=== PATIENT | male | born 1960 | race Caucasian/White ===

== ENCOUNTER 2017-03-24 11:16 | Emergency (ER) | payer SELFPAY ==
[2017-03-24] MEDS ORDERED: NS 0.9% 1000 ML* 1,000 ML IV ONE (11:29)
--- NOTE | 2017-03-24 12:11 | RAD ---
INDICATION: Altered mental status. COMPARISON: Comparison is made with a prior chest x-ray study from January 06, 2015. TECHNIQUE: A portable view of the chest was obtained. FINDINGS: The heart is moderately enlarged and unchanged from the prior exam. The lungs are clear. No pleural effusion is seen. IMPRESSION: CARDIOMEGALY, UNCHANGED. NO EVIDENCE FOR ACUTE FINDING.
--- NOTE | 2017-03-24 12:16 | RAD ---
Indication: Confusion. Mental status change. Urinary incontinence. Comparison: No relevant prior exams available on the [facility]. Technique: Noncontrast CT vertex of skull through foramen magnum. Report: Unremarkable cerebral sulci, ventricles, and basal cisterns. Decreased density in the periventricular and subcortical white matter while non-specific is most likely due to chronic microangiopathy. 6 mm chronic lacunar infarct noted at the RIGHT frontal lobe periventricular white matter. Negative for johnston matter white matter obscuration seen in association with mass effect or intra-axial or extra-axial hemorrhage evident. Unremarkable orbital contents. Large special arterial calcifications noted at the skull base. No fracture or suspicious lesion of the calvarium or skull base. Clear visualized paranasal sinuses and mastoid air spaces. Negative for scalp hematoma. IMPRESSION: 1. No acute intracranial process evident. 2. Small chronic lacunar infarct at the RIGHT frontal lobe periventricular white matter. Stigmata of chronic small vessel ischemic disease and central large vessel atherosclerosis.
[2017-03-24 12:37] LABS: Hematocrit 45 % (42-52); Hemoglobin 14.6 g/dl (14.0-18.0); Mean Corpuscular HGB Conc 32 g/dl (31-36); Mean Corpuscular Hemoglobin 28 pg (27-31); Mean Corpuscular Volume 87 fL (80-94); Mean Platelet Volume 8 um3 (7.4-10.4); Red Cell Distribution Width 13 % (10.5-15); White Blood Count 11.8 10^3/ul (3.5-10.8)
[2017-03-24 12:55] LABS: ALT 18 U/L (7-52); Albumin 3.7 g/dL (3.2-5.2); Alkaline Phosphatase 119 U/L (34-104); BUN/Creatinine Ratio 19.5 (8-20); Blood Urea Nitrogen 15 mg/dL (6-24); CO2 Carbon Dioxide 30 mmol/L (22-32); Calcium 9.2 mg/dL (8.6-10.3); Chloride 97 mmol/L (101-111); Creatine Kinase 51 U/L (10-223); EGFR African American 133.4 (>60); EGFR Non-African American 103.8 (>60); Glucose 292 mg/dL (70-100); Sodium 132 mmol/L (133-145); Total Protein 7.7 g/dL (6.4-8.9)
[2017-03-24 12:56] LABS: Troponin I 0.01 ng/mL (<0.04)
[2017-03-24 13:14] LABS: Alcohol < 10 mg/dL (<10)
[2017-03-24 13:29] LABS: Anion Gap 5 mmol/L (2-11); Potassium 4.2 mmol/L (3.5-5.0); TSH (Thyroid Stimulating Horm) 0.91 mcIU/mL (0.34-5.60)
[2017-03-24 13:30] LABS: AST 13 U/L (13-39)
[2017-03-24 13:32] LABS: Urine Bacteria Absent (Absent); Urine Bilirubin Negative (Negative); Urine Glucose 3+(>=500 mg/dL) (Negative); Urine Nitrite Negative (Negative)
[2017-03-24 14:09] LABS: Magnesium 1.8 mg/dL (1.9-2.7)
[2017-03-24] MEDS ORDERED: Insulin REGULAR(*) 1 UNITS UNIT IV PUSH ONE (14:19)
[2017-03-24 14:35] LABS: Benzodiazepine Urine Screen None Detected (None Detect)
[2017-03-24 15:23] VITALS: BP 196/101
[2017-03-24] MEDS ORDERED: Lisinopril TAB* 5 MG PO ONE (15:26)
--- NOTE | 2017-03-25 16:00 | ED ---
Joseluis Quezada Auryana, scribed for Otf Rangel MD on 03/24/17 at 1156 . Neurological HPI - HPI Summary HPI Summary: 57 year old male presents to the ED with increased confusion and disorientation. Per family - concerned with lapses in memory and fine motor tasks- unable to keep schedule , and son reports that father typically has a very regimented schedule. Family state that symptoms first started (02/02/17)- unsure what may have caused the symptoms. Son reports that he visits him every few days and he has been getting progressively worse. Patient denies any fever, chills, cough, chest pain, SOB, or any headache. Patients family reports that there may be possible tick exposure. PMHx is significant for atrial fibrillation, HTN, and DM. FHx is significant for thyroid problems, CHF , and dementia. - History of Current Complaint Chief Complaint: EDNeurologicalDeficit Stated Complaint: CONFUSION Time Seen by Provider: 03/24/17 11:32 Last Known Well Date: 02/02/17 Hx Obtained From: Patient Onset/Duration: Gradual Onset, Still Present Timing: Constant Onset Severity: Moderate Current Severity: Moderate Neurological Deficit Location: Generalized Pain Intensity: 0 Pain Scale Used: 0-10 Numeric Character: Confusion Associated Signs and Symptoms: Positive: Memory Loss - SHORT TERM, Confusion. Negative: Headache - Allergy/Home Medications Allergies/Adverse Reactions: Allergies Allergy/AdvReac Type Severity Reaction Status Date / Time No Known Allergies Allergy Verified 01/05/15 20:37 PMH/Surg Hx/FS Hx/Imm Hx Cardiovascular History: Reports: Hx Congestive Heart Failure, Hx Hypercholesterolemia, Hx Hypertension - Surgical History Surgery Procedure, Year, and Place: cardioversion 2003 Infectious Disease History: Denies: Traveled Outside the [place] in Last 30 Days - Family History Known Family History: Positive: Other - CHF, thyroid problems and dementia - Social History Alcohol Use: None Substance Use Type: Reports: None Smoking Status (MU): Former Smoker Review of Systems Constitutional: Negative Negative: Fever, Chills Eyes: Negative ENT: Negative Negative: Chest Pain Respiratory: Negative Negative: Shortness Of Breath, Cough Gastrointestinal: Negative Genitourinary: Negative Positive: no symptoms reported Musculoskeletal: Negative Skin: Negative Neurological: Other - increased confusion and issues with fine motor tasks Negative: Headache Psychological: Normal All Other Systems Reviewed And Are Negative: Yes Physical Exam - Summary Physical Exam Summary: VITAL SIGNS: Reviewed. GENERAL: ~Patient is a well-developed and nourished male who is lying comfortable in the stretcher. ~Patient is not in any acute respiratory distress. Patient has poor hygiene and appears dishevel. HEAD AND FACE: No signs of trauma. ~No ecchymosis, hematomas or skull depressions. No sinus tenderness. EYES: PERRLA, EOMI x 2, No injected conjunctiva, no nystagmus. No photophobia. EARS: Hearing grossly intact. Ear canals and tympanic membranes are within normal limits. MOUTH: Oropharynx within normal limits. NECK: Supple, trachea is midline, no adenopathy, no JVD, no carotid bruit, no c- spine tenderness, neck with full ROM. No meningeal signs, no Kernig's or brudzinskis signs. CHEST: Symmetric, no tenderness at palpation LUNGS: Clear to auscultation bilaterally. No wheezing or crackles. CVS: Regular rate and rhythm, S1 and S2 present, no murmurs or gallops appreciated. ABDOMEN: Soft, non-tender. No signs of distention. No rebound no guarding, and no masses palpated. Bowel sounds are normal. EXTREMITIES: FROM in all major joints, no edema, no cyanosis or clubbing. NEURO: Alert and oriented x 3. No acute neurological deficits. Speech is normal and follows commands. SKIN: Dry and warm Triage Information Reviewed: Yes Vital Signs On Initial Exam: Initial Vitals Temp Pulse Resp BP Pulse Ox 98.7 F 88 18 192/96 96 03/24/17 11:20 03/24/17 11:20 03/24/17 11:20 03/24/17 11:20 03/24/17 11:20 Vital Signs Reviewed: Yes Diagnostics - Vital Signs Vital Signs Temp Pulse Resp BP Pulse Ox 03/24/17 11:20 98.7 F 88 18 192/96 96 - Laboratory Result Diagrams: 03/24/17 12:25 03/24/17 12:25 Lab Statement: Any lab studies that have been ordered have been reviewed, and results considered in the medical decision making process. - Radiology CXR Xray Interpretation: Positive (See Comments) - IMPRESSION: CARDIOMEGALY, UNCHANGED. NO EVIDENCE FOR ACUTE FINDING. Radiology Interpretation Completed By: Radiologist - CT BRAIN CT Interpretation: Positive (See Comments) - IMPRESSION: 1. No acute intracranial process evident. 2. Small chronic lacunar infarct at the RIGHT frontal lobe periventricular white matter. Stigmata of chronic small vessel ischemic disease and central large vessel atherosclerosis. CT Interpretation Completed By: Radiologist - EKG 13:10 EKG Interpretation: sinus rhythm @ 83 bpm, new RBBB as compared to EKG done EKG Comparison: Other - change from 01/10/15 Course/Dx - Course Assessment/Plan: 57 year old male presents to the ED with increased confusion and disorientation. Per family - concerned with lapses in memory and fine motor tasks- unable to keep schedule , and son reports that father typically has a very regimented schedule. Family state that symptoms first started memorial (02/02/17)- unsure what may have caused the symptoms. Son reports that he visits him every few days and he has been getting progressively worse. Patient denies any fever, chills, cough, chest pain, SOB, or any headache. Patients family reports that there may be possible tick exposure. PMHx is significant for atrial fibrillation, HTN, and DM. FHx is significant for thyroid problems, CHF , and dementia. Test results show WBC of 11.8, glucose 292. UA negative for U.T.I. UA toxicology positive for cannabinoids. CXR- IMPRESSION: CARDIOMEGALY, UNCHANGED. NO EVIDENCE FOR ACUTE FINDING. HEAD CT IMPRESSION: 1. No acute intracranial process evident. 2. Small chronic lacunar infarct at the RIGHT frontal lobe periventricular white matter. Stigmata of chronic small vessel ischemic disease and central large vessel atherosclerosis. In ED course , the patient was given IV fluids and insulin and his symptoms improved. The patient will be d/c home with f/u to PCP. The patient is ambulating and is A&O x3. The patient will f/u with PCP. - Diagnoses Provider Diagnoses: Confusion, Uncontrolled hypertension Discharge - Discharge Plan Condition: Stable Disposition: HOME Patient Education Materials: Hypertension (ED) Referrals: [facility] [Outside] - 03/26/17 Additional Instructions: PLEASE BE SEEN AT YOUR PRIMARY CARE PHYSICIAN FOR FOLLOW UP AND MANAGEMENT OF UNCONTROLLED HIGH BLOOD PRESSURE. The documentation as recorded by the Joseluis nova Auryana accurately reflects the service I personally performed and the decisions made by Juan Carlos gonzalez Walter, MD.
== END 2017-03-24 16:02 | disposition home or self-care (01) ==
LOC: ED 11:16
DX: I10 Essential (primary) hypertension (principal); R41.3 Other amnesia; R41.0 Disorientation, unspecified; Z87.891 Personal history of nicotine dependence
CPT/HCPCS: 36415; 70450; 71010; 80053; 80307; 80320; 81003; 81015; 82140; 82550; 83605; 83735; 84443; 84484; 85025; 85610; 87040; 87077; 87150; 87205; 93005; 96360; 99282; A9270-GY; G0480

== ENCOUNTER 2017-03-25 14:31 | Emergency (ER) | payer SELFPAY | END 2017-03-25 14:39 | disposition left against medical advice (07) | LOC: UCEAST 14:31 | DX: Z76.0 Encounter for issue of repeat prescription (principal); Z53.21 Procedure and treatment not carried out due to patient leaving prior to being seen by health care provider ==

== ENCOUNTER 2018-04-18 12:19 | Emergency (ER) | payer OTHER ==
--- OUTSIDE RECORDS SUMMARY | 2018-04-18 12:25 | XMS REPORT ---
:1960 External Reference #:[id number] Author Organization [employer] Address [address] [facility] [place] [address] Phone [phone] Care Team Providers Name Role Phone Magdalene Emanuel MD Primary Care Physician Unavailable Payers Type Date Identification Numbers Payment Provider Subscriber Commercial Effective: Policy Number: [id number] Roshan Levy 2017 Group Number: [id number] [address] PayID: [id number] [place] [address] Medigap Part B Expires: 2017 Policy Number: [id number] Medicaid Nabeel Levy Group Name: 1 [address] PayID: [id number] [place] [address] Commercial Effective: 2015 Policy Number: [id number] Roshan Levy Expires: 2016 Group Name: [id number] [address] PayID: [id number] [place] [address] Commercial Effective: 2016 Policy Number: [id number] [facility] Nabeel Levy Expires: 2018 Group Number: [id number] PayID: [id number] [address] Advance Directives Type Date Description Status Comment Other Directive 03/27/2017 Health Care Proxy Current and Verified Problems Date Description Provider Status Onset: 08/09/2013 Atrial fibrillation Arthur Childers M.D., Active [facility] Onset: 05/09/2015 Benign essential hypertension Vi Mendoza M.D. Active Onset: 03/27/2017 Cardiomyopathy Magdalene Emanuel M.D. Active Onset: 04/03/2017 Type 2 diabetes mellitus Magdalene Emanuel M.D. Active Onset: 04/29/2017 Paroxysmal atrial fibrillation Arthur Childers M.D., Active [facility] Onset: 06/11/2017 Altered mental status Phu Toro M.D. Active Onset: 06/11/2017 History of cerebrovascular Phu Toro M.D. Active accident without residual deficits Onset: 07/31/2017 Thoracic aortic ectasia Arthur Childers M.D., Active [facility] Onset: 09/17/2017 Difficulty breathing Phu Toro M.D. Active Onset: 11/12/2017 Obstructive sleep apnea syndrome Rosie Stewart DNP, RN, Active [employer]- Onset: 12/07/2017 Disturbance of consciousness Phu Toro M.D. Active Onset: 12/07/2017 Amnesia Phu Toro M.D. Active Onset: 12/07/2017 Alcohol-induced psychosis Phu Toro M.D. 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 active 06/28/2013 NKDA inactive Medications Medication Date Status Form Strength Qnty SIG Indications Ordering Provider Thiamine HCL 12/07/ Active Tablets 100mg 90tab take 1 F10.19 [facility] 2017 s tablet marie Toro M.D. day Multivitamin 12/07/ Active Tablets Take 1 a kamila Adult 2017 Janeth Toro Glipizide 11/10/ Active Tablets 10mg 60tab 1 by Magdalene 2018 s hi Emanuel M.D. twice daily Chlorthalidone 09/18/ Active Tablets 25mg 30tab 1 by I10 2017 s hi Emanuel M.D. every day Xarelto 05/22/ Active Tablets 20mg 30tab 1 by 2016 s hi Emanuel M.D. every day, take with evening meal Lisinopril 05/05/ Active Tablets 20mg 30tab 1 by I10 Magdalene 2016 s hi Emanuel M.D. every day Atorvastatin 04/03/ Active Tablets 10mg 30tab 1 by Magdalene Calcium 2016 s hi Emanuel M.D. every day Metoprolol 03/27/ Active Tablets 25mg 30tab 1 by 0 Magdalene Succinate ER 2016 ER 24HR s hi Emanuel M.D. every day Ketoconazole 11/10/ Hx Cream 2% 60gm apply R21 2017 - thin film Janeth Emanuel 01/18/ twice 2017 daily to skin on the abdomen Metformin HCL ER 09/18/ Hx Tablets 500mg 30tab 1 by Magdalene 2017 - ER 24HR s hi Emanuel M.D. 11/10/ every day 2017 Glipizide XL 05/15/ Hx Tablets 5mg 30tab 1 PO qd Magdalene 2016 - ER 24HR tess Emanuel M.D. 2017 Xarelto 04/22/ Hx Tablets 15mg 42tab 1 by Magdalene 2016 - s hi Emanuel M.D. 07/09/ twice 2016 daily with food for 21 days. Then switch to the new dose, patient states he is on the higher dose.. No Active 03/27/ Hx Unknown Medications 2016 - 2016 Glipizide XL 03/27/ Hx Tablets 2.5mg 30tab take 1 Magdalene 2017 - ER 24HR s tablet by Janeth Emanuel 2016 every morning Lisinopril 03/27/ Hx Tablets 10mg 30tab 1 by I10 Magdalene 2017 Chuck s hi Emanuel M.D. 05/05/ every day 2016 Xarelto 06/04/ Hx Tablets 20mg 90tab 1 by Arthur Restrepo 2014 Chuck s hi Childers M.D., 03/27/ every day [facility] 2016 Coumadin 05/08/ Hx Tablets 5mg 200ta take 1 Vi 2015 Chuck bs tab daily [place], 06/04/ or as Janeth 2015 directed Lasix 09/28/ Hx Tablets 20mg 1 po qd Arthur Childers M.D., 09/21/ [facility] 2013 Lisinopril 09/28/ Hx Tablets 20mg 90tab 1 po qd Arthur Restrepo 2013 Chuck s pt desi Childers M.D., 09/08/ 10 mg [facility], [facility] 2014 Lasix 09/21/ Hx Tablets 20mg 30tab 1 by Arthur Restrepo 2013 Chuck s hi Childers M.D., 03/27/ day [facility], [facility] 2016 Lisinopril 08/09/ Hx Tablets 10mg 90tab 1 po qd Arthur Restrepo 2012 Chuck Childers M.D., 09/28/ [facility] 2013 Lasix 05/20/ Hx Tablets 40mg 90tab one Arthur Restrepo 2012 Chuck s tablet po Janeth Childers, 09/14/ [facility], [facility] 2013 Xarelto / Hx Tablets 20mg 30tab 1 po qd Unknown 0000 - s 2014 Lisinopril / Hx Tablets 2.5mg 90tab 1 po qd Unknown 0000 - s 2012 Glipizide ER / Hx Tablets 2.5mg 270ta 1 po qd Unknown 0000 - ER 24HR bs 2016 Metoprolol / Hx Tablets 100mg 180ta /2 by Arthur Restrepo Tartrate 0000 - bs hi Childers M.D., 03/27/ twice a [facility] 2016 day Omeprazole / Hx Capsules 20mg 1 by Unknown 0000 - DR mouth 05/09/ every day 2014 Lisinopril / Hx Tablets 10mg 90tab 1 by Arthur Restrepo 0000 Chuck Childers M.D., day [facility] 2016 Medications Administered in Office Medication Date Status Form Strength Qnty SIG Indications Ordering Provider Inj, Administered Injection Arthurelsa Restrepo Regadenoson, 017 [place]var[place], 0.1 MG Janeth, [facility] Techn[employer] TC Administered Injection Rathurelsa Restrepo 99M 017 Alvarado TetrofosminJaneth, [facility], Per Unit Dose [facility] Up To 40 Millicuries Immunizations CPT Code Status Date Vaccine Lot # [id number] Given 09/18/2017 Pneumonia Vaccine [id number] Given 09/18/2017 Influenza Virus Vaccine, Quadrivalent, Split, [id number] Preservative Free Vital Signs Date Vital Result Comment 03/30/2018 Height 72 inches 6'0" Weight 254.00 lb Heart Rate 65 /min BP Systolic Sitting 150 mmHg BP Diastolic Sitting 88 mmHg O2 % BldC Oximetry 94 % BMI (Body Mass Index) 34.4 kg/m2 01/18/2018 Height 72 inches 6'0" Weight 254.00 lb Heart Rate 71 /min BP Systolic Sitting 110 mmHg BP Diastolic Sitting 68 mmHg O2 % BldC Oximetry 93 % BMI (Body Mass Index) 34.4 kg/m2 01/12/2018 Height 72 inches 6'0" Weight 253.12 lb Heart Rate 80 /min BP Systolic Sitting 124 mmHg Lue large cuff BP Diastolic Sitting 76 mmHg Lue large cuff Respiratory Rate 20 /min O2 % BldC Oximetry 95 % On Ra BMI (Body Mass Index) 34.3 kg/m2 12/14/2017 Weight 246.00 lb Heart Rate 74 /min BP Systolic Sitting 160 mmHg BP Diastolic Sitting 90 mmHg Body Temperature 98.7 F O2 % BldC Oximetry 97 % 12/14/2017 Weight 246.00 lb Heart Rate 74 /min BP Systolic Sitting 160 mmHg BP Diastolic Sitting 90 mmHg Body Temperature 98.7 F O2 % BldC Oximetry 97 % 12/07/2017 Height 72 inches 6'0" Weight 145.00 lb Heart Rate 76 /min BP Systolic Sitting 146 mmHg BP Diastolic Sitting 60 mmHg Respiratory Rate 18 /min BMI (Body Mass Index) 19.7 kg/m2 11/12/2017 Height 72 inches 6'0" Weight 235.12 lb Heart Rate 72 /min BP Systolic Sitting 130 mmHg Lue large cuff BP Diastolic Sitting 78 mmHg Lue large cuff Respiratory Rate 20 /min O2 % BldC Oximetry 97 % BMI (Body Mass Index) 31.9 kg/m2 11/10/2017 Weight 233.00 lb Heart Rate 51 /min BP Systolic Sitting 152 mmHg BP Diastolic Sitting 94 mmHg O2 % BldC Oximetry 99 % 10/22/2017 Height 72 inches 6'0" Weight 238.00 lb with shoes Heart Rate 100 /min BP Systolic Sitting 116 mmHg Lue large cuff BP Diastolic Sitting 68 mmHg Lue large cuff O2 % BldC Oximetry 95 % On Ra BMI (Body Mass Index) 32.3 kg/m2 Neck Circumference in inches 17.5 09/18/2017 Height 72 inches 6'0" Weight 245.00 lb Heart Rate 95 /min BP Systolic 166 mmHg BP Diastolic 76 mmHg Body Temperature 97.0 F BMI (Body Mass Index) 33.2 kg/m2 09/17/2017 Height 72 inches 6'0" Weight 235.00 lb Heart Rate 80 /min BP Systolic 190 mmHg BP Diastolic 110 mmHg Respiratory Rate 16 /min BMI (Body Mass Index) 31.9 kg/m2 07/31/2017 Height 72 inches 6'0" Weight 225.00 lb Heart Rate 80 /min BP Systolic Sitting 142 mmHg Ra reg cuff BP Diastolic Sitting 80 mmHg Ra reg cuff BP Systolic Standing 142 mmHg Ra reg cuff BP Diastolic Standing 88 mmHg Ra reg cuff BMI (Body Mass Index) 30.5 kg/m2 Ejection Fraction 55% - 60% echo 05/20/17 06/11/2017 Height 72 inches 6'0" Weight 230.00 lb Heart Rate 80 /min BP Systolic 146 mmHg BP Diastolic 90 mmHg Respiratory Rate 14 /min BMI (Body Mass Index) 31.2 kg/m2 05/15/2017 Weight 232.00 lb Heart Rate 62 /min BP Systolic 130 mmHg BP Diastolic 80 mmHg Body Temperature 99.2 F O2 % BldC Oximetry 97 % 05/05/2017 Weight 230.00 lb Heart Rate 73 /min BP Systolic Sitting 154 mmHg BP Diastolic Sitting 94 mmHg O2 % BldC Oximetry 97 % 04/29/2017 Height 72 inches 6'0" Weight 230.75 lb with shoes Heart Rate 72 /min BP Systolic Sitting 172 mmHg Lue reg cuff BP Diastolic Sitting 110 mmHg Lue reg cuff BP Systolic Standing 168 mmHg Lue reg cuff BP Diastolic Standing 106 mmHg Lue reg cuff Respiratory Rate 17 /min BMI (Body Mass Index) 31.3 kg/m2 04/03/2017 Weight 231.75 lb Heart Rate 63 /min BP Systolic 168 mmHg BP Diastolic 100 mmHg Body Temperature 98.7 F O2 % BldC Oximetry 96 % 03/27/2017 Weight 234.50 lb Heart Rate 110 /min BP Systolic 218 mmHg BP Diastolic 112 mmHg Body Temperature 97.4 F O2 % BldC Oximetry 95 % 08/07/2015 Height 70 inches 5'10" Weight 251.00 lb Heart Rate 68 /min BP Systolic Sitting 146 mmHg Ra large cuff BP Diastolic Sitting 92 mmHg Ra large cuff BP Systolic Standing 142 mmHg Ra BP Diastolic Standing 96 mmHg Ra Respiratory Rate 16 /min BMI (Body Mass Index) 36.0 kg/m2 Ejection Fraction 50-55% 05/08/15 05/09/2015 Height 70 inches 5'10" Weight 238.00 lb w/o shoes Heart Rate 54 /min reg BP Systolic Sitting 134 mmHg Rue, lg cuff BP Diastolic Sitting 86 mmHg Rue, lg cuff BP Systolic Standing 134 mmHg Rue BP Diastolic Standing 82 mmHg Rue Respiratory Rate 18 /min BMI (Body Mass Index) 34.1 kg/m2 Ejection Fraction 50-55% as of 05/08/15 echo 09/28/2013 Height 70 inches 5'10" Weight 242.00 lb Heart Rate 68 /min BP Systolic Sitting 150 mmHg Ra lg cuff BP Diastolic Sitting 98 mmHg Ra lg cuff BP Systolic Standing 140 mmHg Ra lg cuff BP Diastolic Standing 98 mmHg Ra lg cuff Respiratory Rate 20 /min BMI (Body Mass Index) 34.7 kg/m2 08/09/2013 Height 70.5 inches 5'10.50" Weight 235.00 lb Heart Rate 68 /min BP Systolic Sitting 152 mmHg Ra large cuff BP Diastolic Sitting 100 mmHg Ra large cuff BP Systolic Standing 150 mmHg Ra BP Diastolic Standing 98 mmHg Ra Respiratory Rate 18 /min BMI (Body Mass Index) 33.2 kg/m2 Results Test Date Test Result H/L Range Note Lipid Profile (Trig/Chol/HDL) 03/25/2018 Triglycerides 175 mg/dL 1 Cholesterol 115 mg/dL 2 HDL Cholesterol 29.4 mg/dL 3 LDL Cholesterol 51 mg/dL 4 Comp Metabolic Panel 03/25/2018 Sodium 136 mmol/L 135-145 Potassium 4.9 mmol/L 3.5-5.0 Chloride 100 mmol/L Low 101-111 Co2 Carbon Dioxide 29 mmol/L 22-32 Anion Gap 7 mmol/L 2-11 Glucose 215 mg/dL High 70-100 Blood Urea Nitrogen 19 mg/dL 6-24 Creatinine 0.80 mg/dL 0.67-1.17 BUN/Creatinine Ratio 23.8 High 8-20 Calcium 9.0 mg/dL 8.6-10.3 Total Protein 7.1 g/dL 6.4-8.9 Albumin 3.6 g/dL 3.2-5.2 Globulin 3.5 g/dL 2-4 Albumin/Globulin Ratio 1.0 1-3 Total Bilirubin 0.40 mg/dL 0.2-1.0 Alkaline Phosphatase 119 U/L High 34-104 Alt 39 U/L 7-52 Ast 24 U/L 13-39 Egfr Non- 98.9 >60 Egfr 119.7 >60 5 CBC Auto Diff 03/25/2018 White Blood Count 11.8 10^3/uL High 3.5-10.8 Red Blood Count 5.01 10^6/uL 4.00-5.40 Hemoglobin 13.7 g/dL Low 14.0-18.0 Hematocrit 41 % Low 42-52 Mean Corpuscular Volume 82 fL 80-94 Mean Corpuscular Hemoglobin 27 pg 27-31 Mean Corpuscular HGB Conc 34 g/dL 31-36 Red Cell Distribution Width 13 % 10.5-15 Platelet Count 210 10^3/uL 150-450 Mean Platelet Volume 7.6 um3 7.4-10.4 Abs Neutrophils 7.7 10^3/uL 1.5-7.7 Abs Lymphocytes 3.0 10^3/uL 1.0-4.8 Abs Monocytes 0.7 10^3/uL 0-0.8 Abs Eosinophils 0.3 10^3/uL 0-0.6 Abs Basophils 0.1 10^3/uL 0-0.2 Abs Nucleated RBC 0 10^3/uL Granulocyte % 65.2 % 38-83 Lymphocyte % 25.6 % 25-47 Monocyte % 6.2 % 0-7 Eosinophil % 2.5 % 0-6 Basophil % 0.5 % 0-2 Nucleated Red Blood Cells % 0 Laboratory test finding 03/25/2018 Hemoglobin A1c (Glyco 10.0 % High 4.0- 5.6 6 HGB) Urine Microalbumin Random 03/25/2018 Ur Microalbumin (mg/L) 43.8 mg/L Urine Creatinine 204.54 mg/dL Urine Microalbumin/Creatinine 21.4 ug/mg <31 Laboratory test finding 03/25/2018 Hepatitis C Antibody Nonreactive Nonreactive 7 Hepatitis B Sola AB 03/25/2018 Hepatitis B Surface AB Not Immune Immune Titer Hep B Surf AB Level < 3.10 mIU/mL >12 Laboratory test finding 12/14/2017 Hemoglobin A1c 9.0 High 5-7 Order 11/11/2017 [facility] <pending> Comp Metabolic Panel 10/26/2017 Sodium 138 mmol/L 133-145 Potassium 4.7 mmol/L 3.5-5.0 Chloride 100 mmol/L Low 101-111 Co2 Carbon Dioxide 32 mmol/L 22-32 Anion Gap 6 mmol/L 2-11 Glucose 144 mg/dL High 70-100 Blood Urea Nitrogen 17 mg/dL 6-24 Creatinine 0.69 mg/dL 0.67-1.17 BUN/Creatinine Ratio 24.6 High 8-20 Calcium 9.4 mg/dL 8.6-10.3 Total Protein 6.8 g/dL 6.4-8.9 Albumin 3.6 g/dL 3.2-5.2 Globulin 3.2 g/dL 2-4 Albumin/Globulin Ratio 1.1 1-3 Total Bilirubin 0.40 mg/dL 0.2-1.0 Alkaline Phosphatase 99 U/L 34-104 Alt 28 U/L 7-52 Ast 17 U/L 13-39 Egfr Non- 117.8 >60 Egfr 151.5 >60 8 CBC Auto Diff 10/26/2017 White Blood Count 10.6 10^3/uL 3.5-10.8 Red Blood Count 4.82 10^6/uL 4.0-5.4 Hemoglobin 13.5 g/dL Low 14.0-18.0 Hematocrit 39 % Low 42-52 Mean Corpuscular Volume 82 fL 80-94 Mean Corpuscular Hemoglobin 28 pg 27-31 Mean Corpuscular HGB Conc 34 g/dL 31-36 Red Cell Distribution Width 13 % 10.5-15 Platelet Count 211 10^3/uL 150-450 Mean Platelet Volume 8 um3 7.4-10.4 Abs Neutrophils 6.3 10^3/uL 1.5-7.7 Abs Lymphocytes 3.0 10^3/uL 1.0-4.8 Abs Monocytes 0.9 10^3/uL High 0-0.8 Abs Eosinophils 0.3 10^3/uL 0-0.6 Abs Basophils 0.1 10^3/uL 0-0.2 Abs Nucleated RBC 0 10^3/uL Granulocyte % 59.9 % 38-83 Lymphocyte % 28.2 % 25-47 Monocyte % 8.4 % 1-9 Eosinophil % 2.9 % 0-6 Basophil % 0.6 % 0-2 Nucleated Red Blood Cells % 0.1 Laboratory test finding 10/26/2017 PSA Screening 0.391 ng/mL 0-4.000 9 Laboratory test finding 09/18/2017 Hemoglobin A1c 7.8 High 5-7 Creatinine 07/21/2017 Creatinine 0.98 mg/dL 0.67-1.17 Egfr Non- 78.6 >60 Egfr 101.0 >60 10 Laboratory test 07/21/2017 Blood Urea Nitrogen 26 mg/dL High 6-24 finding BUN Laboratory test 05/05/2017 Pathologist Review (SEE NOTE) 11, 12 finding Basic Metabolic Panel 05/05/2017 Sodium 136 mmol/L 133-145 11 Potassium 4.0 mmol/L 3.5-5.0 11 Chloride 100 mmol/L Low 101-111 11 Co2 Carbon Dioxide 29 mmol/L 22-32 11 Anion Gap 7 mmol/L 2-11 11 Glucose 248 mg/dL High 70-100 11 Blood Urea Nitrogen 10 mg/dL 6-24 11 Creatinine 0.63 mg/dL Low 0.67-1.17 11 BUN/Creatinine Ratio 15.9 8-20 11 Calcium 9.0 mg/dL 8.6-10.3 11 Egfr Non- 130.8 >60 11 Egfr 168.2 >60 11, 13 CBC Auto Diff 05/05/2017 White Blood Count 11.8 10^3/uL High 3.5-10.8 11 Red Blood Count 5.46 10^6/uL High 4.0-5.4 11 Hemoglobin 15.2 g/dL 14.0-18.0 11 Hematocrit 45 % 42-52 11 Mean Corpuscular Volume 83 fL 80-94 11 Mean Corpuscular Hemoglobin 28 pg 27-31 11 Mean Corpuscular HGB Conc 34 g/dL 31-36 11 Red Cell Distribution Width 13 % 10.5-15 11 Platelet Count 211 10^3/uL 150-450 11 Mean Platelet Volume 8 um3 7.4-10.4 11 Abs Neutrophils 8.0 10^3/uL High 1.5-7.7 11 Abs Lymphocytes 2.8 10^3/uL 1.0-4.8 11 Abs Monocytes 0.7 10^3/uL 0-0.8 11 Abs Eosinophils 0.2 10^3/uL 0-0.6 11 Abs Basophils 0.1 10^3/uL 0-0.2 11 Abs Nucleated RBC 0.01 10^3/uL 11 Granulocyte % 67.8 % 38-83 11 Lymphocyte % 23.5 % Low 25-47 11 Monocyte % 6.3 % 1-9 11 Eosinophil % 1.9 % 0-6 11 Basophil % 0.5 % 0-2 11 Nucleated Red Blood Cells % 0.1 11 Laboratory test finding 05/05/2017 Erythrocyte Sed Rate 16 mm/Hr 0-20 11 , 14 C Reactive Protein 10.23 mg/L High < 5.00 11, 15 Manual Differential 05/05/2017 Neutrophil % 56 % 38-83 11 Lymphocytes % 13 % Low 25-47 11 Monocytes % 13 % 0-13 11 Eosinophils % 4 % 0-6 11 Reactive Lymph % 14 % High 0-6 11 RBC Morphology Normal Normal 11 Urine Microalbumin Random 04/02/2017 Urine Creatinine 103.64 mg/dL Ur Microalbumin (mg/L) 153.4 mg/L Urine Microalbumin/Creatinine 148.0 ug/mg High <31 Laboratory test 04/02/2017 B-Type Natriuretic 16 pg/mL 16 finding Peptide BNP Laboratory test 04/02/2017 Hemoglobin A1c (Glyco 12.3 % High Less than 6.0 17 finding HGB) Lipid Profile 04/02/2017 Triglycerides 317 mg/dL 18 (Trig/Chol/HDL) Cholesterol 218 mg/dL 19 HDL Cholesterol 37.7 mg/dL 20 LDL Cholesterol 117 mg/dL 21 Laboratory test finding 04/02/2017 Thyroxine 9.28 g/mL 6.09-12.23 22 TSH (Thyroid Stim Horm) 1.89 mcIU/mL 0.34-5.60 23 Vitamin B12 And Folate Serum 04/02/2017 Vitamin B12 490 pg/mL 180-914 24 Folic Acid (Folate) 11.59 ng/mL >3.99 25 Laboratory test finding 04/02/2017 Vitamin B1 (Whole Blood) 165 nmol/L 70 -180 26 Lyme Disease Serology Negative Negative 27 Basic Metabolic Panel 04/02/2017 Sodium 130 mmol/L Low 133-145 Potassium 4.2 mmol/L 3.5-5.0 Chloride 95 mmol/L Low 101-111 Co2 Carbon Dioxide 29 mmol/L 22-32 Anion Gap 6 mmol/L 2-11 Glucose 360 mg/dL High 70-100 Blood Urea Nitrogen 16 mg/dL 6-24 Creatinine 0.79 mg/dL 0.67-1.17 BUN/Creatinine Ratio 20.3 High 8-20 Calcium 9.1 mg/dL 8.6-10.3 Egfr Non- 100.7 >60 Egfr 129.6 >60 28 Laboratory test finding 08/09/2015 Inr/Protime 1.09 0.89-1.11 29 Inr/Protime 06/05/2015 Inr 1.48 High 0.78-1.07 Laboratory test finding 05/29/2015 Inr/Protime 1.42 High 0.78-1.07 30 Inr/Protime 05/17/2015 Inr 1.67 High 0.78-1.07 Basic Metabolic Panel 05/16/2015 Sodium 134 mmol/L 133-145 Potassium 4.3 mmol/L 3.5-5.0 Chloride 102 mmol/L 101-111 Co2 Carbon Dioxide 27 mmol/L 22-32 Anion Gap 5 mmol/L 2-11 Glucose 100 mg/dL 70-100 Blood Urea Nitrogen 32 mg/dL High 6-24 Creatinine 1.03 mg/dL 0.67-1.17 BUN/Creatinine Ratio 31.1 High 8-20 Calcium 8.9 mg/dL 8.6-10.3 Egfr Non- 74.7 >60 Egfr 96.1 >60 31 Inr/Protime 05/07/2015 Inr 1.06 0.78-1.07 Basic Metabolic Panel 10/05/2013 Sodium 134 mmol/L 133-145 Potassium 4.2 mmol/L 3.5-5.0 Chloride 100 mmol/L Low 101-111 Co2 Carbon Dioxide 30.0 mmol/L 22-32 Anion Gap 4.0 mmol/L 2-11 Glucose 127 mg/dL High 70-100 Blood Urea Nitrogen 15 mg/dL 6-24 Creatinine 0.70 mg/dL 0.50-1.40 BUN/Creatinine Ratio 21.4 High 8-20 Calcium 9.2 mg/dL 8.1-9.9 Egfr Non- 117.5 >60 Egfr 151.1 >60 32 Basic Metabolic Panel 05/23/2013 Sodium 134 mmol/L 133-145 33 Potassium 4.4 mmol/L 3.5-5.0 33 Chloride 93 mmol/L Low 101-111 33 Co2 Carbon Dioxide 36.0 mmol/L High 22-32 33 Anion Gap 5.0 mmol/L 2-11 33 Glucose 260 mg/dL High 70-100 33 Blood Urea Nitrogen 11 mg/dL 6-24 33 Creatinine 1.00 mg/dL 0.50-1.40 33 BUN/Creatinine Ratio 11.0 8-20 33 Calcium 8.8 mg/dL 8.1-9.9 33 Egfr Non- 77.9 >60 33 Egfr 100.1 >60 33, 34 1 Desirable: <150 Borderline High: 150-199 High: 200-499 Very High: >500 2 Desirable: <200 Borderline High: 200-239 High: >239 3 Low: <40 Desirable: 40-60 High: >60 4 Desirable: <100 Near Optimal: 100-129 Borderline High: 130-159 High: 160-189 Very High: >189 5 Because ethnic data is not always readily available, this report includes an eGFR for both -Americans and non- Americans. The National Kidney Disease Education Program (NKDEP) does not endorse the use of the MDRD equation for patients that are not between the ages of 18 and 70, are , have extremes of body size, muscle mass, or nutritional status, or are non- or non-. According to the National Kidney Foundation, irrespective of diagnosis, the stage of the disease is based on the level of kidney function: Stage Description GFR(mL/min/1.73 m(2)) 1 Kidney damage with normal or decreased GFR 90 2 Kidney damage with mild decrease in GFR 60-89 3 Moderate decrease in GFR 30-59 4 Severe decrease in GFR 15-29 5 Kidney failure <15 (or dialysis) 6 Therapeutic target for the treatment of diabetes mellitus patients is <7% HBA1C, and in selective patients <6.0%. Please refer to [place] [employer] diabetic care guidelines for further information. 7 FASTING 10 HOUR 8 Because ethnic data is not always readily available, this report includes an eGFR for both -Americans and non- Americans. The National Kidney Disease Education Program (NKDEP) does not endorse the use of the MDRD equation for patients that are not between the ages of 18 and 70, are , have extremes of body size, muscle mass, or nutritional status, or are non- or non-. According to the National Kidney Foundation, irrespective of diagnosis, the stage of the disease is based on the level of kidney function: Stage Description GFR(mL/min/1.73 m(2)) 1 Kidney damage with normal or decreased GFR 90 2 Kidney damage with mild decrease in GFR 60-89 3 Moderate decrease in GFR 30-59 4 Severe decrease in GFR 15-29 5 Kidney failure <15 (or dialysis) 9 Serum levels of PSA measured using the [employer] DXI Hybritech immunoassay should not be interpreted as absolute evidence of the presence or absence of disease. The PSA value should be used in conjunction with other pertinent clinical diagnostic procedures. A PSA value in the range of 0.1 to 0.6 ng/ml is indeterminate if being used as an indicator of recurrent or residual disease. The values obtained with different assay methods or kits cannot be used interchangeably. 10 Because ethnic data is not always readily available, this report includes an eGFR for both -Americans and non- Americans. The National Kidney Disease Education Program (NKDEP) does not endorse the use of the MDRD equation for patients that are not between the ages of 18 and 70, are , have extremes of body size, muscle mass, or nutritional status, or are non- or non-. According to the National Kidney Foundation, irrespective of diagnosis, the stage of the disease is based on the level of kidney function: Stage Description GFR(mL/min/1.73 m(2)) 1 Kidney damage with normal or decreased GFR 90 2 Kidney damage with mild decrease in GFR 60-89 3 Moderate decrease in GFR 30-59 4 Severe decrease in GFR 15-29 5 Kidney failure <15 (or dialysis) 11 [id number] 12 Leukocytosis with absolute neutrophilia suggestive of acute inflammatory/reactive process. Additional studies as clinically warranted. Reviewed by Dr. Marks 13 Because ethnic data is not always readily available, this report includes an eGFR for both -Americans and non- Americans. The National Kidney Disease Education Program (NKDEP) does not endorse the use of the MDRD equation for patients that are not between the ages of 18 and 70, are , have extremes of body size, muscle mass, or nutritional status, or are non- or non-. According to the National Kidney Foundation, irrespective of diagnosis, the stage of the disease is based on the level of kidney function: Stage Description GFR(mL/min/1.73 m(2)) 1 Kidney damage with normal or decreased GFR 90 2 Kidney damage with mild decrease in GFR 60-89 3 Moderate decrease in GFR 30-59 4 Severe decrease in GFR 15-29 5 Kidney failure <15 (or dialysis) 14 [id number] 15 Acute inflammation: >10.00 16 >100 to <200 pg/mL: likely compensated congestive heart failure (CHF) 200 to 400 pg/mL: likely moderate CHF >400 pg/mL: likely moderate to severe CHF 17 Therapeutic target for the treatment of diabetes Mellitus patients is <7% HBA1C, and in selective patients <6.0%.Please refer to [place] [employer] Diabetic care guidelines for further information. 18 Desirable <150 Borderline high 150-199 High 200-499 Very High >500 19 Desirable <200 Borderline high 200-239 High >239 20 Low <40 Desirable: 40-60 High: >60 21 Desirable: <100 mg/dL Near Optimal: 100-129 mg/dL Borderline High: 130-159 mg/dL High: 160-189 mg/dL Very High: >189 mg/dL 22 FASTING 10 HOUR 23 FASTING 10 HOUR 24 Normal Range 180 to 914 Indeterminate Range 145 to 180 Deficient Range <145 25 FASTING 10 HOUR 26 ADDITIONAL INFORMATION This test was developed and its performance characteristics determined by [facility] in a manner consistent with CLIA requirements. This test has not been cleared or approved by the U.S. Food and Drug Administration. Test Performed by: [facility] - [address] [address] 27 Serologic response to B. burgdorferi infection is not detected, but cannot rule out early infection during which low or undetectable antibody levels to B. burgdorferi may be present. If clinically indicated, a new serum specimen should be submitted in 7-14 days. Test Performed by: [address] [address] 28 Because ethnic data is not always readily available, this report includes an eGFR for both -Americans and non- Americans. The National Kidney Disease Education Program (NKDEP) does not endorse the use of the MDRD equation for patients that are not between the ages of 18 and 70, are , have extremes of body size, muscle mass, or nutritional status, or are non- or non-. According to the National Kidney Foundation, irrespective of diagnosis, the stage of the disease is based on the level of kidney function: Stage Description GFR(mL/min/1.73 m(2)) 1 Kidney damage with normal or decreased GFR 90 2 Kidney damage with mild decrease in GFR 60-89 3 Moderate decrease in GFR 30-59 4 Severe decrease in GFR 15-29 5 Kidney failure <15 (or dialysis) 29 PRN EXP: 11/15/15 30 PRN EXP: 11/15/15 31 Because ethnic data is not always readily available, this report includes an eGFR for both -Americans and non- Americans. The National Kidney Disease Education Program (NKDEP) does not endorse the use of the MDRD equation for patients that are not between the ages of 18 and 70, are , have extremes of body size, muscle mass, or nutritional status, or are non- or non-. According to the National Kidney Foundation, irrespective of diagnosis, the stage of the disease is based on the level of kidney function: Stage Description GFR(mL/min/1.73 m(2)) 1 Kidney damage with normal or decreased GFR 90 2 Kidney damage with mild decrease in GFR 60-89 3 Moderate decrease in GFR 30-59 4 Severe decrease in GFR 15-29 5 Kidney failure <15 (or dialysis) 32 Because ethnic data is not always readily available, this report includes an eGFR for both -Americans and non- Americans. The National Kidney Disease Education Program (NKDEP) does not endorse the use of the MDRD equation for patients that are not between the ages of 18 and 70, are , have extremes of body size, muscle mass, or nutritional status, or are non- or non-. According to the National Kidney Foundation, irrespective of diagnosis, the stage of the disease is based on the level of kidney function: Stage Description GFR(mL/min/1.73 m(2)) 1 Kidney damage with normal or decreased GFR 90 2 Kidney damage with mild decrease in GFR 60-89 3 Moderate decrease in GFR 30-59 4 Severe decrease in GFR 15-29 5 Kidney failure <15 (or dialysis) 33 pt to get pcp 34 Because ethnic data is not always readily available, this report includes an eGFR for both -Americans and non- Americans. The National Kidney Disease Education Program (NKDEP) does not endorse the use of the MDRD equation for patients that are not between the ages of 18 and 70, are , have extremes of body size, muscle mass, or nutritional status, or are non- or non-. According to the National Kidney Foundation, irrespective of diagnosis, the stage of the disease is based on the level of kidney function: Stage Description GFR(mL/min/1.73 m(2)) 1 Kidney damage with normal or decreased GFR 90 2 Kidney damage with mild decrease in GFR 60-89 3 Moderate decrease in GFR 30-59 4 Severe decrease in GFR 15-29 5 Kidney failure <15 (or dialysis) Procedures Date CPT Code Description Status 12/14/2017 20669 Polysomnography Sleep Staging 4+ Parameters W/Cpap Completed 11/26/2017 Colonoscopy Completed 11/03/2017 82493 Polysomnography Sleep Staging 4+ Parameters Completed 07/20/2017 85062 Stress Test Completed 07/20/2017 32207 Myocardial Perfusion Imaging Tomographic (Spect) Completed Multiple Studies 06/12/2017 50127 EEG Recording Awake & Drowsy Completed 05/20/2017 55585 ECHO Transthoracic, Real-Time 2D With Doppler And Color Completed Flow 05/20/2017 81265 ECHO Transthoracic, Real-Time 2D With Doppler And Color Completed Flow 04/29/2017 43015 EKG Tracing & Interpretation Completed 04/15/2017 34836 Holter Monitor Review (24 hr)dr lee & interp only Completed 04/09/2017 21125 ECG Monitor/Recording W/Visual Superimposition Scanning Completed 03/27/2017 14767 EKG Tracing & Interpretation Completed 08/07/2015 20492 EKG Tracing & Interpretation Completed 05/09/2015 70614 EKG Tracing & Interpretation Completed 05/08/2015 34194 ECHO Transthoracic, Real-Time 2D With Doppler And Color Completed Flow 01/11/2015 32203 ECHO Transthorasic Realtime 2D W Doppler & Color Flow Completed Hosp 01/10/2015 44364 EKG, Interpretation Only Completed 01/10/2015 49456 Cardioversion Completed 01/10/2015 93081 Color Flow Doppler/Interp & Reprt Completed 01/10/2015 41000 Pulse Wave/Continuous-Interp.RPT Completed 01/10/2015 30143 Echocardiography, Transesophageal, Real Time W/Image 2D Completed W/W/O M-M 01/09/2015 56389 EKG, Interpretation Only Completed 01/07/2015 47267 ECHO Transthorasic Realtime 2D W Doppler & Color Flow Completed Hosp 09/09/2013 73395 ECHO Transthoracic, Real-Time 2D With Doppler And Color Completed Flow 08/09/2013 01487 EKG Tracing & Interpretation Completed 05/25/2013 11977 EKG, Interpretation Only Completed 05/25/2013 65822 Cardioversion Completed 05/20/2013 75236 EKG Tracing & Interpretation Completed 04/06/2013 20988 Color Flow Doppler/Interp & Reprt Completed 04/06/2013 84796 Pulse Wave/Continuous-Interp.RPT Completed 04/06/2013 04689 Echocardiography, Transesophageal, Real Time W/Image 2D Completed W/W/O M-M 04/06/2013 88370 EKG, Interpretation Only Completed Encounters Type Date Location Provider CPT E/M Dx Office Visit 01/18/2018 4:00p [facility] Magdalene Emanuel 72931 I10 - [place]ta Fowler K62.5 E11.65 Z11.59 Office Visit 01/12/2018 1:45p [facility] Rosie Stewart, 15853 G47.33 Services Of Fal[facility] MCDONALD RN, MIXING AND MOLDING MACHINE OPERATOR- Office Visit 12/14/2017 2:40p [facility] Magdalene Emanuel 93971 E11.65 - Loretta Fowler I10 E78.5 K62.5 K64.9 Office Visit 12/07/2017 4:00p [facility] Angustamar Cortez, 93692 G47.33 Services Of Falguni Fowler R40.0 R41.1 F10.19 Office Visit 11/12/2017 1:00p [facility] Rosie Stewart, 82457 G47.33 [facility] TAMARA RN, [facility]- Office Visit 11/10/2017 4:20p [facility] Magdalene Emanuel 68751 K62.5 - [place]ta Fowler L89.300 E11.65 R21 R41.82 Office Visit 10/22/2017 2:30p [facility] [place] [address] R06.83 Services Of [facility] R40.0 Office Visit 09/18/2017 2:00p [facility] Magdalene Emanuel M.D. 86621 I10 - [place] E11.65 Z23 K62.5 Z12.5 Office Visit 09/17/2017 9:15a [facility] Phu Toro, 73036 I69.318 Services Of Falguni Fowler G47.30 I48.0 Z79.01 Office Visit 07/31/2017 8:45a [facility] Of Arthur Childers, 36440 I77.810 Falguni Fowler, S[place], [facility] Office Visit 06/11/2017 1:00p [facility] Phu Toro, 13631 R41.82 Services Of Falguni Fowler Z86.73 I10 Z79.01 Office Visit 05/15/2017 4:40p [facility] Magdalene Emanuel M.D. 67895 I10 - [place] E11.65 R06.83 Office Visit 05/05/2017 9:00a [facility] Magdalene Emanuel M.D. 30973 I10 - [place] E11.65 I63.40 R07.89 R41.82 Office Visit 04/29/2017 11:30a [facility] Arthur Childers, 52451 I48.0 Falguni Fowler, [place], [facility] I45.10 Office Visit 04/03/2017 2:40p [facility] Leo Emanuel M.D. 57347 I10 - [place] E11.65 R41.82 I48.0 Office Visit 03/27/2017 3:40p [facility] Magdalene Emanuel M.D. 36176 I10 - [place] I42.9 E11.9 I48.91 R41.82 Office Visit 08/07/2015 2:00p [facility] Of Arthur Restrepo Childers, 27711 I48.0 Falguni Fowler, [facility], [facility] Office Visit 05/09/2015 12:45p [facility] Of Vi Mendoza M.D. 10366 427.31 Figure Clerk 425.9 401.1 250.00 Office Visit 01/12/2015 4:23p [facility] Nora Bryson, 76168 427.31 Assoc,pc Hospitalists MEbenezer 250.90 428.20 Office Visit 01/11/2015 4:22p [facility] Nora Bryson, 10011 427.31 Assoc,pc Hospitalists MEbenezer 250.90 458.0 428.30 Office Visit 01/10/2015 10:41a [facility] Marcus German, 09790 427.32 M.DCullen 425.4 Office Visit 01/10/2015 4:22p [facility] [address] 427.31 Hospitalists 428.30 250.90 790.6 Office Visit 01/09/2015 4:21p [facility] [address] 427.31 Hospitalists 428.30 250.90 790.6 Office Visit 01/09/2015 11:44a [facility] Of Adan Mckinley, 88240 427.31 Falguni Fowler 425.4 Office Visit 01/08/2015 4:21p [facility] Fiona Durham, 85070 427.31 Hospitalists MEbenezer 428.30 250.90 Office Visit 01/07/2015 4:21p [facility] Fiona Durham, 02902 427.31 Hospitalists MCullenDCullen 428.30 790.6 Office Visit 01/06/2015 4:20p [place], [address] 427.31 Assoc,pc Hospitalists ME[place]enezer 428.30 790.6 276.2 Office Visit 09/28/2013 10:00a [facility] Arthur Childers, 53555 427.31 Falguni Fowler, FACRachelle, [facility] Office Visit 08/09/2013 9:00a [facility] Arthur Childers, 93017 427.31 Falguni Fowler, FACRachelle, FASMN Office Visit 05/20/2013 12:15p [facility] Arthur Childers, 26495 427.32 Falguni Fowler, FACRachelle, [facility] Office Visit 04/09/2013 8:38a [facility] Armando Han, 49260 427.31 Hospitalists MEbenezer 411.1 275.2 790.6 Office Visit 04/08/2013 8:38a [facility] Armando Han, 52457 427.31 Hospitalists MEbenezer 411.1 275.2 790.6 Office Visit 04/08/2013 3:59p [facility] Arthur Childers, 53148 427.31 Falguni Fwoler, OBDULIA, [facility] 786.05 Office Visit 04/07/2013 8:37a [facility] Assoc,pc Armando Han, 10468 427.31 Hospitalists MEbenezer 411.1 275.2 790.6 Office Visit 04/07/2013 1:18p [facility] Adandavina Mckinley, 28943 427.31 Falguni Fowler [facility] [address] 427.31 Hospitalists 411.1 275.2 790.6 Office Visit 04/06/2013 3:00p [facility] Arthur Childers, 64277 427.32 Falguni Fowler, FACRachelle, FASMN 427.31 Office Visit 04/05/2013 8:37a [facility] Nora Bryson, 80876 427.31 Assoc, Hospitalists MEbenezer 411.1 275.2 790.6 Plan of Care Future Appointment(s):10/01/2018 3:00 pm - Magdalene Emanuel M.D. at [facility]07/02/2018 4:00 pm - Magdalene Emanuel M.D. at [facility] - Ghvsnghto93/19/2018 2:15 pm - Rosie Stewart DNP, RN , MIXING AND MOLDING MACHINE OPERATOR- at [facility]03/30/2018 - Magdalene Emanuel M.D.E11.65 Type 2 diabetes mellitus with hyperglycemiaComments:Your A1C is 10 which is way too high I need a copy of your eye examIncrease walking!I expect that when you can get your meds twice a day, the sugars will improve. Will [place] coverHepatitis B vaccine - series of 3Shingrix - series of 2Referral: Ronal Kelley DPM, Surgery, Foot/PodiatristFollow up:[facility] - see me in 3 months for diabetes and 6 months for PEI10 Essential (primary) hypertensionComments:Walking more would help your blood quqkpvgN88.5 Hyperlipidemia, unspecifiedComments:Labs show your LDL ("bad cholesterol") is doing well on the atorvastatin
[2018-04-18 12:31] VITALS: BP 155/85
[2018-04-18] MEDS ORDERED: DOXYcycline CAP(*) 100 MG PO ONE (13:06)
[2018-04-18] MEDS ORDERED: Clindamycin CAP* 150 MG PO ONE (13:07)
--- NOTE | 2018-04-18 13:15 | UC ---
Lower Extremity/Ankle HPI - HPI Summary HPI Summary: Accompanied by former sister in law who states he has presented with ulcer in right foot and redness/swelling of leg for several days. He has diabetic neuropathy and he could not feel the wound. She states he lives alone and has had several strokes for which he takes xarelto. She states he has been complaining on tightness on right leg. He has an aid coming 3 hrs every day. - History of Current Complaint Chief Complaint: UCLowerExtremity Stated Complaint: R FOOT COMPLAINT Time Seen by Provider: 04/18/18 12:39 Hx Obtained From: Family/Pan Puller Onset/Duration: Sudden Onset, Lasting Days Severity Initially: Mild Severity Currently: Moderate Pain Intensity: 1 Aggravating Factor(s): Ambulation Alleviating Factor(s): Elevation - Risk Factors Gout Risk Factors: Age Over 40, Male, Diabetes Septic Arthritis Risk Factor: Negative - Allergies/Home Medications Allergies/Adverse Reactions: Allergies Allergy/AdvReac Type Severity Reaction Status Date / Time No Known Allergies Allergy Verified 04/18/18 12:31 Home Medications: Home Medications Atorvastatin* [Lipitor*] 20 mg PO 1700 04/18/18 [History Confirmed 04/18/18] Multivitamin [Multivitamins] 1 cap PO 04/18/18 [History] Rivaroxaban TAB(*) [Xarelto 10 mg (*)] 10 mg PO DAILY 04/18/18 [History Confirmed 04/18/18] Thiamine HCl [Vitamin B-1] 50 mg PO 04/18/18 [History] PMH/Surg Hx/FS Hx/Imm Hx Endocrine History: Diabetes, Dyslipidemia Cardiovascular History: Hypertension Neurological History: CVA - Surgical History Surgical History: Yes Surgery Procedure, Year, and Place: cardioversion 2003 - 2xs - Family History Known Family History: Positive: Hypertension, Diabetes - Social History Alcohol Use: None Substance Use Type: None Smoking Status (MU): Former Smoker - Immunization History Most Recent Influenza Vaccination: never Most Recent Tetanus Shot: 2004 Most Recent Pneumonia Vaccination: never Review of Systems Musculoskeletal: Edema Neurological: Paresthesia All Other Systems Reviewed And Are Negative: Yes Physical Exam Triage Information Reviewed: Yes Appearance: Well-Appearing, Well-Nourished Vital Signs: Initial Vital Signs Temp 97.4 F 04/18/18 12:27 Pulse 66 04/18/18 12:27 Resp 18 04/18/18 12:27 BP 155/85 04/18/18 12:27 Pulse Ox 96 04/18/18 12:27 Vital Signs Reviewed: Yes Eyes: Positive: Conjunctiva Clear ENT: Positive: Hearing grossly normal, Pharynx normal Neck: Positive: Supple, Nontender Respiratory: Positive: Chest non-tender, Lungs clear, Normal breath sounds, No respiratory distress Cardiovascular: Positive: RRR, No Murmur, Pulses Normal, Brisk Capillary Refill Abdomen Description: Positive: Nontender, No Organomegaly, Soft Bowel Sounds: Positive: Present Musculoskeletal: Positive: ROM Limited @, Edema @ - right leg with soft tissue swelling and erythema. Vesicular rash in clusters on right cruz. Neurological Exam: Other - sensory decreased on both feet Neurological: Positive: Alert Skin Exam: Other Skin: Positive: Other - ulcer on right foot along distal third lateral aspect 5th metatarsal. No discharge, no surrounding erythema, clear borders, 0.8cm in diameter. Lower Extremity Course/Dx - Course Course Of Treatment: start antibiotics as prescribed, discused with family and patient to follow up at Wound center and podiatry. Continue wound care, dressing with bacitracin - Differential Dx/Diagnosis Provider Diagnoses: Diabetic Ulcer. Cellulitis right foot and leg Discharge - Sign-Out/Discharge Documenting (check all that apply): Patient Departure - Discharge Plan Condition: Fair Disposition: HOME Prescriptions: Clindamycin HCl 300 mg PO TID 7 Days #21 capsule DOXYcycline CAP(*) [DOXYcycline 100MG CAP(*)] 100 mg PO BID 7 Days #14 cap Patient Education Materials: Cellulitis (DC), Doxycycline (By mouth), Clindamycin (On the skin) Referrals: Magdalene Emanuel MD [Primary Care Provider] - Raysa Rutledge MD [Medical Doctor] - Additional Instructions: Call wound center at [phone] - Billing Disposition and Condition Condition: FAIR Disposition: Home
--- NOTE | 2018-04-18 13:54 | RAD ---
INDICATION: Diabetic neuropathy with ulcer. TECHNIQUE: 2 views of the right foot were obtained. FINDINGS: There is dorsal and lateral soft tissue swelling and a small amount of gas lateral to the fifth metatarsophalangeal joint possibly related to the patient's ulcer. No periosteal reaction or erosive change is seen. IMPRESSION: SOFT TISSUE SWELLING, NO SPECIFIC EVIDENCE FOR OSTEOMYELITIS. IF THERE IS A HIGH CLINICAL INDEX OF SUSPICION FOR OSTEOMYELITIS CONSIDER AN MRI WITHOUT CONTRAST OR A THREE-PHASE BONE SCAN.
== END 2018-04-18 14:15 | disposition home or self-care (01) ==
LOC: UCEAST 12:19
DX: E11.621 Type 2 diabetes mellitus with foot ulcer (principal); E11.40 Type 2 diabetes mellitus with diabetic neuropathy, unspecified; L03.115 Cellulitis of right lower limb; R60.0 Localized edema; E78.5 Hyperlipidemia, unspecified; Z86.73 Personal history of transient ischemic attack (TIA), and cerebral infarction without residual deficits; Z79.01 Long term (current) use of anticoagulants; Z82.49 Family history of ischemic heart disease and other diseases of the circulatory system; Z83.3 Family history of diabetes mellitus; Z87.891 Personal history of nicotine dependence
CPT/HCPCS: 99213; A9270-GY; G0463

== ENCOUNTER 2018-06-25 14:47 | Inpatient (IN) | payer OTHER ==
--- NOTE | 2018-06-25 15:40 | ED ---
Lower Extremity - HPI Summary HPI Summary: Patient presents with right lower extremity issues since April 2018. He was found to have an ulcerated wound along the lateral aspect of his right foot that was initially treated with antibiotics and improved however this returned and has been getting worse since. He follows w/ Dr. Morrison at the wound clinic has recently been taking clindamycin. His foot and leg have since become red, swollen, warm to touch and his wound is foul smelling. His primary care provider had ordered routine labs today however Dr. Morrison sent him over for concern of possible osteomyelitis - last XR Apr 2018. Patient denies fevers, chills, nausea, vomiting, chest pain, abdominal pain however is sist in law reports he was "sluggish" Thursday - seems like he may be back to baseline but she 's not sure as she doesn't see him every day. He has diabetes and chart indicates peripheral neuropathy which EVGENY confirms. He has had multiple CVA's per EVGENY who sometimes takes care of him reports he is not a good historian. He also has a history of peripheral vascular disease and had an arterial imaging of this lower extremity recently read by Dr. Gates. This reports that although his ABIs are within normal limits bilaterally there were abnormal waveforms and clinical correlation was in order. EVGENY reports he has been diagnosed with peripheral vascular disease. Additionally, he has atrial fibrillation that he treats with Xarelto. - History of Current Complaint Chief Complaint: EDExtremityLower Stated Complaint: RT FOOT/LEG INFECTION Time Seen by Provider: 06/25/18 15:05 Hx Obtained From: Patient, Family/Hooker Up - sister in law Pain Intensity: 2 - Allergies/Home Medications Allergies/Adverse Reactions: Allergies Allergy/AdvReac Type Severity Reaction Status Date / Time No Known Allergies Allergy Verified 04/18/18 12:31 Home Medications: Home Medications Atorvastatin* [Lipitor*] 10 mg PO DAILY 06/25/18 [History Confirmed 06/25/18] Ciprofloxacin TAB* [Cipro 500 MG TAB*] 500 mg PO BID 06/25/18 [History Confirmed 06/25/18] Clindamycin Cap(NF) [Clindamycin Cap 300 mg Cap(NF)] 300 mg PO BID 06/25/18 [ History Confirmed 06/25/18] Lisinopril TAB* [Prinivil TAB*] 20 mg PO DAILY 06/25/18 [History Confirmed 06/25] Metoprolol Succinate XL TAB* [Toprol XL TAB*] 25 mg PO DAILY 06/25/18 [History Confirmed 06/25/18] Multivitamins/Minerals TAB* [Theragran/minerals TAB*] 1 tab PO DAILY 06/25/18 [ History Confirmed 06/25/18] Rivaroxaban TAB(*) [Xarelto 20 mg] 20 mg PO QPM 06/25/18 [History Confirmed ] Thiamine TAB* [Vitamin B-1 TAB*] 100 mg PO DAILY 06/25/18 [History Confirmed ] glipiZIDE TAB* [Glucotrol TAB*] 10 mg PO BID 06/25/18 [History Confirmed ] PMH/Surg Hx/FS Hx/Imm Hx Previously Healthy: Yes Endocrine/Hematology History: Reports: Hx Diabetes - type 2 dm - NIDD Cardiovascular History: Reports: Hx Atrial Fibrillation - on xarelto, Hx Congestive Heart Failure, Hx Hypercholesterolemia, Hx Hypertension, Hx Peripheral Vascular Disease Denies: Hx Pacemaker/ICD GI History: Reports: Other GI Disorders - INCONTINENT BOWEL - PT DOES REALIZE WHEN HE IS History: Denies: Hx Renal Disease Musculoskeletal History: Reports: Other Musculoskeletal History - MOTOR SKILL/ WEAKNESS INCREASED Sensory History: Denies: Hx Hearing Aid Neurological History: Reports: Other Neuro Impairments/Disorders - SHORT TERM MEMORY LOSS, POSSIBLE STROKE Psychiatric History: Denies: Hx Panic Disorder - Surgical History Surgery Procedure, Year, and Place: cardioversion 2004 - 2xs Infectious Disease History: No Infectious Disease History: Denies: Traveled Outside the [place] in Last 30 Days - Family History Known Family History: Positive: Hypertension, Diabetes - Social History Occupation: Disabled Lives: Alone - with home nursing care Alcohol Use: Occasionally Hx Substance Use: No Substance Use Type: Reports: None Hx Tobacco Use: Yes - not currently Smoking Status (MU): Former Smoker Review of Systems Constitutional: Negative Negative: Fever, Chills, Fatigue - however sister reports he was "sluggish" last week - seems baseline today Cardiovascular: Negative Negative: Chest Pain Respiratory: Negative Negative: Shortness Of Breath Gastrointestinal: Other - sister in law reports baseline bowel incontinence + hemorrhoids Negative: Abdominal Pain, Vomiting, Nausea Genitourinary: Negative Positive: Edema Skin: Other - wound Neurological: Negative - baseline mentation per sister in law Psychological: Normal - baseline All Other Systems Reviewed And Are Negative: Yes Physical Exam Triage Information Reviewed: Yes Vital Signs On Initial Exam: Initial Vitals Temp Pulse Resp BP Pulse Ox 98.5 F 90 18 104/48 98 06/25/18 14:50 06/25/18 14:50 06/25/18 14:50 06/25/18 14:50 06/25/18 14:50 Vital Signs Reviewed: Yes Appearance: Positive: Well-Appearing - pt is monotone and reponds but does not confirm some of his diagnoses - on the other hand, is able to tell me he takes an anticoagulant and confirms it's xarelto, No Pain Distress, Well-Nourished Skin: Positive: Warm, Skin Color Reflects Adequate Perfusion, Dry - quarter sized ulcerated wound along Rt lateral 5th MCP - deep and painless - foul smelling but no active d/c; foot and leg are erythematous w/ edema (Rt LE is noticably larger than Lt) - NTTP however pt has neuropathy Head/Face: Positive: Normal Head/Face Inspection Eyes: Positive: EOMI ENT: Positive: Hearing grossly normal Respiratory/Lung Sounds: Positive: Breath Sounds Present Cardiovascular: Positive: Pulses are Symmetrical in both Upper and Lower Extremities Abdomen Description: Positive: Nontender Musculoskeletal: Positive: Strength/ROM Intact Neurological: Positive: Alert, Oriented to Person Place, Time, CN Intact II- III. Negative: Sensory/Motor Intact - motor intact but decreased sensation in B /L LE's Psychiatric: Positive: Other - blunted affect Diagnostics - Vital Signs Vital Signs Temp Pulse Resp BP Pulse Ox 06/25/18 14:50 98.5 F 90 18 104/48 98 - Laboratory Lab Statement: Any lab studies that have been ordered have been reviewed, and results considered in the medical decision making process. Lower Extremity Course/Dx - Course Course Of Treatment: Pt presents w/ worsening of Rt LE wound since April despite wound clinic care and anbx. Labs reveals elevated WBC's (17) w/ left shift, elevated alctic acid 2.7 and elevated CRP 110's. His foot appears infected clinically w/ a foul smelling wound and XR confirms osteomyelitis. Anbx and IV fluids ordered - vitals stable. Denies pain so no meds ordered for this. He is also afebrile so no anti-pyretics ordered. Discussed case w/ Dr. Han who will admit the pt. Stable at time of transition of care. - Diagnoses Provider Diagnoses: Foot osteomyelitis, right, Peripheral neuropathy Discharge - Sign-Out/Discharge Documenting (check all that apply): Patient Departure - Discharge Plan Condition: Stable Disposition: ADMITTED TO [facility] - Billing Disposition and Condition Condition: STABLE Disposition: Admitted to [facility]
[2018-06-25] MEDS ORDERED: Cefepime 2 GM in Dextrose(*) 2 GM/50 ML BAG IV ONE (15:55)
[2018-06-25] MEDS ORDERED: Vancomycin(*) 1,750 MG in NS 0.9% 250 ML* 250 ML IVPB ONE (15:55)
[2018-06-25] MEDS ORDERED: metroNIDAZOLE IV 500 MG/100ML* 500 MG/100 ML BAG IVPB ONE (15:56)
[2018-06-25] MEDS ORDERED: NS 0.9% 1000 ML* 1,000 ML IV ONE (15:58)
[2018-06-25 16:00] LABS: INR 1.61 (0.77-1.02)
[2018-06-25] MEDS ORDERED: NS 0.9% 250 ML* 250 ML ONE (16:18)
--- NOTE | 2018-06-25 16:22 | RAD ---
HISTORY: chronic wound - assess for osteomyelitis COMPARISONS: April 18, 2018 VIEWS: 3 , Frontal, lateral, and oblique views of the right foot FINDINGS: BONE DENSITY: Normal. BONES: There has been interval development of erosion of the head of the right fifth metatarsal and base of the fifth proximal phalanx. There are calcaneal enthesophytes. JOINTS: There is osteoarthritis of the interphalangeal joints and of the midfoot. ALIGNMENT: There is no dislocation. SOFT TISSUES: Unremarkable. OTHER FINDINGS: None. IMPRESSION: THERE HAS BEEN INTERVAL DEVELOPMENT OF THE HEAD OF THE FIFTH METATARSAL AND BASE OF THE FIFTH PROXIMAL PHALANX CONSISTENT WITH OSTEOMYELITIS GIVEN THE CLINICAL HISTORY
[2018-06-25] MEDS ORDERED: Vancomycin(*) 1,750 MG in NS 0.9% 500 ML* 500 ML IVPB ONE (16:30)
[2018-06-25] MEDS ORDERED: NS 0.9% 1000 ML*IV.FLUID IV ONE (16:30)
[2018-06-25] MEDS ORDERED: Dextrose 50% Syringe 50 ML* 25 GM/50 ML SYRINGE IV PUSH PRN (17:05)
--- NOTE | 2018-06-25 17:07 | ADMNOTE ---
Subjective Date of Service: 06/25/18 Interval History: ADMISSION HISTORY AND PHYSICAL EXAM: Allergies Allergy/AdvReac Type Severity Reaction Status Date / Time No Known Allergies Allergy Verified 04/18/18 12:31 Home Medications Medication Instructions Recorded Confirmed Type Atorvastatin* [Lipitor*] 10 mg PO DAILY 06/25/18 06/25/18 History Ciprofloxacin TAB* [Cipro 500 MG 500 mg PO BID 06/25/18 06/25/18 History TAB*] Clindamycin Cap(NF) [Clindamycin 300 mg PO BID 06/25/18 06/25/18 History Cap 300 mg Cap(NF)] Lisinopril TAB* [Prinivil TAB*] 20 mg PO DAILY 06/25/18 06/25/18 History Metoprolol Succinate XL TAB* 25 mg PO DAILY 06/25/18 06/25/18 History [Toprol XL TAB*] Multivitamins/Minerals TAB* 1 tab PO DAILY 06/25/18 06/25/18 History [Theragran/minerals TAB*] Rivaroxaban TAB(*) [Xarelto 20 mg] 20 mg PO QPM 06/25/18 06/25/18 History Thiamine TAB* [Vitamin B-1 TAB*] 100 mg PO DAILY 06/25/18 06/25/18 History glipiZIDE TAB* [Glucotrol TAB*] 10 mg PO BID 06/25/18 06/25/18 History HPI: The patient has been folowed at the Wound Clinic about 2 months. He was referred to a step finisher. An outpt MRI was planned but not yet scheduled. He was referred by the Wound Clinic for admission for a worsening wound situation. He denies pain, fever, chills, sweats. Appetite OK. Family History: Findings - unremarkable Social History: Findings - Lives alone. No recent smoking, no recent heavy drinking. Has aides 6 nights a week. SDM is his sister Caitlin Gant in [place]. Past Medical History: Unchanged from Admission - Former heavy drinker, former smoker. Atrial fib/flutter with atrial appendage clot, HTN, DM, hx poor compliance, old CVA. Review of Systems - Measurements Intake and Output: Intake and Output Last 24 Hours 06/23/18 06/24/18 06/25/18 06/26/18 06:59 06:59 06:59 06:59 Weight 245 lb - Review of Systems Constitutional Symptoms: Negative: Weight Gain, Weight Loss, Weakness, Fatigue, Fever, Night Sweats, Unexplained Falls, Other Dermatology: Positive: Normal HEENT: Positive: Normal Eyes: Positive: Normal Thyroid: Positive: Normal Pulmonary: Positive: Normal Cardiology: Positive: Normal Gastroenterology: Positive: Normal Genital - Urinary: Positive: Normal Endocrinology: Positive: Obesity, Diabetes Mellitus Hematologic/Lymphatic: Positive: Anemia Neurology: Positive: Other - diminished memory Psychiatry: Positive: Normal Allergic/Immunologic: Negative: Hx Anaphylaxis, Hx Angioedema, Hx Environmental, Hx Seasonal, Athsma, Hx HIV, Immunocompromise, Swollen Glands LymphNodes, Other Objective Active Medications: Vancomycin HCl 1,750 mg/ (Sodium Chloride) 500 mls @ 250 mls/hr IVPB ONCE ONE Stop: 06/25/18 18:29 Vital Signs - 8 hr 06/25/18 14:50 Temperature 98.5 F Pulse Rate 90 Respiratory 18 Rate Blood Pressure 104/48 (mmHg) O2 Sat by Pulse 98 Oximetry Oxygen Devices in Use Now: Nasal Cannula Appearance: Alert, partly up on ED stretcher. Passive, very flat affect. Looks comfortable. Eyes: No Scleral Icterus Neck: NL Appearance and Movements; NL JVP, No Thyroid Enlargement, Masses Respiratory: Symmetrical Chest Expansion and Respiratory Effort, Clear to Auscultation, Clear to Percussion Cardiovascular: NL Sounds; No Murmurs; No JVD, RRR, No Edema, - Abdominal: NL Sounds; No Tenderness; No Distention, No Hepatosplenomegaly, - - obese Extremities: No Clubbing, Cyanosis, - - 1+ edema BL Skin: No Nodules or Sclerosis, - - 1 cm ulcer R lateral foot over 5th MTP joint. Both legs diffusely mildly pink, could be his fair complexion Neurological: NL Sensation - Gave his age as 45, present month August. Very passive, flat affect. No tremor. No sensation when his wound was probed. Microbiology and Other Data: Microbiology 06/25/18 16:07 Gram Stain - Final Foot Right Assess/Plan/Problems-Billing Assessment: - Patient Problems (1) Osteomyelitis of left foot Current Visit: Yes Status: Acute Code(s): M86.9 - OSTEOMYELITIS, UNSPECIFIED SNOMED Code(s): 2053407688460445 Comment: MRI after 8 PM 06/25. Dr. Bravo' notes appreciated. Hold rivaroxaban in anticipation of possible procedure/surgery. Continue cefepime, vancomycin, metro. (2) Diabetes Current Visit: Yes Status: Acute Code(s): E11.9 - TYPE 2 DIABETES MELLITUS WITHOUT COMPLICATIONS SNOMED Code(s): 89095837 Comment: Hold glipizide. Lispro by SS achs. Start glargine insulin 20 u q 24 hr 06/26 3 PM. (3) Memory loss Current Visit: Yes Status: Acute Comment: Chronic as per sister in law at bedside. His sister and SDM Caitlin Gant will be driving her from [place] and can help with any consent issues. Continue thiamine. (4) Cardiomyopathy Current Visit: Yes Status: Acute Code(s): I42.9 - CARDIOMYOPATHY, UNSPECIFIED SNOMED Code(s): 99929345 Comment: LVEF 20-25% 01/2015. Repeat echo 06/27.
--- NOTE | 2018-06-25 17:34 | RAD ---
HISTORY: Rt calf redness, swelling COMPARISONS: None relevant TECHNIQUE: Multiple transverse and longitudinal ultrasound images were obtained of the right lower extremity from the level of the common femoral vein inferiorly through to the infrapopliteal veins using grayscale, color Doppler, and spectral Doppler imaging with and without compression and with augmentation. Comparison images were obtained of the contralateral common femoral vein. FINDINGS: VEINS: The venous system of the right lower extremity is compressible throughout its course, with normal flow on color Doppler imaging and normal response to augmentation on spectral Doppler imaging. SOFT TISSUES: There is subcutaneous edema of the calf OTHER FINDINGS: None. IMPRESSION: NO RIGHT LOWER EXTREMITY DEEP VEIN THROMBOSIS
[2018-06-25] MEDS ORDERED: Vancomycin(*) 0 MG in NS 0.9% 250 ML* 250 ML IVPB SCH (18:00)
[2018-06-25] MEDS ORDERED: Vancomycin per Pharmacy* NOTE FOLLOW UP PRN (19:31)
--- NOTE | 2018-06-25 21:55 | RAD ---
EXAM: MR Right Lower Extremity Without Intravenous Contrast, Foot CLINICAL HISTORY: 58 years old, male; Signs and symptoms and condition or disease; Other: Ulcerative wound; Cellulitis and edema and swelling, leg or foot; Yes, it is localized; Right; Patient HX: C/O redness, swelling and warmth to right foot. H/o ulcerated wound along lateral aspect of right foot; Additional info: R foot osteomyelitis TECHNIQUE: Multiplanar magnetic resonance images of the right foot without intravenous contrast. COMPARISON: DX JACINTA R FOOT RIGHT 3+ VWS 06/25/2018 3:49 PM FINDINGS: Limitations: Surrounding cellulitis. There is not a well-defined abscess however absence of contrast limits the evaluation. Bones/joints: Osteomyelitis with bony destruction and pathologic fracture distal fifth metatarsal and to lesser extent the base of the proximal phalanx of the little toe. The marrow signal abnormality extends into the proximal third of the metatarsal shaft some of which may be reactive, and involves the entire proximal phalanx. IMPRESSION: 1. Osteomyelitis with bony destruction and pathologic fracture distal fifth metatarsal and to lesser extent the base of the proximal phalanx of the little toe. The marrow signal abnormality extends into the proximal third of the metatarsal shaft some of which may be reactive, and involves the entire proximal phalanx. 2. Surrounding cellulitis. There is not a well-defined abscess however absence of contrast limits the evaluation. To contact [facility] with a general question: [facility] - [phone] For direct physician to physician contact: Physician Hotline - [phone] [facility] ([facility] Facility ID #[id number])
[2018-06-25] MEDS: Insulin LISPRO* 1 UNITS UNIT SUBCUT SCH (22:42)
[2018-06-26] MEDS: metroNIDAZOLE IV 500 MG/100ML* 500 MG/100 ML BAG IVPB SCH ×3 (01:18→17:52)
[2018-06-26] MEDS: Vancomycin(*) 1,250 MG in NS 0.9% 250 ML* 250 ML IVPB SCH ×3 (02:20→20:57)
[2018-06-26] MEDS: Cefepime 2 GM in Dextrose(*) 2 GM/50 ML BAG IV SCH ×2 (04:18→17:11)
[2018-06-26] MEDS: Atorvastatin* 10 MG TAB PO SCH (09:50)
[2018-06-26] MEDS: Thiamine TAB* 100 MG TAB PO SCH (09:50)
[2018-06-26] MEDS: Insulin LISPRO* 1 UNITS UNIT SUBCUT SCH ×4 (09:51→22:51)
[2018-06-26] MEDS: Metoprolol Succinate XL TAB* 25 MG PO SCH (09:51)
[2018-06-26] MEDS: Enoxaparin(*) 40 MG/0.4 ML SYR SUBCUT SCH (09:52)
--- NOTE | 2018-06-26 11:15 | PN ---
Progress Note - Progress Note Date of Service: 06/26/18 Note: Full consult note dictated by MELISSA Garcia. Patient seen and examined by me. He is a poorly controlled diabetic with a right foot wound lateral to the fifth metatarsal head that is now infected. He had been following in the wound clinic. He has osteomyelitis. MRI has been done. He had ROSAS's in early June however he has severely calcified small vessels at the ankle. He will likely require and wound debridement and some form of partial amputation. I will consult with my foot and ankle partners. Continue antibiotics and wound care for now. Surgery would be sometime next week, potentially Thursday.
--- NOTE | 2018-06-26 12:34 | CONS ---
AMENDED REPORT NOW INCLUDES DATE OF CONSULT - ESIGNED BEFORE ADJUSTMENT CONSULTATION REPORT: DATE OF CONSULT: 06/26/18 DATE OF ADMISSION: 06/25/18 PRINCIPAL DIAGNOSIS: Osteomyelitis of the right foot. HISTORY OF PRESENT ILLNESS: Mr. Levy is a 58-year-old gentleman with a right foot wound, which is being treated at the wound clinic for the last few months. He presented to the wound clinic yesterday and was sent to the ER for further evaluation of worsening wound, which was foul smelling of his right foot. PAST MEDICAL HISTORY: Diabetes, AFib, peripheral vascular disease, hypertension , high cholesterol, renal disease, short-term memory loss, panic disorder. PAST SURGICAL HISTORY: Cardioversion. FAMILY HISTORY: Hypertension and diabetes. SOCIAL HISTORY: He is a 58-year-old gentleman, lives alone with home nursing which comes 6 days a week. REVIEW OF SYSTEMS: Complete 14-point review of systems was reviewed with the patient. It is positive for bilateral neuropathy. Denied a history of DVT, PE , chest pain, shortness of breath. PHYSICAL EXAMINATION: He was afebrile. His vital signs were stable. Musculoskeletal: Right lower extremity: There is a quarter size open wound at the right fifth metatarsal head, which is foul smelling, but there is no active drainage. There is some swelling and erythema involving the entire right foot. He has a 1+ pitting edema with a 1+ pulse. He is able to dorsiflex and plantar flex. He has diminished sensation, but with no neuropathy. IMAGING STUDIES: An MRI of the right lower extremity completed 06/25/18, showed some osteomyelitis with bony destruction of the distal fifth metatarsal in the base of the proximal phalanx of the little toe. It extends into the proximal third of the metatarsal shaft with surrounding cellulitis. ASSESSMENT AND PLAN: Mr. Levy is a 58-year-old gentleman with a history of diabetes, history of an open wound of his right foot for the last few months, which has gotten significantly worse. The MRI does show some osteomyelitis. He was admitted to the hospital 06/25/18 and started on IV antibiotics. We have ordered ABIs and we will await the results of these to determine further treatment plan. At this time, he will be nonweightbearing of the right lower extremity. MELISSA ZENDEJAS [id number]/[facility] #: [id number] [facility] CENTERMichael
--- NOTE | 2018-06-26 14:40 | PN ---
Subjective Date of Service: 06/26/18 Interval History: No pain. Good appetite. Walks to BR only. Nl BM since admission. No cough, SOB. Family History: Findings - unremarkable Social History: Findings - Lives alone. No recent smoking, no recent heavy drinking. Has aides 6 nights a week. SDM is his sister Caitlin Gant in [place]. Past Medical History: Unchanged from Admission - Former heavy drinker, former smoker. Atrial fib/flutter with atrial appendage clot, HTN, DM, hx poor compliance, old CVA. Objective Active Medications: Atorvastatin Calcium (Lipitor*) 10 mg PO DAILY [facility] Last Admin: 06/26/18 09:50 Dose: 10 mg Dextrose (D50w Syringe 50 Ml*) 12.5 gm IV PUSH .FOR FS < 60 - SS PRN PRN Reason: FS < 60 Enoxaparin Sodium (Lovenox(*)) 40 mg SUBCUT Q24H [facility] Last Admin: 06/26/18 09:52 Dose: 40 mg Cefepime HCl (Maxipime 2 Gm In Dextrose Duplex (*)) 2 gm in 50 mls @ 100 mls/ hr IV Q12H [facility] Last Admin: 06/26/18 04:18 Dose: 100 mls/hr Metronidazole/Sodium Chloride (Flagyl 500 Mg Ivpb*) 500 mg in 100 mls @ 100 mls /hr IVPB Q8H [facility] Last Admin: 06/26/18 09:55 Dose: 100 mls/hr Vancomycin HCl 1,250 mg/ (Sodium Chloride) 250 mls @ 166.667 mls/hr IVPB Q8H [facility] Last Admin: 06/26/18 11:17 Dose: 166.667 mls/hr Insulin Glargine (Lantus(*)) 20 units SUBCUT Q24H [facility] Insulin Human Lispro (Humalog*) 0 units SUBCUT ACHS [facility]; Protocol Last Admin: 06/26/18 13:31 Dose: 9 unit Metoprolol Succinate (Toprol Xl Tab*) 25 mg PO DAILY [facility] Last Admin: 06/26/18 09:51 Dose: 25 mg Pharmacy Consult (Vancomycin Per Pharmacy*) 1 note FOLLOW UP . PRN PRN Reason: PER PROTOCOL Pharmacy Profile Note (Vancomycin Trough Check) 1 note FOLLOW UP 1830 ONE Stop: 06/26/18 18:31 Thiamine HCl (Vitamin B-1 Tab*) 100 mg PO DAILY [facility] Last Admin: 06/26/18 09:50 Dose: 100 mg Vital Signs - 8 hr 06/26/18 06/26/18 06/26/18 07:34 07:52 11:20 Temperature 98.2 F 99.0 F Pulse Rate 97 93 Respiratory 16 16 16 Rate Blood Pressure 149/83 145/74 (mmHg) O2 Sat by Pulse 93 93 95 Oximetry Oxygen Devices in Use Now: None Appearance: Alert, partly up in bed. Flat affect. Looks comfortable. Eyes: No Scleral Icterus Respiratory: Symmetrical Chest Expansion and Respiratory Effort, Clear to Auscultation, Clear to Percussion Cardiovascular: NL Sounds; No Murmurs; No JVD, RRR, No Edema, - Abdominal: - - obese, soft, nl BS, not tender Extremities: No Edema, No Clubbing, Cyanosis, - - R foot bandaged. Skin: No Nodules or Sclerosis, - - mild erythems mid R pretibial area, rest of erythema from yesterday has resovled Neurological: Alert and Oriented x 3, NL Sensation - No tremor. Microbiology and Other Data: Microbiology 06/25/18 16:07 Gram Stain - Final Foot Right Assess/Plan/Problems-Billing Assessment: - Patient Problems (1) Osteomyelitis of left foot Current Visit: Yes Status: Acute Code(s): M86.9 - OSTEOMYELITIS, UNSPECIFIED SNOMED Code(s): 1610808329407713 Comment: MRI after 8 PM 06/25. Dr. Bravo' notes appreciated. Hold rivaroxaban in anticipation of possible procedure/surgery. Continue cefepime, vancomycin, metro. (2) Diabetes Current Visit: Yes Status: Acute Code(s): E11.9 - TYPE 2 DIABETES MELLITUS WITHOUT COMPLICATIONS SNOMED Code(s): 45650074 Comment: Hold glipizide. Lispro by achs. Start glargine insulin 20 u q 24 hr 06/26 3 PM. (3) Memory loss Current Visit: Yes Status: Acute Comment: Chronic as per sister in law at bedside. His sister and SDM Caitlin Gant will be driving her from [place] and can help with any consent issues. Continue thiamine. (4) Cardiomyopathy Current Visit: Yes Status: Acute Code(s): I42.9 - CARDIOMYOPATHY, UNSPECIFIED SNOMED Code(s): 04959625 Comment: LVEF 20-25% 01/2015. Repeat echo 06/27.
[2018-06-26] MEDS: Insulin GLARGINE(*) 1 UNITS UNIT SUBCUT SCH (15:33)
[2018-06-26] MEDS ORDERED: Vancomycin Trough Check NOTE FOLLOW UP ONE (18:30)
[2018-06-26] MEDS: Vancomycin(*) 1,000 MG in NS 0.9% 250 ML* 250 ML IVPB SCH (20:07)
[2018-06-27] MEDS: metroNIDAZOLE IV 500 MG/100ML* 500 MG/100 ML BAG IVPB SCH ×3 (00:51→17:44)
[2018-06-27] MEDS ORDERED: Metoprolol Tartrate TAB* 25 MG PO ONE (01:09)
[2018-06-27] MEDS: Cefepime 2 GM in Dextrose(*) 2 GM/50 ML BAG IV SCH ×2 (04:22→16:39)
[2018-06-27] MEDS: Vancomycin(*) 1,000 MG in NS 0.9% 250 ML* 250 ML IVPB SCH ×3 (05:17→21:02)
--- NOTE | 2018-06-27 06:50 | PN ---
Progress Note - Progress Note Date of Service: 06/27/18 SOAP: Subjective: resting with no complaints of pain Objective: Vital Signs Temp Pulse Resp BP Pulse Ox 98.9 F 71 16 132/63 95 06/27/18 04:18 06/27/18 04:18 06/27/18 04:18 06/27/18 04:18 06/27/18 04:18 Laboratory Last Values ESR 76 mm/Hr (0-20) H 06/25/18 15:42 INR (Anticoag Therapy) 1.61 (0.77-1.02) H 06/25/18 15:42 APTT 34.8 seconds (26.0-36.3) 06/25/18 15:42 POC Glucose (mg/dL) 265 mg/dL (70-100) H 06/26/18 22:41 Glucose Meter Confirm 433 mg/dL (70-100) H 06/25/18 22:04 Lactic Acid 0.7 mmol/L (0.5-2.0) 06/26/18 06:01 C-Reactive Protein 117.98 mg/L (<8.01) H 06/25/18 15:41 Vancomycin Trough 20.1 mcg/mL 06/26/18 18:06 PE: 1+ pitting edema, 1+ DP pulse, diminished sensation B/L LE's, open wound with no active drainage right 5th metatarsal head/ foul smelling Assessment: osteomyelitis right foot Plan: 1) Continue IV antibiotics 2) NWB RLE 3) NPO after midnight- OR tomorrow with Dr. Raza
[2018-06-27] MEDS: Thiamine TAB* 100 MG TAB PO SCH (08:41)
[2018-06-27] MEDS: Atorvastatin* 10 MG TAB PO SCH (08:41)
[2018-06-27] MEDS: Insulin LISPRO* 1 UNITS UNIT SUBCUT SCH ×4 (08:41→21:02)
[2018-06-27] MEDS: Metoprolol Succinate XL TAB* 25 MG PO SCH (08:44)
[2018-06-27] MEDS: Enoxaparin(*) 40 MG/0.4 ML SYR SUBCUT SCH (08:44)
[2018-06-27] MEDS ORDERED: Pneumococcal *Vac Polyvalent 0.5 ML VIAL IM ONE (09:00)
--- NOTE | 2018-06-27 11:07 | ECHO ---
Patient: KIRK ZARAGOZA [facility] Rec#: [id number] : 1960 Date: 06/27/2018 Age: 58y Height: 183 cm / 72.0 in Weight: 110 kg / 242.4 lbs Sex: M BSA: 2.31 Room#: [facility] Admit Date#: 06/25/2018 Type: Inpatient Referring: Armando Han MD Reading: Vi Mendoza MD Director Of [employer] Facility: Erin Sterling RDCS,RDMS CC: Magdalene Emanuel MD Transthoracic Echocardiogram Indication: Cardiomyopathy BP: 132/63 HR: 76 Rhythm: NSR Findings History: ETOH, smoker, AFIB/FLUTTER, PRICILLA clot, HTN, DM, CVA Technical Comments: The study quality is fair. Left Ventricle: The left ventricular chamber size is normal. Mild to moderate concentric left ventricular hypertrophy is observed. Global left ventricular wall motion and contractility are within normal limits.Endocardium best seen in subcostal views. The estimated ejection fraction is 55-60%. There is no consistent Doppler evidence of clinically significant diastolic dysfunction. Left Atrium: The left atrium is mildly dilated. Right Ventricle: The right ventricular chamber size and systolic function are within normal limits. Right Atrium: The right atrium is mildly dilated. Aortic Valve: The aortic valve is trileaflet. The aortic valve leaflets are mildly thickened. There is no evidence of aortic regurgitation. There is no evidence of aortic stenosis. Mitral Valve: The mitral valve leaflets appear normal. There is no evidence of mitral regurgitation. There is no evidence of mitral stenosis. Tricuspid Valve: The tricuspid valve leaflets are normal. There is no evidence of tricuspid valve regurgitation. Unable to estimate the right ventricular systolic pressure. Pulmonic Valve: The pulmonic valve appears normal. There is a trace pulmonic regurgitation. Pericardium: There is no significant pericardial effusion. Aorta: The aortic root appears normal. There is no dilatation of the aortic arch. Pulmonary Artery: The main pulmonary artery appears normal. Venous: The inferior vena cava appears normal in size. There is a greater than 50% respiratory change in the inferior vena cava dimension. Conclusions Mild to moderate concentric left ventricular hypertrophy is observed. Global left ventricular wall motion and contractility are within normal limits, (endocardium best seen in subcostal views.) The estimated ejection fraction is 55-60%. The right ventricular chamber size and systolic function are within normal limits. Mild atrial enlargement. The aortic valve leaflets are mildly thickened with normal function. Grossly normal function of mitral, tricuspid and pulmonic valves Compared with prior echo of 01/06/15, EF has improved from 20-25% (LV) and RV systolic function has normalized, previously moderate to severe hypokinesis noted. Measurements Name Value Normal Range RVIDd (AP) 2D 2.7 cm (0.9 - 2.6) RVDdMajor (2D) 3.8 cm (2.2 - 4.4) RAd ISD 4CH 5.7 cm (3.4 - 4.9) RA (A4C)W 3.7 cm (2.9 - 4.6) IVSd (2D) 1.5 cm (0.6 - 1) LVPWd (2D) 1.4 cm (0.6 - 1) LVIDd (2D) 4.5 cm (3.6 - 5.4) LVIDs (2D) 2.7 cm - LV FS (2D) 41 % (25 - 45) Aortic Annulus 2.3 cm (1.4 - 2.6) Ao root diameter (2D) 2.9 cm (2.1 - 3.5) Ascending Ao 3.1 cm (2.1 - 3.4) Aortic arch 3.1 cm (1.8 - 3.4) LA dimension (AP) 2D 2.9 cm (2.3 - 3.8) LAd ISD 4CH 6.7 cm (2.9 - 5.3) LA ISD 4CH W 3.6 cm (2.5 - 4.5) Name Value Normal Range LA ESV BP (A/L) index 26 ml/m2 - Name Value Normal Range MV E-wave Vmax 0.7 m/sec - MV deceleration time 187 msec - MV A-wave Vmax 0.8 m/sec - MV E:A ratio 0.8 ratio - LV septal e' Vmax 0.06 m/sec - LV lateral e' Vmax 0.06 m/sec - LV E:e' septal ratio 11 ratio - LV E:e' lateral ratio 11 ratio - Name Value Normal Range AV Vmax 1 m/sec - AV VTI 23 cm - AV peak gradient 4 mmHg - AV mean gradient 2 mmHg - LVOT Vmax 0.9 m/sec - LVOT VTI 20 cm - LVOT peak gradient 3.2 mmHg - LVOT mean gradient 2 mmHg - LEONORA Vmax 0.7 m/sec - Name Value Normal Range IVC diameter 1.2 cm - Name Value Normal Range PV Vmax 0.6 m/sec - PV peak gradient 1.4 mmHg -
[2018-06-27] MEDS: Insulin GLARGINE(*) 1 UNITS UNIT SUBCUT SCH (14:57)
[2018-06-27] MEDS ORDERED: Insulin GLARGINE(*) 1 UNITS UNIT SUBCUT ONE (15:43)
--- NOTE | 2018-06-27 15:55 | PN ---
Subjective Date of Service: 06/27/18 Interval History: No new c/o. No pain. No bowel c/o. Good appetite. No cough, SOB, chest pain. Family History: Findings - unremarkable Social History: Findings - Lives alone. No recent smoking, no recent heavy drinking. Has aides 6 nights a week. SDM is his sister Caitlin Gant in [place]. Past Medical History: Unchanged from Admission - Former heavy drinker, former smoker. Atrial fib/flutter with atrial appendage clot, HTN, DM, hx poor compliance, old CVA. Objective Active Medications: Atorvastatin Calcium (Lipitor*) 10 mg PO DAILY [facility] Last Admin: 06/27/18 08:41 Dose: 10 mg Dextrose (D50w Syringe 50 Ml*) 12.5 gm IV PUSH .FOR FS < 60 - SS PRN PRN Reason: FS < 60 Enoxaparin Sodium (Lovenox(*)) 40 mg SUBCUT Q24H [facility] Last Admin: 06/27/18 08:44 Dose: 40 mg Cefepime HCl (Maxipime 2 Gm In Dextrose Duplex (*)) 2 gm in 50 mls @ 100 mls/ hr IV Q12H [facility] Last Admin: 06/27/18 04:22 Dose: 100 mls/hr Metronidazole/Sodium Chloride (Flagyl 500 Mg Ivpb*) 500 mg in 100 mls @ 100 mls /hr IVPB Q8H [facility] Last Admin: 06/27/18 09:30 Dose: 100 mls/hr Vancomycin HCl 1,000 mg/ (Sodium Chloride) 250 mls @ 166.667 mls/hr IVPB Q8H [facility] Last Admin: 06/27/18 12:28 Dose: 166.667 mls/hr Insulin Glargine (Lantus(*)) 20 units SUBCUT Q24H [facility] Last Admin: 06/27/18 14:57 Dose: 20 unit Insulin Human Lispro (Humalog*) 0 units SUBCUT ACHS [facility]; Protocol Last Admin: 06/27/18 12:28 Dose: 9 unit Metoprolol Succinate (Toprol Xl Tab*) 25 mg PO DAILY [facility] Last Admin: 06/27/18 08:44 Dose: 25 mg Pharmacy Consult (Vancomycin Per Pharmacy*) 1 note FOLLOW UP . PRN PRN Reason: PER PROTOCOL Pharmacy Profile Note (Vancomycin Trough Check) 1 note FOLLOW UP 1130 ONE Stop: 10/22/18 11:31 Thiamine HCl (Vitamin B-1 Tab*) 100 mg PO DAILY [facility] Last Admin: 06/27/18 08:41 Dose: 100 mg Vital Signs - 8 hr 06/27/18 06/27/18 07:50 11:23 Temperature 98.3 F Pulse Rate 75 Respiratory 18 20 Rate Blood Pressure 134/70 (mmHg) O2 Sat by Pulse 96 Oximetry Oxygen Devices in Use Now: None Appearance: Alert, sitting up in bed. Neutral affect. Looks comfortable. Eyes: No Scleral Icterus Extremities: No Edema, No Clubbing, Cyanosis, - - R foot bandaged Skin: No Rash or Ulcers, No Nodules or Sclerosis, - Neurological: Alert and Oriented x 3, NL Sensation Microbiology and Other Data: Microbiology 06/25/18 16:07 Gram Stain - Final Foot Right Assess/Plan/Problems-Billing Assessment: - Patient Problems (1) Osteomyelitis of left foot Current Visit: Yes Status: Acute Code(s): M86.9 - OSTEOMYELITIS, UNSPECIFIED SNOMED Code(s): 8966497076829123 Comment: MRI after 8 PM 06/25. Dr. Bravo' notes appreciated. Hold rivaroxaban in anticipation of possible procedure/surgery. Continue cefepime, vancomycin, metro. Surgery planned 06/[address] Raza. (2) Diabetes Current Visit: Yes Status: Acute Code(s): E11.9 - TYPE 2 DIABETES MELLITUS WITHOUT COMPLICATIONS SNOMED Code(s): 29348005 Comment: Hold glipizide. Lispro by [facility]. Increase glargine insulin to 26 u q 24 hr 06/27 3 PM (extra 6 U given 06/27 to make full dose of 26 U). Pt willing to learn to inject insulin--diabetic teaching ordered. (3) Memory loss Current Visit: Yes Status: Acute Comment: Chronic as per sister in law at bedside. His sister and SDM Caitlin Gant will be driving her from [place] and can help with any consent issues. Continue thiamine. Patient has an automatic pill dispenser at home, also has a video camera installed so his sister can watch him. She states he does not wake to phone calls or alarms. He gets meals on wheels 5 days a week. (4) Cardiomyopathy Current Visit: Yes Status: Acute Code(s): I42.9 - CARDIOMYOPATHY, UNSPECIFIED SNOMED Code(s): 61061585 Comment: LVEF 20-25% 01/2015. Repeat echo 06/27 shows LVEF 55-60%. Prior cardiomyopathy possibly alcohol-related.
[2018-06-27 16:31] LABS: EGFR Non-African American 96.2 (>60)
[2018-06-28] MEDS: metroNIDAZOLE IV 500 MG/100ML* 500 MG/100 ML BAG IVPB SCH ×4 (00:36→20:53)
[2018-06-28] MEDS: Cefepime 2 GM in Dextrose(*) 2 GM/50 ML BAG IV SCH ×2 (03:38→16:36)
[2018-06-28] MEDS: Vancomycin(*) 1,000 MG in NS 0.9% 250 ML* 250 ML IVPB SCH ×2 (04:15→17:28)
[2018-06-28 06:50] LABS: ABS Basophils 0 10^3/ul (0-0.2); ABS Eosinophils 0.4 10^3/ul (0-0.6); ABS Lymphocytes 2.7 10^3/ul (1.0-4.8); ABS Monocytes 1.1 10^3/ul (0-0.8); ABS Neutrophils 8.3 10^3/ul (1.5-7.7); ABS Nucleated RBC 0 10^3/ul; Hematocrit 34 % (42-52); Hemoglobin 10.9 g/dl (14.0-18.0); Lymphocyte % 21.6 % (25-47); Mean Corpuscular HGB Conc 32 g/dl (31-36); Mean Corpuscular Hemoglobin 26 pg (27-31); Mean Corpuscular Volume 80 fL (80-94); Mean Platelet Volume 7.5 um3 (7.4-10.4); Nucleated Red Blood Cells % 0.1; Platelet Count 240 10^3/ul (150-450); Red Blood Count 4.17 10^6/ul (4.00-5.40); Red Cell Distribution Width 13 % (10.5-15); White Blood Count 12.5 10^3/ul (3.5-10.8)
[2018-06-28 07:07] LABS: EGFR Non-African American 97.5 (>60)
[2018-06-28] MEDS ORDERED: Ondansetron ODT TAB* 4 MG PO ONE (08:24)
[2018-06-28] MEDS ORDERED: Buffered Lidocaine 0.9% SYRIN* 5 ML/SYR SYRINGE INTRADERM ONE (08:24)
[2018-06-28] MEDS: Atorvastatin* 10 MG TAB PO SCH (08:37)
[2018-06-28] MEDS: Enoxaparin(*) 40 MG/0.4 ML SYR SUBCUT SCH (08:37)
[2018-06-28] MEDS: Thiamine TAB* 100 MG TAB PO SCH (08:37)
[2018-06-28] MEDS ORDERED: Famotidine IV* 10 MG/ML 2 ML (20 mg) IV ONE (09:00)
[2018-06-28] MEDS: Insulin LISPRO* 1 UNITS UNIT SUBCUT SCH ×4 (09:09→22:03)
[2018-06-28] MEDS: Metoprolol Succinate XL TAB* 25 MG PO SCH (09:09)
[2018-06-28] MEDS ORDERED: Vancomycin Trough Check NOTE FOLLOW UP ONE (11:30)
[2018-06-28] MEDS ORDERED: Ondansetron ODT TAB* 4 MG ONE (12:44)
--- NOTE | 2018-06-28 13:09 | PN ---
Subjective Date of Service: 06/28/18 Interval History: 58 yr old male Right Foot Osteomyolitis and due for surgery today. Resting in bed. family member at bedside. Denies pain, sob, cp, or nausea. 14 point ROS completed and all others negative also. Family History: Unchanged from Admission - unremarkable Social History: Unchanged from Admission - Lives alone. No recent smoking, no recent heavy drinking. Has aides 6 nights a week. SDM is his sister Caitlin Gant in [place]. Past Medical History: Unchanged from Admission - Former heavy drinker, former smoker. Atrial fib/flutter with atrial appendage clot, HTN, DM, hx poor compliance, old CVA. Objective Active Medications: Atorvastatin Calcium (Lipitor*) 10 mg PO DAILY [facility] Last Admin: 06/28/18 08:37 Dose: Not Given Dextrose (D50w Syringe 50 Ml*) 12.5 gm IV PUSH .FOR FS < 60 - SS PRN PRN Reason: FS < 60 Enoxaparin Sodium (Lovenox(*)) 40 mg SUBCUT Q24H [facility] Last Admin: 06/28/18 08:37 Dose: Not Given Cefepime HCl (Maxipime 2 Gm In Dextrose Duplex (*)) 2 gm in 50 mls @ 100 mls/ hr IV Q12H [facility] Last Admin: 06/28/18 03:38 Dose: 100 mls/hr Metronidazole/Sodium Chloride (Flagyl 500 Mg Ivpb*) 500 mg in 100 mls @ 100 mls /hr IVPB Q8H [facility] Last Admin: 06/28/18 09:17 Dose: 100 mls/hr Lactated Ringer's (Lactated Ringers 1000 Ml Bag*) 1,000 mls @ 125 mls/hr IV PER RATE [facility] Last Admin: 06/28/18 13:01 Dose: 125 mls/hr Insulin Glargine (Lantus(*)) 26 units SUBCUT Q24H [facility] Insulin Human Lispro (Humalog*) 0 units SUBCUT ACHS [facility]; Protocol Last Admin: 06/28/18 09:09 Dose: 6 unit Metoprolol Succinate (Toprol Xl Tab*) 25 mg PO DAILY [facility] Last Admin: 06/28/18 09:09 Dose: 25 mg Thiamine HCl (Vitamin B-1 Tab*) 100 mg PO DAILY [facility] Last Admin: 10/22/18 08:37 Dose: Not Given Vital Signs - 8 hr 06/28/18 06/28/18 07:37 11:41 Temperature 98.2 F 98.2 F Pulse Rate 89 80 Respiratory 18 18 Rate Blood Pressure 169/79 155/73 (mmHg) O2 Sat by Pulse 95 96 Oximetry Oxygen Devices in Use Now: None Appearance: Comfortable and NAD Eyes: No Scleral Icterus Ears/Nose/Mouth/Throat: Clear Oropharnyx, Mucous Membranes Moist Neck: NL Appearance and Movements; NL JVP Respiratory: Symmetrical Chest Expansion and Respiratory Effort, Clear to Auscultation Cardiovascular: NL Sounds; No Murmurs; No JVD, RRR, - - +1 edema bilateral LE Abdominal: NL Sounds; No Tenderness; No Distention Lymphatic: No Cervical Adenopathy Extremities: No Clubbing, Cyanosis Skin: No Rash or Ulcers Neurological: Alert and Oriented x 3, NL Muscle Strength and Tone Result Diagrams: 06/28/18 05:52 06/28/18 05:52 Microbiology and Other Data: Microbiology 06/25/18 16:07 Gram Stain - Final Foot Right Assess/Plan/Problems-Billing Assessment: 58 yr old male admitted with right foot osteomyolitis. Scheduled for surgery today with Dr Rzaa - Patient Problems (1) Foot osteomyelitis, right Comment: - Surgery scheduled for today with Dr Raza - ID consulted today and discontinued Vanco. Continue Cefepime and Flagyl (2) Diabetes Comment: - Continue to hold glipizide. - Continue Lispro by [facility]. - Yesterday glargine insulin was increased to 26 u q 24 hr. Due to surgery today will reassess needing to increase insulin tomorrow. - Pt willing to learn to inject insulin--diabetic teaching ordered. (3) Hypertension Comment: - Continue to hold Lisinopril due to planned surgery - Continue Metoprolol as ordered. - Continue to monitor vital signs routinely (4) Atrial fibrillation Comment: - Continue Metoprolol as ordered - Xarelto held due to planned surgery. - Will restart Xarelto as soon as possible after surgery. Floyd consult with ortho regarding when it is okay to restart (5) Memory loss Comment: - Chronic - Possible rehab in post operative period (6) Hyperlipidemia Comment: - Continue statin as ordered Status and Disposition: Inpatient. Surgery today. Patient might benefit from rehab post operatively.
[2018-06-28] MEDS ORDERED: KETAMINE HCL* 50 MG/ML 10 ML VIAL ONE (13:18)
[2018-06-28] MEDS ORDERED: fentaNYL* 50 MCG/ML 2 ML VIAL (100 MCG VIAL) ONE (13:18)
[2018-06-28] MEDS ORDERED: Midazolam* 1 MG/ML 5 ML VIAL (5 MG) ONE (13:18)
[2018-06-28] MEDS ORDERED: Bupivacaine 0.5% SDV PF* 30ML VIAL ONE (14:07)
[2018-06-28] MEDS ORDERED: Insulin LISPRO* 1 UNITS UNIT SUBCUT ONE (14:08)
[2018-06-28] MEDS ORDERED: Labetalol IV* 5 MG/ML 20 ML VIAL ONE (14:29)
[2018-06-28] MEDS ORDERED: Lidocaine 1% INJ* 10 MG/ML 30 ML SDV ONE (14:36)
[2018-06-28] MEDS ORDERED: DiMENhydriNATE IV* 50 MG/ML VIAL IV PUSH PRN (14:46)
[2018-06-28] MEDS ORDERED: Morphine VIAL* 4 MG/ML VIAL (1 ml vial) IV PRN (14:46)
[2018-06-28] MEDS ORDERED: oxyCODONE/Acetamin 5/325 MG* TAB PO PRN (14:46)
[2018-06-28] MEDS ORDERED: Naloxone* 0.4 MG/ML 1 ML VIAL IV PRN (14:46)
[2018-06-28] MEDS ORDERED: PROCHLORPERAZINE INJ 5 MG/ML 2 ML VIAL IV PRN (14:46)
[2018-06-28] MEDS ORDERED: fentaNYL* 50 MCG/ML 2 ML VIAL (100 MCG VIAL) IV PRN (14:46)
[2018-06-28] MEDS ORDERED: Lidocaine 2% PF * 5 ML VIAL ONE (15:01)
[2018-06-28] MEDS ORDERED: Propofol* 500 MG/50 ML BTL ONE (15:01)
[2018-06-28] MEDS ORDERED: Vancomycin per Pharmacy* NOTE FOLLOW UP PRN (15:20)
[2018-06-28] MEDS: Insulin GLARGINE(*) 1 UNITS UNIT SUBCUT SCH (16:36)
--- NOTE | 2018-06-28 16:58 | CONS ---
CONSULTATION REPORT: DATE OF CONSULT: 06/28/18 REQUESTING PHYSICIAN: Dr. Han. CONSULTING SERVICE: Infectious Disease. REASON FOR CONSULTATION: Osteomyelitis. IMPRESSION: 1. Right fifth metatarsal and proximal phalanx of the fifth toe osteomyelitis, acute, nonhematogenous. He had been on antibiotics as an outpatient in the form of Cipro and clinda. Here, the wound culture grew bacteroides, morganella , corynebacterium, enterococcus. Staphylococcus aureus PCR is negative. If there was a staphylococcal component, I would have expected that to be positive even in the setting of staphylococcus from recent antibiotic use. 2. Type 2 diabetes with peripheral neuropathy. 3. Obesity. RECOMMENDATIONS: We will stop his vancomycin, continue cefepime 2 g IV every 12 hours and Flagyl 500 mg IV every 12 hours. He is going to have foot surgery today, debridement versus partial amputation. Further antibiotic plan is pending the extent of surgery. HISTORY OF PRESENT ILLNESS: This is a 58-year-old diabetic man who about 2 weeks ago noticed a wound on his right plantar lateral forefoot. He had been seen by his commercial litigation associate who had been debriding that. He was taking Cipro and clinda as an outpatient. He had some drainage, some redness and swelling developed. Because of progression of associated redness and swelling, he was recommended for ER evaluation on 06/25/18, had an MRI that showed bony destruction and pathologic fracture of the distal fifth metatarsal with osteomyelitis that extends into the base of the proximal phalanx of the fifth toe. Marrow signal abnormality throughout the entire proximal phalanx as well as surrounding cellulitis, no abscess. He has had no fevers or chills. He has been on broad-spectrum antibiotics, tolerating them well. He has pain with ambulation but not with the foot elevated. PAST MEDICAL HISTORY: 1. Type 2 diabetes with peripheral neuropathy. 2. Obesity. 3. Hyperlipidemia. 4. Atrial fibrillation. 5. History of atrial appendage clot. 6. Hypertension. 7. History of stroke. MEDICATIONS: 1. Lipitor. 2. Cefepime 2 g IV every 12 hours. 3. Enoxaparin. 4. Insulin glargine. 5. Insulin lispro. 6. Metoprolol. 7. Flagyl 500 mg IV every 8 hours. 8. Vancomycin. 9. Thiamine. ALLERGIES: No known drug allergies. FAMILY HISTORY: No recurrent infections. SOCIAL HISTORY: Lives in [facility] with his dog. The dog has not been licking the wound. He has a history of alcohol use and nonsmoker. No injection drugs. REVIEW OF SYSTEMS: All negative except as noted above to 14-point review of systems. PHYSICAL EXAM: Vital Signs: Temperature is 37, heart rate 88, respiratory rate 20, blood pressure 164/82, oxygen saturation 95% on room air. In general, he is awake, not in distress. Neurologic: He is oriented x3, follows all commands. Answers questions appropriately. He has decreased sensation to light touch in both feet. HEENT: There is no conjunctival hemorrhage. Oropharynx: Without lesions. Neck: Supple without mass. Heart: Regular rate and rhythm without murmurs, rubs or gallops. Lungs are clear to auscultation bilaterally. Abdomen: Soft, nontender, nondistended. There is bowel sounds present. Skin : There is no rash or splinter hemorrhage. Musculoskeletal: No spine tenderness to palpation. Right lateral distal forefoot wound with some fibrin, surrounding erythema, edema. No crepitus or fluctuance. DIAGNOSTIC STUDIES/LAB DATA: White blood cell count 12, hemoglobin 10, platelets 240, creatinine 0.8. CRP was 118. Please see impression and recommendations as outlined above, which I have discussed with Gem Landeros NP. Thank you for asking me to see Mr. Levy in consultation. [id number]/[facility] #: [id number] MARILYN
[2018-06-28] MEDS: Rivaroxaban TAB(*) 20 MG TAB PO SCH (22:00)
[2018-06-29] MEDS ORDERED: hydrALAZINE IV* 20 MG/ML VIAL IV SLOW PU ONE (00:40)
[2018-06-29] MEDS: Vancomycin(*) 1,000 MG in NS 0.9% 250 ML* 250 ML IVPB SCH ×3 (01:26→10:03)
[2018-06-29] MEDS: metroNIDAZOLE IV 500 MG/100ML* 500 MG/100 ML BAG IVPB SCH ×3 (03:37→19:47)
[2018-06-29] MEDS: Cefepime 2 GM in Dextrose(*) 2 GM/50 ML BAG IV SCH (04:56)
[2018-06-29 05:29] LABS: ABS Basophils 0.1 10^3/ul (0-0.2); ABS Eosinophils 0.2 10^3/ul (0-0.6); ABS Lymphocytes 2.1 10^3/ul (1.0-4.8); ABS Monocytes 1.4 10^3/ul (0-0.8); ABS Nucleated RBC 0 10^3/ul; Eosinophil % 1.3 % (0-6); Hematocrit 32 % (42-52); Hemoglobin 10.6 g/dl (14.0-18.0); Lymphocyte % 14.2 % (25-47); Mean Corpuscular HGB Conc 33 g/dl (31-36); Mean Corpuscular Hemoglobin 26 pg (27-31); Mean Corpuscular Volume 79 fL (80-94); Mean Platelet Volume 6.8 um3 (7.4-10.4); Nucleated Red Blood Cells % 0; Platelet Count 250 10^3/ul (150-450); Red Blood Count 4.04 10^6/ul (4.00-5.40); Red Cell Distribution Width 13 % (10.5-15); White Blood Count 14.7 10^3/ul (3.5-10.8)
[2018-06-29 05:59] LABS: EGFR Non-African American 115.4 (>60)
--- NOTE | 2018-06-29 08:25 | OP ---
DATE OF OPERATION: 06/28/18 - ROOM #339 DATE OF : 58 ATTENDING SURGEON: Davy Raza MD MOLD PRESSER: Lidna Molina PA-C. PRE-OP DIAGNOSES: 1. Osteomyelitis, right fifth metatarsal with an ulcer. 2. Diabetes. 3. Previous smoking history. POST-OP DIAGNOSES: 1. Osteomyelitis, right fifth metatarsal with an ulcer. 2. Diabetes. 3. Previous smoking history. OPERATIVE PROCEDURE: Excision right fifth ray. DESCRIPTION OF PROCEDURE: The patient was taken to the operating room where a longitudinal incision was made along the lateral border of the fifth metatarsal and then around the base of the fifth toe. One full thickness flap was made down just medial to the metatarsal around its base and the whole ray was excised as one fragment. We then sent deep cultures from this area, thorough cleansing was performed with 2 L of warm saline. The tourniquet was dropped and then local hemostasis obtained. We closed with interrupted 2-0 Vicryl sutures deep, interrupted 2-0 Prolene for the skin, and a compression dressing applied. [id number]/[facility] #: [id number] [facility]
[2018-06-29] MEDS ORDERED: Acetaminophen TAB* 325 MG ONE (09:50)
[2018-06-29] MEDS ORDERED: oxyCODONE TAB* 5 MG TAB ONE (09:50)
[2018-06-29] MEDS: Insulin LISPRO* 1 UNITS UNIT SUBCUT SCH ×4 (09:53→21:59)
--- NOTE | 2018-06-29 09:54 | PN ---
Subjective Date of Service: 06/29/18 Interval History: 58 yr old male. Osteomyolitis, right 5th metatarsal with an ulcer S/P Excision of right fifth ray yesterday (06/28). Resting on bed with legs elevated. Reports pain in right le is "bad". 14 point ROS completed and all others negative except above mentioned. Family History: Unchanged from Admission - unremarkable Social History: Unchanged from Admission - Lives alone. No recent smoking, no recent heavy drinking. Has aides 6 nights a week. SDM is his sister Caitlin Gant in [place]. Past Medical History: Unchanged from Admission - Former heavy drinker, former smoker. Atrial fib/flutter with atrial appendage clot, HTN, DM, hx poor compliance, old CVA. Objective Active Medications: Acetaminophen (Tylenol Tab*) 975 mg PO Q8H [facility] Stop: 07/01/18 09:59 Atorvastatin Calcium (Lipitor*) 10 mg PO DAILY [facility] Last Admin: 06/28/18 08:37 Dose: Not Given Dextrose (D50w Syringe 50 Ml*) 12.5 gm IV PUSH .FOR FS < 60 - SS PRN PRN Reason: FS < 60 Cefepime HCl (Maxipime 2 Gm In Dextrose Duplex (*)) 2 gm in 50 mls @ 100 mls/ hr IV Q12H [facility] Last Admin: 06/29/18 04:56 Dose: 100 mls/hr Vancomycin HCl 1,000 mg/ (Sodium Chloride) 250 mls @ 166.667 mls/hr IVPB Q8H [facility] Last Admin: 06/29/18 01:26 Dose: 166.667 mls/hr Metronidazole/Sodium Chloride (Flagyl 500 Mg Ivpb*) 500 mg in 100 mls @ 100 mls /hr IVPB 0330,1130,1930 [facility] Last Admin: 06/29/18 03:37 Dose: 100 mls/hr Insulin Glargine (Lantus(*)) 26 units SUBCUT Q24H [facility] Last Admin: 06/28/18 16:36 Dose: 26 units Insulin Human Lispro (Humalog*) 0 units SUBCUT ACHS [facility]; Protocol Last Admin: 06/28/18 22:03 Dose: 9 unit Lisinopril (Prinivil Tab*) 20 mg PO DAILY [facility] Metoprolol Succinate (Toprol Xl Tab*) 25 mg PO DAILY [facility] Last Admin: 06/28/18 09:09 Dose: 25 mg Oxycodone HCl (Roxycodone Tab*) 5 mg PO Q4H PRN PRN Reason: PAIN Pharmacy Consult (Vancomycin Per Pharmacy*) 1 note FOLLOW UP . PRN PRN Reason: PER PROTOCOL Pharmacy Profile Note (Vancomycin Trough Check) 1 note FOLLOW UP .ENTER TIME ONE Stop: 06/30/18 08:01 Rivaroxaban (Xarelto(*)) 20 mg PO BEDTIME [facility] Last Admin: 06/28/18 22:00 Dose: 20 mg Thiamine HCl (Vitamin B-1 Tab*) 100 mg PO DAILY [facility] Last Admin: 06/28/18 08:37 Dose: Not Given Vital Signs - 8 hr 06/29/18 06/29/18 03:31 07:54 Temperature 99.1 F 98.6 F Pulse Rate 100 101 Respiratory 20 18 Rate Blood Pressure 153/68 188/84 (mmHg) O2 Sat by Pulse 95 95 Oximetry Oxygen Devices in Use Now: None Appearance: Cooperative, Grimicing and reports pain Eyes: No Scleral Icterus Ears/Nose/Mouth/Throat: Mucous Membranes Moist Neck: NL Appearance and Movements; NL JVP Respiratory: Symmetrical Chest Expansion and Respiratory Effort, Clear to Auscultation Cardiovascular: RRR, - - +1 bilat le edema Abdominal: NL Sounds; No Tenderness; No Distention Extremities: - - as above Neurological: Alert and Oriented x 3, NL Sensation Nutrition: Taking PO's Result Diagrams: 06/29/18 05:12 06/29/18 05:12 Microbiology and Other Data: Assess/Plan/Problems-Billing Assessment: 58 yr old male admitted with osteomyolitis, right 5th metatarsal. S/P Excision right 5th ray - Patient Problems (1) Foot osteomyelitis, right Comment: - S/p Excision of right 5th ray - ID consulted. Continue Cefepime 2 g IV Q 12 hrs and Flagyl 500 mg IV Q [address] Key - Weight bearing status ordered by Ortho team - PT/OT consult placed. - Discussed pain management with ortho TRICIA and ordered accordingly. (2) Diabetes Comment: - Continue to hold glipizide. - Continue Lispro by [facility]. - 06/27 glargine insulin was increased to 26 u q 24 hr. BG this morning 151. No increase in glargine today. (3) Hypertension Comment: - Noted to be hypertensive last evening and Hydralazine ordered overnight. - Lisinopril reordered this morning - IVF d/c'd - Continue Metoprolol as ordered. - Continue to monitor vital signs routinely (4) Tachycardia Comment: - Noted to be tachy (101 bpm) and hypertensive (see above) this morning. - Suspected d/t pain as patient was grimicing and expressed pain - Pain medications ordered. - Will monitor vital signs (5) Leukocytosis Comment: - WBC noted to be 14.7 today from 12.5 yesterday - Suspected etiology surgery. - CBC ordered for tomorrow to reassess (6) Atrial fibrillation Comment: - Continue Metoprolol as ordered - Xarelto restarted yesterday evening (7) Memory loss Comment: - Chronic - Possible rehab in post operative period (8) Hyperlipidemia Comment: - Continue statin as ordered Status and Disposition: Inpatient. S/P Excision of right 5th ray. Patient might benefit from rehab post operatively.
[2018-06-29] MEDS: Atorvastatin* 10 MG TAB PO SCH (09:56)
[2018-06-29] MEDS: Thiamine TAB* 100 MG TAB PO SCH (09:56)
[2018-06-29] MEDS: Lisinopril TAB* 10 MG PO SCH (09:56)
[2018-06-29] MEDS: Metoprolol Succinate XL TAB* 25 MG PO SCH (09:56)
[2018-06-29] MEDS: Acetaminophen TAB* 325 MG PO SCH ×2 (10:00→17:39)
--- NOTE | 2018-06-29 10:14 | PN ---
Progress Note - Progress Note Date of Service: 06/29/18 SOAP: Subjective: resting comfortably with complaints of mild pain; denies SOB/calf pain Objective: Laboratory Last Values WBC 14.7 10^3/ul (3.5-10.8) H 06/29/18 05:12 RBC 4.04 10^6/ul (4.00-5.40) 06/29/18 05:12 Hgb 10.6 g/dl (14.0-18.0) L 06/29/18 05:12 Hct 32 % (42-52) L 06/29/18 05:12 MCV 79 fL (80-94) L 06/29/18 05:12 MCH 26 pg (27-31) L 06/29/18 05:12 MCHC 33 g/dl (31-36) 06/29/18 05:12 RDW 13 % (10.5-15) 06/29/18 05:12 Plt Count 250 10^3/ul (150-450) 06/29/18 05:12 MPV 6.8 um3 (7.4-10.4) L 06/29/18 05:12 Neut % (Auto) 74.3 % (38-83) 06/29/18 05:12 Lymph % (Auto) 14.2 % (25-47) L 06/29/18 05:12 [place] % (Auto) 9.8 % (0-7) H 06/29/18 05:12 Eos % (Auto) 1.3 % (0-6) 06/29/18 05:12 Baso % (Auto) 0.4 % (0-2) 06/29/18 05:12 Absolute Neuts (auto) 11.0 10^3/ul (1.5-7.7) H 06/29/18 05:12 Absolute Lymphs (auto) 2.1 10^3/ul (1.0-4.8) 06/29/18 05:12 Absolute Monos (auto) 1.4 10^3/ul (0-0.8) H 06/29/18 05:12 Absolute Eos (auto) 0.2 10^3/ul (0-0.6) 06/29/18 05:12 Absolute Basos (auto) 0.1 10^3/ul (0-0.2) 06/29/18 05:12 Absolute Nucleated RBC 0 10^3/ul 06/29/18 05:12 Nucleated RBC % 0 06/29/18 05:12 ESR 76 mm/Hr (0-20) H 06/25/18 15:42 INR (Anticoag Therapy) 1.61 (0.77-1.02) H 06/25/18 15:42 APTT 34.8 seconds (26.0-36.3) 06/25/18 15:42 Sodium 135 mmol/L (135-145) 06/29/18 05:12 Potassium 3.9 mmol/L (3.5-5.0) 06/29/18 05:12 Chloride 101 mmol/L (101-111) 06/29/18 05:12 Carbon Dioxide 29 mmol/L (22-32) 06/29/18 05:12 Anion Gap 5 mmol/L (2-11) 06/29/18 05:12 BUN 8 mg/dL (6-24) 06/29/18 05:12 Creatinine 0.70 mg/dL (0.67-1.17) 06/29/18 05:12 Est GFR ( Amer) 139.7 (>60) 06/29/18 05:12 Est GFR (Non-Af Amer) 115.4 (>60) 06/29/18 05:12 BUN/Creatinine Ratio 11.4 (8-20) 06/29/18 05:12 Glucose 151 mg/dL (70-100) H 06/29/18 05:12 POC Glucose (mg/dL) 292 mg/dL (70-100) H 06/28/18 21:42 Glucose Meter Confirm 433 mg/dL (70-100) H 06/25/18 22:04 Lactic Acid 0.7 mmol/L (0.5-2.0) 06/26/18 06:01 Calcium 8.5 mg/dL (8.6-10.3) L 06/29/18 05:12 C-Reactive Protein 117.98 mg/L (<8.01) H 06/25/18 15:41 Vancomycin Trough 20.1 mcg/mL 06/26/18 18:06 Vital Signs Temp Pulse Resp BP Pulse Ox 98.6 F 101 16 188/84 95 06/29/18 07:54 06/29/18 07:54 06/29/18 09:56 06/29/18 07:54 06/29/18 07:54 incision: c/d/i PE: able to move toes, calf soft/non-tender, diminished sensation secondary to neuropathy Assessment: s/p 5th ray amp right foot( 06/28); POD #1 Plan: 1) PT/OT- Heel WB only with post-op shoe 2) continue DVT prophylaxis 3) Hospitalist co-managing 4) Continue IV Abx
--- NOTE | 2018-06-29 13:30 | PN ---
Progress Note - Progress Note Date of Service: 06/29/18 SOAP: Subjective: CC: foot infection HPI: 58 year old man with right lateral forefoot infection and wound s/p 5th ray amputation. He feels well, appetite is good. No fever, rash, or diarrhea. Objective: Vital Signs Temp 36.8 C 06/29/18 11:42 Pulse 93 06/29/18 11:42 Resp 16 06/29/18 12:11 BP 108/66 06/29/18 11:42 Pulse Ox 96 06/29/18 11:42 Intake & Output 06/28/18 06/29/18 06/29/18 18:59 06:59 18:59 Intake Total 940 1210 711 Balance 940 1210 711 Weight 247 lb 3.2 oz Intake: IV Fluids 700 1210 591 ABX - VANCOMYCIN 265 LR 700 945 591 Oral 240 0 120 Other: Estimated Void Large # Bowel Movements 0 Estimated Stool Amount Small # Voids 1 Gen:awake, no distress HEENT: no thrush Heart:RRR no murmur Lungs:CTA BL Abd:+BS NT ND soft Skin: No rash MSK: R foot wrap Laboratory Results - last 24 hr 06/28/18 06/28/18 06/28/18 12:24 17:15 21:42 WBC RBC Hgb Hct MCV MCH MCHC RDW Plt Count MPV Neut % (Auto) Lymph % (Auto) [place] % (Auto) Eos % (Auto) Baso % (Auto) Absolute Neuts (auto) Absolute Lymphs (auto) Absolute Monos (auto) Absolute Eos (auto) Absolute Basos (auto) Absolute Nucleated RBC Nucleated RBC % Sodium Potassium Chloride Carbon Dioxide Anion Gap BUN Creatinine Est GFR ( Amer) Est GFR (Non-Af Amer) BUN/Creatinine Ratio Glucose POC Glucose (mg/dL) 211 H 174 H 292 H Calcium 06/29/18 06/29/18 06/29/18 05:12 05:12 12:04 WBC 14.7 H RBC 4.04 Hgb 10.6 L Hct 32 L MCV 79 L MCH 26 L MCHC 33 RDW 13 Plt Count 250 MPV 6.8 L Neut % (Auto) 74.3 Lymph % (Auto) 14.2 L [place] % (Auto) 9.8 H Eos % (Auto) 1.3 Baso % (Auto) 0.4 Absolute Neuts (auto) 11.0 H Absolute Lymphs (auto) 2.1 Absolute Monos (auto) 1.4 H Absolute Eos (auto) 0.2 Absolute Basos (auto) 0.1 Absolute Nucleated RBC 0 Nucleated RBC % 0 Sodium 135 Potassium 3.9 Chloride 101 Carbon Dioxide 29 Anion Gap 5 BUN 8 Creatinine 0.70 Est GFR ( Amer) 139.7 Est GFR (Non-Af Amer) 115.4 BUN/Creatinine Ratio 11.4 Glucose 151 H POC Glucose (mg/dL) 223 H Calcium 8.5 L Microbiology 06/28/18 14:56 Anaerobic Culture - Preliminary Wound 06/28/18 14:56 Skin and Soft Tissue MRSA/MSSA (PCR - Final Foot Right Mrsa Negative S.aureus Negative Gram Stain - Final 06/25/18 16:08 Aerobic Blood Culture - Preliminary Blood Venous No Growth Day 3 Anaerobic Blood Culture - Preliminary No Growth Day 3 06/25/18 15:41 Aerobic Blood Culture - Preliminary Blood Venous No Growth Day 3 Anaerobic Blood Culture - Preliminary No Growth Day 3 06/26/18 15:54 Skin and Soft Tissue MRSA/MSSA (PCR - Final Foot Right Mrsa Negative S.aureus Negative Gram Stain - Final Wound Culture - Final Enterococcus Faecalis Morganella Morganii Corynebacterium Striatum Assessment: 1. Right 5th metatarsal acute osteomyelitis with myositis, cellulitis and non healing wound 2. morbid obesity 3. T2 diabetes with neuropathy Plan: 1. change cefepime to ceftriaxone 2 gm iv daily and continued flagyl 500 mg po tid day 2 since I&D, likely a week of IV at infusion center followed by course of PO.
[2018-06-29] MEDS: cefTRIAXone(*) 2 GM in NS 0.9% 100 ML* 100 ML IVPB SCH (13:57)
[2018-06-29] MEDS: oxyCODONE TAB* 5 MG TAB PO PRN (13:59)
[2018-06-29] MEDS: Insulin GLARGINE(*) 1 UNITS UNIT SUBCUT SCH (14:01)
[2018-06-29] MEDS: Rivaroxaban TAB(*) 20 MG TAB PO SCH (21:00)
[2018-06-30] MEDS: Acetaminophen TAB* 325 MG PO SCH ×3 (02:23→17:41)
[2018-06-30] MEDS: metroNIDAZOLE IV 500 MG/100ML* 500 MG/100 ML BAG IVPB SCH ×3 (03:25→19:30)
[2018-06-30] MEDS ORDERED: Vancomycin Trough Check NOTE FOLLOW UP ONE (08:00)
[2018-06-30 08:07] LABS: Hematocrit 32 % (42-52); Hemoglobin 10.6 g/dl (14.0-18.0); Mean Corpuscular HGB Conc 33 g/dl (31-36); Mean Corpuscular Hemoglobin 26 pg (27-31); Mean Corpuscular Volume 80 fL (80-94); Mean Platelet Volume 6.6 um3 (7.4-10.4); Platelet Count 231 10^3/ul (150-450); Red Blood Count 4.04 10^6/ul (4.00-5.40); Red Cell Distribution Width 13 % (10.5-15); White Blood Count 15.9 10^3/ul (3.5-10.8)
[2018-06-30 08:08] LABS: ABS Basophils 0.1 10^3/ul (0-0.2); ABS Eosinophils 0.3 10^3/ul (0-0.6); ABS Lymphocytes 2.3 10^3/ul (1.0-4.8); ABS Monocytes 1.8 10^3/ul (0-0.8); ABS Neutrophils 11.5 10^3/ul (1.5-7.7); ABS Nucleated RBC 0 10^3/ul; Lymphocyte % 14.2 % (25-47); Nucleated Red Blood Cells % 0
[2018-06-30 08:22] LABS: EGFR Non-African American 106.6 (>60)
--- NOTE | 2018-06-30 08:50 | PN ---
Subjective Date of Service: 06/30/18 Interval History: Patient resting in bed. Report pain in RLE has improved since yesterday. Reports pain is "mild". 14 point ROS completed and all others negative except above mentioned. Family History: Unchanged from Admission - unremarkable Social History: Unchanged from Admission - Lives alone. No recent smoking, no recent heavy drinking. Has aides 6 nights a week. SDM is his sister Caitlin Gant in [place]. Past Medical History: Unchanged from Admission - Former heavy drinker, former smoker. Atrial fib/flutter with atrial appendage clot, HTN, DM, hx poor compliance, old CVA. Objective Active Medications: Acetaminophen (Tylenol Tab*) 975 mg PO Q8H [facility] Stop: 07/01/18 09:59 Last Admin: 06/30/18 02:23 Dose: 975 mg Atorvastatin Calcium (Lipitor*) 10 mg PO DAILY [facility] Last Admin: 06/29/18 09:56 Dose: 10 mg Dextrose (D50w Syringe 50 Ml*) 12.5 gm IV PUSH .FOR FS < 60 - SS PRN PRN Reason: FS < 60 Metronidazole/Sodium Chloride (Flagyl 500 Mg Ivpb*) 500 mg in 100 mls @ 100 mls /hr IVPB 0330,1130,1930 [facility] Last Admin: 06/30/18 03:25 Dose: 100 mls/hr Ceftriaxone Sodium 2 gm/ (Sodium Chloride) 100 mls @ 200 mls/hr IVPB Q24H [facility] Last Admin: 06/29/18 13:57 Dose: 200 mls/hr Insulin Glargine (Lantus(*)) 26 units SUBCUT Q24H [facility] Last Admin: 06/29/18 14:01 Dose: 26 units Insulin Human Lispro (Humalog*) 0 units SUBCUT ACHS [facility]; Protocol Last Admin: 06/29/18 21:59 Dose: 12 unit Lisinopril (Prinivil Tab*) 20 mg PO DAILY [facility] Last Admin: 06/29/18 09:56 Dose: 20 mg Metoprolol Succinate (Toprol Xl Tab*) 25 mg PO DAILY [facility] Last Admin: 06/29/18 09:56 Dose: 25 mg Oxycodone HCl (Roxycodone Tab*) 5 mg PO Q4H PRN PRN Reason: PAIN Last Admin: 06/29/18 13:59 Dose: 5 mg Rivaroxaban (Xarelto(*)) 20 mg PO BEDTIME [facility] Last Admin: 06/29/18 21:00 Dose: 20 mg Thiamine HCl (Vitamin B-1 Tab*) 100 mg PO DAILY [facility] Last Admin: 06/29/18 09:56 Dose: 100 mg Vital Signs - 8 hr 06/30/18 06/30/18 06/30/18 04:02 04:08 07:24 Temperature 98.6 F 97.7 F Pulse Rate 84 85 Respiratory 18 24 Rate Blood Pressure 174/66 160/80 151/75 (mmHg) O2 Sat by Pulse 92 94 Oximetry 06/30/18 07:27 Temperature Pulse Rate Respiratory 24 Rate Blood Pressure (mmHg) O2 Sat by Pulse 94 Oximetry Oxygen Devices in Use Now: None Appearance: Comfortable, NAD Eyes: No Scleral Icterus Ears/Nose/Mouth/Throat: Clear Oropharnyx, Mucous Membranes Moist Neck: NL Appearance and Movements; NL JVP Respiratory: Symmetrical Chest Expansion and Respiratory Effort, Clear to Auscultation Cardiovascular: NL Sounds; No Murmurs; No JVD, RRR, - - +1 edema bilat Abdominal: NL Sounds; No Tenderness; No Distention Extremities: No Clubbing, Cyanosis, - - +CMS. SEWELL well Skin: No Rash or Ulcers Neurological: Alert and Oriented x 3 Nutrition: Taking PO's Result Diagrams: 06/30/18 07:59 06/30/18 07:59 Additional Lab and Data: . Microbiology and Other Data: Diagnostic Imaging: . EKG Data: . Assess/Plan/Problems-Billing Assessment: 58 yr old male admitted with osteomyolitis, right 5th metatarsal. S/P Excision right 5th ray. Hx of HTN, DM, Memory Loss, Afib, possile stroke, PVD, neuropathy , and CHF - Patient Problems (1) Foot osteomyelitis, right Comment: - S/p Excision of right 5th ray. POD 2. Plan for discharge to rehab - Cefepime 2 g IV changed to Ceftiaxone 2 gm IV. Continue Flagyl. Per ID - Patient will need outpatient IV abx while at rehab. 10 more days after discharge per ID - PICC access to be placed - Patient will also need weekly CBC, CMP, and CRP while receiving outpatient IV abx. - ID office will plan follow up for patient (2) Diabetes Comment: - Continue to hold glipizide. - Continue Lispro by SS violettes. - 06/27 glargine insulin was increased to 26 u q 24 hr. BG this morning 205. No increase in glargine today due to post op status and osteo (3) Hypertension Comment: - Continue Lisinopril - Continue Metoprolol - Continue to monitor vital signs routinely (4) Leukocytosis Comment: - WBC noted to be 15.9 today from 14.7 yesterday - Afebrile - Suspected etiology surgery. - Lungs clear - Incentive spirometer encouraged and demonstrated. (5) Atrial fibrillation Comment: - Continue Metoprolol - Continue Xarelto (6) Memory loss Comment: - Chronic - Possible rehab in post operative period (7) Hyperlipidemia Comment: - Continue statin as ordered Status and Disposition: Inpatient. S/P Excision of right 5th ray. Plan for discharge to rehab when medically stable with IV abx
[2018-06-30] MEDS: Lisinopril TAB* 10 MG PO SCH (08:58)
[2018-06-30] MEDS: Insulin LISPRO* 1 UNITS UNIT SUBCUT SCH ×4 (08:58→21:47)
[2018-06-30] MEDS: Metoprolol Succinate XL TAB* 25 MG PO SCH (08:58)
[2018-06-30] MEDS: Atorvastatin* 10 MG TAB PO SCH (08:58)
[2018-06-30] MEDS: Thiamine TAB* 100 MG TAB PO SCH (08:58)
--- NOTE | 2018-06-30 11:21 | PN ---
Progress Note - Progress Note Date of Service: 06/30/18 SOAP: Subjective: POD #2 Right foot 5th ray amputation. Doing ok, mild pain. No f/c, n/v Objective: Vitals: Temp Pulse Resp BP Pulse Ox 97.7 F 85 24 151/75 94 06/30/18 07:24 06/30/18 07:24 06/30/18 07:27 06/30/18 07:24 06/30/18 07:27 Gen: A&Ox3, NAD at rest sitting in bed RLE: Incision C/D/I with sutures in place, mild ecchymosis, no erythema. +f/e at remaining MTPs, sensation intact, brisk cap refill. Labs: Laboratory Results - last 24 hr 06/29/18 06/29/18 06/29/18 12:04 16:54 21:24 WBC RBC Hgb Hct MCV MCH MCHC RDW Plt Count MPV Neut % (Auto) Lymph % (Auto) [place] % (Auto) Eos % (Auto) Baso % (Auto) Absolute Neuts (auto) Absolute Lymphs (auto) Absolute Monos (auto) Absolute Eos (auto) Absolute Basos (auto) Absolute Nucleated RBC Nucleated RBC % Sodium Potassium Chloride Carbon Dioxide Anion Gap BUN Creatinine Est GFR ( Amer) Est GFR (Non-Af Amer) BUN/Creatinine Ratio Glucose 324 H POC Glucose (mg/dL) 223 H 373 H Calcium Vancomycin Trough 06/30/18 06/30/18 06/30/18 07:25 07:59 07:59 WBC 15.9 H RBC 4.04 Hgb 10.6 L Hct 32 L MCV 80 MCH 26 L MCHC 33 RDW 13 Plt Count 231 MPV 6.6 L Neut % (Auto) 72.1 Lymph % (Auto) 14.2 L [place] % (Auto) 11.4 H Eos % (Auto) 2.0 Baso % (Auto) 0.3 Absolute Neuts (auto) 11.5 H Absolute Lymphs (auto) 2.3 Absolute Monos (auto) 1.8 H Absolute Eos (auto) 0.3 Absolute Basos (auto) 0.1 Absolute Nucleated RBC 0 Nucleated RBC % 0 Sodium Potassium Chloride Carbon Dioxide Anion Gap BUN Creatinine Est GFR ( Amer) Est GFR (Non-Af Amer) BUN/Creatinine Ratio Glucose POC Glucose (mg/dL) 233 H Calcium Vancomycin Trough 6.0 06/30/18 07:59 WBC RBC Hgb Hct MCV MCH MCHC RDW Plt Count MPV Neut % (Auto) Lymph % (Auto) [place] % (Auto) Eos % (Auto) Baso % (Auto) Absolute Neuts (auto) Absolute Lymphs (auto) Absolute Monos (auto) Absolute Eos (auto) Absolute Basos (auto) Absolute Nucleated RBC Nucleated RBC % Sodium 133 L Potassium 4.1 Chloride 102 Carbon Dioxide 29 Anion Gap 2 BUN 13 Creatinine 0.75 Est GFR ( Amer) 129.0 Est GFR (Non-Af Amer) 106.6 BUN/Creatinine Ratio 17.3 Glucose 205 H POC Glucose (mg/dL) Calcium 8.7 Vancomycin Trough Assessment: POD #2 Right foot 5th ray amputation Plan: New dressing applied Cont IV abx per ID Cont heel WBAT RLE with post op shoe Awaiting SNF placement for rehab
[2018-06-30] MEDS: cefTRIAXone(*) 2 GM in NS 0.9% 100 ML* 100 ML IVPB SCH (13:49)
[2018-06-30] MEDS: Insulin GLARGINE(*) 1 UNITS UNIT SUBCUT SCH (14:33)
[2018-06-30] MEDS: Rivaroxaban TAB(*) 20 MG TAB PO SCH (21:48)
[2018-07-01] MEDS: Acetaminophen TAB* 325 MG PO SCH (03:19)
[2018-07-01] MEDS: metroNIDAZOLE IV 500 MG/100ML* 500 MG/100 ML BAG IVPB SCH ×3 (03:20→19:19)
[2018-07-01 05:56] LABS: ABS Basophils 0.1 10^3/ul (0-0.2); ABS Eosinophils 0.4 10^3/ul (0-0.6); ABS Lymphocytes 2.6 10^3/ul (1.0-4.8); ABS Monocytes 1.5 10^3/ul (0-0.8); ABS Neutrophils 11.7 10^3/ul (1.5-7.7); ABS Nucleated RBC 0 10^3/ul; Eosinophil % 2.6 % (0-6); Hematocrit 33 % (42-52); Hemoglobin 11.2 g/dl (14.0-18.0); Mean Corpuscular HGB Conc 34 g/dl (31-36); Mean Corpuscular Hemoglobin 28 pg (27-31); Mean Corpuscular Volume 81 fL (80-94); Mean Platelet Volume 6.9 um3 (7.4-10.4); Nucleated Red Blood Cells % 0; Platelet Count 258 10^3/ul (150-450); Red Blood Count 4.02 10^6/ul (4.00-5.40); Red Cell Distribution Width 13 % (10.5-15); White Blood Count 16.4 10^3/ul (3.5-10.8)
[2018-07-01] MEDS: Insulin LISPRO* 1 UNITS UNIT SUBCUT SCH ×4 (08:51→22:52)
[2018-07-01] MEDS: Metoprolol Succinate XL TAB* 25 MG PO SCH (08:51)
[2018-07-01] MEDS: Lisinopril TAB* 10 MG PO SCH (08:51)
[2018-07-01] MEDS: Atorvastatin* 10 MG TAB PO SCH (08:51)
[2018-07-01] MEDS: Thiamine TAB* 100 MG TAB PO SCH (08:51)
--- NOTE | 2018-07-01 10:21 | PN ---
Progress Note - Progress Note Date of Service: 07/01/18 SOAP: Subjective: []Patient seen and examined at beside. He feels well without complaint today. Right foot is described as sore. Denies CP, SOB, Dizziness, nausea. Objective: []General: Well appearing, NAD RLE: Right foot dressing CDI without any erythema proximal or distal to dressing. Able to flex and extend at ankle and remaining MTPs. Capillary refill brisk distally. Sensation intact distally. Assessment: [] POD #3 Right foot 5th ray amputation Plan: Cont IV abx per ID - flagyl and ceftriaxone now Cont heel WBAT RLE with post op shoe DC to SNF when placement available. Keep dressing CDI and FU Dr Raza next week. If dressing soiled gauze and luciana wrap. Vital Signs Temp 98.1 F 07/01/18 07:58 Pulse 80 07/01/18 09:48 Resp 18 07/01/18 09:48 BP 150/82 07/01/18 09:48 Pulse Ox 96 07/01/18 07:58 Intake & Output 06/30/18 07/01/18 07/01/18 18:59 06:59 18:59 Intake Total 150 544 600 Balance 150 544 600 Weight 251 lb 14.4 oz Intake: IV Fluids 32 NS (0.9%) 32 IVPB 222 ABX - FLAGYL 222 Oral 150 290 600 Other: Estimated Void Large Large # Bowel Movements 1 Estimated Stool Amount Medium # Voids 1 Laboratory Last Values WBC 16.4 10^3/ul (3.5-10.8) H 07/01/18 05:44 RBC 4.02 10^6/ul (4.00-5.40) 07/01/18 05:44 Hgb 11.2 g/dl (14.0-18.0) L 07/01/18 05:44 Hct 33 % (42-52) L 07/01/18 05:44 MCV 81 fL (80-94) 07/01/18 05:44 MCH 28 pg (27-31) 07/01/18 05:44 MCHC 34 g/dl (31-36) 07/01/18 05:44 RDW 13 % (10.5-15) 07/01/18 05:44 Plt Count 258 10^3/ul (150-450) 07/01/18 05:44 MPV 6.9 um3 (7.4-10.4) L 07/01/18 05:44 Neut % (Auto) 71.7 % (38-83) 07/01/18 05:44 Lymph % (Auto) 16.0 % (25-47) L 07/01/18 05:44 [place] % (Auto) 9.2 % (0-7) H 07/01/18 05:44 Eos % (Auto) 2.6 % (0-6) 07/01/18 05:44 Baso % (Auto) 0.5 % (0-2) 07/01/18 05:44 Absolute Neuts (auto) 11.7 10^3/ul (1.5-7.7) H 07/01/18 05:44 Absolute Lymphs (auto) 2.6 10^3/ul (1.0-4.8) 07/01/18 05:44 Absolute Monos (auto) 1.5 10^3/ul (0-0.8) H 07/01/18 05:44 Absolute Eos (auto) 0.4 10^3/ul (0-0.6) 07/01/18 05:44 Absolute Basos (auto) 0.1 10^3/ul (0-0.2) 07/01/18 05:44 Absolute Nucleated RBC 0 10^3/ul 07/01/18 05:44 Nucleated RBC % 0 07/01/18 05:44 ESR 76 mm/Hr (0-20) H 06/25/18 15:42 INR (Anticoag Therapy) 1.61 (0.77-1.02) H 06/25/18 15:42 APTT 34.8 seconds (26.0-36.3) 06/25/18 15:42 Sodium 134 mmol/L (135-145) L 07/01/18 05:44 Potassium 4.2 mmol/L (3.5-5.0) 07/01/18 05:44 Chloride 102 mmol/L (101-111) 07/01/18 05:44 Carbon Dioxide 31 mmol/L (22-32) 07/01/18 05:44 Anion Gap 1 mmol/L (2-11) L 07/01/18 05:44 BUN 15 mg/dL (6-24) 07/01/18 05:44 Creatinine 0.73 mg/dL (0.67-1.17) 07/01/18 05:44 Est GFR ( Amer) 133.1 (>60) 07/01/18 05:44 Est GFR (Non-Af Amer) 110.0 (>60) 07/01/18 05:44 BUN/Creatinine Ratio 20.5 (8-20) H 07/01/18 05:44 Glucose 177 mg/dL (70-100) H 07/01/18 05:44 POC Glucose (mg/dL) 332 mg/dL (70-100) H 06/30/18 21:37 Glucose Meter Confirm 433 mg/dL (70-100) H 06/25/18 22:04 Lactic Acid 0.7 mmol/L (0.5-2.0) 06/26/18 06:01 Calcium 8.4 mg/dL (8.6-10.3) L 07/01/18 05:44 Total Bilirubin 0.20 mg/dL (0.2-1.0) 07/01/18 05:44 AST 14 U/L (13-39) 07/01/18 05:44 ALT 24 U/L (7-52) 07/01/18 05:44 Alkaline Phosphatase 79 U/L (34-104) 07/01/18 05:44 C-Reactive Protein 134.94 mg/L (<8.01) H 07/01/18 05:44 Total Protein 6.8 g/dL (6.4-8.9) 07/01/18 05:44 Albumin 2.6 g/dL (3.2-5.2) L 07/01/18 05:44 Globulin 4.2 g/dL (2-4) H 07/01/18 05:44 Albumin/Globulin Ratio 0.6 (1-3) L 07/01/18 05:44 Vancomycin Trough 6.0 mcg/mL 06/30/18 07:59
[2018-07-01] MEDS: oxyCODONE TAB* 5 MG TAB PO PRN (11:09)
[2018-07-01] MEDS: cefTRIAXone(*) 2 GM in NS 0.9% 100 ML* 100 ML IVPB SCH (13:11)
[2018-07-01] MEDS: Insulin GLARGINE(*) 1 UNITS UNIT SUBCUT SCH (15:10)
--- NOTE | 2018-07-01 17:14 | PN ---
Subjective Date of Service: 07/01/18 Interval History: Pt reports he had a little bit more pain today in his foot stating he thinks because he was more active today. Currently the pain is controlled. He denies fever/chills. Reports good appetite. at bedside. Family History: Unchanged from Admission - unremarkable Social History: Unchanged from Admission - Lives alone. No recent smoking, no recent heavy drinking. Has aides 6 nights a week. SDM is his sister Caitlin Gant in [place]. Past Medical History: Unchanged from Admission - Former heavy drinker, former smoker. Atrial fib/flutter with atrial appendage clot, HTN, DM, hx poor compliance, old CVA. Objective Active Medications: Acetaminophen (Tylenol Tab*) 650 mg PO Q6H PRN PRN Reason: FEVER/PAIN Atorvastatin Calcium (Lipitor*) 10 mg PO DAILY [facility] Last Admin: 07/01/18 08:51 Dose: 10 mg Dextrose (D50w Syringe 50 Ml*) 12.5 gm IV PUSH .FOR FS < 60 - SS PRN PRN Reason: FS < 60 Heparin Sodium (Porcine) (Heparin Flush Picc/Ml/Cvc(*)) 1 - 3 ml FLUSH 0600, 1800 [facility]; Protocol Last Admin: 07/01/18 05:40 Dose: 1 ml Metronidazole/Sodium Chloride (Flagyl 500 Mg Ivpb*) 500 mg in 100 mls @ 100 mls /hr IVPB 0330,1130,1930 [facility] Last Admin: 07/01/18 11:11 Dose: 100 mls/hr Ceftriaxone Sodium 2 gm/ (Sodium Chloride) 100 mls @ 200 mls/hr IVPB Q24H [facility] Last Admin: 07/01/18 13:11 Dose: 200 mls/hr Insulin Glargine (Lantus(*)) 26 units SUBCUT Q24H [facility] Last Admin: 07/01/18 15:10 Dose: 26 units Insulin Human Lispro (Humalog*) 0 units SUBCUT ACHS [facility]; Protocol Last Admin: 07/01/18 13:11 Dose: 12 unit Lisinopril (Prinivil Tab*) 20 mg PO DAILY [facility] Last Admin: 07/01/18 08:51 Dose: 20 mg Metoprolol Succinate (Toprol Xl Tab*) 25 mg PO DAILY [facility] Last Admin: 07/01/18 08:51 Dose: 25 mg Oxycodone HCl (Roxycodone Tab*) 5 mg PO Q4H PRN PRN Reason: PAIN Last Admin: 07/01/18 11:09 Dose: 5 mg Rivaroxaban (Xarelto(*)) 20 mg PO BEDTIME [facility] Last Admin: 06/30/18 21:48 Dose: 20 mg Thiamine HCl (Vitamin B-1 Tab*) 100 mg PO DAILY [facility] Last Admin: 07/01/18 08:51 Dose: 100 mg Vital Signs - 8 hr 07/01/18 07/01/18 07/01/18 09:48 11:09 11:31 Temperature 98.4 F Pulse Rate 80 73 Respiratory 18 18 18 Rate Blood Pressure 150/82 108/62 (mmHg) O2 Sat by Pulse 97 Oximetry 07/01/18 07/01/18 13:49 15:31 Temperature 98.7 F Pulse Rate 79 Respiratory 16 18 Rate Blood Pressure 149/69 (mmHg) O2 Sat by Pulse 96 Oximetry Oxygen Devices in Use Now: None Appearance: 58 yo male sitting up in bed in NAD. A+Ox3 Eyes: No Scleral Icterus, PERRLA Ears/Nose/Mouth/Throat: NL Teeth, Lips, Gums, Mucous Membranes Moist Neck: NL Appearance and Movements; NL JVP Respiratory: Symmetrical Chest Expansion and Respiratory Effort, Clear to Auscultation Cardiovascular: NL Sounds; No Murmurs; No JVD, RRR, No Edema Abdominal: NL Sounds; No Tenderness; No Distention Extremities: - - dressing CD+I Skin: No Rash or Ulcers, No Nodules or Sclerosis Neurological: Alert and Oriented x 3, NL Muscle Strength and Tone Lines/Tubes/Other Access: Clean, Dry and Intact Peripheral IV Nutrition: Taking PO's Result Diagrams: 07/01/18 05:44 07/01/18 05:44 Additional Lab and Data: . Microbiology and Other Data: Diagnostic Imaging: . EKG Data: . Assess/Plan/Problems-Billing Assessment: 58 yr old male admitted with osteomyolitis, right 5th metatarsal. S/P Excision right 5th ray. Hx of HTN, DM, Memory Loss, Afib, possile stroke, PVD, neuropathy , and CHF - Patient Problems (1) Foot osteomyelitis, right Comment: - S/p Excision of right 5th toe. POD 3. Plan for discharge to rehab - Ceftiaxone 2 gm IV. Continue Flagyl. - Patient will need outpatient IV abx while at rehab. 10 more days after discharge per ID - PICC placed - Weekly CBC, CMP, and CRP while receiving outpatient IV abx. - ID office will plan follow up for patient (2) Atrial fibrillation Comment: - Continue Metoprolol - Continue Xarelto (3) Diabetes Comment: - uncontrolled DM - HgA1C 12% - Continue to hold home glipizide. - Lispro by SS achs - Add on lispro 5 units with meals - this may need to be adjusted as patient is very hyperglycemic - Increase Lantus 28 units (up from 26u) - Give extra 10u lispro x1 now - placed diabetic consult for recommendations if he has time to see prior to pt leaving - if not please refer as outpt. (4) Hyperlipidemia Comment: - Continue statin as ordered (5) Hypertension Comment: - Continue Lisinopril - Continue Metoprolol - Continue to monitor vital signs routinely (6) Leukocytosis Comment: - WBC 16 (up from 15) - Afebrile - Lungs clear - Incentive spirometer encouraged and demonstrated. (7) Memory loss Comment: - Chronic - Possible rehab in post operative period Status and Disposition: Inpatient. S/P Excision of right 5th ray. Plan for discharge to rehab when medically stable with IV abx
[2018-07-01] MEDS: Acetaminophen TAB* 325 MG PO PRN (17:49)
[2018-07-01] MEDS ORDERED: Insulin LISPRO* 1 UNITS UNIT SUBCUT ONE (18:23)
[2018-07-01] MEDS: Rivaroxaban TAB(*) 20 MG TAB PO SCH (19:20)
[2018-07-02] MEDS: metroNIDAZOLE IV 500 MG/100ML* 500 MG/100 ML BAG IVPB SCH ×3 (03:44→19:41)
[2018-07-02 06:08] LABS: ABS Basophils 0.1 10^3/ul (0-0.2); ABS Eosinophils 0.4 10^3/ul (0-0.6); ABS Lymphocytes 2.3 10^3/ul (1.0-4.8); ABS Monocytes 1.1 10^3/ul (0-0.8); ABS Neutrophils 9.6 10^3/ul (1.5-7.7); ABS Nucleated RBC 0 10^3/ul; Eosinophil % 3.2 % (0-6); Hematocrit 32 % (42-52); Hemoglobin 10.4 g/dl (14.0-18.0); Lymphocyte % 17.3 % (25-47); Mean Corpuscular HGB Conc 33 g/dl (31-36); Mean Corpuscular Hemoglobin 27 pg (27-31); Mean Corpuscular Volume 81 fL (80-94); Mean Platelet Volume 6.7 um3 (7.4-10.4); Nucleated Red Blood Cells % 0; Platelet Count 267 10^3/ul (150-450); Red Blood Count 3.94 10^6/ul (4.00-5.40); Red Cell Distribution Width 13 % (10.5-15); White Blood Count 13.5 10^3/ul (3.5-10.8)
--- NOTE | 2018-07-02 06:28 | CONSULT ---
Consult Consult: Endocrinology Inpatient Consult Date of Service: 07/02/18 Reason for Admisison: osteomyelitis Reason for Consult: type 2 diabetes ASSESSMENT: 58 yo M with history of HTN, T2DM, alcoholism, AF, PVD, neuropathy and CHF, admitted with osteomyolitis of the R 5th metatarsal now s/p excision R 5th ray. The weight-based insulin dose is approximately 0.8 units/kg/day = 80 units/day, which should be given as 50% basal and 50% bolus in divided doses. He should continue this 4-shot basal/bolus regimen after discharge to rehabilitation facility. When he is ready to return home, a 2-shot mixed insulin regimen is recommend. In addition to metformin and insulin, an oral agent such as Farxiga is recommended in the future after he surgical wounds have recovered and he has resumed ambulation. PLAN: - INCREASE Lantus to 40 units once daily - INCREASE Humalog to 12 units with meals, plus sliding scale - increase Humalog sliding scale to 2 units/50 for BG>150 - fingerstick glucose TID-AC and QHS - d/c glipizide - start metformin ER 500mg twice daily as outpatient SUBJECTIVE: 58 yo M with T2DM (A1C >12% on glipizide), followed at wound clinic for several months for non-healing diabetic R foot ulcer, found to have osteomyelitis of the 5th metatarsal on plain films and MRI with associated cellulitis, s/p R 5th toe excision on 06/28/18. He was taking oral antibiotics as an outpatient and had had some drainage, redness and swelling, but no fevers or chills. He has long-standing type 2 diabetes and has never used insulin as an outpatient. His A1c has been >>10% for the past 3 years. PMH: 1. Type 2 diabetes with peripheral neuropathy. 2. Obesity. 3. Dyslipidemia. 4. Atrial fibrillation. 5. History of atrial thrombus. 6. Hypertension. 7. History of stroke. OUTPATIENT MEDS: Atorvastatin* [Lipitor*] 10 mg PO DAILY Ciprofloxacin TAB* [Cipro 500 MG TAB*] 500 mg PO BID 06/25/18 Clindamycin Cap(NF) [Clindamycin Cap 300 mg Cap(NF)] 300 mg PO BID Lisinopril TAB* [Prinivil TAB*] 20 mg PO DAILY Metoprolol Succinate XL TAB* [Toprol XL TAB*] 25 mg PO DAILY Multivitamins/Minerals TAB* [Theragran/minerals TAB*] 1 tab PO DAILY Rivaroxaban TAB(*) [Xarelto 20 mg] 20 mg PO QPM Thiamine TAB* [Vitamin B-1 TAB*] 100 mg PO DAILY glipiZIDE TAB* [Glucotrol TAB*] 10 mg PO BID INPATIENT MEDS: Acetaminophen (Tylenol Tab*) 650 mg PO Q6H PRN Atorvastatin Calcium (Lipitor*) 10 mg PO DAILY [facility] Heparin Metronidazole/Sodium Chloride (Flagyl 500 Mg Ivpb*) 500 mg Ceftriaxone Sodium 2 gm Insulin Glargine (Lantus(*)) 28 units SUBCUT Q24H IFEOMA Insulin Human Lispro (Humalog*) 5 units SUBCUT AC IFEOMA Lisinopril (Prinivil Tab*) 20 mg PO DAILY [facility] Metoprolol Succinate (Toprol Xl Tab*) 25 mg PO DAILY [facility] Oxycodone HCl (Roxycodone Tab*) 5 mg PO Q4H PRN Rivaroxaban (Xarelto(*)) 20 mg PO BEDTIME [facility] Thiamine HCl (Vitamin B-1 Tab*) 100 mg PO DAILY [facility] ALLERGIES: NKDA SOC: Lives alone. Has home health aides most days. Former heavy drinking. Former smoker. EXAM: Temp Pulse Resp BP Pulse Ox 98.4 F 79 18 146/75 96 07/02/18 03:41 07/02/18 03:41 07/02/18 03:41 07/02/18 03:41 07/02/18 03:41 Glucose Results Document 07/01/18 07:30 177 - 3L Document 07/01/18 11:30 330 - 12L Document 07/01/18 16:30 345 - 12L + 26G Document 07/01/18 21:54 384 - 10L WBC 13.5 10^3/ul (3.5-10.8) H 07/02/18 05:59 RBC 3.94 10^6/ul (4.00-5.40) L 07/02/18 05:59 Hgb 10.4 g/dl (14.0-18.0) L 07/02/18 05:59 Hct 32 % (42-52) L 07/02/18 05:59 MCV 81 fL (80-94) 07/02/18 05:59 MCH 27 pg (27-31) 07/02/18 05:59 MCHC 33 g/dl (31-36) 07/02/18 05:59 RDW 13 % (10.5-15) 07/02/18 05:59 Plt Count 267 10^3/ul (150-450) 07/02/18 05:59 MPV 6.7 um3 (7.4-10.4) L 07/02/18 05:59 Neut % (Auto) 70.9 % (38-83) 07/02/18 05:59 Lymph % (Auto) 17.3 % (25-47) L 07/02/18 05:59 [place] % (Auto) 8.0 % (0-7) H 07/02/18 05:59 Eos % (Auto) 3.2 % (0-6) 07/02/18 05:59 Baso % (Auto) 0.6 % (0-2) 07/02/18 05:59 Absolute Neuts (auto) 9.6 10^3/ul (1.5-7.7) H 07/02/18 05:59 Absolute Lymphs (auto) 2.3 10^3/ul (1.0-4.8) 07/02/18 05:59 Absolute Monos (auto) 1.1 10^3/ul (0-0.8) H 07/02/18 05:59 Absolute Eos (auto) 0.4 10^3/ul (0-0.6) 07/02/18 05:59 Absolute Basos (auto) 0.1 10^3/ul (0-0.2) 07/02/18 05:59 Absolute Nucleated RBC 0 10^3/ul 07/02/18 05:59 Nucleated RBC % 0 07/02/18 05:59 ESR 76 mm/Hr (0-20) H 06/25/18 15:42 INR (Anticoag Therapy) 1.61 (0.77-1.02) H 06/25/18 15:42 APTT 34.8 seconds (26.0-36.3) 06/25/18 15:42 Sodium 136 mmol/L (135-145) 07/02/18 05:59 Potassium 4.4 mmol/L (3.5-5.0) 07/02/18 05:59 Chloride 102 mmol/L (101-111) 07/02/18 05:59 Carbon Dioxide 29 mmol/L (22-32) 07/02/18 05:59 Anion Gap 5 mmol/L (2-11) 07/02/18 05:59 BUN 12 mg/dL (6-24) 07/02/18 05:59 Creatinine 0.66 mg/dL (0.67-1.17) L 07/02/18 05:59 Est GFR ( Amer) 149.5 (>60) 07/02/18 05:59 Est GFR (Non-Af Amer) 123.5 (>60) 07/02/18 05:59 BUN/Creatinine Ratio 18.2 (8-20) 07/02/18 05:59 Glucose 206 mg/dL (70-100) H 07/02/18 05:59 POC Glucose (mg/dL) 384 mg/dL (70-100) H 07/01/18 21:56 Glucose Meter Confirm 433 mg/dL (70-100) H 06/25/18 22:04 Lactic Acid 0.7 mmol/L (0.5-2.0) 06/26/18 06:01 Calcium 8.3 mg/dL (8.6-10.3) L 07/02/18 05:59 Total Bilirubin 0.20 mg/dL (0.2-1.0) 07/01/18 05:44 AST 14 U/L (13-39) 07/01/18 05:44 ALT 24 U/L (7-52) 07/01/18 05:44 Alkaline Phosphatase 79 U/L (34-104) 07/01/18 05:44 C-Reactive Protein 134.94 mg/L (<8.01) H 07/01/18 05:44 Total Protein 6.8 g/dL (6.4-8.9) 07/01/18 05:44 Albumin 2.6 g/dL (3.2-5.2) L 07/01/18 05:44 Globulin 4.2 g/dL (2-4) H 07/01/18 05:44 Albumin/Globulin Ratio 0.6 (1-3) L 07/01/18 05:44 Vancomycin Trough 6.0 mcg/mL 06/30/18 07:59
[2018-07-02 07:29] LABS: EGFR Non-African American 123.5 (>60)
[2018-07-02] MEDS: Acetaminophen TAB* 325 MG PO PRN ×2 (08:18→16:29)
[2018-07-02] MEDS: Lisinopril TAB* 10 MG PO SCH (08:18)
[2018-07-02] MEDS: Thiamine TAB* 100 MG TAB PO SCH (08:18)
[2018-07-02] MEDS: Metoprolol Succinate XL TAB* 25 MG PO SCH (08:18)
[2018-07-02] MEDS: Atorvastatin* 10 MG TAB PO SCH (08:19)
[2018-07-02] MEDS ORDERED: Insulin GLARGINE(*) 1 UNITS UNIT SUBCUT SCH (09:00)
--- NOTE | 2018-07-02 09:01 | PN ---
Progress Note - Progress Note Date of Service: 07/02/18 SOAP: Subjective: CC: foot infection HPI: 58 year old man with right lateral forefoot infection and wound s/p 5th ray amputation. No pain, hungry. No fever, rash, or diarrhea. Objective: Vital Signs Temp 36.9 C 07/02/18 08:08 Pulse 79 07/02/18 08:08 Resp 20 07/02/18 08:08 BP 151/81 07/02/18 08:08 Pulse Ox 95 07/02/18 08:08 Intake & Output 07/01/18 07/02/18 07/02/18 18:59 06:59 18:59 Intake Total 1680 1475 Output Total 0 Balance 1680 1475 Weight 254 lb Intake: IV Fluids 40 NS (0.9%) 40 IVPB 215 ABX - FLAGYL 215 Oral 1680 1220 Output: Urine 0 Other: Estimated Void Large # Bowel Movements 0 1 Estimated Stool Amount Medium # Voids 1 Gen:awake, no distress HEENT: no thrush Heart:RRR no murmur Lungs:CTA BL Abd:+BS NT ND soft Skin: No rash MSK: R foot wrap Laboratory Results - last 24 hr 07/01/18 07/01/18 07/01/18 11:40 17:08 21:56 WBC RBC Hgb Hct MCV MCH MCHC RDW Plt Count MPV Neut % (Auto) Lymph % (Auto) [place] % (Auto) Eos % (Auto) Baso % (Auto) Absolute Neuts (auto) Absolute Lymphs (auto) Absolute Monos (auto) Absolute Eos (auto) Absolute Basos (auto) Absolute Nucleated RBC Nucleated RBC % Sodium Potassium Chloride Carbon Dioxide Anion Gap BUN Creatinine Est GFR ( Amer) Est GFR (Non-Af Amer) BUN/Creatinine Ratio Glucose POC Glucose (mg/dL) 330 H 345 H 384 H Calcium 07/02/18 07/02/18 07/02/18 05:59 05:59 08:24 WBC 13.5 H RBC 3.94 L Hgb 10.4 L Hct 32 L MCV 81 MCH 27 MCHC 33 RDW 13 Plt Count 267 MPV 6.7 L Neut % (Auto) 70.9 Lymph % (Auto) 17.3 L [place] % (Auto) 8.0 H Eos % (Auto) 3.2 Baso % (Auto) 0.6 Absolute Neuts (auto) 9.6 H Absolute Lymphs (auto) 2.3 Absolute Monos (auto) 1.1 H Absolute Eos (auto) 0.4 Absolute Basos (auto) 0.1 Absolute Nucleated RBC 0 Nucleated RBC % 0 Sodium 136 Potassium 4.4 Chloride 102 Carbon Dioxide 29 Anion Gap 5 BUN 12 Creatinine 0.66 L Est GFR ( Amer) 149.5 Est GFR (Non-Af Amer) 123.5 BUN/Creatinine Ratio 18.2 Glucose 206 H POC Glucose (mg/dL) 212 H Calcium 8.3 L Assessment: 1. Right 5th metatarsal acute osteomyelitis with myositis, cellulitis and non healing wound 2. morbid obesity 3. T2 diabetes with neuropathy Plan: 1. ceftriaxone 2 gm iv daily and flagyl 500 mg po tid day 4 since I&D, then two more week of same combo at rehab w weekly cbc, cmp, crp. FU with me 1-2 weeks.
[2018-07-02] MEDS: Insulin LISPRO* 1 UNITS UNIT SUBCUT SCH ×9 (10:30→21:05)
--- NOTE | 2018-07-02 12:49 | PN ---
Progress Note - Progress Note Date of Service: 07/02/18 SOAP: Subjective: []Patient seen at bedside, pain well managed upon entering room. Offers no new orthopedic complaints. Objective: [] Vital Signs Temp 98.4 F 07/02/18 12:15 Pulse 74 07/02/18 12:15 Resp 16 07/02/18 12:15 BP 130/75 07/02/18 12:15 Pulse Ox 96 07/02/18 12:15 Intake & Output 07/01/18 07/02/18 07/02/18 18:59 06:59 18:59 Intake Total 1680 1475 425 Output Total 0 Balance 1680 1475 425 Weight 254 lb Intake: IV Fluids 40 NS (0.9%) 40 IVPB 215 105 ABX - FLAGYL 215 105 Oral 1680 1220 320 Output: Urine 0 Other: Estimated Void Large # Bowel Movements 0 1 Estimated Stool Amount Medium # Voids 1 Laboratory Results - last 24 hr 07/01/18 07/01/18 07/02/18 17:08 21:56 05:59 WBC RBC Hgb Hct MCV MCH MCHC RDW Plt Count MPV Neut % (Auto) Lymph % (Auto) [place] % (Auto) Eos % (Auto) Baso % (Auto) Absolute Neuts (auto) Absolute Lymphs (auto) Absolute Monos (auto) Absolute Eos (auto) Absolute Basos (auto) Absolute Nucleated RBC Nucleated RBC % Sodium 136 Potassium 4.4 Chloride 102 Carbon Dioxide 29 Anion Gap 5 BUN 12 Creatinine 0.66 L Est GFR ( Amer) 149.5 Est GFR (Non-Af Amer) 123.5 BUN/Creatinine Ratio 18.2 Glucose 206 H POC Glucose (mg/dL) 345 H 384 H Calcium 8.3 L 07/02/18 07/02/18 05:59 08:24 WBC 13.5 H RBC 3.94 L Hgb 10.4 L Hct 32 L MCV 81 MCH 27 MCHC 33 RDW 13 Plt Count 267 MPV 6.7 L Neut % (Auto) 70.9 Lymph % (Auto) 17.3 L [place] % (Auto) 8.0 H Eos % (Auto) 3.2 Baso % (Auto) 0.6 Absolute Neuts (auto) 9.6 H Absolute Lymphs (auto) 2.3 Absolute Monos (auto) 1.1 H Absolute Eos (auto) 0.4 Absolute Basos (auto) 0.1 Absolute Nucleated RBC 0 Nucleated RBC % 0 Sodium Potassium Chloride Carbon Dioxide Anion Gap BUN Creatinine Est GFR ( Amer) Est GFR (Non-Af Amer) BUN/Creatinine Ratio Glucose POC Glucose (mg/dL) 212 H Calcium Right foot dressings changed, wound mildly macerated without purulent drainage or erythema Dry dressings, kerlex, TENA applied. Assessment: []s/p amputation 5th ray-right foot infection POD #4 Plan: []OK from orthopedic standpoint for discharge to SNF today Continue with Cefriaxone and Flagyl per Dr. Key's recommendations Dressing changes every other day or as needed Follow up with Dr. Raza in 10-14 days in office.
[2018-07-02] MEDS: cefTRIAXone(*) 2 GM in NS 0.9% 100 ML* 100 ML IVPB SCH (14:05)
--- NOTE | 2018-07-02 16:05 | DS ---
AMENDED REPORT NOW INCLUDES DESIGNATED COSIGNER CC: Dr. Looney; Dr. Raza; Dr. Magdalene Emanuel * DATE OF ADMISSION: 06/25/2018. DATE OF DISCHARGE: 07/05/2018. PROVIDER: Karolina Bauer NP. ATTENDING PHYSICIAN: Dr. Chao Long * (dictated by Karolina Bauer NP ). PRIMARY CARE PHYSICIAN: Dr. Magdalene Emanuel. CONSULTING PHYSICIAN: Dr. Bigg Looney, Dr. Davy Raza, and Dr. Marek Key. PRIMARY DIAGNOSIS: 1. Osteomyelitis. 2. Right foot fifth ray amputation. 3. Nonhealing foot infection. SECONDARY DIAGNOSES: 1. Diabetes. 2. Atrial fibrillation, aflutter. 3. Hypertension. 4. Old CVA. STUDIES COMPLETED WHILE IN THE HOSPITAL: 1. The patient had a venous Doppler on 06/25/2018: Radiologist's impression: No right lower extremity deep vein thrombosis. 2. He had a foot x-ray on 06/25/2018: Impression: There has been interval development of the head of the fifth metatarsal and the base of the fifth proximal phalanx consistent with osteomyelitis given the clinical history. 3. He had an MRI of the lower extremity on 06/25/2018: Radiologist's impression: (1) Osteomyelitis with bony destruction and pathologic fracture distal fifth metatarsal and to a lesser extent the base of the proximal phalanx of the little toe. The marrow signal abnormality extends into the proximal third of the metatarsal shaft, some of which may be reactive, and involves the entire proximal phalanx. (2) Surrounding cellulitis. There is not a well-defined abscess; however, absence of contrast limits the evaluation. 4. He had an electrocardiogram on 06/28/2018 which showed sinus rhythm, grade of 87. 5. He had a transthoracic echocardiogram on 06/26/2018: Conclusion: Mild to moderate concentric left ventricular hypertrophy is observed. Global left ventricular wall motion and contractility are within normal Limits. The estimated ejection fraction is 55 to 60 percent. The right ventricular chamber size and systolic function are within normal limits. Mild atrial enlargement. The aortic valve leaflets are mildly thickened with normal function. Grossly normal function of the mitral, tricuspid and pulmonic valves. Compared with echo of 01/06/2015, the EF has improved from 20 to 25 percent and the RV systolic function has normalized, previously moderate to severe hypokinesis was noted. DISCHARGE MEDICATIONS: New medications: 1. Ceftriaxone 2 gm IV daily for 11 more days. 2. Flagyl 500 mg p.o. 3 times a day for 11 more days. 3. Lantus insulin 36 units subcu daily. 4. Humalog with meals at 10 units with meals and sliding scale. An additional sliding scale coverage starting at blood sugar between 200 to 250 two units, 251 to 300 four units, 301 to 350 six units, 351 to 400 eight units, 401 to 450 ten units, greater than 450 twelve units. This is in addition to 10 units with meals. 5. Metformin 500 mg PO BID starting tomorrow. Accu-Chek should be with meals and at bedtime. Dr. Looney from Endocrinology has recommended that he start Metformin 500 mg p.o. two times a day starting tomorrow. Continued home medications: 1. Multivitamin one tablet p.o. daily. 2. Atorvastatin 10 mg p.o. daily. 3. Lisinopril 10 mg p.o. daily. 4. Xarelto 20 mg p.o. q.p.m. 5. Metoprolol 25 mg p.o. daily. 6. Thiamine 100 mg p.o. daily. 7. Oxycodone 5 mg p.o. q.4 hours as needed for pain. 8. Heparin flush to the PICC line two times daily. 9. Acetaminophen 650 mg p.o. q.6 hours as needed for pain. HISTORY OF PRESENT ILLNESS AND HOSPITAL COURSE: Mr. Levy is a 58-year-old gentleman with a past medical history significant for hypertension and diabetes. The patient has been followed by the Wound Clinic for the past two months and he was referred to a excellence manager. An outpatient MRI was planned, but not yet scheduled. He was referred by the Wound Clinic for admission due to worsening wound. The patient denied any fever, chills, or sweats. His appetite was unchanged. Due to the increased concern of wound infection, he was referred to the Hospitalist team for admission. The patient did have an MRI which was consistent with osteomyelitis. He was seen by Orthopedics and had a fifth ray metatarsal amputation on the right foot. He was also seen by Infectious Disease who has recommended Ceftriaxone 2 gm IV daily for 14 more days and Flagyl 500 mg p.o. three times a day for 14 more days with weekly CBC, CMP, and CRP's. The patient did have elevated blood sugars during this hospitalization and he was seen by Endocrinology who made further recommendations of his insulin changes. At this time, Mr. Levy is stable for discharge to [facility] for continued IV antibiotic therapy and rehab. Vital signs are as follows: Temperature 97.1, heart rate 84, respirations 18, O2 saturation 94 percent, blood pressure 150/66. DISCHARGE PLAN: Mr. Levy will be discharged to [facility]. Activity as tolerated. Continue with PT and OT. Diet: He should be placed on a consistent carbohydrate diet. 1. Osteomyelitis of the right foot: He needs to continue on Ceftriaxone 2 gm IV daily and Flagyl 500 mg p.o. 3 times a day for 11 more days each last dose . He has a dressing to the right foot and it is a dry dressing change with a 4 x 4 and Kerlix and an TENA wrap every other day and as needed. He should follow-up with Dr. Raza from Orthopedics in 10 days for a wound check. He needs to follow-up with Dr. Key from Infectious Disease in one to two weeks. He needs to have weekly CBC, CMP, and CRP draws due 07/08/[address] Key. 2. Diabetes: The patient was seen by Dr. Looney from Endocrinology who recommended increasing his Lantus to 36 units subcu daily and increasing his Humalog to 10 units with meals with sliding scale coverage starting at blood sugars over 200 with blood sugar 200 to 250 two units, 251 to 300 four units, 301 to 350 six units, 351 to 400 eight units, 401 to 450 ten units, and above 450 twelve units, in addition to his 10 units of Humalog with meals. He also has recommended starting Metformin 500 mg twice daily starting tomorrow. He needs to have fingersticks with meals and at bedtime and close watch of his blood sugars. He also recommended dc-ing Glipizide. 3. Hyperlipidemia: He should continue on his Atorvastatin. 4. Hypertension: He should continue his Lisinopril, Metoprolol as previously prescribed. 5. Atrial fibrillation: He should continue on his Metoprolol and Xarelto 20 mg p.o. daily. 6. He is heel weightbearing as tolerated to the right lower extremity. FOLLOW-UP: The patient should follow-up with Dr. Looney in one month from Endocrinology. He should follow-up with Dr. Raza in 10 days for wound recheck. He should follow-up with Dr. Key in one to two weeks. He should follow-up with his primary care provider in four to seven days. This is a summarization of his hospitalization. For further details, please see the entire medical record. TIME SPENT: Time spent on this discharge was approximately 60 minutes, greater than half that time was spent with the patient discussing discharge plans and instructions. CONDITION ON DISCHARGE: Stable. KAROLINA BAUER NP [id number]/CPS #: [id number] MARILYN
--- NOTE | 2018-07-02 18:46 | PN ---
Subjective Date of Service: 07/02/18 Interval History: No complaints. Patient resting in bed. Patient denies chest pain or shortness of breath. Denies abd pain n/v/d. denies foot pain at this time. Family History: Unchanged from Admission - unremarkable Social History: Unchanged from Admission - Lives alone. No recent smoking, no recent heavy drinking. Has aides 6 nights a week. SDM is his sister Caitlin Gant in [place]. Past Medical History: Unchanged from Admission - Former heavy drinker, former smoker. Atrial fib/flutter with atrial appendage clot, HTN, DM, hx poor compliance, old CVA. Objective Active Medications: Acetaminophen (Tylenol Tab*) 650 mg PO Q6H PRN PRN Reason: FEVER/PAIN Last Admin: 07/02/18 16:29 Dose: 650 mg Atorvastatin Calcium (Lipitor*) 10 mg PO DAILY [facility] Last Admin: 07/02/18 08:19 Dose: 10 mg Dextrose (D50w Syringe 50 Ml*) 12.5 gm IV PUSH .FOR FS < 60 - SS PRN PRN Reason: FS < 60 Heparin Sodium (Porcine) (Heparin Flush Picc/Ml/Cvc(*)) 1 - 3 ml FLUSH 0600, 1800 [facility]; Protocol Last Admin: 07/02/18 16:29 Dose: 1 ml Metronidazole/Sodium Chloride (Flagyl 500 Mg Ivpb*) 500 mg in 100 mls @ 100 mls /hr IVPB 0330,1130,1930 [facility] Last Admin: 07/02/18 10:30 Dose: 100 mls/hr Ceftriaxone Sodium 2 gm/ (Sodium Chloride) 100 mls @ 200 mls/hr IVPB Q24H [facility] Last Admin: 07/02/18 14:05 Dose: 200 mls/hr Insulin Glargine (Lantus(*)) 36 units SUBCUT Q24H [facility] Insulin Human Lispro (Humalog*) 10 units SUBCUT AC [facility] Last Admin: 07/02/18 18:00 Dose: 10 units Insulin Human Lispro (Humalog*) 0 units SUBCUT ACHS [facility]; Protocol Last Admin: 07/02/18 18:00 Dose: 4 units Lisinopril (Prinivil Tab*) 20 mg PO DAILY [facility] Last Admin: 07/02/18 08:18 Dose: 20 mg Metoprolol Succinate (Toprol Xl Tab*) 25 mg PO DAILY [facility] Last Admin: 07/02/18 08:18 Dose: 25 mg Oxycodone HCl (Roxycodone Tab*) 5 mg PO Q4H PRN PRN Reason: PAIN Last Admin: 07/01/18 11:09 Dose: 5 mg Rivaroxaban (Xarelto(*)) 20 mg PO BEDTIME [facility] Last Admin: 07/01/18 19:20 Dose: 20 mg Thiamine HCl (Vitamin B-1 Tab*) 100 mg PO DAILY [facility] Last Admin: 07/02/18 08:18 Dose: 100 mg Vital Signs - 8 hr 07/02/18 07/02/18 07/02/18 12:07 12:15 16:01 Temperature 98.4 F 98.4 F 98.5 F Pulse Rate 74 74 81 Respiratory 16 16 16 Rate Blood Pressure 130/75 130/75 165/82 (mmHg) O2 Sat by Pulse 96 96 96 Oximetry Oxygen Devices in Use Now: None Appearance: appears comfortable resting in bed Eyes: No Scleral Icterus Ears/Nose/Mouth/Throat: Clear Oropharnyx, Mucous Membranes Moist Neck: NL Appearance and Movements; NL JVP Respiratory: Symmetrical Chest Expansion and Respiratory Effort, Clear to Auscultation Cardiovascular: NL Sounds; No Murmurs; No JVD, No Edema Abdominal: NL Sounds; No Tenderness; No Distention Extremities: No Edema, No Clubbing, Cyanosis Skin: - - dressing intact to right foot Neurological: Alert and Oriented x 3 Nutrition: Taking PO's Result Diagrams: 07/02/18 05:59 07/02/18 05:59 Additional Lab and Data: . Microbiology and Other Data: Diagnostic Imaging: . EKG Data: . Assess/Plan/Problems-Billing Assessment: 58 yr old male admitted with osteomyolitis, right 5th metatarsal. S/P Excision right 5th ray. Hx of HTN, DM, Memory Loss, Afib, possile stroke, PVD, neuropathy , and CHF - Patient Problems (1) Foot osteomyelitis, right Current Visit: Yes Status: Acute Code(s): M86.9 - OSTEOMYELITIS, UNSPECIFIED SNOMED Code(s): 0800010785014311 Comment: - S/p Excision of right 5th toe. POD 4. Plan for discharge to rehab - Ceftiaxone 2 gm IV. Continue Flagyl po day 09/20 - Patient will need outpatient IV abx while at rehab for 14 days . - PICC placed - Weekly CBC, CMP, and CRP while receiving outpatient IV abx. - ID office will plan follow up for patient (2) Atrial fibrillation Current Visit: Yes Status: Acute Code(s): I48.91 - UNSPECIFIED ATRIAL FIBRILLATION SNOMED Code(s): 56444184 Comment: - Continue Metoprolol - Continue Xarelto (3) Diabetes Current Visit: Yes Status: Acute Code(s): E11.9 - TYPE 2 DIABETES MELLITUS WITHOUT COMPLICATIONS SNOMED Code(s): 91499156 Comment: - uncontrolled DM - HgA1C 12% - Continue to hold home glipizide. - Lispro by SS achs - increase lispro 10 units with meals as per Dr. Looney recommendations and add SS starting with blood sugars greater than 200 at 2 units / 50 - Increase Lantus 36 units (up from 28u) increased as per Dr. Looney recommendations - recommends starting metformin 500 mg BID at discharge (4) Hyperlipidemia Current Visit: Yes Status: Acute Code(s): E78.5 - HYPERLIPIDEMIA, UNSPECIFIED SNOMED Code(s): 97056810 Comment: - Continue statin as ordered (5) Hypertension Current Visit: Yes Status: Acute Code(s): I10 - ESSENTIAL (PRIMARY) HYPERTENSION SNOMED Code(s): 20392273 Comment: - Continue Lisinopril - Continue Metoprolol - Continue to monitor vital signs routinely (6) Leukocytosis Current Visit: Yes Status: Acute Code(s): D72.829 - ELEVATED WHITE BLOOD CELL COUNT, UNSPECIFIED SNOMED Code(s): 301866885 Comment: - WBC 13.5 trending down - Afebrile - Lungs clear - Incentive spirometer encouraged and demonstrated. (7) Memory loss Current Visit: Yes Status: Acute Comment: - Chronic - Possible rehab in post operative period (8) DVT prophylaxis Current Visit: Yes Status: Acute Code(s): JIB4634 - SNOMED Code(s): 945029711 Comment: opal (9) Full code status Current Visit: Yes Status: Acute Code(s): Z78.9 - OTHER SPECIFIED HEALTH STATUS SNOMED Code(s): 467036016 Status and Disposition: Inpatient. S/P Excision of right 5th ray. Plan for discharge to rehab with IV antibiotics. to [facility] on thursday
[2018-07-02] MEDS: Rivaroxaban TAB(*) 20 MG TAB PO SCH (20:58)
[2018-07-03] MEDS: metroNIDAZOLE IV 500 MG/100ML* 500 MG/100 ML BAG IVPB SCH ×3 (03:27→20:35)
[2018-07-03] MEDS: Insulin LISPRO* 1 UNITS UNIT SUBCUT SCH ×7 (08:41→22:27)
[2018-07-03] MEDS: Insulin GLARGINE(*) 1 UNITS UNIT SUBCUT SCH (08:42)
[2018-07-03] MEDS: Lisinopril TAB* 10 MG PO SCH (08:43)
[2018-07-03] MEDS: Metoprolol Succinate XL TAB* 25 MG PO SCH (08:43)
[2018-07-03] MEDS: Atorvastatin* 10 MG TAB PO SCH (08:43)
[2018-07-03] MEDS: Thiamine TAB* 100 MG TAB PO SCH (08:43)
[2018-07-03] MEDS: Acetaminophen TAB* 325 MG PO PRN (11:44)
[2018-07-03] MEDS: cefTRIAXone(*) 2 GM in NS 0.9% 100 ML* 100 ML IVPB SCH (13:40)
--- NOTE | 2018-07-03 15:12 | PN ---
Subjective Date of Service: 07/03/18 Interval History: examined in the Room patient sitting in the chair, c/o mild pain to right foot. Denies chest pain or shortness of breath. Denies abd pain n/v/d. Denies calf pain. Family History: Unchanged from Admission - unremarkable Social History: Unchanged from Admission - Lives alone. No recent smoking, no recent heavy drinking. Has aides 6 nights a week. SDM is his sister Caitlin Gant in [place]. Past Medical History: Unchanged from Admission - Former heavy drinker, former smoker. Atrial fib/flutter with atrial appendage clot, HTN, DM, hx poor compliance, old CVA. Objective Active Medications: Acetaminophen (Tylenol Tab*) 650 mg PO Q6H PRN PRN Reason: FEVER/PAIN Last Admin: 07/03/18 11:44 Dose: 650 mg Atorvastatin Calcium (Lipitor*) 10 mg PO DAILY [facility] Last Admin: 07/03/18 08:43 Dose: 10 mg Dextrose (D50w Syringe 50 Ml*) 12.5 gm IV PUSH .FOR FS < 60 - SS PRN PRN Reason: FS < 60 Heparin Sodium (Porcine) (Heparin Flush Picc/Ml/Cvc(*)) 1 - 3 ml FLUSH 0600, 1800 [facility]; Protocol Last Admin: 07/03/18 14:58 Dose: 1 ml Metronidazole/Sodium Chloride (Flagyl 500 Mg Ivpb*) 500 mg in 100 mls @ 100 mls /hr IVPB 0330,1130,1930 [facility] Last Admin: 07/03/18 11:39 Dose: 100 mls/hr Ceftriaxone Sodium 2 gm/ (Sodium Chloride) 100 mls @ 200 mls/hr IVPB Q24H [facility] Last Admin: 07/03/18 13:40 Dose: 200 mls/hr Insulin Glargine (Lantus(*)) 36 units SUBCUT Q24H [facility] Last Admin: 07/03/18 08:42 Dose: 36 unit Insulin Human Lispro (Humalog*) 10 units SUBCUT AC [facility] Last Admin: 07/03/18 12:55 Dose: 10 units Insulin Human Lispro (Humalog*) 0 units SUBCUT ACHS [facility]; Protocol Last Admin: 07/03/18 12:55 Dose: 4 units Lisinopril (Prinivil Tab*) 20 mg PO DAILY [facility] Last Admin: 07/03/18 08:43 Dose: 20 mg Metoprolol Succinate (Toprol Xl Tab*) 25 mg PO DAILY [facility] Last Admin: 07/03/18 08:43 Dose: 25 mg Oxycodone HCl (Roxycodone Tab*) 5 mg PO Q4H PRN PRN Reason: PAIN Last Admin: 07/01/18 11:09 Dose: 5 mg Rivaroxaban (Xarelto(*)) 20 mg PO BEDTIME [facility] Last Admin: 07/02/18 20:58 Dose: 20 mg Thiamine HCl (Vitamin B-1 Tab*) 100 mg PO DAILY [facility] Last Admin: 07/03/18 08:43 Dose: 100 mg Vital Signs - 8 hr 07/03/18 07/03/18 07/03/18 07:53 08:00 11:49 Temperature 98.1 F 98.0 F Pulse Rate 91 85 Respiratory 18 20 18 Rate Blood Pressure 147/70 142/72 (mmHg) O2 Sat by Pulse 95 95 Oximetry Oxygen Devices in Use Now: None Appearance: appears comfortable sitting in the chair Eyes: No Scleral Icterus Ears/Nose/Mouth/Throat: Clear Oropharnyx, Mucous Membranes Moist Neck: NL Appearance and Movements; NL JVP, Trachea Midline Respiratory: Symmetrical Chest Expansion and Respiratory Effort, Clear to Auscultation Cardiovascular: NL Sounds; No Murmurs; No JVD, No Edema Abdominal: NL Sounds; No Tenderness; No Distention Skin: - - right foot with dresssing intact. Neurological: Alert and Oriented x 3 Nutrition: Taking PO's Result Diagrams: 07/02/18 05:59 07/02/18 05:59 Additional Lab and Data: . Microbiology and Other Data: Diagnostic Imaging: . EKG Data: . Assess/Plan/Problems-Billing Assessment: 58 yr old male admitted with osteomyolitis, right 5th metatarsal. S/P Excision right 5th ray. Hx of HTN, DM, Memory Loss, Afib, possile stroke, PVD, neuropathy , and CHF - Patient Problems (1) Foot osteomyelitis, right Current Visit: Yes Status: Acute Code(s): M86.9 - OSTEOMYELITIS, UNSPECIFIED SNOMED Code(s): 1921690029308127 Comment: - S/p Excision of right 5th toe. POD 5. Plan for discharge to rehab - Ceftiaxone 2 gm IV. Continue Flagyl po day 2/14 - Patient will need outpatient IV abx while at rehab for 14 days . - PICC placed - Weekly CBC, CMP, and CRP while receiving outpatient IV abx. - ID office will plan follow up for patient (2) Atrial fibrillation Current Visit: Yes Status: Acute Code(s): I48.91 - UNSPECIFIED ATRIAL FIBRILLATION SNOMED Code(s): 52685827 Comment: - Continue Metoprolol - Continue Xarelto (3) Diabetes Current Visit: Yes Status: Acute Code(s): E11.9 - TYPE 2 DIABETES MELLITUS WITHOUT COMPLICATIONS SNOMED Code(s): 45383738 Comment: fasting blood sugar this AM 161 - uncontrolled DM - HgA1C 12% - Continue to hold home glipizide. - Lispro by SS achs - increased lispro 10 units with meals as per Dr. Looney recommendations and add SS starting with blood sugars greater than 200 at 2 units / 50 - Increase Lantus 36 units (up from 28u) increased as per Dr. Looney recommendations - recommends starting metformin 500 mg BID at discharge (4) Hyperlipidemia Current Visit: Yes Status: Acute Code(s): E78.5 - HYPERLIPIDEMIA, UNSPECIFIED SNOMED Code(s): 58091114 Comment: stable - Continue statin as ordered (5) Hypertension Current Visit: Yes Status: Acute Code(s): I10 - ESSENTIAL (PRIMARY) HYPERTENSION SNOMED Code(s): 00099648 Comment: - Continue Lisinopril - Continue Metoprolol - Continue to monitor vital signs routinely (6) Leukocytosis Current Visit: Yes Status: Acute Code(s): D72.829 - ELEVATED WHITE BLOOD CELL COUNT, UNSPECIFIED SNOMED Code(s): 116534920 Comment: - WBC 13.5 trending down - Afebrile - Lungs clear - Incentive spirometer encouraged and demonstrated. (7) Memory loss Current Visit: Yes Status: Acute Comment: - Chronic - rehab in post operative period (8) DVT prophylaxis Current Visit: Yes Status: Acute Code(s): [id number] - SNOMED Code(s): 718540281 Comment: elainerelto (9) Full code status Current Visit: Yes Status: Acute Code(s): Z78.9 - OTHER SPECIFIED HEALTH STATUS SNOMED Code(s): 810485500 Status and Disposition: Inpatient. S/P Excision of right 5th ray. Plan for discharge to rehab with IV antibiotics. to [facility] on thursday
[2018-07-03] MEDS: Rivaroxaban TAB(*) 20 MG TAB PO SCH (22:28)
[2018-07-04] MEDS: metroNIDAZOLE IV 500 MG/100ML* 500 MG/100 ML BAG IVPB SCH ×2 (04:16→12:05)
[2018-07-04] MEDS: Lisinopril TAB* 10 MG PO SCH (08:51)
[2018-07-04] MEDS: Atorvastatin* 10 MG TAB PO SCH (08:51)
[2018-07-04] MEDS: Acetaminophen TAB* 325 MG PO PRN (08:51)
[2018-07-04] MEDS: Metoprolol Succinate XL TAB* 25 MG PO SCH (08:51)
[2018-07-04] MEDS: Thiamine TAB* 100 MG TAB PO SCH (08:51)
[2018-07-04 08:55] LABS: ABS Basophils 0.1 10^3/ul (0-0.2); ABS Eosinophils 0.3 10^3/ul (0-0.6); ABS Lymphocytes 2.7 10^3/ul (1.0-4.8); ABS Monocytes 1.1 10^3/ul (0-0.8); ABS Neutrophils 8.6 10^3/ul (1.5-7.7); ABS Nucleated RBC 0 10^3/ul; Eosinophil % 2.5 % (0-6); Hematocrit 34 % (42-52); Hemoglobin 10.9 g/dl (14.0-18.0); Lymphocyte % 20.8 % (25-47); Mean Corpuscular HGB Conc 32 g/dl (31-36); Mean Corpuscular Hemoglobin 26 pg (27-31); Mean Corpuscular Volume 81 fL (80-94); Mean Platelet Volume 6.4 um3 (7.4-10.4); Nucleated Red Blood Cells % 0; Platelet Count 309 10^3/ul (150-450); Red Blood Count 4.18 10^6/ul (4.00-5.40); Red Cell Distribution Width 13 % (10.5-15); White Blood Count 12.8 10^3/ul (3.5-10.8)
[2018-07-04 09:10] LABS: EGFR Non-African American 111.7 (>60)
[2018-07-04] MEDS: Insulin LISPRO* 1 UNITS UNIT SUBCUT SCH ×7 (09:25→22:17)
[2018-07-04] MEDS: Insulin GLARGINE(*) 1 UNITS UNIT SUBCUT SCH (09:26)
[2018-07-04] MEDS: cefTRIAXone(*) 2 GM in NS 0.9% 100 ML* 100 ML IVPB SCH (13:33)
--- NOTE | 2018-07-04 14:53 | PN ---
Subjective Date of Service: 07/04/18 Interval History: c/o of mild right foot pain. denies chest pain or shortness of breath. denies fever or chills. Denies abd pain n/v/d. Family History: Unchanged from Admission - unremarkable Social History: Unchanged from Admission - Lives alone. No recent smoking, no recent heavy drinking. Has aides 6 nights a week. SDM is his sister Caitlin Gant in [place]. Past Medical History: Unchanged from Admission - Former heavy drinker, former smoker. Atrial fib/flutter with atrial appendage clot, HTN, DM, hx poor compliance, old CVA. Objective Active Medications: Acetaminophen (Tylenol Tab*) 650 mg PO Q6H PRN PRN Reason: FEVER/PAIN Last Admin: 07/04/18 08:51 Dose: 650 mg Atorvastatin Calcium (Lipitor*) 10 mg PO DAILY [facility] Last Admin: 07/04/18 08:51 Dose: 10 mg Dextrose (D50w Syringe 50 Ml*) 12.5 gm IV PUSH .FOR FS < 60 - SS PRN PRN Reason: FS < 60 Heparin Sodium (Porcine) (Heparin Flush Picc/Ml/Cvc(*)) 1 - 3 ml FLUSH 0600, 1800 [facility]; Protocol Last Admin: 07/04/18 14:21 Dose: 1 ml Metronidazole/Sodium Chloride (Flagyl 500 Mg Ivpb*) 500 mg in 100 mls @ 100 mls /hr IVPB 0330,1130,1930 [facility] Last Admin: 07/04/18 12:05 Dose: 100 mls/hr Ceftriaxone Sodium 2 gm/ (Sodium Chloride) 100 mls @ 200 mls/hr IVPB Q24H [facility] Last Admin: 07/04/18 13:33 Dose: 200 mls/hr Insulin Glargine (Lantus(*)) 36 units SUBCUT Q24H [facility] Last Admin: 07/04/18 09:26 Dose: 36 unit Insulin Human Lispro (Humalog*) 10 units SUBCUT AC [facility] Last Admin: 07/04/18 13:07 Dose: 10 units Insulin Human Lispro (Humalog*) 0 units SUBCUT ACHS [facility]; Protocol Last Admin: 07/04/18 13:07 Dose: 4 units Lisinopril (Prinivil Tab*) 20 mg PO DAILY [facility] Last Admin: 07/04/18 08:51 Dose: 20 mg Metoprolol Succinate (Toprol Xl Tab*) 25 mg PO DAILY [facility] Last Admin: 07/04/18 08:51 Dose: 25 mg Oxycodone HCl (Roxycodone Tab*) 5 mg PO Q4H PRN PRN Reason: PAIN Last Admin: 07/01/18 11:09 Dose: 5 mg Rivaroxaban (Xarelto(*)) 20 mg PO BEDTIME [facility] Last Admin: 07/03/18 22:28 Dose: 20 mg Thiamine HCl (Vitamin B-1 Tab*) 100 mg PO DAILY [facility] Last Admin: 07/04/18 08:51 Dose: 100 mg Vital Signs - 8 hr 07/04/18 07/04/18 07/04/18 08:00 08:06 11:24 Temperature 97.9 F 97.7 F Pulse Rate 79 73 Respiratory 18 18 18 Rate Blood Pressure 158/85 112/62 (mmHg) O2 Sat by Pulse 93 97 Oximetry Oxygen Devices in Use Now: None Appearance: appears comfortable resting in bed, no acute distress Eyes: No Scleral Icterus Ears/Nose/Mouth/Throat: Clear Oropharnyx, Mucous Membranes Moist Neck: NL Appearance and Movements; NL JVP, Trachea Midline Respiratory: Symmetrical Chest Expansion and Respiratory Effort, Clear to Auscultation Cardiovascular: NL Sounds; No Murmurs; No JVD, No Edema Abdominal: NL Sounds; No Tenderness; No Distention Extremities: No Edema, No Clubbing, Cyanosis, - - dressing intact to left foot Skin: No Rash or Ulcers Neurological: Alert and Oriented x 3 Nutrition: Taking PO's Result Diagrams: 07/04/18 08:40 07/04/18 08:40 Additional Lab and Data: . Microbiology and Other Data: Diagnostic Imaging: . EKG Data: . Assess/Plan/Problems-Billing Assessment: 58 yr old male admitted with osteomyolitis, right 5th metatarsal. S/P Excision right 5th ray. Hx of HTN, DM, Memory Loss, Afib, possile stroke, PVD, neuropathy , and CHF - Patient Problems (1) Foot osteomyelitis, right Current Visit: Yes Status: Acute Code(s): M86.9 - OSTEOMYELITIS, UNSPECIFIED SNOMED Code(s): 8269814030815087 Comment: - S/p Excision of right 5th toe. POD 6. Plan for discharge to rehab thursday - Ceftiaxone 2 gm IV. Continue Flagyl po day 11/18 - Patient will need outpatient IV abx while at rehab for total of 14 days . - PICC placed - Weekly CBC, CMP, and CRP while receiving outpatient IV abx. - ID office will plan follow up for patient (2) Atrial fibrillation Current Visit: Yes Status: Acute Code(s): I48.91 - UNSPECIFIED ATRIAL FIBRILLATION SNOMED Code(s): 65450166 Comment: - Continue Metoprolol - Continue Xarelto (3) Diabetes Current Visit: Yes Status: Acute Code(s): E11.9 - TYPE 2 DIABETES MELLITUS WITHOUT COMPLICATIONS SNOMED Code(s): 86178141 Comment: fasting blood sugar this AM 164 improving - continues to be elevated in the afternoon - uncontrolled DM - HgA1C 12% - d/c'd glipizide as per Dr. Looney recommendation . - Lispro by SS achs - increased lispro 10 units with meals as per Dr. Looney recommendations and add SS starting with blood sugars greater than 200 at 2 units / 50 - Increase Lantus 36 units (up from 28u) increased as per Dr. Looney recommendations - recommends starting metformin 500 mg BID at discharge (4) Hyperlipidemia Current Visit: Yes Status: Acute Code(s): E78.5 - HYPERLIPIDEMIA, UNSPECIFIED SNOMED Code(s): 33635559 Comment: stable - Continue statin as ordered (5) Hypertension Current Visit: Yes Status: Acute Code(s): I10 - ESSENTIAL (PRIMARY) HYPERTENSION SNOMED Code(s): 54038177 Comment: - Continue Lisinopril - Continue Metoprolol - Continue to monitor vital signs routinely (6) Leukocytosis Current Visit: Yes Status: Acute Code(s): D72.829 - ELEVATED WHITE BLOOD CELL COUNT, UNSPECIFIED SNOMED Code(s): 021939879 Comment: - WBC 12.8 today - Afebrile - Lungs clear - Incentive spirometer encouraged and demonstrated. (7) Memory loss Current Visit: Yes Status: Acute Comment: - Chronic - rehab in post operative period (8) DVT prophylaxis Current Visit: Yes Status: Acute Code(s): RCJ7426 - SNOMED Code(s): 423155011 Comment: xarelto (9) Full code status Current Visit: Yes Status: Acute Code(s): Z78.9 - OTHER SPECIFIED HEALTH STATUS SNOMED Code(s): 867845296 Status and Disposition: Inpatient. S/P Excision of right 5th ray. Plan for discharge to rehab with IV antibiotics. to [facility] on thursday
[2018-07-04] MEDS: metroNIDAZOLE TAB* 250 MG PO SCH (22:16)
[2018-07-04] MEDS: Rivaroxaban TAB(*) 20 MG TAB PO SCH (22:16)
--- NOTE | 2018-07-05 08:34 | PN ---
Subjective Date of Service: 07/05/18 Interval History: c/o of mild right foot pain, denies fever or chills . denies chest pain or shortness of breath. denies abd pain n/v/d. Family History: Unchanged from Admission - unremarkable Social History: Unchanged from Admission - Lives alone. No recent smoking, no recent heavy drinking. Has aides 6 nights a week. SDM is his sister Caitlin Gant in [place]. Past Medical History: Unchanged from Admission - Former heavy drinker, former smoker. Atrial fib/flutter with atrial appendage clot, HTN, DM, hx poor compliance, old CVA. Objective Active Medications: Acetaminophen (Tylenol Tab*) 650 mg PO Q6H PRN PRN Reason: FEVER/PAIN Last Admin: 07/04/18 08:51 Dose: 650 mg Atorvastatin Calcium (Lipitor*) 10 mg PO DAILY [facility] Last Admin: 07/04/18 08:51 Dose: 10 mg Dextrose (D50w Syringe 50 Ml*) 12.5 gm IV PUSH .FOR FS < 60 - SS PRN PRN Reason: FS < 60 Heparin Sodium (Porcine) (Heparin Flush Picc/Ml/Cvc(*)) 1 - 3 ml FLUSH 0600, 1800 [facility]; Protocol Last Admin: 07/05/18 06:23 Dose: 1 ml Ceftriaxone Sodium 2 gm/ (Sodium Chloride) 100 mls @ 200 mls/hr IVPB Q24H [facility] Last Admin: 07/04/18 13:33 Dose: 200 mls/hr Insulin Glargine (Lantus(*)) 36 units SUBCUT Q24H [facility] Last Admin: 07/04/18 09:26 Dose: 36 unit Insulin Human Lispro (Humalog*) 10 units SUBCUT AC [facility] Last Admin: 07/04/18 17:45 Dose: 10 units Insulin Human Lispro (Humalog*) 0 units SUBCUT ACHS [facility]; Protocol Last Admin: 07/04/18 22:17 Dose: 2 units Lisinopril (Prinivil Tab*) 20 mg PO DAILY [facility] Last Admin: 07/04/18 08:51 Dose: 20 mg Metoprolol Succinate (Toprol Xl Tab*) 25 mg PO DAILY [facility] Last Admin: 07/04/18 08:51 Dose: 25 mg Metronidazole (Flagyl Tab*) 500 mg PO TID [facility] Last Admin: 07/04/18 22:16 Dose: 500 mg Oxycodone HCl (Roxycodone Tab*) 5 mg PO Q4H PRN PRN Reason: PAIN Last Admin: 07/01/18 11:09 Dose: 5 mg Rivaroxaban (Xarelto(*)) 20 mg PO BEDTIME [facility] Last Admin: 07/04/18 22:16 Dose: 20 mg Thiamine HCl (Vitamin B-1 Tab*) 100 mg PO DAILY [facility] Last Admin: 07/04/18 08:51 Dose: 100 mg Vital Signs - 8 hr 07/05/18 02:58 Temperature 97.1 F Pulse Rate 84 Respiratory 18 Rate Blood Pressure 150/66 (mmHg) O2 Sat by Pulse 94 Oximetry Oxygen Devices in Use Now: None Appearance: alert oreiented x3, resting in bed , no acute distress Eyes: No Scleral Icterus Ears/Nose/Mouth/Throat: Clear Oropharnyx, Mucous Membranes Moist Neck: NL Appearance and Movements; NL JVP, Trachea Midline Respiratory: Symmetrical Chest Expansion and Respiratory Effort, Clear to Auscultation Cardiovascular: NL Sounds; No Murmurs; No JVD, No Edema Abdominal: NL Sounds; No Tenderness; No Distention Extremities: No Clubbing, Cyanosis, - - no calf tenderness, right lower leg slightly swollen, sensation intact to right foot, warm to touch. Skin: No Rash or Ulcers, - - dressing intact to right foot Neurological: Alert and Oriented x 3 Nutrition: Taking PO's Result Diagrams: 07/04/18 08:40 07/04/18 08:40 Additional Lab and Data: . Microbiology and Other Data: Diagnostic Imaging: . EKG Data: . Assess/Plan/Problems-Billing Assessment: 58 yr old male admitted with osteomyolitis, right 5th metatarsal. S/P Excision right 5th ray. Hx of HTN, DM, Memory Loss, Afib, possile stroke, PVD, neuropathy , and CHF - Patient Problems (1) Foot osteomyelitis, right Current Visit: Yes Status: Acute Code(s): M86.9 - OSTEOMYELITIS, UNSPECIFIED SNOMED Code(s): 2739146372817788 Comment: - S/p Excision of right 5th toe. POD 6. Plan for discharge to rehab thursday - Ceftiaxone 2 gm IV. Continue Flagyl po day 12/19 - Patient will need outpatient IV abx while at rehab for total of 14 days . last dose of antibiotics 07/15/18 - PICC placed - Weekly CBC, CMP, and CRP while receiving outpatient IV abx. due on 07/08/18 - ID office will plan follow up for patient (2) Atrial fibrillation Current Visit: Yes Status: Acute Code(s): I48.91 - UNSPECIFIED ATRIAL FIBRILLATION SNOMED Code(s): 93266931 Comment: - Continue Metoprolol - Continue Xarelto (3) Diabetes Current Visit: Yes Status: Acute Code(s): E11.9 - TYPE 2 DIABETES MELLITUS WITHOUT COMPLICATIONS SNOMED Code(s): 62197117 Comment: fasting blood sugar this AM 139 improving - continues to be elevated in the afternoon - uncontrolled DM - HgA1C 12% - d/c'd glipizide as per Dr. Looney recommendation . - Lispro by SS achs - increased lispro 10 units with meals as per Dr. Looney recommendations and add SS starting with blood sugars greater than 200 at 2 units / 50 - Increase Lantus 36 units (up from 28u) increased as per Dr. Looney recommendations - recommends starting metformin 500 mg BID at discharge (4) Hyperlipidemia Current Visit: Yes Status: Acute Code(s): E78.5 - HYPERLIPIDEMIA, UNSPECIFIED SNOMED Code(s): 00879464 Comment: stable - Continue statin as ordered (5) Hypertension Current Visit: Yes Status: Acute Code(s): I10 - ESSENTIAL (PRIMARY) HYPERTENSION SNOMED Code(s): 90924908 Comment: - Continue Lisinopril - Continue Metoprolol - Continue to monitor vital signs routinely (6) Leukocytosis Current Visit: Yes Status: Acute Code(s): D72.829 - ELEVATED WHITE BLOOD CELL COUNT, UNSPECIFIED SNOMED Code(s): 142701192 Comment: - WBC 12.8 today - Afebrile - Lungs clear - Incentive spirometer encouraged and demonstrated. (7) Memory loss Current Visit: Yes Status: Acute Comment: - Chronic - rehab in post operative period (8) DVT prophylaxis Current Visit: Yes Status: Acute Code(s): IFV8430 - SNOMED Code(s): 795938237 Comment: xarelto (9) Full code status Current Visit: Yes Status: Acute Code(s): Z78.9 - OTHER SPECIFIED HEALTH STATUS SNOMED Code(s): 592135633 Status and Disposition: Inpatient. S/P Excision of right 5th ray. Plan for discharge to rehab with IV antibiotics. discharge today
[2018-07-05] MEDS: Metoprolol Succinate XL TAB* 25 MG PO SCH (10:42)
[2018-07-05] MEDS: metroNIDAZOLE TAB* 250 MG PO SCH (10:42)
[2018-07-05] MEDS: Thiamine TAB* 100 MG TAB PO SCH (10:43)
[2018-07-05] MEDS: Atorvastatin* 10 MG TAB PO SCH (10:43)
[2018-07-05] MEDS: Insulin LISPRO* 1 UNITS UNIT SUBCUT SCH ×4 (10:43→13:07)
[2018-07-05] MEDS: Lisinopril TAB* 10 MG PO SCH (10:43)
[2018-07-05] MEDS: Insulin GLARGINE(*) 1 UNITS UNIT SUBCUT SCH (10:43)
[2018-07-05 11:39] VITALS: BP 165/87
== END 2018-07-05 13:05 | DRG 305 ==
LOC: ED 14:47 → SSU 16:58
PROVIDERS: ADMIT Internal Medicine; ATTEND Student in an Organized Health Care Education/Training Program
PROC: 0Y6M0ZF Detachment at Right Foot, Partial 5th Ray, Open Approach (ICD-10-PCS; principal; 2018-06-30)
PROC: 02HV33Z Insertion of Infusion Device into Superior Vena Cava, Percutaneous Approach (ICD-10-PCS; 2018-06-30)
DX: E11.69 Type 2 diabetes mellitus with other specified complication (principal); M86.171 Other acute osteomyelitis, right ankle and foot; I42.9 Cardiomyopathy, unspecified; M84.674A Pathological fracture in other disease, right foot, initial encounter for fracture; M86.671 Other chronic osteomyelitis, right ankle and foot; T81.49XA Infection following a procedure, other surgical site, initial encounter; E11.42 Type 2 diabetes mellitus with diabetic polyneuropathy; E11.621 Type 2 diabetes mellitus with foot ulcer; E11.51 Type 2 diabetes mellitus with diabetic peripheral angiopathy without gangrene; I48.91 Unspecified atrial fibrillation; I50.9 Heart failure, unspecified; I11.0 Hypertensive heart disease with heart failure; R41.3 Other amnesia; E78.5 Hyperlipidemia, unspecified; E66.9 Obesity, unspecified; B95.2 Enterococcus as the cause of diseases classified elsewhere; F41.0 Panic disorder [episodic paroxysmal anxiety]; N28.9 Disorder of kidney and ureter, unspecified; R00.0 Tachycardia, unspecified; M60.9 Myositis, unspecified; Y83.5 Amputation of limb(s) as the cause of abnormal reaction of the patient, or of later complication, without mention of misadventure at the time of the procedure; Y92.9 Unspecified place or not applicable; Z23 Encounter for immunization; Z79.01 Long term (current) use of anticoagulants; Z79.4 Long term (current) use of insulin; Z86.73 Personal history of transient ischemic attack (TIA), and cerebral infarction without residual deficits; Z83.3 Family history of diabetes mellitus; Z82.49 Family history of ischemic heart disease and other diseases of the circulatory system; Z87.891 Personal history of nicotine dependence; Z72.89 Other problems related to lifestyle; Z68.33 Body mass index [BMI] 33.0-33.9, adult
CPT/HCPCS: 36415; 80048; 80053; 80202; 82947; 83605; 85025; 85610; 85652; 85730; 86140; 87040; 87070; 87073; 87076; 87077; 87186; 87205; 87640; 87641; 88305; 88311; 90686; 90732; 93005; 93306; 99283; A9270-GY; C1751; G8987-GO-CL; G8988-GO-CK; J0360; J0692; J0696; J1650; J2250; J2704; J3010; J3370; J3490

== ENCOUNTER 2018-10-30 14:23 | Emergency (ER) | payer OTHER ==
--- OUTSIDE RECORDS SUMMARY | 2018-10-30 15:00 | XMS REPORT | Continuity of Care Document ---
:1960 External Reference #:[id number] Author Name Roman العراقيa Care Team Providers Name Role Phone Magdalene Emanuel MD Primary Care Physician Unavailable Payers Date Identification Numbers Payment Provider Subscriber Effective: 2017 Policy Number: [id number] Roshan Zaragoza Group Number: [id number] [address] PayID: [id number] [place] [address] Expires: 2017 Policy Number: [id number] Medicaid Kirk Zaragoza Group Name: 1 1 [address] PayID: [id number] [place] [address] Effective: 2015 Policy Number: [id number] Roshan Zaragoza Expires: 2016 Group Name: [id number] [address] PayID: [id number] [place] [address] Effective: 2016 Policy Number: [id number] [facility] Kirk Zaragoza Expires: 2018 Group Number: [id number] PayID: [id number] [place] [address] Effective: 2018 Policy Number: [id number] [facility] Kirk Zaragoza Expires: 2019 Group Number: 70% [id number] PayID: [id number] [address] [place] [address] Advance Directives Type Date Description Status Comment Other Directive 03/27/2017 Health Care Proxy Current and Verified Problems Date Description Provider Status Onset: 08/09/2013 Atrial fibrillation Arthur Childers M.D., Active [facility], [facility] Onset: 05/09/2015 Benign essential hypertension Vi Mendoza M.D. Active Onset: 03/27/2017 Cardiomyopathy Magdalene Emanuel M.D. Active Onset: 04/03/2017 Type 2 diabetes mellitus Magdalene Emanuel M.D. Active Onset: 04/29/2017 Paroxysmal atrial fibrillation Arthur Childers M.D., Active [facility], [facility] Onset: 06/11/2017 Altered mental status Phu Toro M.D. Active Onset: 06/11/2017 History of cerebrovascular Phu Toro M.D. Active accident without residual deficits Onset: 07/31/2017 Thoracic aortic ectasia Arthur Childers M.D., Active [facility], [facility] Onset: 09/17/2017 Difficulty breathing Phu Toro M.D. Active Onset: 11/12/2017 Obstructive sleep apnea syndrome Rosie Stewart DNP, RN, Active [facility] Onset: 12/07/2017 Disturbance of consciousness Phu Toro M.D. Active Onset: 12/07/2017 Amnesia Phu Toro M.D. Active Onset: 12/07/2017 Alcohol-induced psychosis Phu Toro M.D. 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 Active 06/28/2013 NKDA Inactive Medications Medication Date Status Form Strength Qnty SIG Indications Ordering Provider Aquaphor 10/21 Active Ointment 1Tube Apply to Davy affected Jnaeth Raza Therapy area daily Knee High 10/21 Active 1pair Davy Janeth Raza Stockings Humalog Mix 08/24 Active Suspension (75-25)10 20ml start 38 E11.69 Pride Coch, 0Unit/ML units in MD the morning with first meal of the day, 18 units in the evening with last meal of the day Lisinopril 07/06 Active Tablets 10mg 1 by I10 Magdalene /2018 hi Emanuel M.D. every day Thiamine HCL 12/07 Active Tablets 100mg 90tab take 1 F10.19 Kirk S. s tablet a natali Redd M.D. Multivitamin 12/07 Active Tablets Take 1 a F10.19 Phu day Janeth Toro Chlorthalidone 09/18 Active Tablets 25mg 30tab 1 by I10 s mouth Janeth Emanuel every day Xarelto 05/22 Active Tablets 20mg 30tab 1 by s hi Emanuel M.D. every day, take with evening meal Atorvastatin 04/03 Active Tablets 10mg 30tab 1 by E11.65 Neli Calcium s mouth Varn, N.P. every day Metoprolol 03/27 Active Tablets ER 25mg 30tab 1 by I10 Magdalene Succinate ER 24HR s hi Emanuel M.D. every day Metformin HCL Active Tablets 500mg 1 by Unknown /0000 mouth twice a day Oxycodone HCL 00 Active Tablets 1 - 2 Unknown /0000 tabs by mouth every 12 hours as needed pain Acetaminophen 00 Active Tablets 325mg 2 tablets Unknown /0000 by mouth every 6 hours as needed for pain/feve r Humalog Mix 08/24 Hx Supn (75-25)10 30ml 40 units E11.69 Pride Coch, /25 Kwik 0Unit/ML with MD - first 08/24 meal the day, 25 units with last meal of the day Bactrim DS 07/15 Hx Tablets 800-160mg 30tab 1 by s hi Raza M.D. - twice a Lantus Solostar 07/12 Hx Solution 100Unit/M 36 units Pride [place] Pen-Inject L daily MD - 08/24 Humalog Marioikpen 07/12 Hx Solution 100Unit/M 12 units E11.69 Pride Aure Pen-Inject L per meal MD - 08/24 scale. BS 200-250 2 units, 251-300 4 units, 301-350 6 units, 351-400 8 units, 401-450 10 units Doxycycline 06/01 Hx Capsules 100mg 14cap Twice Unknown Hyclate s Daily - 07/21 Clindamycin HCL 04/18 Hx Capsules 300mg 21cap Three s Times - Daily 07/21 Ketoconazole 11/10 Hx Cream 2% 60gm apply R21 thin film Janeth Emanuel - twice 01/18 daily skin on the abdomen Glipizide 11/10 Hx Tablets 10mg 60tab 1 by s hi Emanuel M.D. - twice 07/04 Metformin HCL 09/18 Hx Tablets ER 500mg 30tab 1 by 24HR s hi Emanuel M.D. - every day 11/10 Glipizide XL 05/15 Hx Tablets ER 5mg 30tab 1 PO qd 24HR s Janeth Emanuel - 11/10 Lisinopril 05/05 Hx Tablets 20mg 30tab 1 by I10 s hi Emanuel M.D. - every day 07/06 Xarelto 04/22 Hx Tablets 15mg 42tab 1 by s hi Emanuel M.D. - twice 07/09 with food for 21 days. Then switch to the new dose, patient states he is on the higher dose.. No Active 03/27 Hx Unknown Medications /2016 - 03/27 Glipizide XL 03/27 Hx Tablets ER 2.5mg 30tab take 1 24HR s tablet by Janeth Emanuel - mouth 05/15 morning Lisinopril 03/27 Hx Tablets 10mg 30tab 1 by I10 s mouth Janeth Emanuel - every day 05/05 Xarelto 06/04 Hx Tablets 20mg 90tab 1 by Arthur Restrepo s mouth Janeth Childers, - every day [facility], [facility] 03/27 Coumadin 05/08 Hx Tablets 5mg 200ta take 1 Vi bs tab daily Reji, - or as M.DCullen 06/04 Lasix 09/28 Hx Tablets 20mg 1 po qd Arthur Restrepo Janeth Childers, - [facility], [facility] 09/21 Lisinopril 09/28 Hx Tablets 20mg 90tab 1 po qd Arthur Restrepo s pt takes Janeth Childers, - 10 mg [facility], [facility] 09/08 Lasix 09/21 Hx Tablets 20mg 30tab 1 by Arthur Restrepo s mouth Janeth Childers, - every day [facility], [facility] 03/27 Lisinopril 08/09 Hx Tablets 10mg 90tab 1 po qd Arthur Restrepo s Janeth Childers, - [facility], [facility] 09/28 Lasix 05/20 Hx Tablets 40mg 90tab one Arthurelsa Restrepo s tablet po Janeth Childers, - [facility], [facility] 09/14 Xarelto Hx Tablets 20mg 30tab 1 po qd Unknown / s - 09/08 Lisinopril Hx Tablets 2.5mg 90tab 1 po qd Unknown / s - 08/09 Glipizide ER Hx Tablets ER 2.5mg 270ta 1 po qd Unknown / 24HR bs - 03/27 Metoprolol Hx Tablets 100mg 180ta 1/2 by Arthur Restrepo Tar bs mouth Janeth Childers, - twice a [facility], [facility] Omeprazole Hx Capsules DR 20mg 1 by Unknown / mouth - every day 05/09 Lisinopril Hx Tablets 10mg 90tab 1 by Arthur Lauro /0000 s mouth Janeth Childers, - every day [facility] Ceftriaxone Hx Solution 2gm 2 grams Unknown Sodium /0000 Rec daily iv - [place] [facility] [place] 07/16 dischareg d on 07/02/18 for additonal 14 days Flagyl 00 Hx Tablets 500mg 1 tablet Unknown /0000 by mouth - 3 times 07/11 daily for 14 days post discharge Flagyl 00 Hx Tablets 500mg 1 tab by Unknown /0000 mouth at - 1:00 at 07/21 night & 7:00 at night the day before surgery and at 7:00 in the morning the day of surgery Medications Administered in Office Medication Date Status Form Strength Qnty SIG Indications Ordering Provider Inj, Administered Injection Arthur Restrepo Regadenoson, 017 Alvarado, 0.1 MG [facility]eth[facility] Technetium TC Administered Injection Arthur Restrepo 99M 017 Alvarado TetrofJaneth meza, [facility], Per Unit Dose [facility] Up To 40 Millicuries Immunizations CPT Code Status Date Vaccine Lot # 57073 Given 09/18/2017 Pneumonia Vaccine [id number] Given 09/18/2017 Influenza Virus Vaccine, Quadrivalent, Split, [id number] Preservative Free Vital Signs Date Vital Result Comment 10/21/2018 10:34am Height 72 inches 6'0" Heart Rate 88 /min BP Systolic 138 mmHg BP Diastolic 78 mmHg Body Temperature 98.3 F Pain Level 0 10/05/2018 11:13am Height 72 inches 6'0" Weight 251.50 lb Heart Rate 70 /min BP Systolic Sitting 100 mmHg BP Diastolic Sitting 64 mmHg Respiratory Rate 14 /min Body Temperature 98.2 F BMI (Body Mass Index) 34.1 kg/m2 09/16/2018 10:16am Height 72 inches 6'0" Weight 246.00 lb Heart Rate 76 /min Respiratory Rate 18 /min Body Temperature 97.6 F Pain Level 0 BMI (Body Mass Index) 33.4 kg/m2 08/25/2018 10:41am Height 72 inches 6'0" Weight 246.00 lb Heart Rate 74 /min BP Systolic Sitting 120 mmHg BP Diastolic Sitting 76 mmHg Respiratory Rate 14 /min Body Temperature 98.0 F BMI (Body Mass Index) 33.4 kg/m2 08/24/2018 12:34pm Height 72 inches 6'0" Weight 246.00 lb Heart Rate 72 /min BP Systolic Sitting 108 mmHg BP Diastolic Sitting 70 mmHg BMI (Body Mass Index) 33.4 kg/m2 08/24/2018 9:57am Height 72 inches 6'0" Weight 245.00 lb Patient stated Heart Rate 78 /min BP Systolic 124 mmHg BP Diastolic 72 mmHg Respiratory Rate 14 /min Pain Level 0 BMI (Body Mass Index) 33.2 kg/m2 07/27/2018 8:45am Height 72 inches 6'0" Heart Rate 60 /min BP Systolic 130 mmHg BP Diastolic 68 mmHg Body Temperature 97.4 F Pain Level 0 07/22/2018 2:37pm Height 72 inches 6'0" Weight 247.00 lb Heart Rate 84 /min BP Systolic Sitting 106 mmHg BP Diastolic Sitting 64 mmHg Respiratory Rate 14 /min Body Temperature 98.3 F BMI (Body Mass Index) 33.5 kg/m2 07/15/2018 10:20am Height 72 inches 6'0" Weight 250.00 lb Heart Rate 72 /min Respiratory Rate 24 /min Body Temperature 98.4 F Pain Level 1 BMI (Body Mass Index) 33.9 kg/m2 07/12/2018 1:14pm Height 72 inches 6'0" Weight 250.00 lb w/ shoes Heart Rate 93 /min BP Systolic Sitting 134 mmHg BP Diastolic Sitting 84 mmHg BMI (Body Mass Index) 33.9 kg/m2 03/30/2018 4:09pm Height 72 inches 6'0" Weight 254.00 lb Heart Rate 65 /min BP Systolic Sitting 150 mmHg BP Diastolic Sitting 88 mmHg O2 % BldC Oximetry 94 % BMI (Body Mass Index) 34.4 kg/m2 01/18/2018 3:48pm Height 72 inches 6'0" Weight 254.00 lb Heart Rate 71 /min BP Systolic Sitting 110 mmHg BP Diastolic Sitting 68 mmHg O2 % BldC Oximetry 93 % BMI (Body Mass Index) 34.4 kg/m2 01/12/2018 1:23pm Height 72 inches 6'0" Weight 253.12 lb Heart Rate 80 /min BP Systolic Sitting 124 mmHg Lue large cuff BP Diastolic Sitting 76 mmHg Lue large cuff Respiratory Rate 20 /min O2 % BldC Oximetry 95 % On Ra BMI (Body Mass Index) 34.3 kg/m2 12/14/2017 3:15pm Weight 246.00 lb Heart Rate 74 /min BP Systolic Sitting 160 mmHg BP Diastolic Sitting 90 mmHg Body Temperature 98.7 F O2 % BldC Oximetry 97 % 12/14/2017 3:11pm Weight 246.00 lb Heart Rate 74 /min BP Systolic Sitting 160 mmHg BP Diastolic Sitting 90 mmHg Body Temperature 98.7 F O2 % BldC Oximetry 97 % 12/07/2017 4:02pm Height 72 inches 6'0" Weight 145.00 lb Heart Rate 76 /min BP Systolic Sitting 146 mmHg BP Diastolic Sitting 60 mmHg Respiratory Rate 18 /min BMI (Body Mass Index) 19.7 kg/m2 11/12/2017 12:54pm Height 72 inches 6'0" Weight 235.12 lb Heart Rate 72 /min BP Systolic Sitting 130 mmHg Lue large cuff BP Diastolic Sitting 78 mmHg Lue large cuff Respiratory Rate 20 /min O2 % BldC Oximetry 97 % BMI (Body Mass Index) 31.9 kg/m2 11/10/2017 4:41pm Weight 233.00 lb Heart Rate 51 /min BP Systolic Sitting 152 mmHg BP Diastolic Sitting 94 mmHg O2 % BldC Oximetry 99 % 10/22/2017 1:58pm Height 72 inches 6'0" Weight 238.00 lb with shoes Heart Rate 100 /min BP Systolic Sitting 116 mmHg Lue large cuff BP Diastolic Sitting 68 mmHg Lue large cuff O2 % BldC Oximetry 95 % On Ra BMI (Body Mass Index) 32.3 kg/m2 Neck Circumference in inches 17.5 09/18/2017 2:09pm Height 72 inches 6'0" Weight 245.00 lb Heart Rate 95 /min BP Systolic 166 mmHg BP Diastolic 76 mmHg Body Temperature 97.0 F BMI (Body Mass Index) 33.2 kg/m2 09/17/2017 9:18am Height 72 inches 6'0" Weight 235.00 lb Heart Rate 80 /min BP Systolic 190 mmHg BP Diastolic 110 mmHg Respiratory Rate 16 /min BMI (Body Mass Index) 31.9 kg/m2 07/31/2017 8:10am Height 72 inches 6'0" Weight 225.00 lb Heart Rate 80 /min BP Systolic Sitting 142 mmHg Ra reg cuff BP Diastolic Sitting 80 mmHg Ra reg cuff BP Systolic Standing 142 mmHg Ra reg cuff BP Diastolic Standing 88 mmHg Ra reg cuff BMI (Body Mass Index) 30.5 kg/m2 Ejection Fraction 55% - 60% echo 05/20/17 06/11/2017 1:00pm Height 72 inches 6'0" Weight 230.00 lb Heart Rate 80 /min BP Systolic 146 mmHg BP Diastolic 90 mmHg Respiratory Rate 14 /min BMI (Body Mass Index) 31.2 kg/m2 05/15/2017 4:53pm Weight 232.00 lb Heart Rate 62 /min BP Systolic 130 mmHg BP Diastolic 80 mmHg Body Temperature 99.2 F O2 % BldC Oximetry 97 % 05/05/2017 9:22am Weight 230.00 lb Heart Rate 73 /min BP Systolic Sitting 154 mmHg BP Diastolic Sitting 94 mmHg O2 % BldC Oximetry 97 % 04/29/2017 11:58am Height 72 inches 6'0" Weight 230.75 lb with shoes Heart Rate 72 /min BP Systolic Sitting 172 mmHg Lue reg cuff BP Diastolic Sitting 110 mmHg Lue reg cuff BP Systolic Standing 168 mmHg Lue reg cuff BP Diastolic Standing 106 mmHg Lue reg cuff Respiratory Rate 17 /min BMI (Body Mass Index) 31.3 kg/m2 04/03/2017 2:47pm Weight 231.75 lb Heart Rate 63 /min BP Systolic 168 mmHg BP Diastolic 100 mmHg Body Temperature 98.7 F O2 % BldC Oximetry 96 % 03/27/2017 3:46pm Weight 234.50 lb Heart Rate 110 /min BP Systolic 218 mmHg BP Diastolic 112 mmHg Body Temperature 97.4 F O2 % BldC Oximetry 95 % 08/07/2015 1:46pm Height 70 inches 5'10" Weight 251.00 lb Heart Rate 68 /min BP Systolic Sitting 146 mmHg Ra large cuff BP Diastolic Sitting 92 mmHg Ra large cuff BP Systolic Standing 142 mmHg Ra BP Diastolic Standing 96 mmHg Ra Respiratory Rate 16 /min BMI (Body Mass Index) 36.0 kg/m2 Ejection Fraction 50-55% 05/08/15 05/09/2015 12:30pm Height 70 inches 5'10" Weight 238.00 lb w/o shoes Heart Rate 54 /min reg BP Systolic Sitting 134 mmHg Rue, lg cuff BP Diastolic Sitting 86 mmHg Rue, lg cuff BP Systolic Standing 134 mmHg Rue BP Diastolic Standing 82 mmHg Rue Respiratory Rate 18 /min BMI (Body Mass Index) 34.1 kg/m2 Ejection Fraction 50-55% as of 05/08/15 echo 09/28/2013 10:23am Height 70 inches 5'10" Weight 242.00 lb Heart Rate 68 /min BP Systolic Sitting 150 mmHg Ra lg cuff BP Diastolic Sitting 98 mmHg Ra lg cuff BP Systolic Standing 140 mmHg Ra lg cuff BP Diastolic Standing 98 mmHg Ra lg cuff Respiratory Rate 20 /min BMI (Body Mass Index) 34.7 kg/m2 08/09/2013 9:06am Height 70.5 inches 5'10.50" Weight 235.00 lb Heart Rate 68 /min BP Systolic Sitting 152 mmHg Ra large cuff BP Diastolic Sitting 100 mmHg Ra large cuff BP Systolic Standing 150 mmHg Ra BP Diastolic Standing 98 mmHg Ra Respiratory Rate 18 /min BMI (Body Mass Index) 33.2 kg/m2 Results Test Date Facility Test Result H/L Range Note Laboratory test 08/24/2018 [facility] Glucose Random 173 finding Laboratory test 07/21/2018 [facility] C Reactive 7.84 mg/L N < 8.01 1, [address] [place] [address] [phone] CBC Auto Diff 07/21/2018 [facility] White Blood 8.8 10^3/uL N 3.5-10.[address] [place] [address] [phone] Red Blood Count 4.22 10^6/uL N 4.00-5.40 Hemoglobin 11.2 g/dL Low 14.0-18.0 Hematocrit 34 % Low 42-52 Mean Corpuscular Volume 82 fL N 80-94 Mean Corpuscular Hemoglobin 27 pg N 27-31 Mean Corpuscular HGB Conc 33 g/dL N 31-36 Red Cell Distribution Width 15 % N 10.5-15 Platelet Count 264 10^3/uL N 150-450 Mean Platelet Volume 8.1 fL N 7.4-10.4 Abs Neutrophils 4.9 10^3/uL N 1.5-7.7 Abs Lymphocytes 2.9 10^3/uL N 1.0-4.8 Abs Monocytes 0.7 10^3/uL N 0-0.8 Abs Eosinophils 0.2 10^3/uL N 0-0.6 Abs Basophils 0.1 10^3/uL N 0-0.2 Abs Nucleated RBC 0 10^3/uL Granulocyte % 56.1 % N 38-83 Lymphocyte % 32.8 % N 25-47 Monocyte % 8.0 % High 0-7 Eosinophil % 2.2 % N 0-6 Basophil % 0.9 % N 0-2 Nucleated Red Blood Cells % 0.1 Comp Metabolic Panel 07/21/2018 [facility] Sodium 137 mmol/L N 135-[address] [place] [address] [phone] Chloride 102 mmol/L N 101-111 Co2 Carbon Dioxide 28 mmol/L N 22-32 Glucose 81 mg/dL N 70-100 Blood Urea Nitrogen 26 mg/dL High 6-24 Creatinine 1.14 mg/dL N 0.67-1.17 BUN/Creatinine Ratio 22.8 High 8-20 Calcium 8.9 mg/dL N 8.6-10.3 Total Protein 6.6 g/dL N 6.4-8.9 Albumin 3.1 g/dL Low 3.2-5.2 Globulin 3.5 g/dL N 2-4 Albumin/Globulin Ratio 0.9 Low 1-3 Total Bilirubin 0.30 mg/dL N 0.2-1.0 Alkaline Phosphatase 69 U/L N 34-104 Alt 25 U/L N 7-52 Ast 27 U/L N 13-39 Egfr Non- 65.7 >60 Egfr 79.6 >60 3 Potassium 5.4 mmol/L High 3.5-5.0 Anion Gap 7 mmol/L N 2-11 CBC Auto 07/14/2018 [facility] White Blood 12.3 10^3/uL High 3.5-10.8 [address] [place] [address] [phone] Red Blood Count 4.29 10^6/uL N 4.00-5.40 Hemoglobin 11.3 g/dL Low 14.0-18.0 Hematocrit 35 % Low 42-52 Mean Corpuscular Volume 82 fL N 80-94 Mean Corpuscular Hemoglobin 26 pg Low 27-31 Mean Corpuscular HGB Conc 32 g/dL N 31-36 Red Cell Distribution Width 15 % N 10.5-15 Platelet Count 325 10^3/uL N 150-450 Mean Platelet Volume 7.7 fL N 7.4-10.4 Abs Neutrophils 8.4 10^3/uL High 1.5-7.7 Abs Lymphocytes 2.6 10^3/uL N 1.0-4.8 Abs Monocytes 1.0 10^3/uL High 0-0.8 Abs Eosinophils 0.3 10^3/uL N 0-0.6 Abs Basophils 0.1 10^3/uL N 0-0.2 Abs Nucleated RBC 0 10^3/uL Granulocyte % 68.4 % N 38-83 Lymphocyte % 21.0 % Low 25-47 Monocyte % 7.9 % High 0-7 Eosinophil % 2.1 % N 0-6 Basophil % 0.6 % N 0-2 Nucleated Red Blood Cells % 0.1 Comp Metabolic Panel 07/14/2018 [facility] Sodium 138 mmol/L N 135-[address] [place] [address] [phone] Potassium 4.7 mmol/L N 3.5-5.0 Chloride 102 mmol/L N 101-111 Co2 Carbon Dioxide 31 mmol/L N 22-32 Anion Gap 5 mmol/L N 2-11 Glucose 131 mg/dL High 70-100 Blood Urea Nitrogen 15 mg/dL N 6-24 Creatinine 0.78 mg/dL N 0.67-1.17 BUN/Creatinine Ratio 19.2 N 8-20 Calcium 8.5 mg/dL Low 8.6-10.3 Total Protein 6.5 g/dL N 6.4-8.9 Albumin 2.7 g/dL Low 3.2-5.2 Globulin 3.8 g/dL N 2-4 Albumin/Globulin Ratio 0.7 Low 1-3 Total Bilirubin 0.40 mg/dL N 0.2-1.0 Alkaline Phosphatase 61 U/L N 34-104 Alt 16 U/L N 7-52 Ast 17 U/L N 13-39 Egfr Non- 101.9 >60 Egfr 123.3 >60 5 Laboratory test 07/14/2018 [facility] C Reactive 18.20 High < 8.01 [address] Protein mg/[place] [address] [phone] Laboratory test 07/12/2018 [facility] Glucose 245 finding Random Laboratory test 07/07/2018 [facility] C Reactive 19.96 High < 8.01 7, [address] Protein mg/[place] [address] [phone] CBC Auto Diff 07/07/2018 [facility] White Blood 13.7 High 3.5- 10.[address] Count 10^3/[place] [address] [phone] Red Blood Count 4.35 10^6/uL N 4.00-5.40 Hemoglobin 11.4 g/dL Low 14.0-18.0 Hematocrit 35 % Low 42-52 Mean Corpuscular Volume 82 fL N 80-94 Mean Corpuscular Hemoglobin 26 pg Low 27-31 Mean Corpuscular HGB Conc 32 g/dL N 31-36 Red Cell Distribution Width 14 % N 10.5-15 Platelet Count 337 10^3/uL N 150-450 Mean Platelet Volume 7.2 um3 Low 7.4-10.4 Abs Neutrophils 9.4 10^3/uL High 1.5-7.7 Abs Lymphocytes 2.9 10^3/uL N 1.0-4.8 Abs Monocytes 1.0 10^3/uL High 0-0.8 Abs Eosinophils 0.4 10^3/uL N 0-0.6 Abs Basophils 0.1 10^3/uL N 0-0.2 Abs Nucleated RBC 0 10^3/uL Granulocyte % 68.6 % N 38-83 Lymphocyte % 21.2 % Low 25-47 Monocyte % 7.1 % High 0-7 Eosinophil % 2.6 % N 0-6 Basophil % 0.5 % N 0-2 Nucleated Red Blood Cells % 0 Comp Metabolic Panel 07/07/2018 [facility] Sodium 137 mmol/L N 135-[address] [place] [address] [phone] Potassium 4.3 mmol/L N 3.5-5.0 Chloride 99 mmol/L Low 101-111 Co2 Carbon Dioxide 33 mmol/L High 22-32 Anion Gap 5 mmol/L N 2-11 Glucose 112 mg/dL High 70-100 Blood Urea Nitrogen 13 mg/dL N 6-24 Creatinine 0.65 mg/dL Low 0.67-1.17 BUN/Creatinine Ratio 20.0 N 8-20 Calcium 8.5 mg/dL Low 8.6-10.3 Total Protein 6.8 g/dL N 6.4-8.9 Albumin 2.7 g/dL Low 3.2-5.2 Globulin 4.1 g/dL High 2-4 Albumin/Globulin Ratio 0.7 Low 1-3 Total Bilirubin 0.20 mg/dL N 0.2-1.0 Alkaline Phosphatase 80 U/L N 34-104 Alt 19 U/L N 7-52 Ast 20 U/L N 13-39 Egfr Non- 125.7 >60 Egfr 152.1 >60 9 CBC Auto 06/25/2018 [facility] White Blood 15.5 10^3/uL High 3.5-10.[address] Count [place], [place] [id number] [phone] Red Blood Count 4.46 10^6/uL N 4.00-5.40 Hemoglobin 11.7 g/dL Low 14.0-18.0 Hematocrit 36 % Low 42-52 Mean Corpuscular Volume 81 fL N 80-94 Mean Corpuscular Hemoglobin 26 pg Low 27-31 Mean Corpuscular HGB Conc 33 g/dL N 31-36 Red Cell Distribution Width 13 % N 10.5-15 Platelet Count 280 10^3/uL N 150-450 Mean Platelet Volume 7.9 um3 N 7.4-10.4 Abs Neutrophils 11.4 10^3/uL High 1.5-7.7 Abs Lymphocytes 2.7 10^3/uL N 1.0-4.8 Abs Monocytes 1.2 10^3/uL High 0-0.8 Abs Eosinophils 0.2 10^3/uL N 0-0.6 Abs Basophils 0 10^3/uL N 0-0.2 Abs Nucleated RBC 0 10^3/uL Granulocyte % 73.2 % N 38-83 Lymphocyte % 17.4 % Low 25-47 Monocyte % 7.6 % High 0-7 Eosinophil % 1.6 % N 0-6 Basophil % 0.2 % N 0-2 Nucleated Red Blood Cells % 0.1 Urine Microalbumin 06/25/2018 [facility] Ur Microalbumin 22.[address] (mg/L) [place], [place] [id number] [phone] Urine Creatinine 109.42 mg/dL Urine Microalbumin/Creatinine 20.8 N <31 Laboratory test 06/25/2018 [facility] Hemoglobin A1c 12.7 % High 4.0-5.6 [address] (Glyco HGB) [place] [address] [phone] Comp Metabolic 06/25/2018 [facility] Sodium 134 Low 135-[address] mmol/[place] [address] [phone] Chloride 97 mmol/L Low 101-111 Co2 Carbon Dioxide 30 mmol/L N 22-32 Glucose 288 mg/dL High 70-100 Blood Urea Nitrogen 32 mg/dL High 6-24 Creatinine 1.21 mg/dL High 0.67-1.17 BUN/Creatinine Ratio 26.4 High 8-20 Calcium 9.1 mg/dL N 8.6-10.3 Total Protein 7.1 g/dL N 6.4-8.9 Albumin 3.2 g/dL N 3.2-5.2 Globulin 3.9 g/dL N 2-4 Albumin/Globulin Ratio 0.8 Low 1-3 Total Bilirubin 0.70 mg/dL N 0.2-1.0 Alkaline Phosphatase 119 U/L High 34-104 Alt 27 U/L N 7-52 Ast 17 U/L N 13-39 Egfr Non- 61.4 >60 Egfr 74.3 >60 11 Potassium 5.7 mmol/L High 3.5-5.0 Anion Gap 7 mmol/L N 2-11 Lipid Profile 06/25/2018 [facility] Triglycerides 96 mg/dL 12 (Trig/Chol/HDL) [address] [place] [address] [phone] Cholesterol 85 mg/dL 13 HDL Cholesterol 28.7 mg/dL 14 LDL Cholesterol 37 mg/dL 15 Laboratory test 06/25/2018 [facility] C Reactive 117.98 mg/L High <8.[address] [place] [address] [phone] Erythrocyte Sed Rate 76 mm/Hr High 0-20 Laboratory test 06/25/2018 [facility] Partial 34.8 seconds N 26.0-36.[address] [place] [address] PTT [phone] Lactic Acid 2.7 mmol/L High 0.5-2.0 16 Blood Culture SEE RESULT BELOW 17 Inr/Protime 06/25/2018 [facility] Inr 1.61 High 0.77-1.[address] [place] [address] [phone] Laboratory 06/25/2018 [facility] MRSA/S. aureus SEE 18 test finding [address] Ssti PCR RESULT [place] [address] BELOW [phone] Wound 06/25/2018 [facility] Wound/Misc SEE 19 Culture/Sensi [address] [place] [address] Stain BELOW [phone] Wound 06/01/2018 [facility] Wound/Misc SEE 20 Culture/Sensi [address] [address] Stain BELOW [phone] Wound 05/04/2018 [facility] Wound/Misc SEE 21 Culture/Sensi [address] [address] Stain BELOW [phone] Lipid Profile 03/25/2018 [facility] Triglycerides 175 mg/dL 22 (Trig/Chol/HDL [address] ) [place] [address] [phone] Cholesterol 115 mg/dL 23 HDL Cholesterol 29.4 mg/dL 24 LDL Cholesterol 51 mg/dL 25 Comp Metabolic Panel 03/25/2018 [facility] Sodium 136 mmol/L N 135-[address] [place] [address] [phone] Potassium 4.9 mmol/L N 3.5-5.0 Chloride 100 mmol/L Low 101-111 Co2 Carbon Dioxide 29 mmol/L N 22-32 Anion Gap 7 mmol/L N 2-11 Glucose 215 mg/dL High 70-100 Blood Urea Nitrogen 19 mg/dL N 6-24 Creatinine 0.80 mg/dL N 0.67-1.17 BUN/Creatinine Ratio 23.8 High 8-20 Calcium 9.0 mg/dL N 8.6-10.3 Total Protein 7.1 g/dL N 6.4-8.9 Albumin 3.6 g/dL N 3.2-5.2 Globulin 3.5 g/dL N 2-4 Albumin/Globulin Ratio 1.0 N 1-3 Total Bilirubin 0.40 mg/dL N 0.2-1.0 Alkaline Phosphatase 119 U/L High 34-104 Alt 39 U/L N 7-52 Ast 24 U/L N 13-39 Egfr Non- 98.9 >60 Egfr 119.7 >60 26 CBC Auto 03/25/2018 [facility] White Blood 11.8 10^3/uL High 3.5-10.[address] [place] [address] [phone] Red Blood Count 5.01 10^6/uL N 4.00-5.40 Hemoglobin 13.7 g/dL Low 14.0-18.0 Hematocrit 41 % Low 42-52 Mean Corpuscular Volume 82 fL N 80-94 Mean Corpuscular Hemoglobin 27 pg N 27-31 Mean Corpuscular HGB Conc 34 g/dL N 31-36 Red Cell Distribution Width 13 % N 10.5-15 Platelet Count 210 10^3/uL N 150-450 Mean Platelet Volume 7.6 um3 N 7.4-10.4 Abs Neutrophils 7.7 10^3/uL N 1.5-7.7 Abs Lymphocytes 3.0 10^3/uL N 1.0-4.8 Abs Monocytes 0.7 10^3/uL N 0-0.8 Abs Eosinophils 0.3 10^3/uL N 0-0.6 Abs Basophils 0.1 10^3/uL N 0-0.2 Abs Nucleated RBC 0 10^3/uL Granulocyte % 65.2 % N 38-83 Lymphocyte % 25.6 % N 25-47 Monocyte % 6.2 % N 0-7 Eosinophil % 2.5 % N 0-6 Basophil % 0.5 % N 0-2 Nucleated Red Blood Cells % 0 Laboratory test 03/25/2018 [facility] Hemoglobin A1c 10.0 % High 4.0-5.[address] (Glyco HGB) [place] [address] [phone] Urine 03/25/2018 [facility] Ur Microalbumin 43.[address] (mg/L) mg/[place] [address] [phone] Urine Creatinine 204.54 mg/dL Urine Microalbumin/Creatinine 21.4 ug/mg N <31 Laboratory 03/25/2018 [facility] Hepatitis Nonreactive Nonreactive [address] [place] [address] [phone] Hepatitis B 03/25/2018 [facility] Hepatitis Not Immune Abnormal Immune Sola AB Titer [address] [place] [address] AB [phone] Hep B Surf AB Level < 3.10 mIU/mL >12 Laboratory test 12/14/2017 [facility] Hemoglobin A1c 9.0 High 5-7 finding Order 11/11/2017 [facility] Sleep-Homecare <pending> [address] [place] [address] [phone] Comp Metabolic 10/26/2017 [facility] Sodium 138 mmol/L N 133- 145 Panel [address] [place] [address] [phone] Potassium 4.7 mmol/L N 3.5-5.0 Chloride 100 mmol/L Low 101-111 Co2 Carbon Dioxide 32 mmol/L N 22-32 Anion Gap 6 mmol/L N 2-11 Glucose 144 mg/dL High 70-100 Blood Urea Nitrogen 17 mg/dL N 6-24 Creatinine 0.69 mg/dL N 0.67-1.17 BUN/Creatinine Ratio 24.6 High 8-20 Calcium 9.4 mg/dL N 8.6-10.3 Total Protein 6.8 g/dL N 6.4-8.9 Albumin 3.6 g/dL N 3.2-5.2 Globulin 3.2 g/dL N 2-4 Albumin/Globulin Ratio 1.1 N 1-3 Total Bilirubin 0.40 mg/dL N 0.2-1.0 Alkaline Phosphatase 99 U/L N 34-104 Alt 28 U/L N 7-52 Ast 17 U/L N 13-39 Egfr Non- 117.8 >60 Egfr 151.5 >60 29 CBC Auto Diff 10/26/2017 [facility] White Blood 10.6 10^3/uL N 3.5-10.[address] [place] [address] [phone] Red Blood Count 4.82 10^6/uL N 4.0-5.4 Hemoglobin 13.5 g/dL Low 14.0-18.0 Hematocrit 39 % Low 42-52 Mean Corpuscular Volume 82 fL N 80-94 Mean Corpuscular Hemoglobin 28 pg N 27-31 Mean Corpuscular HGB Conc 34 g/dL N 31-36 Red Cell Distribution Width 13 % N 10.5-15 Platelet Count 211 10^3/uL N 150-450 Mean Platelet Volume 8 um3 N 7.4-10.4 Abs Neutrophils 6.3 10^3/uL N 1.5-7.7 Abs Lymphocytes 3.0 10^3/uL N 1.0-4.8 Abs Monocytes 0.9 10^3/uL High 0-0.8 Abs Eosinophils 0.3 10^3/uL N 0-0.6 Abs Basophils 0.1 10^3/uL N 0-0.2 Abs Nucleated RBC 0 10^3/uL Granulocyte % 59.9 % N 38-83 Lymphocyte % 28.2 % N 25-47 Monocyte % 8.4 % N 1-9 Eosinophil % 2.9 % N 0-6 Basophil % 0.6 % N 0-2 Nucleated Red Blood Cells % 0.1 Laboratory test 10/26/2017 [facility] PSA Screening 0.391 N 0- 4.000 [address] ng/[place] [address] [phone] Laboratory test 09/18/2017 [facility] Hemoglobin A1c 7.8 High 5-7 finding Creatinine 07/21/2017 [facility] Creatinine 0.98 N 0.67-1.[address] mg/[place] [address] [phone] Egfr Non- 78.6 >60 Egfr 101.0 >60 31 Laboratory test 07/21/2017 [facility] Blood Urea 26 mg/dL High 6-[address] [place] [place] [address] [phone] Basic Metabolic 05/05/2017 [facility] Sodium 136 mmol/L N 133- 145 [address] [place] [address] [phone] Potassium 4.0 mmol/L N 3.5-5.0 Chloride 100 mmol/L Low 101-111 Co2 Carbon Dioxide 29 mmol/L N 22-32 Anion Gap 7 mmol/L N 2-11 Glucose 248 mg/dL High 70-100 Blood Urea Nitrogen 10 mg/dL N 6-24 Creatinine 0.63 mg/dL Low 0.67-1.17 BUN/Creatinine Ratio 15.9 N 8-20 Calcium 9.0 mg/dL N 8.6-10.3 Egfr Non- 130.8 N >60 Egfr 168.2 N >60 33 CBC Auto 05/05/2017 [facility] White Blood 11.8 10^3/uL High 3.5-10.[address] [place] [address] [phone] Red Blood Count 5.46 10^6/uL High 4.0-5.4 Hemoglobin 15.2 g/dL N 14.0-18.0 Hematocrit 45 % N 42-52 Mean Corpuscular Volume 83 fL N 80-94 Mean Corpuscular Hemoglobin 28 pg N 27-31 Mean Corpuscular HGB Conc 34 g/dL N 31-36 Red Cell Distribution Width 13 % N 10.5-15 Platelet Count 211 10^3/uL N 150-450 Mean Platelet Volume 8 um3 N 7.4-10.4 Abs Neutrophils 8.0 10^3/uL High 1.5-7.7 Abs Lymphocytes 2.8 10^3/uL N 1.0-4.8 Abs Monocytes 0.7 10^3/uL N 0-0.8 Abs Eosinophils 0.2 10^3/uL N 0-0.6 Abs Basophils 0.1 10^3/uL N 0-0.2 Abs Nucleated RBC 0.01 10^3/uL N Granulocyte % 67.8 % N 38-83 Lymphocyte % 23.5 % Low 25-47 Monocyte % 6.3 % N 1-9 Eosinophil % 1.9 % N 0-6 Basophil % 0.5 % N 0-2 Nucleated Red Blood Cells % 0.1 N Laboratory test 05/05/2017 [facility] Erythrocyte Sed 16 mm/Hr N 0-20 [address] [place] [address] [phone] C Reactive Protein 10.23 mg/L High < 5.00 35 Manual Differential 05/05/2017 [facility] Neutrophil % 56 % N 38-[address] [place] [address] [phone] Lymphocytes % 13 % Low 25-47 Monocytes % 13 % N 0-13 Eosinophils % 4 % N 0-6 Reactive Lymph % 14 % High 0-6 RBC Morphology Normal N Normal Laboratory test 05/05/2017 [facility] Pathologist (SEE NOTE) N [address] [place] [address] [phone] Basic Metabolic 04/02/2017 [facility] Sodium 130 mmol/L Low 133-[address] [place] [address] [phone] Potassium 4.2 mmol/L N 3.5-5.0 Chloride 95 mmol/L Low 101-111 Co2 Carbon Dioxide 29 mmol/L N 22-32 Anion Gap 6 mmol/L N 2-11 Glucose 360 mg/dL High 70-100 Blood Urea Nitrogen 16 mg/dL N 6-24 Creatinine 0.79 mg/dL N 0.67-1.17 BUN/Creatinine Ratio 20.3 High 8-20 Calcium 9.1 mg/dL N 8.6-10.3 Egfr Non- 100.7 N >60 Egfr 129.6 N >60 37 Laboratory test 04/02/2017 [facility] Hemoglobin A1c 12.3 % High Less [address] (Glyco HGB) than 6.0 [place] [address] [phone] Urine 04/02/2017 [facility] Urine 103.64 N Microalbumin [address] Creatinine mg/[place] [address] [phone] Ur Microalbumin (mg/L) 153.4 mg/L N Urine Microalbumin/Creatinine 148.0 ug/mg High <31 Laboratory test 04/02/2017 [facility] B-Type Natriuretic 16 pg/ mL N [address] [place] [place] [address] [phone] Lipid Profile 04/02/2017 [facility] Triglycerides 317 mg/dL N 40 (Trig/Chol/HDL) [address] [place] [address] [phone] Cholesterol 218 mg/dL N 41 HDL Cholesterol 37.7 mg/dL N 42 LDL Cholesterol 117 mg/dL N 43 Laboratory test 04/02/2017 [facility] Thyroxine 9.28 g/mL N 6.09-12.23 [address] [place] [address] [phone] TSH (Thyroid Stim Horm) 1.89 mcIU/mL N 0.34-5.60 45 Vitamin B12 And 04/02/2017 [facility] Vitamin B12 490 pg/mL N 180-914 46 Folate Serum [address] [place] [address] [phone] Folic Acid (Folate) 11.59 ng/mL N >3.99 47 Laboratory test 04/02/2017 [facility] Vitamin B1 165 nmol/L N 70-[address] (Whole Blood) [place] [address] [phone] Lyme Disease Serology Negative N Negative 49 Laboratory test 08/09/2015 [facility] Inr/Protime 1.09 N 0.89- 1.11 [address] [place] [address] [phone] Inr/Protime 06/05/2015 [facility] Inr 1.48 High 0.78-1.[address] [place] [address] [phone] Laboratory test 05/29/2015 [facility] Inr/Protime 1.42 High 0.78-1.[address] [place] [address] [phone] Inr/Protime 05/17/2015 Inr 1.67 High 0.78-1.07 Basic Metabolic 05/16/2015 [facility] Sodium 134 N 133-[address] mmol/[place] [address] [phone] Potassium 4.3 mmol/L N 3.5-5.0 Chloride 102 mmol/L N 101-111 Co2 Carbon Dioxide 27 mmol/L N 22-32 Anion Gap 5 mmol/L N 2-11 Glucose 100 mg/dL N 70-100 Blood Urea Nitrogen 32 mg/dL High 6-24 Creatinine 1.03 mg/dL N 0.67-1.17 BUN/Creatinine Ratio 31.1 High 8-20 Calcium 8.9 mg/dL N 8.6-10.3 Egfr Non- 74.7 N >60 Egfr 96.1 N >60 52 Inr/Protime 05/07/2015 Inr 1.06 N 0.78-1.07 Basic Metabolic Panel 10/05/2013 [facility] Sodium 134 mmol/L 133-[address] [place] [address] [phone] Potassium 4.2 mmol/L 3.5-5.0 Chloride 100 mmol/L Low 101-111 Co2 Carbon Dioxide 30.0 mmol/L 22-32 Anion Gap 4.0 mmol/L 2-11 Glucose 127 mg/dL High 70-100 Blood Urea Nitrogen 15 mg/dL 6-24 Creatinine 0.70 mg/dL 0.50-1.40 BUN/Creatinine Ratio 21.4 High 8-20 Calcium 9.2 mg/dL 8.1-9.9 Egfr Non- 117.5 >60 Egfr 151.1 >60 53 Basic Metabolic Panel 05/23/2013 [facility] Sodium 134 mmol/L 133-[address] [place] [address] [phone] Potassium 4.4 mmol/L 3.5-5.0 Chloride 93 mmol/L Low 101-111 Co2 Carbon Dioxide 36.0 mmol/L High 22-32 Anion Gap 5.0 mmol/L 2-11 Glucose 260 mg/dL High 70-100 Blood Urea Nitrogen 11 mg/dL 6-24 Creatinine 1.00 mg/dL 0.50-1.40 BUN/Creatinine Ratio 11.0 8-20 Calcium 8.8 mg/dL 8.1-9.9 Egfr Non- 77.9 >60 Egfr 100.1 >60 55 1 [facility] - Floor: 1, Rm #: [id number] 2 [facility] - Floor: 1, Rm #: [id number] 3 Because ethnic data is not always readily [...] 15-29 5 Kidney failure <15 (or dialysis) 4 [facility] - Floor: 1, Rm #: [id number] 5 Because ethnic data is not always [...] 5 Kidney failure <15 (or dialysis) 6 [facility] - Floor: 1, Rm #: [id number] Specimen approval form received. Correct patient identification verified by provider 02/25/19 8 Specimen approval form received. Correct patient identification verified by provider 1960. [facility] - Floor: 1, Rm #: [id number] 9 Because ethnic data is not always readily [...] 15-29 5 Kidney failure <15 (or dialysis) 10 Therapeutic target for the treatment of diabetes mellitus patients is <7% HBA1C, and in selective patients <6.0%. Please refer to [employer] diabetic care guidelines for further information. 11 Because ethnic data is not always readily [...] 15-29 5 Kidney failure <15 (or dialysis) 12 Desirable: <150 Borderline High: 150-199 High: 200-499 Very High: >500 13 Desirable: <200 Borderline High: 200-239 High: >239 14 Low: <40 Desirable: 40-60 High: >60 15 Desirable: <100 Near Optimal: 100-129 Borderline High: 130-159 High: 160-189 Very High: >189 16 Critical Result LACT:2.7 Called to [id number] at: 16:13:07 by:[id number] Read back by:[id number] [facility] Severe Sepsis and Septic Shock Management Bundle Measure requires all lactic acids initially measuring >2.0 mmol/L be repeated. 17 SEE RESULT BELOW Name: KIRK ZARAGOZA : [address]: Radha Pink MD Acct: [id number] Unit: [id number] AGE: 58 Location: [place] [address]-01 Re06/25/18 SEX: M Status: ADM IN SPEC: [id number] KATIE: 06/25/[address]: Lisa TORRES REQ: [id number] RECD: 06/25/18 STATUS: HARPREET CULLEN DR: Magdalene Mejia MD _ SOURCE: BLOOD,[facility]: Blood Cult Procedure Result Reported Site Aerobic Culture Bottle Final 06/30/18- 1616 ML No Growth Day 5 Anaerobic Culture Bottle Final 06/30/18- 1614 ML No Growth Day 5 * ML - Main Lab . END OF REPORT DEPARTMENT OF PATHOLOGY, [address] [place] [address] Bulmaro Marks M.D. Director [facility] # [id number] 18 SEE RESULT BELOW Name: KIRK ZARAGOZA : [address]: Sushant Han MD Acct: [id number] Unit: [id number] AGE: 58 Location: [facility] 339-01 Re06/25/18 SEX: M Status: ADM IN SPEC: [id number] KATIE: 06/25/[address]: Lisa TORRES REQ: [id number] RECD: 06/25/18 STATUS: MAIA CULLEN DR: Magdalene Mejia MD _ SOURCE: FOOT,RIGHT SPDESC: ORDERED: MRSA/SA SSTI, Culture Stain Procedure Result Reported Site MRSA/S. aureus SSTI PCR Final 06/25/18- 1804 ML Organism 1 MRSA NEGATIVE Organism 2 S.AUREUS NEGATIVE Wound/Misc Gram Stain Final 06/25/18- 1634 ML 3+ Epithelial Cells 3+ Neutrophils 4+ Gram Negative Bacilli 4+ Gram Positive Cocci 4+ Gram Negative Coccobacilli 3+ Gram Positive Bacilli Wound/Misc Culture Preliminary 06/27/18- 0946 ML Organism 1 ENTEROCOCCUS FAECALIS Quantity 3+ Organism 2 CORYNEBACTERIUM STRIATUM Quantity 3+ Organism 3 MORGANELLA MORGANII Quantity 2+ 1. ENTEROCOCCUS FAECALIS M.I.C. RX --------- ------ Ampicillin <=2 S Penicillin 2 S Ciprofloxacin 1 S Erythromycin 2 I Gentamicin High Level S Levofloxacin 1 S CONTINUED ON NEXT PAGE DEPARTMENT OF PATHOLOGY, [address] [place] [address] Bulmaro Marks M.D. Director [facility] # [id number] Patient: KIRK ZARAGOZA [id number] (Continued) Specimen: [id number] Collected: 06/25/18 Received: 06/25/18 (Kay) Procedure Result Reported Site Wound/Misc Culture Preliminary (continued) 06/27/18945 1. ENTEROCOCCUS FAECALIS (continued) M.I.C. RX --------- ------ Linezolid 2 S * Quinupristin/Dalfopristin 4 R * Streptomycin High Level S Tetracycline >=16 R Tigecycline <=0.12 S Vancomycin 1 S Imipenem-Deduced S * Ampicillin/Sulbactam-Deduced S 3. MORGANELLA MORGANII M.I.C. RX --------- ------ Ampicillin >=32 R Cefazolin >=64 R Cefepime <=1 S Ceftriaxone <=1 S Ciprofloxacin <=0.25 S Gentamicin <=1 S Levofloxacin <=0.12 S Meropenem <=0.25 S Tetracycline >=16 R Pipercillin/Tazobactam <=4 S Trimethoprim/Sulfamethoxazole <=20 S Amoxicillin/Clavulanic Acid >=32 R Aztreonam <=1 S * These antibiotics are not available in the [facility] Formulary Contact the Microbiology Department for any additional antibiotic reporting. CONTINUED ON NEXT PAGE DEPARTMENT OF PATHOLOGY, [address] [place] [address] Bulmaro Marks M.D. Director [facility] # [id number] Patient: KIRK ZARAGOZA [id number] (Continued) Specimen: [id number] Collected: 06/25/18 Received: 06/25/18 (Continued) Procedure Result Reported Site Wound/Misc Culture Preliminary (continued) Contact the Microbiology Department for any additional antibiotic reporting. * ML - Main Lab . END OF REPORT DEPARTMENT OF PATHOLOGY, [address] [place] [address] Bulmaro Marks M.D. Director [facility] # [id number] 19 SEE RESULT BELOW Name: NIKKIRK : [address]: Basil Mejia MD Acct: [id number] Unit: [id number] AGE: 58 Location: ED Re06/25/18 SEX: M Status: REG ER SPEC: [id number] KATIE: 06/25/[address] [facility] [address]: Lisa TORRES REQ: [id number] RECD: 06/25/18 STATUS: RES [facility] DR: Magdalene Mejia MD _ SOURCE: FOOT,RIGHT SPDESC: ORDERED: MRSA/SA SSTI, Culture Stain Procedure Result Reported Site MRSA/S. aureus SSTI PCR PENDING Wound/Misc Gram Stain Final 06/25/18- 1634 ML 3+ Epithelial Cells 3+ Neutrophils 4+ Gram Negative Bacilli 4+ Gram Positive Cocci 4+ Gram Negative Coccobacilli 3+ Gram Positive Bacilli Wound/Misc Culture PENDING * ML - Main Lab . END OF REPORT DEPARTMENT OF PATHOLOGY, [address] [place] [address] Bulmaro Marks M.D. Director [facility] # [id number] 20 SEE RESULT BELOW Name: KIRK ZARAGOZA : [address]: Kirk Morrison MD Acct: [id number] Unit: [id number] AGE: 58 Location: WOUND Re06/01/18 SEX: M Status: REG REF SPEC: [id number] KATIE: 06/01/[address]: Kirk Morrison MD REQ: [id number] RECD: 06/01/18 STATUS: HARPREET CULLEN DR: Magdalene Emanuel MD _ SOURCE: TOE SPDESC:RIGHT ORDERED: Culture Stain QUERIES: Specimen Description RIGHT 5TH TOE Procedure Result Reported Site Wound/Misc Gram Stain Final 06/01/18- 1741 ML 1+ Epithelial Cells 2+ Neutrophils 4+ Gram Positive Cocci Wound/Misc Culture Final 06/05/18- 0844 ML Organism 1 STREP GROUP C Quantity 3+ Organism 2 NORMAL DIVINA Quantity 2+ STREP C: Organism nonviable for further testing. Sensitivity testing is not routinely performed on cultures from non-sterile sites with three or more organisms with none predominating. The organisms will be isolated and saved for 7 days. If further testing is needed, please Contact the laboratory. Suggest resubmission. * - [facility] . END OF REPORT DEPARTMENT OF PATHOLOGY, [address] [place] [address] Bulmaro Marks M.D. Director [facility] # [id number] 21 SEE RESULT BELOW Name: KIRK ZARAGOZA : [address]: Kirk Morrison MD Acct: [id number] Unit: [id number] AGE: 58 Location: WOUND Re05/04/18 SEX: M Status: REG REF SPEC: [id number] KATIE: 05/04/18-[address] [facility] [address]: Kirk Morrison MD REQ: [id number] RECD: 05/04/18 STATUS: HARPREET CULLEN DR: Magdalene Emanuel MD _ SOURCE: FOOT,RIGHT SPDESC: ORDERED: Culture Stain QUERIES: Specimen Description RIGHT LATERAL FOOT Procedure Result Reported Site Wound/Misc Gram Stain Final 05/05/18- 1128 ML 1+ Nucleated Cells 1+ Epithelial Cells No Organisms Seen Wound/Misc Culture Final 05/06/18- 1035 ML Organism 1 NORMAL DIVINA Quantity 1+ * ML - Main Lab . END OF REPORT DEPARTMENT OF PATHOLOGY, [address] [place] [address] Bulmaro Marks M.D. Director [facility] # [id number] 22 Desirable: <150 Borderline High: 150-199 High: 200-499 Very High: >500 23 Desirable: <200 Borderline High: 200-239 High: >239 24 Low: <40 Desirable: 40-60 High: >60 25 Desirable: <100 Near Optimal: 100-129 Borderline High: 130-159 High: 160-189 Very High: >189 26 Because ethnic data is not always readily [...] 15-29 5 Kidney failure <15 (or dialysis) 27 Therapeutic target for the treatment of diabetes mellitus patients is <7% HBA1C, and in selective patients <6.0%. Please refer to [employer] diabetic care guidelines for further information. 28 FASTING 10 HOUR 29 Because ethnic data is not always readily [...] 15-29 5 Kidney failure <15 (or dialysis) 30 Serum levels of PSA measured using the Donato Sylantro DXI Hybritech immunoassay should not be interpreted [...] methods or kits cannot be used interchangeably. 31 Because ethnic data is not always [...] 5 Kidney failure <15 (or dialysis) 32 [id number] 33 Because ethnic data is not always readily [...] 15-29 5 Kidney failure <15 (or dialysis) 34 [id number] 35 Acute inflammation: >10.00 36 Leukocytosis with absolute neutrophilia suggestive of acute inflammatory/reactive process. Additional studies as clinically warranted. Reviewed by Dr. Marks 37 Because ethnic data is not always readily [...] 15-29 5 Kidney failure <15 (or dialysis) 38 Therapeutic target for the treatment of diabetes Mellitus patients is <7% HBA1C, and in selective patients <6.0%.Please refer to [employer] Diabetic care guidelines for further information. 39 >100 to <200 pg/mL: likely compensated congestive heart failure (CHF) 200 to 400 pg/mL: likely moderate CHF >400 pg/mL: likely moderate to severe CHF 40 Desirable <150 Borderline high 150-199 High 200-499 Very High >500 41 Desirable <200 Borderline high 200-239 High >239 42 Low <40 Desirable: 40-60 High: >60 43 Desirable: <100 mg/dL Near Optimal: 100-129 mg/dL Borderline High: 130-159 mg/dL High: 160-189 mg/dL Very High: >189 mg/dL 44 FASTING 10 HOUR 45 FASTING 10 HOUR 46 Normal Range 180 to 914 Indeterminate Range 145 to 180 Deficient Range <145 47 FASTING 10 HOUR 48 ADDITIONAL INFORMATION This test was developed and its performance characteristics determined by [facility] in a manner consistent with CLIA requirements. This test has not been cleared or approved by the U.S. Food and Drug Administration. Test Performed by: [address] [address] 49 Serologic response to B. burgdorferi infection is not detected, but cannot rule out early infection during which low or undetectable antibody levels to B. burgdorferi may be present. If clinically indicated, a new serum specimen should be submitted in 7-14 days. Test Performed by: [address] [id number] 50 PRN EXP: 11/15/15 51 PRN EXP: 11/15/15 52 Because ethnic data is not always readily [...] 15-29 5 Kidney failure <15 (or dialysis) 53 Because ethnic data is not always readily [...] 15-29 5 Kidney failure <15 (or dialysis) 54 pt to get pcp 55 Because ethnic data is not always readily [...] Kidney failure <15 (or dialysis) Procedures Date Code Description Status 09/29/2018 11374 ECHO Transthoracic, Real-Time 2D With Doppler And Color Completed Flow 09/29/2018 98124 ECHO Transthoracic, Real-Time 2D With Doppler And Color Completed Flow 06/28/2018 78782 EKG, Interpretation Only Completed 06/28/2018 85670 Amputation Metatarsal W/Toe Completed 06/28/2018 86861 Amputation Metatarsal W/Toe Completed 06/27/2018 17849 ECHO Transthorasic Realtime 2D W Doppler & Color Flow Completed Hosp 06/15/2018 26105 Debridement Skin,& sq Tissue Completed 06/08/2018 69691 Debridement Skin,& sq Tissue Completed 06/03/2018 28168 Apply Total Contact Leg Cast Completed 06/01/2018 49155 Debridement Skin, Subcutaneous Tissue & Muscle Completed 05/25/2018 94893 Debridement Skin,& sq Tissue Completed 05/18/2018 38953 Debridement Skin,& sq Tissue Completed 05/11/2018 78860 Debridement Skin,& sq Tissue Completed 05/04/2018 83263 Debridement Skin,& sq Tissue Completed 04/29/2018 40581 Debridement Skin,& sq Tissue Completed 12/14/2017 28844 Polysomnography Sleep Staging 4+ Parameters W/Cpap Completed 11/26/2017 [id number] Colonoscopy Completed 11/03/2017 82207 Polysomnography Sleep Staging 4+ Parameters Completed 07/20/2017 17414 Stress Test Completed 07/20/2017 90779 Myocardial Perfusion Imaging Tomographic (Spect) Completed Multiple Studies 06/12/2017 93929 EEG Recording Awake & Drowsy Completed 05/20/2017 95045 ECHO Transthoracic, Real-Time 2D With Doppler And Color Completed Flow 05/20/2017 40794 ECHO Transthoracic, Real-Time 2D With Doppler And Color Completed Flow 04/29/2017 43460 EKG Tracing & Interpretation Completed 04/15/2017 72526 Holter Monitor Review (24 hr)dr review & interp only Completed 04/09/2017 96218 ECG Monitor/Recording W/Visual Superimposition Scanning Completed 03/27/2017 33760 EKG Tracing & Interpretation Completed 08/07/2015 21161 EKG Tracing & Interpretation Completed 05/09/2015 00513 EKG Tracing & Interpretation Completed 05/08/2015 22370 ECHO Transthoracic, Real-Time 2D With Doppler And Color Completed Flow 01/11/2015 47084 ECHO Transthorasic Realtime 2D W Doppler & Color Flow Completed Hosp 01/10/2015 91301 EKG, Interpretation Only Completed 01/10/2015 10717 Cardioversion Completed 01/10/2015 00401 Color Flow Doppler/Interp & Reprt Completed 01/10/2015 12114 Pulse Wave/Continuous-Interp.RPT Completed 01/10/2015 92923 Echocardiography, Transesophageal, Real Time W/Image 2D Completed W/W/O M-M 01/09/2015 18799 EKG, Interpretation Only Completed 01/07/2015 19727 ECHO Transthorasic Realtime 2D W Doppler & Color Flow Completed Hosp 09/09/2013 17615 ECHO Transthoracic, Real-Time 2D With Doppler And Color Completed Flow 08/09/2013 62569 EKG Tracing & Interpretation Completed 05/25/2013 29118 EKG, Interpretation Only Completed 05/25/2013 05704 Cardioversion Completed 05/20/2013 97847 EKG Tracing & Interpretation Completed 04/06/2013 36091 Color Flow Doppler/Interp & Reprt Completed 04/06/2013 09790 Pulse Wave/Continuous-Interp.RPT Completed 04/06/2013 74916 Echocardiography, Transesophageal, Real Time W/Image 2D Completed W/W/O M-M 04/06/2013 23826 EKG, Interpretation Only Completed Encounters Type Date Location Provider Dx Diagnosis Office Visit 10/05/2018 [facility] Alexandra Gr E11.9 Type 2 diabetes 11:10a Kristian Cheatham M.D. mellitus without Diseases complications Office Visit 08/25/2018 [facility] Alexandra Gr M86.171 Other acute 10:30a Kristian Cheatham M.D. osteomyelitis, right Diseases ankle and foot Z79.2 prison (current) use of antibiotics E11.69 Type 2 diabetes mellitus with other specified complication Office Visit 08/24/2018 [place] [facility] Bigg Looney, E11.65 Type 2 diabetes 1:20p Endocrinology of mellitus with [place] hyperglycemia E11.69 Type 2 diabetes mellitus with other specified complication Z79.4 prison (current) use of insulin M86.171 Other acute osteomyelitis, right ankle and foot Office Visit 07/22/2018 [facility] Marek Gr M86.171 Other acute 3:40p For Kristian Cheatham M.D. osteomyelitis, Diseases right ankle and foot E11.69 Type 2 diabetes mellitus with other specified complication Z79.2 prison (current) use of antibiotics Office Visit 07/12/2018 1:00p [place] Tatiana and Bigg Looney Z79.4 prison Endocrinology of [place] MOE (current) use of insulin E11.69 Type 2 diabetes mellitus with other specified complication Office Visit 07/05/2018 [facility] M86.171 Other acute 9:21a rebecca Whyte NP osteomyelitis, Hospitalists right ankle and foot E11.621 Type 2 diabetes mellitus with foot ulcer L97.519 Non-prs chronic ulcer oth prt right foot w unsp severity Z89.421 Acquired absence of other right toe(s) Office Visit 07/04/2018 [facility] Z47.81 Encounter for 9:20a rebecca Whyte NP orthopedic Hospitalists aftercare following surgical amp Z89.421 Acquired absence of other right toe(s) E11.65 Type 2 diabetes mellitus with hyperglycemia D72.829 Elevated white blood cell count, unspecified I10 Essential (primary) hypertension Office Visit 07/03/2018 [facility] Z47.81 Encounter for 9:20a rebecca Whyte NP orthopedic Hospitalists aftercare following surgical amp Z89.421 Acquired absence of other right toe(s) E11.65 Type 2 diabetes mellitus with hyperglycemia D72.829 Elevated white blood cell count, unspecified I10 Essential (primary) hypertension Office Visit 07/02/2018 [facility] Marek Gr E11.69 Type 2 diabetes 8:25a For Kristian Cheatham M.D. 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.073 Infective myositis, right foot L03.115 Cellulitis of right lower limb Office Visit 07/02/2018 [facility] and Bigg Looney, E11.69 Type 2 diabetes 8:54a Endocrinology of MD mellitus with Professor Of Counseling other specified complication M60.073 Infective myositis, right foot Office Visit 07/02/2018 [facility] Z47.81 Encounter for 9:20a rebecca Whyte NP orthopedic Hospitalists aftercare following surgical amp Z89.421 Acquired absence of other right toe(s) E11.65 Type 2 diabetes mellitus with hyperglycemia D72.829 Elevated white blood cell count, unspecified I10 Essential (primary) hypertension Office Visit 07/01/2018 [facility] Z47.81 Encounter for 9:19a rebecca Whyte NP orthopedic Hospitalists aftercare following surgical amp Z89.421 Acquired absence of other right toe(s) E11.65 Type 2 diabetes mellitus with hyperglycemia D72.829 Elevated white blood cell count, unspecified Z87.891 Personal history of nicotine dependence I10 Essential (primary) hypertension Office Visit 06/30/2018 9:19a [facility] Z47.81 Encounter for rebecca Whyte NP orthopedic Hospitalists aftercare following surgical amp Z89.421 Acquired absence of other right toe(s) E11.9 Type 2 diabetes mellitus without complications I10 Essential (primary) hypertension D72.829 Elevated white blood cell count, unspecified Office Visit 06/29/2018 [facility] Marek Gr E11.69 Type 2 diabetes 7:59a For Infectious Janeth Cheatham 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.073 Infective myositis, right foot L03.115 Cellulitis of right lower limb Office Visit 06/29/2018 9:18a [facility] Z47.81 Encounter for rebecca Whyte NP orthopedic Hospitalists aftercare following surgical amp Z89.421 Acquired absence of other right toe(s) E11.9 Type 2 diabetes mellitus without complications I10 Essential (primary) hypertension R00.0 Tachycardia, unspecified D72.829 Elevated white blood cell count, unspecified Office Visit 06/28/2018 [facility] M86.171 Other acute 9:16a rebecca Whyte NP osteomyelitis, Hospitalists right ankle and foot E11.621 Type 2 diabetes mellitus with foot ulcer L97.519 Non-prs chronic ulcer oth prt right foot w unsp severity I10 Essential (primary) hypertension Office Visit 06/28/2018 7:57a [facility] Marek Gr E11.40 Type 2 diabetes For Infectious Janeth Cheatham mellitus with Diseases diabetic neuropathy, unsp E11.69 Type 2 diabetes mellitus with other specified complication M86.171 Other acute osteomyelitis, right ankle and foot M84.674A Pathological fracture in oth disease, right foot, init [facility] Other acute 9:16a Assrebecca amin M.D. osteomyelitis, Hospitalists right ankle and foot E11.621 Type 2 diabetes mellitus with foot ulcer L97.519 Non-prs chronic ulcer oth prt right foot w unsp severity Office Visit 06/27/2018 [facility] Nicole Adame M86.171 Other acute 8:46a Services Of MELISSA Barry osteomyelitis, C.M.A. right ankle and foot Office Visit 06/26/2018 [facility] M86.171 Other acute 9:16a reebcca Whyte M.D. osteomyelitis, Hospitalists right ankle and foot E11.621 Type 2 diabetes mellitus with foot ulcer L97.519 Non-prs chronic ulcer oth prt right foot w unsp severity Office Visit 06/26/2018 Orthopedic Nicole Adame E11.69 Type 2 diabetes 8:44a Services Of MELISSA Barry mellitus with C.M.A. other specified complication M86.171 Other acute osteomyelitis, right ankle and foot L03.115 Cellulitis of right lower limb S91.301A Unspecified open wound, right foot, initial encounter Office Visit 06/25/2018 [facility] M86.171 Other acute 9:16a rebecca Whyte M.D. osteomyelitis, Hospitalists right ankle and foot E11.621 Type 2 diabetes mellitus with foot ulcer L97.519 Non-prs chronic ulcer oth prt right foot w unsp severity I10 Essential (primary) hypertension Office Visit 04/29/2018 1:00p Wound Care Kirk Clifford E11.621 Type 2 diabetes [facility] Janeth Morrison mellitus with foot ulcer I10 Essential (primary) hypertension Z79.01 prison (current) use of anticoagulants E11.40 Type 2 diabetes mellitus with diabetic neuropathy, unsp Office Visit 03/30/2018 [facility] Internal Magdalene E11.65 Type 2 diabetes 4:00p Leo Emanuel M.D. mellitus with [place] hyperglycemia I10 Essential (primary) hypertension E78.5 Hyperlipidemia, unspecified Office Visit 01/18/2018 4:00p [facility] Internal [place]dal[place] I10 Essential ( primary) Leo Emanuel M.D. hypertension [place] K62.5 Hemorrhage of anus and rectum E11.65 Type 2 diabetes mellitus with hyperglycemia Z11.59 Encounter for screening for other viral diseases Office Visit 01/12/2018 [facility] G47.33 Obstructive sleep 1:45p Sleep Services Of TAMARA Stewart, RN, apnea (adult) [facility] (pediatric) Office Visit 12/14/2017 [facility] Internal Magdalene E11.65 Type 2 diabetes 2:40p Leo Emanuel M.D. mellitus with [place] hyperglycemia I10 Essential (primary) hypertension E78.5 Hyperlipidemia, unspecified K62.5 Hemorrhage of anus and rectum K64.9 Unspecified hemorrhoids Office Visit 12/07/2017 Bambi Toro G47.33 Obstructive sleep 4:00p Neurologic M.D. 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 anus and rectum [place] L89.300 Pressure ulcer of unspecified buttock, unstageable E11.65 Type 2 diabetes mellitus with hyperglycemia R21 Rash and other nonspecific skin eruption R41.82 Altered mental status, unspecified Office Visit 10/22/2017 2:30p [facility] Sleep Yeimy Coronel, R06.83 Snoring Services Of [facility] R40.0 Somnolence Office Visit 09/18/2017 2:00p [facility] Internal Magdalene I10 Essential ( primary) Leo Emanuel M.D. hypertension [place] E11.65 Type 2 diabetes mellitus with hyperglycemia Z23 Encounter for immunization K62.5 Hemorrhage of anus and rectum Z12.5 Encounter for screening for malignant neoplasm of prostate Office Visit 09/17/2017 9:15a Bambi Toro, I69.318 Other symptoms Neurologic M.D. 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 hypertension [place] E11.65 Type 2 diabetes mellitus with hyperglycemia R06.83 Snoring Office Visit 05/05/2017 9:00a [facility] Internal [place] I10 Essential ( primary) Leo Emanuel M.D. 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 hypertension [place] E11.65 Type 2 diabetes mellitus with hyperglycemia R41.82 Altered mental status, unspecified I48.0 Paroxysmal atrial fibrillation Office Visit 03/27/2017 3:40p [facility] Internal [place] I10 Essential ( primary) Leo Emanuel M.D. hypertension [place] I42.9 Cardiomyopathy, unspecified E11.9 Type 2 diabetes mellitus without complications I48.91 Unspecified atrial fibrillation R41.82 Altered mental status, unspecified Office Visit 08/07/2015 2:00p [facility] Arthur Restrepo I48.0 Paroxysmal atrial Of [place]i Childers M.D., fibrillation FACC, FASNC Office Visit 05/09/2015 12:45p [facility] Vi Mendoza, 427.31 Atrial Of [place] Fowler Fibrillation 425.9 Cardiomyopathy Secondary Unspecified 401.1 Hypertension Benign 250.00 Diabetes Mellitus W/O Compl Type II Or Unspec Controlled Office Visit 01/12/2015 [facility] Nora Bryson, 427.31 Atrial 4:23p rebecca Whyte M.D. Fibrillation Hospitalists 250.90 Diabetes W/ Unspec Compl Type II Or Unspec Controlled 428.20 Systolic Heart Failure Unspecified Office Visit 01/11/2015 [facility] Nora Bryson, 427.31 Atrial 4:22p rebecca Whyte M.D. Fibrillation Hospitalists 250.90 Diabetes W/ Unspec Compl Type II Or Unspec Controlled 458.0 Hypotension Orthostatic 428.30 Diastolic Heart Failure Unspecified Office Visit 01/10/2015 [facility] Gracia 427.31 Atrial 4:22p rebecca Whyte DO Fibrillation Hospitalists 428.30 Diastolic Heart Failure Unspecified 250.90 Diabetes W/ Unspec Compl Type II Or Unspec Controlled 790.6 Abnormal Blood Chemistry Other Office Visit 01/10/2015 10:41a [facility] Marcus Clifford 427.32 Atrial Flutter Janeth German 425.4 Cardiomyopathy Other Prim Office Visit 01/09/2015 11:44a [facility] Adan Gr 427.31 Atrial Of [place]i Mckinley M.D. Fibrillation 425.4 Cardiomyopathy Other Prim Office Visit 01/09/2015 [facility] Gracia 427.31 Atrial 4:21p rebecca Whyte DO Fibrillation Hospitalists 428.30 Diastolic Heart Failure Unspecified 250.90 Diabetes W/ Unspec Compl Type II Or Unspec Controlled 790.6 Abnormal Blood Chemistry Other Office Visit 01/08/2015 [facility] Fiona 427.31 Atrial 4:21p rebecca Whyte M.D. Fibrillation Hospitalists 428.30 Diastolic Heart Failure Unspecified 250.90 Diabetes W/ Unspec Compl Type II Or Unspec Controlled Office Visit 01/07/2015 [facility] Fiona 427.31 Atrial 4:21p rebecca Whyte M.D. Fibrillation Hospitalists 428.30 Diastolic Heart Failure Unspecified 790.6 Abnormal Blood Chemistry Other Office Visit 01/06/2015 [facility] Steve Borden 427.31 Atrial 4:20p rebecca Whyte II, M.D. Fibrillation Hospitalists 428.30 Diastolic Heart Failure Unspecified 790.6 Abnormal Blood Chemistry Other 276.2 Acidosis Office Visit 09/28/2013 [facility] Arthur Restrepo 427.31 Atrial 10:00a Of [place] Childers M.D., Fibrillation FACC, FASNC Office Visit 08/09/2013 [facility] Arthur Restrepo 427.31 Atrial 9:00a Of [place] Childers M.D., Fibrillation [facility], [facility] Office Visit 05/20/2013 [facility] Arthur Restrepo 427.32 Atrial Flutter 12:15p Of [place] Childers M.D., FAC, [facility] Office Visit 04/09/2013 [facility] 427.31 Atrial 8:38a Assrebecca amin M.D. Fibrillation Hospitalists 411.1 Coronary Syndrome Intermediate 275.2 Metabolic Disorder Magnesium 790.6 Abnormal Blood Chemistry Other Office Visit 04/08/2013 [facility] 427.31 Atrial 8:38a Assrebecca amin M.D. Fibrillation Hospitalists 411.1 Coronary Syndrome Intermediate 275.2 Metabolic Disorder Magnesium 790.6 Abnormal Blood Chemistry Other Office Visit 04/08/2013 3:59p [facility] Arthur Restrepo 427.31 Atrial Of Fal[place]i Childers M.D., Fibrillation [facility], [facility] 786.05 Shortness Of Breath Office Visit 04/07/2013 [facility] 427.31 Atrial 8:37a Assrebecca amin M.D. Fibrillation Hospitalists 411.1 Coronary Syndrome Intermediate 275.2 Metabolic Disorder Magnesium 790.6 Abnormal Blood Chemistry Other Office Visit 04/07/2013 [facility] Adna Gr 427.31 Atrial 1:18p Of [place]i Mckinley M.D. Fibrillation Office Visit 04/06/2013 [facility] Yudy 427.31 Atrial 8:37a Assrebecca amin MD Fibrillation Hospitalists 411.1 Coronary Syndrome Intermediate 275.2 Metabolic Disorder Magnesium 790.6 Abnormal Blood Chemistry Other Office Visit 04/06/2013 3:00p [facility] Arthur Restrepo 427.32 Atrial Flutter Of Fal[place]i Childers M.D., [facility], [facility] 427.31 Atrial Fibrillation Office Visit 04/05/2013 [facility] Nora Bryson 427.31 Atrial 8:37a rebecca Whyte M.D. Fibrillation Hospitalists 411.1 Coronary Syndrome Intermediate 275.2 Metabolic Disorder Magnesium 790.6 Abnormal Blood Chemistry Other Plan of Treatment Future Appointment(s):12/02/2018 10:00 am - Davy Raza M.D. at [facility]11/03/2018 9:45 am - Arthur Childers M.D., FACC, FASFL at [facility]11/11/2018 4:20 pm - Bigg Looney MD at [facility]10/21/2018 - Davy Raza M.D.M86.171 Other acute osteomyelitis, right ankle and footFollow up:Follow up: 6 weeks
--- OUTSIDE RECORDS SUMMARY | 2018-10-30 15:01 | XMS REPORT | Continuity of Care Document ---
:1960 External Reference #:[id number] Author Name JoseAlka irving Care Team Providers Name Role Phone Magdalene Emanuel MD Primary Care Physician Unavailable Payers Type Date Identification Numbers Payment Provider Subscriber Effective: 2017 Policy Number: [id number] Roshan Zaragoza Group Number: [id number] [address] PayID: [id number] [place] [address] Expires: 2017 Policy Number: [id number] Medicaid Kirk Zaragoza Group Name: 1 1 [address] PayID: [id number] [place] [address] Effective: 2015 Policy Number: [id number] Roshan Zaragoza Expires: 2016 Group Name: [id number] [address] PayID: [id number] [place] [address] Effective: 2016 Policy Number: [id number] [facility] Care Kirk Zaragoza Expires: 2018 Group Number: [id number] PayID: [id number] [address] [place] [address] Effective: 2018 Policy Number: [id number] [facility] Care Kirk Zaragoza Expires: 2019 Group Number: 70% [address] [place] PayID: [id number] [address] Advance Directives Type Date Description Status Comment Other Directive 03/27/2017 Health Care Proxy Current and Verified Problems Date Description Provider Status Onset: 08/09/2013 Atrial fibrillation Arthur Childers M.D., Active [facility], [facility] Onset: 05/09/2015 Benign essential hypertension Vi Mendoza M.D. Active Onset: 03/27/2017 Cardiomyopathy Magdalene Emanuel M.D. Active Onset: 04/03/2017 Type 2 diabetes mellitus Magdalene Emanuel M.D. Active Onset: 04/29/2017 Paroxysmal atrial fibrillation Arthur Childers M.D., Active [facility] Onset: 06/11/2017 Altered mental status Phu Toro M.D. Active Onset: 06/11/2017 History of cerebrovascular Phu Toro M.D. Active accident without residual deficits Onset: 07/31/2017 Thoracic aortic ectasia Arthur Childers M.D., Active [facility] Onset: 09/17/2017 Difficulty breathing Phu Toro M.D. Active Onset: 11/12/2017 Obstructive sleep apnea syndrome Rosie Stewart DNP, RN, Active [facility] Onset: 12/07/2017 Disturbance of consciousness Phu Toro [...] Former Cigarette Smoker Unknown Smoking Status Reviewed: 10/05/18 Former Cigarette Smoker ETOH Use Has consumed [...] Form Strength Qnty SIG Indications Ordering Provider Humalog Mix 08/24 Active Suspension (75-25)10 20ml start 38 E11.69 Bigg Looney, 0Unit/ML units in MD the morning with first meal of the day, 18 units in the evening with last meal of the day Lisinopril 07/06 Active Tablets 10mg 1 by I10 Magdalene hi Emanuel M.D. every day Thiamine HCL 12/07 Active Tablets 100mg 90tab take 1 F10.19 Kirk S. s tablet natali Baeza M.D. Multivitamin 12/07 Active Tablets Take 1 a F10.19 Phu Adult day Janeth Toro Chlorthalidone 09/18 Active Tablets 25mg 30tab 1 by I10 Magdalene /2018 s hi Emanuel M.D. every day Xarelto 05/22 Active Tablets 20mg 30tab 1 by Magdalene s hi Emanuel M.D. every day, take with evening meal Atorvastatin 04/03 Active Tablets 10mg 30tab 1 by E11.65 Neli Calcium s mouth Varn, N.P. every day Metoprolol 03/27 Active Tablets ER 25mg 30tab 1 by I10 Magdalene Succinate ER 24HR s hi Emanuel M.D. every day Metformin HCL Active Tablets 500mg 1 by Unknown /0000 mouth twice a day Oxycodone HCL Active Tablets 1 - 2 Unknown /0000 tabs by mouth every 12 hours as needed pain Acetaminophen 0000 Active Tablets 325mg 2 tablets Unknown /0000 by mouth every 6 hours as needed for pain/feve r Humalog Mix 08/24 Hx Supn (75-25)10 30ml 40 units E11.69 Bigg Looney, 7525 Marioikpen 0Unit/ML with MD - first 08/24 meal the day, 25 units with last meal of the day Bactrim DS 07/15 Hx Tablets 800-160mg 30tab 1 by s hi Raza M.D. - twice a Lantus Solostar 07/12 Hx Solution 100Unit/M 36 units [facility] Pen-Inject L daily MD - 08/24 Humalog Kwikpen 07/12 Hx Solution 100Unit/M 12 [facility] E11.69 [facility] per meal MD - 08/24 scale. BS 200-250 2 units, 251-300 4 units, 301-350 6 units, 351-400 8 units, 401-450 10 units Doxycycline 06/01 Hx Capsules 100mg 14cap Twice Unknown cl s Daily - 07/21 Clindamycin HCL 04/18 [...] Tablets 10mg 30tab 1 by I10 s Nubia FajardoD. - every day 05/05 Xarelto 06/04 Hx Tablets 20mg 90tab 1 by Arthurelsa Restrepo s mouth Janeth Childers, - every day [facility] 03/27 Coumadin 05/08 Hx Tablets 5mg 200ta take 1 bs tab daily Runnels, - or as Janeth 06/04 Lasix 09/28 Hx Tablets 20mg 1 po qd Arthur Retsrepo Janeth Childers, - [facility], [facility] 09/21 Lisinopril 09/28 Hx Tablets 20mg 90tab 1 po qd Arthur Restrepo s pt takes Janeth Childers, - 10 mg [facility] 09/08 Lasix 09/21 Hx Tablets 20mg 30tab 1 by Arthurelsa Restrepo s hi Childers M.D., - every day [facility] 03/27 Lisinopril 08/09 Hx Tablets 10mg 90tab 1 po qd Arthur Restrepo tess Childers M.D., - [facility], [facility] 09/28 Lasix 05/20 Hx Tablets 40mg 90tab one Arthur s tablet po Janeth Childers, - [facility], [facility] 09/14 Xarelto Hx Tablets 20mg 30tab 1 po qd Unknown / s - 09/08 Lisinopril Hx Tablets 2.5mg 90tab 1 po qd Unknown / s - 08/09 Glipizide ER Hx Tablets ER 2.5mg 270ta 1 po qd Unknown /0000 24HR bs - 03/27 Metoprolol Hx Tablets 100mg 180ta 1/2 by Arthur Restrepo Tartrate / bs mouth Janeth Childers, - twice a [facility] Omeprazole Hx Capsules DR 20mg 1 by Unknown /0000 mouth - every day 05/09 Lisinopril Hx Tablets 10mg 90tab 1 by Arthur Restrepo / s hi Childers M.D., - every day [facility] 03/27 Ceftriaxone Hx Solution 2gm 2 grams Unknown Sodium /0000 Rec daily iv - at [facility], 07/16 dischareg d on 07/02/18 for additonal [...] Arthur Restrepo Regadenoson, 017 Alvarado, 0.1 MG M.DCullen, FACRachelle, FASNC Technetium TC Administered Injection Arthur Restrepo 99M 017 Alvarado Tetrofosmin, Janeth, FACC, Per Unit Dose FASNC Up To 40 Millicuries Immunizations CPT Code Status Date Vaccine Lot # 61534 Given 09/18/2017 Pneumonia Vaccine [id number] Given 09/18/2017 Influenza Virus Vaccine, Quadrivalent, Split, [id number] Preservative Free Vital Signs Date Vital Result Comment 10/05/2018 11:13am Height 72 inches 6'0" Weight [...] Result H/L Range Note Laboratory test 08/24/2018 [employer] In House Glucose Random 173 finding Laboratory test 07/21/2018 [facility] C Reactive 7.84 mg/L N < 8.01 1, [address] [place] [address] [phone] CBC Auto Diff 07/21/2018 [facility] White Blood 8.8 10^3/uL N 3.5-10.[address] [place] [address] [phone] Red Blood Count 4.22 10^6/uL N 4.00-5.40 [...] Cells % 0.1 Comp Metabolic Panel 07/21/2018 [facility] Sodium 137 mmol/L N 135-[address] [place] [address] [phone] Chloride 102 mmol/L N 101-111 Co2 Carbon [...] 7 mmol/L N 2-11 CBC Auto 07/14/2018 [facility] White Blood 12.3 10^3/uL High 3.5-10.[address] [place] [address] [phone] Red Blood Count 4.29 10^6/uL N 4.00-5.40 [...] Cells % 0.1 Comp Metabolic Panel 07/14/2018 [facility] Sodium 138 mmol/L N 135-[address] [place] [address] [phone] Potassium 4.7 mmol/L N 3.5-5.0 Chloride 102 [...] Egfr 123.3 >60 5 Laboratory test 07/14/2018 [facility] C Reactive 18.20 High < 8.01 [address] Protein mg/[place] [address] [phone] Laboratory test 07/12/2018 [employer] [facility] Glucose 245 finding Random Laboratory test 07/07/2018 [facility] C Reactive 19.96 High < 8.01 7, [address] Protein mg/[place] [address] [phone] CBC Auto Diff 07/07/2018 [facility] White Blood 13.7 High 3.5- 10.[address] Count 10^3/[place] [address] [phone] Red Blood Count 4.35 10^6/uL N 4.00-5.40 [...] Cells % 0 Comp Metabolic Panel 07/07/2018 [facility] Sodium 137 mmol/L N 135-[address] [place] [address] [phone] Potassium 4.3 mmol/L N 3.5-5.0 Chloride 99 [...] Egfr 152.1 >60 9 CBC Auto 06/25/2018 [facility] White Blood 15.5 10^3/uL High 3.5-10.[address] [place] [address] [phone] Red Blood Count 4.46 10^6/uL N 4.00-5.40 [...] Blood Cells % 0.1 Urine Microalbumin 06/25/2018 [facility] Ur Microalbumin 22.[address] (mg/L) [place] [address] [phone] Urine Creatinine 109.42 mg/dL Urine Microalbumin/Creatinine 20.8 N <31 Laboratory test 06/25/2018 [facility] Hemoglobin A1c 12.7 % High 4.0-5.6 [address] (Glyco HGB) [place] [address] [phone] Comp Metabolic 06/25/2018 [facility] Sodium 134 Low 135-[address] mmol/[place] [address] [phone] Chloride 97 mmol/L Low 101-111 Co2 Carbon [...] 7 mmol/L N 2-11 Lipid Profile 06/25/2018 [facility] Triglycerides 96 mg/dL 12 (Trig/Chol/HDL) [address] [place] [address] [phone] Cholesterol 85 mg/dL 13 HDL Cholesterol 28.7 mg/dL 14 LDL Cholesterol 37 mg/dL 15 Laboratory test 06/25/2018 [facility] C Reactive 117.98 mg/L High <8.[address] [place] [address] [phone] Erythrocyte Sed Rate 76 mm/Hr High 0-20 Laboratory test 06/25/2018 [facility] Partial 34.8 seconds N 26.0-36.[address] [place] [address] PTT [phone] Lactic Acid 2.7 mmol/L High 0.5-2.0 16 Blood Culture SEE RESULT BELOW 17 Inr/Protime 06/25/2018 [facility] Inr 1.61 High 0.77-1.[address] [place] [address] [phone] Laboratory 06/25/2018 [facility] MRSA/S. aureus SEE 18 test finding [address] [place] [address] BELOW [phone] Wound 06/25/2018 [facility] Wound/Misc SEE 19 Culture/Sensi [address] DR[address] [place] [address] Stain BELOW [phone] Wound 06/01/2018 [facility] Wound/Misc SEE 20 Culture/Sensi [address] [place] [address] Stain BELOW [phone] Wound 05/04/2018 [facility] Wound/Misc SEE 21 Culture/Sensi [address] [place] [address] Stain BELOW [phone] Lipid Profile 03/25/2018 [facility] Triglycerides 175 mg/dL 22 (Trig/Chol/HDL [address] ) [place], [place] [address] [phone] Cholesterol 115 mg/dL 23 HDL Cholesterol 29.4 mg/dL 24 LDL Cholesterol 51 mg/dL 25 Comp Metabolic Panel 03/25/2018 [facility] Sodium 136 mmol/L N 135-[address] [place] [address] [phone] Potassium 4.9 mmol/L N 3.5-5.0 Chloride 100 [...] Egfr 119.7 >60 26 CBC Auto 03/25/2018 [facility] White Blood 11.8 10^3/uL High 3.5-10.[address] [place] [address] [phone] Red Blood Count 5.01 10^6/uL N 4.00-5.40 [...] Blood Cells % 0 Laboratory test 03/25/2018 [facility] Hemoglobin A1c 10.0 % High 4.0-5.[address] (Glyco HGB) [place] [address] [phone] Urine 03/25/2018 [facility] Ur Microalbumin 43.8 Microalbumin 101 (mg/L) mg/[place] [address] [phone] Urine Creatinine 204.54 mg/dL Urine Microalbumin/Creatinine 21.4 ug/mg N <31 Laboratory 03/25/2018 [facility] Hepatitis Nonreactive Nonreactive [address] [place] [address] [phone] Hepatitis B 03/25/2018 [facility] Hepatitis Not Immune Abnormal Immune Sola AB Titer [address] [place] [address] AB [phone] Hep B Surf AB Level < 3.10 mIU/mL >12 Laboratory test 12/14/2017 [employer] [facility] Hemoglobin A1c 9.0 High 5-7 finding Order 11/11/2017 [facility] Sleep-Homecare <pending> [address] [place] [address] [phone] Comp Metabolic 10/26/2017 [facility] Sodium 138 mmol/L N 133- [address] [place] [address] [phone] Potassium 4.7 mmol/L N 3.5-5.0 Chloride 100 [...] 151.5 >60 29 CBC Auto Diff 10/26/2017 [facility] White Blood 10.6 10^3/uL N 3.5-10.[address] [place] [address] [phone] Red Blood Count 4.82 10^6/uL N 4.0-5.4 [...] Blood Cells % 0.1 Laboratory test 10/26/2017 [facility] PSA Screening 0.391 N 0- 4.000 [address] ng/[place] [address] [phone] Laboratory test 09/18/2017 [employer] [facility] Hemoglobin A1c 7.8 High 5-7 finding Creatinine 07/21/2017 [facility] Creatinine 0.98 N 0.67-1.[address] mg/[place] [address] [phone] Egfr Non- 78.6 >60 Egfr 101.0 >60 31 Laboratory test 07/21/2017 [facility] Blood Urea 26 mg/dL High 6-[address] [place] [address] [phone] Basic Metabolic 05/05/2017 [facility] Sodium 136 mmol/L N 133- 145 [address] [place] [address] [phone] Potassium 4.0 mmol/L N 3.5-5.0 Chloride 100 mmol/L Low 101-111 Co2 Carbon Dioxide 29 mmol/L N 22-32 Anion Gap 7 mmol/L N 2-11 Glucose 248 mg/dL High 70-100 Blood Urea Nitrogen 10 mg/dL N 6-24 Creatinine 0.63 mg/dL Low 0.67-1.17 BUN/Creatinine Ratio 15.9 N 8-20 Calcium 9.0 mg/dL N 8.6-10.3 Egfr Non- 130.8 N >60 Egfr 168.2 N >60 33 CBC Auto 05/05/2017 [facility] White Blood 11.8 10^3/uL High 3.5-10.[address] [place] [address] [phone] Red Blood Count 5.46 10^6/uL High 4.0-5.4 [...] Cells % 0.1 N Laboratory test 05/05/2017 [facility] Erythrocyte Sed 16 mm/Hr N 0-20 [address] [place] [address] [phone] C Reactive Protein 10.23 mg/L High < 5.00 35 Manual Differential 05/05/2017 [facility] Neutrophil % 56 % N 38-[address] [place] [address] [phone] Lymphocytes % 13 % Low 25-47 Monocytes % 13 % N 0-13 Eosinophils % 4 % N 0-6 Reactive Lymph % 14 % High 0-6 RBC Morphology Normal N Normal Laboratory test 05/05/2017 [facility] Pathologist (SEE NOTE) N [address] [place] [address] [phone] Basic Metabolic 04/02/2017 [facility] Sodium 130 mmol/L Low 133-[address] [place] [address] [phone] Potassium 4.2 mmol/L N 3.5-5.0 Chloride 95 mmol/L Low 101-111 Co2 Carbon Dioxide 29 mmol/L N 22-32 Anion Gap 6 mmol/L N 2-11 Glucose 360 mg/dL High 70-100 Blood Urea Nitrogen 16 mg/dL N 6-24 Creatinine 0.79 mg/dL N 0.67-1.17 BUN/Creatinine Ratio 20.3 High 8-20 Calcium 9.1 mg/dL N 8.6-10.3 Egfr Non- 100.7 N >60 Egfr 129.6 N >60 37 Laboratory test 04/02/2017 [facility] Hemoglobin A1c 12.3 % High Less [address] (Glyco HGB) than 6.0 [place] [address] [phone] Urine 04/02/2017 [facility] Urine 103.64 N Microalbumin [address] Creatinine mg/[place] [address] [phone] Ur Microalbumin (mg/L) 153.4 mg/L N Urine Microalbumin/Creatinine 148.0 ug/mg High <31 Laboratory test 04/02/2017 [facility] B-Type Natriuretic 16 pg/ mL N [address] [place] [address] [phone] Lipid Profile 04/02/2017 [facility] Triglycerides 317 mg/dL N 40 (Trig/Chol/HDL) [address] [place] [address] [phone] Cholesterol 218 mg/dL N 41 HDL Cholesterol 37.7 mg/dL N 42 LDL Cholesterol 117 mg/dL N 43 Laboratory test 04/02/2017 [facility] Thyroxine 9.28 g/mL N 6.09-12.23 [address] [place] [address] [phone] TSH (Thyroid Stim Horm) 1.89 mcIU/mL N 0.34-5.60 45 Vitamin B12 And 04/02/2017 [facility] Vitamin B12 490 pg/mL N 180-914 46 Folate Serum [address] [place] [address] [phone] Folic Acid (Folate) 11.59 ng/mL N >3.99 47 Laboratory test 04/02/2017 [facility] Vitamin B1 165 nmol/L N 70-180 [address] (Whole Blood) [place] [address] [phone] Lyme Disease Serology Negative N Negative 49 Laboratory test 08/09/2015 [facility] Inr/Protime 1.09 N 0.89- 1.11 50 finding [address] [place] [address] [phone] Inr/Protime 06/05/2015 [facility] Inr 1.48 High 0.78-1.07 [address] [place] [address] [phone] Laboratory test 05/29/2015 [facility] Inr/Protime 1.42 High 0.78-1.07 51 finding [address] [place] [address] [phone] Inr/Protime 05/17/2015 Inr 1.67 High 0.78-1.07 Basic Metabolic 05/16/2015 [facility] Sodium 134 N 133-[address] mmol/[place] [address] [phone] Potassium 4.3 mmol/L N 3.5-5.0 Chloride 102 [...] 1.06 N 0.78-1.07 Basic Metabolic Panel 10/05/2013 [facility] Sodium 134 mmol/L 133-145 [address] [place] [address] [phone] Potassium 4.2 mmol/L 3.5-5.0 Chloride 100 mmol/L Low 101-111 Co2 Carbon Dioxide 30.0 mmol/L 22-32 Anion Gap 4.0 mmol/L 2-11 Glucose 127 mg/dL High 70-100 Blood Urea Nitrogen 15 mg/dL 6-24 Creatinine 0.70 mg/dL 0.50-1.40 BUN/Creatinine Ratio 21.4 High 8-20 Calcium 9.2 mg/dL 8.1-9.9 Egfr Non- 117.5 >60 Egfr 151.1 >60 53 Basic Metabolic Panel 05/23/2013 [facility] Sodium 134 mmol/L 133-[address] [place] [address] [phone] Potassium 4.4 mmol/L 3.5-5.0 Chloride 93 mmol/L Low 101-111 Co2 Carbon Dioxide 36.0 mmol/L High 22-32 Anion Gap 5.0 mmol/L 2-11 Glucose 260 mg/dL High 70-100 Blood Urea Nitrogen 11 mg/dL 6-24 Creatinine 1.00 mg/dL 0.50-1.40 BUN/Creatinine Ratio 11.0 8-20 Calcium 8.8 mg/dL 8.1-9.9 Egfr Non- 77.9 >60 Egfr 100.1 >60 55 1 [facility] - Floor: 1, Rm #: [id number] 2 [facility] - Floor: 1, Rm #: [id number] 3 Because ethnic data is not always [...] 5 Kidney failure <15 (or dialysis) 4 [facility] - Floor: 1, Rm #: [id number] 5 Because ethnic data is not always [...] 5 Kidney failure <15 (or dialysis) 6 [facility] - Floor: 1, Rm #: [id number] Specimen approval form received. Correct patient identification verified by provider 02/25/19 8 Specimen approval form received. Correct patient identification verified by provider 1960. [facility] - Floor: 1, Rm #: [id number] 9 Because ethnic data is not always [...] in selective patients <6.0%. Please refer to [place] [employer] diabetic care guidelines for further [...] >189 16 Critical Result LACT:2.7 Called to [id number] at: 16:13:07 by:[email or web address] Read back by:[email or web address] FILI Severe Sepsis and Septic Shock Management Bundle Measure requires all lactic acids initially measuring >2.0 mmol/L be repeated. 17 SEE RESULT BELOW Name: KIRK ZARAGOZA : [address]: Radha Pink MD Acct: [id number] Unit: [id number] AGE: 58 Location: [place] [address]- Re06/25/18 SEX: M Status: ADM IN SPEC: [id number] KATIE: 06/25/18-[address] [facility] [address]: Lisa TORRES REQ: [id number] RECD: 06/25/18 STATUS: HARPREET CULLEN DR: Magdalene Mejia MD _ SOURCE: BLOOD,VENO SPDES: ORDERED: Blood Cult Procedure Result Reported Site Aerobic Culture Bottle Final 06/30/18- 1615 ML No Growth Day 5 Anaerobic Culture Bottle Final 06/30/181613 ML No Growth Day 5 * ML - Main Lab . END OF REPORT DEPARTMENT OF PATHOLOGY, [address] [place] [address] Bulmaro Marks M.D. Director [facility] # [id number] 18 SEE RESULT BELOW Name: KIRK ZARAGOZA : [address]: Sushant Han MD Acct: [id number] Unit: [id number] AGE: 58 Location: [place] [address] Re06/25/18 SEX: M Status: ADM IN SPEC: [id number] KATIE: 06/25/[address] [facility] [address]: Lisa TORRES REQ: [id number] RECD: 06/25/18 STATUS: RES [facility] DR: Magdalene Mejia MD _ SOURCE: FOOT,RIGHT [...] 3+ Gram Positive Bacilli Wound/Misc Culture Preliminary 06/27/1846 ML Organism 1 ENTEROCOCCUS FAECALIS Quantity 3+ Organism 2 CORYNEBACTERIUM STRIATUM Quantity 3+ Organism 3 MORGANELLA MORGANII Quantity 2+ 1. ENTEROCOCCUS FAECALIS M.I.C. RX --------- ------ Ampicillin <=2 S Penicillin 2 S Ciprofloxacin 1 S Erythromycin 2 I Gentamicin High Level S Levofloxacin 1 S CONTINUED ON NEXT PAGE DEPARTMENT OF PATHOLOGY, [address] [place] [address] Bulmaro Marks M.D. Director [facility] # [id number] Patient: KIRK ZARAGOZA [id number] (Continued) Specimen: [id number] Collected: 06/25/18 Received: 06/25/18-1613 (Continued) Procedure Result Reported Site Wound/Misc Culture [...] These antibiotics are not available in the [facility] Formulary Contact the Microbiology Department for any additional antibiotic reporting. CONTINUED ON NEXT PAGE DEPARTMENT OF PATHOLOGY, [address] [place] [address] Bulmaro Marks M.D. Director [facility] # [id number] Patient: KIRK ZARAGOZA [id number] (Continued) Specimen: [id number] Collected: 06/25/18 Received: 06/25/18 (Continued) Procedure Result Reported Site Wound/Misc Culture Preliminary (continued) Contact the Microbiology Department for any additional antibiotic reporting. * ML - Main Lab . END OF REPORT DEPARTMENT OF PATHOLOGY, [address] [place] [address] Bulmaro Marks M.D. Director [facility] # [id number] 19 SEE RESULT BELOW Name: KIRK ZARAGOZA : [address]: Basil Mejia MD Acct: [id number] Unit: [id number] AGE: 58 Location: ED Re06/25/18 SEX: M Status: REG ER SPEC: [id number] KATIE: 06/25/[address]: Lisa TORRES REQ: [id number] RECD: 06/25/18 STATUS: MAIA CULLEN DR: Magdalene Mejia MD _ SOURCE: MANJEETRIGHT SPDES: ORDERED: MRSA/SA SSTI, Culture Stain Procedure Result Reported Site MRSA/S. aureus SSTI PCR PENDING Wound/Misc Gram Stain Final 06/25/18- 1634 ML 3+ Epithelial Cells 3+ Neutrophils 4+ Gram Negative Bacilli 4+ Gram Positive Cocci 4+ Gram Negative Coccobacilli 3+ Gram Positive Bacilli Wound/Misc Culture PENDING * ML - Main Lab . END OF REPORT DEPARTMENT OF PATHOLOGY, [address] [place] [address] Bulmaro Marks M.D. Director [facility] # [id number] 20 SEE RESULT BELOW Name: KIRK ZARAGOZA : [address]: Kirk Morrison MD Acct: [id number] Unit: [id number] AGE: 58 Location: [place] Re06/01/18 SEX: M Status: REG REF SPEC: [id number] KATIE: 06/01/18-[address] [facility] [address]: Kirk Morrison MD REQ: [id number] RECD: 06/01/18 STATUS: HARPREET CULLEN DR: Magdalene Emanuel MD _ SOURCE: TOE SPDESC:RIGHT ORDERED: Culture Stain QUERIES: Specimen Description RIGHT 5TH TOE Procedure Result Reported Site Wound/Misc Gram Stain Final 06/01/18- 1740 ML 1+ Epithelial Cells 2+ Neutrophils 4+ Gram Positive Cocci Wound/Misc Culture Final 06/05/18843 ML Organism 1 STREP GROUP C Quantity 3+ Organism 2 NORMAL DIVINA Quantity 2+ STREP C: Organism nonviable for further testing. Sensitivity testing is not routinely performed on cultures from non-sterile sites with three or more organisms with none predominating. The organisms will be isolated and saved for 7 days. If further testing is needed, please Contact the laboratory. Suggest resubmission. * ML - Main Lab . END OF REPORT DEPARTMENT OF PATHOLOGY, [address] [place] [address] Bulmaro Marks M.D. Director [facility] # [id number] 21 SEE RESULT BELOW Name: KIRK ZARAGOZA : [address]: Kirk Morrison MD Acct: [id number] Unit: [id number] AGE: 58 Location: [place] Re05/04/18 SEX: M Status: REG REF SPEC: [id number] KATIE: 05/04/[address] [facility] [address]: Kirk Morrison MD REQ: [id number] RECD: 05/04/18 STATUS: HARPREET CULLEN DR: Magdalene [...] . END OF REPORT DEPARTMENT OF PATHOLOGY, [address] [place] [address] Bulmaro Marks M.D. Director [facility] # [id number] 22 Desirable: <150 Borderline High: 150-199 High: [...] in selective patients <6.0%. Please refer to [place] [employer] diabetic care guidelines for further [...] levels of PSA measured using the [employer] DXI Hybritech immunoassay should not be interpreted [...] 5 Kidney failure <15 (or dialysis) 32 [id number] 33 Because ethnic data is not always [...] 5 Kidney failure <15 (or dialysis) 34 [id number] Acute inflammation: >10.00 36 Leukocytosis with [...] and in selective patients <6.0%.Please refer to [place] [employer] Diabetic care guidelines for further [...] developed and its performance characteristics determined by [facility] in a manner consistent with CLIA requirements. This test has not been cleared or approved by the U.S. Food and Drug Administration. Test Performed by: [address] [address] 49 Serologic response to B. [email or web address] infection is not detected, but cannot rule out early infection during which low or undetectable antibody levels to B. burgdorferi may be present. If clinically indicated, a new serum specimen should be submitted in 7-14 days. Test Performed by: [facility] - [address] [id number] 50 PRN EXP: 11/15/15 51 PRN EXP: [...] dialysis) Procedures Date Code Description Status 09/29/2018 84117 ECHO Transthoracic, Real-Time 2D With Doppler And Color Completed Flow 06/28/2018 40931 EKG, Interpretation Only Completed 06/28/2018 69104 Amputation Metatarsal W/Toe Completed 06/28/2018 82928 Amputation Metatarsal W/Toe Completed 06/27/2018 17955 ECHO Transthorasic Realtime 2D W Doppler & Color Flow Completed Hosp 06/15/2018 34853 Debridement Skin,& sq Tissue Completed 06/08/2018 46314 Debridement Skin,& sq Tissue Completed 06/03/2018 92517 Apply Total Contact Leg Cast Completed 06/01/2018 59968 Debridement Skin, Subcutaneous Tissue & Muscle Completed 05/25/2018 79195 Debridement Skin,& sq Tissue Completed 05/18/2018 61301 Debridement Skin,& sq Tissue Completed 05/11/2018 65106 Debridement Skin,& sq Tissue Completed 05/04/2018 68633 Debridement Skin,& sq Tissue Completed 04/29/2018 91718 Debridement Skin,& sq Tissue Completed 12/14/2017 86600 Polysomnography Sleep Staging 4+ Parameters W/Cpap Completed 11/26/2017 [id number] Colonoscopy Completed 11/03/2017 25991 Polysomnography Sleep Staging 4+ Parameters Completed 07/20/2017 55433 Stress Test Completed 07/20/2017 72529 Myocardial Perfusion Imaging Tomographic (Spect) Completed Multiple Studies 06/12/2017 62464 EEG Recording Awake & Drowsy Completed 05/20/2017 69849 ECHO Transthoracic, Real-Time 2D With Doppler And Color Completed Flow 05/20/2017 26951 ECHO Transthoracic, Real-Time 2D With Doppler And Color Completed Flow 04/29/2017 68916 EKG Tracing & Interpretation Completed 04/15/2017 89565 Holter Monitor Review (24 hr)dr review & interp only Completed 04/09/2017 03442 ECG Monitor/Recording W/Visual Superimposition Scanning Completed 03/27/2017 55548 EKG Tracing & Interpretation Completed 08/07/2015 02313 EKG Tracing & Interpretation Completed 05/09/2015 73718 EKG Tracing & Interpretation Completed 05/08/2015 99654 ECHO Transthoracic, Real-Time 2D With Doppler And Color Completed Flow 01/11/2015 42625 ECHO Transthorasic Realtime 2D W Doppler & Color Flow Completed Hosp 01/10/2015 44715 EKG, Interpretation Only Completed 01/10/2015 39229 Cardioversion Completed 01/10/2015 05540 Color Flow Doppler/Interp & Reprt Completed 01/10/2015 38057 Pulse Wave/Continuous-Interp.RPT Completed 01/10/2015 87271 Echocardiography, Transesophageal, Real Time W/Image 2D Completed W/W/O M-M 01/09/2015 32737 EKG, Interpretation Only Completed 01/07/2015 64249 ECHO Transthorasic Realtime 2D W Doppler & Color Flow Completed Hosp 09/09/2013 70496 ECHO Transthoracic, Real-Time 2D With Doppler And Color Completed Flow 08/09/2013 36196 EKG Tracing & Interpretation Completed 05/25/2013 65741 EKG, Interpretation Only Completed 05/25/2013 31663 Cardioversion Completed 05/20/2013 01355 EKG Tracing & Interpretation Completed 04/06/2013 03592 Color Flow Doppler/Interp & Reprt Completed 04/06/2013 31978 Pulse Wave/Continuous-Interp.RPT Completed 04/06/2013 47426 Echocardiography, Transesophageal, Real Time W/Image 2D Completed W/W/O M-M 04/06/2013 68131 EKG, Interpretation Only Completed Encounters Type Date Location Provider Dx Diagnosis Office Visit 08/25/2018 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 Marek Gr M86.171 Other acute 3:40p For Kristian Cheatham M.D. osteomyelitis, Diseases right ankle and foot E11.69 Type 2 diabetes mellitus with other specified complication Z79.2 assisted (current) use of antibiotics Office Visit 07/12/2018 1:00p [facility] and Bigg Looney Z79.4 assisted Endocrinology of [place] MOE (current) use of insulin E11.69 Type 2 diabetes mellitus with other specified complication Office Visit 07/05/2018 [facility] M86.171 Other acute 9:21a rebecca Whyte NP osteomyelitis, Hospitalists right ankle and foot E11.621 Type 2 diabetes mellitus with foot ulcer L97.519 Non-prs chronic ulcer oth prt right foot w unsp severity Z89.421 Acquired absence of other right toe(s) Office Visit 07/04/2018 [facility] Z47.81 Encounter for 9:20a rebecca Whyte NP orthopedic Hospitalists aftercare following surgical amp Z89.421 Acquired absence of other right toe(s) E11.65 Type 2 diabetes mellitus with hyperglycemia D72.829 Elevated white blood cell count, unspecified I10 Essential (primary) hypertension Office Visit 07/03/2018 [facility] Z47.81 Encounter for 9:20a rebecca Whyte, ANTONY orthopedic Hospitalists aftercare following surgical amp Z89.421 Acquired absence of other right toe(s) E11.65 Type 2 diabetes mellitus with hyperglycemia D72.829 Elevated white blood cell count, unspecified I10 Essential (primary) hypertension Office Visit 07/02/2018 [facility] Pride Coch, E11.69 Type 2 diabetes 8:54a Endocrinology of MD 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 Marek Gr E11.69 Type 2 diabetes 8:25a For Kristian Cheatham M.D. 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.073 Infective myositis, right foot L03.115 Cellulitis of right lower limb Office Visit 07/01/2018 [facility] Z47.81 Encounter for 9:19a rebecca Whyte, ANTONY orthopedic Hospitalists aftercare following surgical amp Z89.421 Acquired absence of other right toe(s) E11.65 Type 2 diabetes mellitus with hyperglycemia D72.829 Elevated white blood cell count, unspecified Z87.891 Personal history of nicotine dependence I10 Essential (primary) hypertension Office Visit 06/30/2018 9:19a [facility] Z47.81 Encounter for rebecca Whyte, ANTONY orthopedic Hospitalists aftercare following surgical amp Z89.421 Acquired absence of other right toe(s) E11.9 Type 2 diabetes mellitus without complications I10 Essential (primary) hypertension D72.829 Elevated white blood cell count, unspecified Office Visit 06/29/2018 [facility] Marek Gr E11.69 Type 2 diabetes 7:59a For Infectious Janeth Cheatham 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.073 Infective myositis, right foot L03.115 Cellulitis of right lower limb Office Visit 06/29/2018 9:18a [facility] Z47.81 Encounter for rebecca Whyte NP orthopedic Hospitalists aftercare following surgical amp Z89.421 Acquired absence of other right toe(s) E11.9 Type 2 diabetes mellitus without complications I10 Essential (primary) hypertension R00.0 Tachycardia, unspecified D72.829 Elevated white blood cell count, unspecified Office Visit 06/28/2018 7:57a [facility] Marek Gr E11.40 Type 2 diabetes For Infectious Janeth Cheatham mellitus with Diseases diabetic neuropathy, unsp E11.69 Type 2 diabetes mellitus with other specified complication M86.171 Other acute osteomyelitis, right ankle and foot M84.674A Pathological fracture in oth disease, right foot, init Office Visit 06/28/2018 [facility] M86.171 Other acute 9:16a rebecca Whyte NP osteomyelitis, Hospitalists right ankle and foot E11.621 Type 2 diabetes mellitus with foot ulcer L97.519 Non-prs chronic ulcer oth prt right foot w unsp severity I10 Essential (primary) hypertension Office Visit 06/27/2018 Orthopedic Nicole Adame M86.171 Other acute 8:46a Services Of MELISSA Barry osteomyelitis, C.M.ACullen right ankle and foot Office Visit 06/27/2018 [facility] M86.171 Other acute 9:16a rebecca Whyte M.D. osteomyelitis, Hospitalists right ankle and foot E11.621 Type 2 diabetes mellitus with foot ulcer L97.519 Non-prs chronic ulcer oth prt right foot w unsp severity Office Visit 06/26/2018 [facility] M86.171 Other acute 9:16a rebecca Whyte M.D. [...] right foot, initial encounter Office Visit 06/25/2018 [facility] Armando M86.171 Other acute 9:16a Assoc,rebecca Han M.D. osteomyelitis, Hospitalists right ankle and foot E11.621 Type 2 diabetes mellitus with foot ulcer L97.519 Non-prs chronic ulcer oth prt right foot w unsp severity I10 Essential (primary) hypertension Office Visit 04/29/2018 1:00p Wound Care Kirk Clifford E11.621 Type 2 diabetes Center AT [facility] Janeth Morrison mellitus with foot ulcer I10 Essential (primary) hypertension Z79.01 assisted (current) use of anticoagulants E11.40 Type 2 diabetes mellitus with diabetic neuropathy, unsp Office Visit 03/30/2018 [facility] Stephanie Del Castillo E11.65 Type 2 diabetes 4:00p Leo Emanuel M.D. mellitus with Caroline hyperglycemia I10 Essential (primary) hypertension E78.5 Hyperlipidemia, unspecified Office Visit 01/18/2018 4:00p [facility] Internal Magdalene I10 Essential ( primary) Leo Emanuel M.D. hypertension Caroline K62.5 Hemorrhage of anus and rectum E11.65 Type 2 diabetes mellitus with hyperglycemia Z11.59 Encounter for screening for other viral diseases Office Visit 01/12/2018 Pul[facility]ology And Rosie G47.33 Obstructive sleep 1:45p Sleep Services Of TAMARA Stewart, RN, apnea (adult) [facility]- (pediatric) Office Visit 12/14/2017 [facility] Internal Magdalene E11.65 Type 2 diabetes 2:40p Leo Emanuel M.D. 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 anus and rectum Caroline L89.300 Pressure ulcer of unspecified buttock, unstageable E11.65 Type 2 diabetes mellitus with hyperglycemia R21 Rash and other nonspecific skin eruption R41.82 Altered mental status, unspecified Office Visit 10/22/2017 2:30p Pulmonology And Sleep Yeimy Coronel R06.83 Snoring Services Of [facility] R40.0 Somnolence Office Visit 09/18/2017 2:00p [facility] Internal Magdalene I10 Essential ( primary) Leo Emanuel M.D. hypertension Caroline E11.65 Type 2 diabetes mellitus with hyperglycemia Z23 Encounter for immunization K62.5 Hemorrhage of anus and rectum Z12.5 Encounter for screening for malignant neoplasm of prostate Office Visit 09/17/2017 9:15a Bambi Toro, I69.318 Other symptoms Neurologic M.D. and signs w Services Of [facility] cogn fnctns fol cerebral infrc G47.30 Sleep apnea, unspecified I48.0 Paroxysmal atrial fibrillation Z79.01 assisted (current) use of anticoagulants Office Visit 07/31/2017 [place] Arthur Childers, I77.810 Thoracic aortic 8:45a Cardiology Of Brett.Michael., FACC, FASNC ectasia [facility] Office Visit 06/11/2017 Bambi Toro, R41.82 Altered mental 1:00p Neurologic M.D. status, Services Of [facility] unspecified Z86.73 Prsnl hx of TIA (TIA), and cereb infrc w/o resid deficits I10 Essential (primary) hypertension Z79.01 assisted (current) use of anticoagulants Office Visit 05/15/2017 4:40p [facility] Internal Magdalene I10 Essential ( primary) Leo Emanuel M.D. hypertension Caroline E11.65 Type 2 diabetes mellitus with hyperglycemia R06.83 Snoring Office Visit 05/05/2017 9:00a [facility] Internal [place] I10 Essential ( primary) Leo Emanuel, M.D. 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 hypertension Caroline E11.65 Type 2 diabetes mellitus with hyperglycemia R41.82 Altered mental status, unspecified I48.0 Paroxysmal atrial fibrillation Office Visit 03/27/2017 3:40p [facility] Internal [place] I10 Essential ( primary) Leo Emanuel M.D. hypertension Caroline I42.9 Cardiomyopathy, unspecified E11.9 Type 2 diabetes mellitus without complications I48.91 Unspecified atrial fibrillation R41.82 Altered mental status, unspecified Office Visit 08/07/2015 2:00p [place] [facility] Arthur Restrepo I48.0 Paroxysmal atrial Of [place] Childers M.D., fibrillation FACC, FASNC Office Visit 05/09/2015 12:45p [place] [facility] Vi Mendoza, 427.31 Atrial Of [place] Fowler Fibrillation 425.9 Cardiomyopathy Secondary Unspecified 401.1 Hypertension Benign 250.00 Diabetes Mellitus W/O Compl Type II Or Unspec Controlled Office Visit 01/12/2015 [facility] Nora Bryson, 427.31 Atrial 4:23p rebecca Whyte M.D. Fibrillation Hospitalists 250.90 Diabetes W/ Unspec Compl Type II Or Unspec Controlled 428.20 Systolic Heart Failure Unspecified Office Visit 01/11/2015 [facility] Nora Bryson, 427.31 Atrial 4:22p rebecca Whyte M.D. Fibrillation Hospitalists 250.90 Diabetes W/ Unspec Compl Type II Or Unspec Controlled 458.0 Hypotension Orthostatic 428.30 Diastolic Heart Failure Unspecified Office Visit 01/10/2015 [facility] Gracia 427.31 Atrial 4:22p Assrebecca amin, Fibrillation Hospitalists 428.30 Diastolic Heart Failure Unspecified 250.90 Diabetes W/ Unspec Compl Type II Or Unspec Controlled 790.6 Abnormal Blood Chemistry Other Office Visit 01/10/2015 10:41a [facility] Marcus Clifford 427.32 Atrial Flutter Janeth German 425.4 Cardiomyopathy Other Prim Office Visit 01/09/2015 11:44a [place] [facility] Adan Gr 427.31 Atrial Of [place] Mckinley M.D. Fibrillation 425.4 Cardiomyopathy Other Prim Office Visit 01/09/2015 [facility] Gracia 427.31 Atrial 4:21p Assrebecca amin DO Fibrillation Hospitalists 428.30 Diastolic Heart Failure Unspecified 250.90 Diabetes W/ Unspec Compl Type II Or Unspec Controlled 790.6 Abnormal Blood Chemistry Other Office Visit 01/08/2015 [facility] Fiona 427.31 Atrial 4:21p rebecca Whyte M.D. Fibrillation Hospitalists 428.30 Diastolic Heart Failure Unspecified 250.90 Diabetes W/ Unspec Compl Type II Or Unspec Controlled Office Visit 01/07/2015 [facility] Fiona 427.31 Atrial 4:21p rebecca Whyte M.D. Fibrillation Hospitalists 428.30 Diastolic Heart Failure Unspecified 790.6 Abnormal Blood Chemistry Other Office Visit 01/06/2015 [facility] Steve Borden 427.31 Atrial 4:20p rebecca Whyte II, M.D. Fibrillation Hospitalists 428.30 Diastolic Heart Failure Unspecified 790.6 Abnormal Blood Chemistry Other 276.2 Acidosis Office Visit 09/28/2013 [place] [facility] Arthur Restrepo 427.31 Atrial 10:00a Of [place] Childers M.D., Fibrillation FACC, FASNC Office Visit 08/09/2013 [place] [facility] Arthur Restrepo 427.31 Atrial 9:00a Of [place] Childers M.D., Fibrillation FACC, FASNC Office Visit 05/20/2013 [place] [facility] Arthur Restrepo 427.32 Atrial Flutter 12:15p Of [place] Childers M.D., FACC, FASNC Office Visit 04/09/2013 [facility] Armando 427.31 Atrial 8:38a rebecca Whyte M.D. Fibrillation Hospitalists 411.1 Coronary Syndrome Intermediate 275.2 Metabolic Disorder Magnesium 790.6 Abnormal Blood Chemistry Other [facility] 8:38a rebecca Whyte M.D. Fibrillation Hospitalists 411.1 Coronary Syndrome Intermediate 275.2 Metabolic Disorder Magnesium 790.6 Abnormal Blood Chemistry Other Office Visit 04/08/2013 3:59p [place] [facility] Arthur Restrepo 427.31 Atrial Of [place] Childers M.D., Fibrillation [facility], [facility] 786.05 Shortness Of Breath Office Visit 04/07/2013 [facility] Armando 427.31 Atrial 8:37a Assoc,rebecca Han M.D. Fibrillation Hospitalists 411.1 Coronary Syndrome Intermediate 275.2 Metabolic Disorder Magnesium 790.6 Abnormal Blood Chemistry Other Office Visit 04/07/2013 [place] Adan Gr 427.31 Atrial 1:18p Of [place] Mckinley M.D. Fibrillation Office Visit 04/06/2013 [facility] Yudy 427.31 Atrial 8:37a Assoc,rebecca Avalos MD Fibrillation Hospitalists 411.1 Coronary Syndrome Intermediate 275.2 Metabolic Disorder Magnesium 790.6 Abnormal Blood Chemistry Other Office Visit 04/06/2013 3:00p [facility] Arthur Restrepo 427.32 Atrial Flutter Of [place] Childers M.D., OBDULIA, [facility] 427.31 Atrial Fibrillation Office Visit 04/05/2013 [facility] Nora Braydon, 427.31 Atrial 8:37a rebecca Whyte M.D. Fibrillation Hospitalists 411.1 Coronary Syndrome Intermediate 275.2 Metabolic Disorder Magnesium 790.6 Abnormal Blood Chemistry Other Plan of Treatment Future Appointment(s):10/21/2018 10:15 am - [facility] 4:20 pm - Bigg Looney MD at [place] [facility]10/06/2018 11:00 am - Arthur Childers M.D., [facility], [facility] at [place] [facility]10/05/2018 - Marek Cheatham M.D.E11.40 Type 2 diabetes mellitus with diabetic neuropathy, unspComments:resolved; we discussed daily foot check to identify problems early, he will have home health aides to help with this as well
--- NOTE | 2018-10-30 16:09 | ED ---
Lower Extremity - HPI Summary HPI Summary: This patient is a 58 year old M brought in by ambulance to [facility] accompanied by his cousin with a chief complaint of left lower leg pain with redness, swelling , and tenderness without drainage for at least the past three days. Denies trauma to the leg. Reported temperature of 100.4 at 1242. Patients (female) cousin reports first dose of oral abx was today (Keflex 500mg bid started confirmed with [facility] report). Pt was also given Lasix 20mg orally at [facility] for the first time this am. Patient denies CP, abdominal pain, urinary symptoms, and SOB. Per [facility] report BG was 52 this morning and improved to 189 after food. Vitals in room: BP 164/84, HR in the 90s. Tmax in the ED is 100.1. Pt is a type II DM on insulin with hx HTN, Hyperlipidemia. Pt is residing at [facility] for rehab s/p surgery for osteomyelitis of his right foot by Dr. Raza. Pt has been at [facility] for 5 months. Cousin states that this is because of problems with urination. Pt is wearing an adult brief. The foot wound from surgery has healed. Cousin states that pt is schedule to be released from [facility] on November 05. Medications include: xarelto, humalog, metformin, metoprolol, Lisinopril, and atorvastatin. Additionally taken prior to arrival: 20mg Lasix, 500mg cephalexin - History of Current Complaint Chief Complaint: EDExtremityLower Stated Complaint: LEFT LEG INFECTION Time Seen by Provider: 10/30/18 15:03 Hx Obtained From: Patient, Family/Funeral Service Apprentice - female cousin, Medical Records - from [facility] Mechanism Of Injury: Other - no injury Onset of Pain: Days Onset/Duration: Days Severity Initially: Moderate Severity Currently: Mild Pain Intensity: 1 Pain Scale Used: 0-10 Numeric Timing: Constant Location: Other - left lower leg Character Of Pain: Dull Associated Signs And Symptoms: Positive: Swelling, Redness, Fever - 100.4 reported by [facility] Aggravating Factor(s): Nothing Alleviating Factor(s): Nothing Able to Bear Weight: Yes Related History: Other - DM, hx osteomyelitis - Allergies/Home Medications Allergies/Adverse Reactions: Allergies Allergy/AdvReac Type Severity Reaction Status Date / Time No Known Allergies Allergy Verified 10/30/18 15:16 Home Medications: Home Medications Cephalexin CAP* [Keflex 500 CAP*] 500 mg PO BID 10/30/18 [History Confirmed ] Furosemide 20 mg PO DAILY 10/30/18 [History Confirmed 10/30/18] metFORMIN* [Glucophage 500 MG TAB *] 500 mg PO BID 10/30/18 [History Confirmed 10/30/18] PMH/Surg Hx/FS Hx/Imm Hx Previously Healthy: No Endocrine/Hematology History: Reports: Hx Diabetes Cardiovascular History: Reports: Hx Atrial Fibrillation - on xarelto, Hx Congestive Heart Failure, Hx Hypercholesterolemia, Hx Hypertension, Hx Peripheral Vascular Disease Denies: Hx Pacemaker/ICD Respiratory History: Reports: Hx Sleep Apnea GI History: Reports: Other GI Disorders - INCONTINENT BOWEL - PT DOES REALIZE WHEN HE IS History: Denies: Hx Renal Disease Musculoskeletal History: Reports: Other Musculoskeletal History - MOTOR SKILL/ WEAKNESS INCREASED; hx osteomyelitis right foot Sensory History: Denies: Hx Contacts or Glasses, Hx Hearing Aid Opthamlomology History: Denies: Hx Contacts or Glasses Neurological History: Reports: Hx Peripheral Neuropathy, Other Neuro Impairments /Disorders - SHORT TERM MEMORY LOSS, 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 foot surgery Dr. Raza 2018 Hx Anesthesia Reactions: No Infectious Disease History: No Infectious Disease History: Denies: Traveled Outside the [place] in Last 30 Days - Family History Known Family History: Positive: Hypertension, Diabetes - Social History Occupation: Disabled Lives: At [facility] for rehab after foot surgery Alcohol Use: Rare Hx Substance Use: No Substance Use Type: Reports: None Hx Tobacco Use: Yes - not currently Smoking Status (MU): Former Smoker Review of Systems Positive: Fever Negative: Chest Pain Respiratory: Negative Negative: Shortness Of Breath Negative: Abdominal Pain Positive: no symptoms reported, incontinence - wearing an adult brief Positive: Myalgia - and swelling bilateral lower extremities , Edema - LLE Positive: Other - redness LLE, minimal redness RLE Neurological: Negative Positive: Other - depressed affect, slow speech All Other Systems Reviewed And Are Negative: Yes Physical Exam - Summary Physical Exam Summary: Appearance: Ill-appearing, moderate pain distress, well-nourished, Skin: Warm, color reflects adequate perfusion, dry, flushed face, LLE: redness and swelling from toes to knee (near circumferential) darker in the center no open wound, no drainage Head: Normal Head/Face inspection except flushed face, atraumatic Eyes: Conjunctiva clear ENT: Normal inspection Neck: Supple, no nodes, no JVD Respiratory: Lungs clear, normal breath sounds, no respiratory distress Cardio: RRR, No murmur, pulses normal, brisk capillary refill Abdomen: Soft, nontender, no rebound, no guarding, no masses, non-distended, wearing adult brief Bowel sounds: Present Musculoskeletal: Strength Intact/ROM intact, 2+ edema bilaterally with redness as above Psychological: Normal Neuro: Alert, muscle tone normal, no focal deficit Triage Information Reviewed: Yes Vital Signs On Initial Exam: Initial Vitals Pulse Pulse Ox 97 95 10/30/18 14:27 10/30/18 14:27 Vital Signs Reviewed: Yes Diagnostics - Vital Signs Vital Signs Temp Pulse Resp BP Pulse Ox 10/30/18 15:06 89 166/87 99 10/30/18 15:00 91 97 10/30/18 14:36 100.1 F 92 20 167/78 99 10/30/18 14:27 97 95 - Laboratory Result Diagrams: 10/30/18 17:30 10/30/18 17:30 Lab Statement: Any lab studies that have been ordered have been reviewed, and results considered in the medical decision making process. - Radiology CXR Radiology Interpretation Completed By: Radiologist Summary of Radiographic Findings: CARDIOMEGALY. NO ACTIVE CARDIOPULMONARY DISEASE. ED Physician has reviewed this report. - Additional Comments Diagnostic Additional Comments: A venous doppler study reveals, " NO LEFT LOWER EXTREMITY DEEP VEIN THROMBOSIS" as per radiologist. ED Physician has reviewed this report. Re-Evaluation - Re-Evaluation First Re-Evaluation Time: 17:50 Change: Unchanged Comment: Inform pt of US results. Second Re-Evaluation Time: 18:10 Change: Improved Comment: Discussed all results with patient and family. Discharge with at home abx is agreed upon. Lower Extremity Course/Dx - Course Course Of Treatment: 58 year old M with DM and hx osteomyelitis of right foot s/ p surg 5 mos ago, hx afib on xarelto brought in by ambulance from [facility] where he has been for rehab to [facility] accompanied by his cousin with a chief complaint of temp to 100.4 today and left lower leg pain with redness, swelling , and tenderness without drainage for at least the past three days. Denies trauma to the leg. Pt was given first dose of oral Keflex this am, with oral Lasix 20mg today. Patient given IV Kefzol 1gm for cellulitis and 20mg Lasix IM (IV not functioning after IV Kefzol) for infection and swelling. (Only one dose of Lasix 20mg given, and given IM). Bloodowork reveals WBC 13, Hgb 11.9, Hct 36 , MPV 7.3, absolute neuts 8.9, INR 1.29, chloride 100, BUN/creatinine 23.1, glucose 168, AST 11, C-reactive 177.78. BNP and LFTs were normal. Blood cultures were sent. Lactic acid was 1.6. Influenza swab is negative. CXR reveals cardiomegaly but no active cardiopulmonary disease. Venous US is negative for DVT. Patient will be sent home with a prescription for Keflex and Lasix. Patient agrees to plan of continuing to try at home abx and lasix and is instructed to come the ED if symptoms do not improve. Medications, allergies, and nursing notes reviewed. - Diagnoses Provider Diagnoses: Cellulitis, Bilateral edema of lower extremity, Anticoagulant long-term use, Foot osteomyelitis, right, Diabetes Discharge - Sign-Out/Discharge Documenting (check all that apply): Patient Departure - discharge Patient Received Moderate/Deep Sedation with Procedure: No - Discharge Plan Condition: Stable Disposition: HOME Prescriptions: Cephalexin CAP* [Keflex CAP*] 500 mg PO QID #40 cap Furosemide TAB* [Lasix TAB*] 20 mg PO DAILY #10 tab Patient Education Materials: Cellulitis (ED) Referrals: Magdalene Emanuel MD [Primary Care Provider] - 2 Days Additional Instructions: You do not have a blood clot in your leg. You were given Cefazolin 1gm IV tonight and Lasix 20mg IV to treat you infection and swelling. You need to increase your cephalexin to 500mg four times a day for 10 days, and continue your Lasix 20mg daily for 10 days. Continue your other current medications and wound care. Elevate your left leg 8 times a day for at least 20 minutes at a time. Do not apply ice to the left leg. Keep a dry sterile dressing on the left leg and change it daily. Return to the ER for any new or worsening symptoms. - Billing Disposition and Condition Condition: STABLE Disposition: Home - Attestation Statements Document Initiated by Maria Guadalupe: Yes Documenting Scribe: Nuzhat Silveira Provider For Whom Maria Guadalupe is Documenting (Include Credential): Bel Lloyd Scribe Attestation: Nuzhat Quezada, scribed for Bel Lloyd on 10/31/18 at 0105. Scribe Documentation Reviewed: Yes Provider Attestation: The documentation as recorded by the Nuzhat nova accurately reflects the service I personally performed and the decisions made by Bel gonzalez Status of Scribe Document: Viewed
[2018-10-30] MEDS ORDERED: ceFAZolin 1 GM ADVAN(*) 1 GM in NS 0.9% 50 ML* 50 ML IVPB ONE (16:12)
[2018-10-30 17:16] LABS: Influenza A Molecular NEGATIVE (Negative); Influenza B Molecular NEGATIVE (Negative)
[2018-10-30 17:46] LABS: ABS Basophils 0 10^3/ul (0-0.2); ABS Eosinophils 0.2 10^3/ul (0-0.6); ABS Lymphocytes 2.3 10^3/ul (1.0-4.8); ABS Monocytes 1.5 10^3/ul (0-0.8); ABS Neutrophils 8.9 10^3/ul (1.5-7.7); ABS Nucleated RBC 0 10^3/ul; Eosinophil % 1.2 %; Hematocrit 36 % (42-52); Hemoglobin 11.9 g/dl (14.0-18.0); Lymphocyte % 17.8 %; Mean Corpuscular HGB Conc 33 g/dl (31-36); Mean Corpuscular Hemoglobin 27 pg (27-31); Mean Corpuscular Volume 82 fL (80-94); Mean Platelet Volume 7.3 fL (7.4-10.4); Nucleated Red Blood Cells % 0; Platelet Count 209 10^3/ul (150-450); Red Blood Count 4.44 10^6/ul (4.00-5.40); Red Cell Distribution Width 13 % (10.5-15)
[2018-10-30 17:57] LABS: Activated Partial Thrombo Time 36.1 seconds (26.0-36.3); INR 1.29 (0.77-1.02)
[2018-10-30 18:06] LABS: Albumin 3.5 g/dL (3.2-5.2); BUN/Creatinine Ratio 23.1 (8-20); C Reactive Protein 177.78 mg/L (<8.01); Calcium 8.8 mg/dL (8.6-10.3); EGFR African American 123.3 (>60); EGFR Non-African American 101.9 (>60); Globulin 3.6 g/dL (2-4); Total Bilirubin 0.6 mg/dL (0.2-1.0); Total Protein 7.1 g/dL (6.4-8.9)
[2018-10-30] MEDS ORDERED: Furosemide IV* 10 MG/ML 2 ML VIAL (20 MG) IV ONE (18:10)
[2018-10-30] MEDS ORDERED: Furosemide IV* 10 MG/ML 2 ML VIAL (20 MG) ONE (18:44)
[2018-10-30 19:01] VITALS: BP 160/88
[2018-10-31 03:41] LABS: Erythrocyte Sed Rate 1 mm/Hr (0-20)
--- NOTE | 2018-10-31 19:47 | PN ---
Progress Note - Progress Note Date of Service: 10/31/18 Note: Recieved call from lab that this patient had positive blood cultures from visit to the ED yesterday. Patient was seen here yesterday for cellulitis and was started on Keflex. First bottle tested positive for gram-positive cocci in clusters, staph aureus negative, MRSA negative. Patient was called 19:45 tonight to see how patient was feeling and to inform him of results, and message to call the ED was left on voicemail. Remaining 3 bottles are pending results. Called [facility] called at 2049. Spoke to Sachi from nursing staff and advised them that Mr. Levy had a blood culture result positive for gram-positive cocci in clusters on bottle 1. Negative for staph aureus, negative for MRSA. Results of remaining 3 bottles pending. Sachi states patient is doing well and taking Keflex as prescribed yesterday. Advised Sachi we would call later when remaining results when received.
== END 2018-10-30 19:00 | disposition home or self-care (01) ==
LOC: ED 14:23
DX: L03.116 Cellulitis of left lower limb (principal); R60.0 Localized edema; Z79.01 Long term (current) use of anticoagulants; Z87.891 Personal history of nicotine dependence; E11.8 Type 2 diabetes mellitus with unspecified complications; I10 Essential (primary) hypertension; I73.9 Peripheral vascular disease, unspecified; M86.9 Osteomyelitis, unspecified
CPT/HCPCS: 36415; 71045; 80053; 82550; 83605; 83880; 84484; 85025; 85610; 85652; 85730; 86140; 87040; 87077; 87150; 87205; 96365; 96366; 96375; 99284; J0690; J1940

== ENCOUNTER 2018-12-31 13:12 | Emergency (ER) | payer OTHER ==
--- OUTSIDE RECORDS SUMMARY | 2018-12-31 13:20 | XMS REPORT | Continuity of Care Document ---
:1960 External Reference #:[id number] Author Name Trupti Steen Care Team Providers Name Role Phone Magdalene Emanuel MD Primary Care Physician Unavailable Payers Date Identification Numbers Payment Provider Subscriber Effective: 2017 Policy Number: [id number] Roshan Zaragoza Group Number: [id number] [address] PayID: [id number] [place] [address] Expires: 2017 Policy Number: [id number] Medicaid Kirk Zaragoza Group Name: 1 1 [address] PayID: [id number] [place] [address] Effective: 2015 Policy Number: [id number] Roshan Zaragoza Expires: 2016 Group Name: [id number] [address] PayID: [id number] [place] [address] Effective: 2016 Policy Number: [id number] [facility] Kirk Zaragoza Expires: 2018 Group Number: [id number] PayID: [id number] [address] [place] [address] Effective: 2018 Policy Number: [id number] [facility] Kirk Zaragoza Expires: 2019 Group Number: 70% [id number] PayID: [id number] [address] Advance Directives Type Date Description Status Comment Other Directive 03/27/2017 Health Care Proxy Current and Verified Problems Active Problems Provider Date Atrial fibrillation Arthur Childers M.D., [facility], Onset: 08/09/2013 FASNC Benign essential hypertension Vi Mendoza M.D. Onset: 05/09/2015 Cardiomyopathy Magdalene Emanuel M.D. Onset: 03/27/2017 Type 2 diabetes mellitus Magdalene Emanuel M.D. Onset: 04/03/2017 Paroxysmal atrial fibrillation Arthur Childers M.D., [facility], Onset: 2016 FASNC Altered mental status Phu Toro M.D. Onset: 06/11/2017 History of cerebrovascular accident Phu Toro M.D. Onset: 06/11/2017 without residual deficits Thoracic aortic ectasia Arthur Childers M.D., [facility], Onset: 07/31/2017 FASNC Difficulty breathing Phu Toro M.D. Onset: 09/17/2017 Obstructive sleep apnea syndrome Rosie Stewart DNP, RN, Onset: 11/12/2017 [facility] Disturbance of consciousness Phu Toro M.D. Onset: 12/07/2017 Amnesia Phu Toro M.D. Onset: 12/07/2017 Alcohol-induced psychosis Phu Toro M.D. Onset: 12/07/2017 Family History Date Family Member(s) Observation Comments [...] Former Cigarette Smoker Unknown Smoking Status Reviewed: 12/28/18 Former Cigarette Smoker ETOH Use Has consumed alcohol in heavy the past ETOH Use Rarely consumes alcohol 3-5 per month - beer Tobacco Use Start: Unknown End: Patient is a former quit in 2002 Unknown smoker Recreational Drug Use Denies Drug Use Exercise Type/Frequency Exercises regularly PT daily Allergies, Adverse Reactions, Alerts Active Allergies Reaction Severity Comments Date Metformin diarrhea? 02/16/2018 Inactive Allergies NKDA 06/28/2013 Medications Active Medications SIG Qnty Indications Ordering Date Provider Humalog Mix 75/25 35 units with 15ml E11.69 Bigg Looney MD 12/21/2018 Kwikpen first meal of the day, 10 (75-25)100Unit/ML units with last Supn meal of the day Keflex take 1 tab by 42caps Davy Raza, 12/02/2018 500mg Capsules mouth 3 times a M.D. day x 14 days until finished. Freestyle Kyler 14 use at least 4 1units E11.9 Bigg Looney MD 11/09/2018 Day/[place]/Flash times daily with Monitoring System sensor Device Freestyle Kyler 14 place one sensor 2units E11.9 Bigg Looney MD 2018 Day/Sensor/Flash every 14 days Monitoring System Misc Pen [place] 1/2" For use bid with 100units E11.621 Magdalene 11/08/2018 29G X insulin pen Janeth Emanuel 12mm Misc Furosemide 1 by mouth every 45tabs Magdalene 11/03/2018 20mg Tablets day until 11/08/18 Janeth Emanuel Aquaphor Advanced apply to 1Tube Davy Raza, 10/21/2018 Therapy affected area Janeth Ointment daily Knee High Compression 1Pair Davy Raza, 10/21/2018 Stockmichael Fowler Lisinopril 1 by mouth every 90tabs I10 Magdalene 07/06/2018 10mg Tablets day Janeth Emanuel Thiamine HCL take 1 tablet a 90tabs F10.19 Kirk Acosta 12/07/2017 100mg day Janeth Redd Tablets Xarelto 1 by mouth every 30tabs Magdalene 05/22/2017 20mg Tablets day, take with Janeth Emanuel evening meal Atorvastatin Calcium 1 by mouth every 30tabs E11.65 Magdalene 04/03/2017 day Janeth Emanuel 10mg Tablets Metoprolol Succinate 1 by mouth every 30tabs I10 Magdalene 03/27/2017 ER day Janeth Emanuel 25mg Tablets ER 24HR Acetaminophen 2 tablets by Unknown 325mg mouth every 6 Tablets hours as needed for pain/fever Metformin HCL 1 by mouth twice 90tabs Magdalene 500mg a day Janeth Emanuel Tablets History Medications Humalog Mix 75/25 40 units with 30ml E11.69 Bigg Looney MD 08/24/2018 - Kwikpen first meal of 08/24/2018 (75-25)100Unit/ML the day, 25 Supn units with last meal of the day Bactrim DS 1 by mouth twice 30tabs Davy Raza 07/15/2018 - 800-160mg a day M.DCullen 08/25/2018 Tablets Lantus Solostar 36 units daily Bigg Looney MD 07/12/2018 - 100Unit/ML 08/24/2018 Solution Pen-Inject Humalog Kwikpen 12 units per E11.69 Bigg Looney MD 07/12/2018 - 100Unit/ML meal w/ sliding 08/24/2018 Solution Pen-Inject scale. BS 200-250 2 units, 251-300 4 units, 301-350 6 units, 351-400 8 units, 401-450 10 units Doxycycline Hyclate Twice Daily 14caps Unknown 06/01/2018 - 100mg 07/21/2018 Capsules Clindamycin HCL Three Times 21caps Unknown 04/18/2018 - 300mg Daily 07/21/2018 Capsules Multivitamin Adult Take 1 a day F10.19 Phu 12/07/2017 - Tablets Janeth Toro Unknown Ketoconazole apply thin film 60gm R21 [facility] 11/10/2017 - 2% Cream twice daily to Janeth Emanuel 01/18/2018 skin on the abdomen Glipizide 1 by mouth twice 60tabs E11.65 [facility] 11/10/2017 - 10mg Tablets daily Janeth Emanuel 07/04/2018 Chlorthalidone 1 by mouth every 30tabs I10 Magdalene 09/18/2017 - 25mg Tablets day Janeth Emanuel 11/02/2018 Metformin HCL ER 1 by mouth every 30tabs E11.65 Magdalene 09/18/2017 - 500mg day Janeth Emanuel 11/10/2017 Tablets ER 24HR Glipizide XL 1 PO qd 30tabs E11.65 Magdalene 05/15/2017 - 5mg Tablets ER Janeth Emanuel 11/10/2017 24HR Lisinopril 1 by mouth every 30tabs I10 Magdalene 05/05/2017 - 20mg Tablets day Janeth Emanuel 07/06/2018 Xarelto 1 by mouth twice 42tabs [facility] 04/22/2017 - 15mg Tablets daily with food Janeth Emanuel 07/09/2017 for 21 days. Then switch to the new dose, patient states he is on the higher dose.. No Active Medications Unknown 03/27/2017 - 03/27/2017 Glipizide XL take 1 tablet by 30tabs E11.65 [facility] 03/27/2017 - 2.5mg Tablets mouth every Janeth Emanuel 05/15/2017 ER 24HR morning Lisinopril 1 by mouth every 30tabs I10 [facility] 03/27/2017 - 10mg Tablets day Janeth Emanuel 05/05/2017 Xarelto 1 by mouth every 90tabs Arthurelsa Restrepo 06/04/2015 - 20mg Tablets day Janeth Childers, 03/27/2017 FACC, FASALEJANDRO Coumadin take 1 tab daily 200tabs Vi Mendoza, 05/08/2015 - 5mg Tablets or as directed Janeth 06/04/2015 Lasix 1 po qd Arthur Restrepo 09/28/2013 - 20mg Tablets Janeth Childers, 09/21/2013 [facility] Lisinopril 1 po qd pt takes 90tabs Arthurelsa Restrepo 09/28/2013 - 20mg Tablets 10 mg Janeth Childers, 09/08/2014 [facility] Lasix 1 by mouth every 30tabs Arthurelsa Restrepo 09/21/2013 - 20mg Tablets day Janeth Childers, 03/27/2017 [facility] Lisinopril 1 po qd 90tabs Arthur Restrepo 08/09/2013 - 10mg Tablets Janeth Childers, 09/28/2013 [facility] Lasix one tablet po 90tabs Arthur Restrepo 05/20/2013 - 40mg Tablets amanda Childers M.D., 09/14/2013 [facility] Cephalexin 1 by mouth four Unknown - 500mg Capsules times a day 12/01/2018 Ra Vitamin B-1 take 1 tablet by Unknown - 100mg mouth once daily Unknown Tablets Humalog Mix 75/25 Unknown - Kwikpen 11/07/2018 (75-25)100Unit/ML Supn Cephalexin 1 by mouth four Unknown - 500mg Capsules times a day 11/08/2018 Humalog Mix 75/25 start 35 units 20ml E11.69 Bigg Looney MD - in the morning 12/21/2018 (75-25)100Unit/ML with first meal Suspension of the day, 10 units in the evening with last meal of the day Oxycodone HCL 1 - 2 tabs by Unknown - Tablets mouth every 12 11/07/2018 hours as needed pain Flagyl 1 tab by mouth Unknown - 500mg Tablets at 1:00 at night 07/21/2018 & 7:00 at night the day before surgery and at 7:00 in the morning the day of surgery Flagyl 1 tablet by Unknown - 500mg Tablets mouth 3 times 07/11/2018 daily for 14 days post discharge Ceftriaxone Sodium 2 grams daily iv Unknown - 2gm at [facility], 07/16/2018 Solution Rec discharegd on 07/02/18 for additonal 14 days Lisinopril 1 by mouth every 90tabs Arthur Restrepo - 10mg Tablets day Janeth Childers, 03/27/2017 [facility] Omeprazole 1 by mouth every Unknown - 20mg Capsules DR 05/09/2015 Metoprolol Tartrate 1/2 by mouth 180tabs Arthur Restrepo - 100mg twice a day Janeth Childers, 03/27/2017 Tablets [facility] Glipizide ER 1 po qd 270tabs Unknown - 2.5mg Tablets 03/27/2017 ER 24HR Lisinopril 1 po qd 90tabs Unknown - 2.5mg Tablets 08/09/2013 Xarelto 1 po qd 30tabs Unknown - 20mg Tablets 09/08/2014 Medications Administered in Office Medication SIG Qnty Indications Ordering Provider Date Inj, Regadenoson, 0.1 MG Arthur Childers M.D., 07/20/2017 Injection FACLEO Bush Technetium TC 99M Arthur Childers M.D., 07/20/2017 Tetrofosmin, Per Unit Dose [facility] Up To 40 Millicuries Injection Immunizations CPT Code Status Date Vaccine Lot # [id number] Given 09/18/2017 Pneumonia Vaccine [id number] Given 09/18/2017 Influenza Virus Vaccine, Quadrivalent, Split, [id number] Preservative Free Vital Signs Date Vital Result Comment 12/28/2018 10:29am Height 72 inches 6'0" Weight 245.00 lb Heart Rate 74 /min BP Systolic 150 mmHg BP Diastolic 90 mmHg Pain Level 0 BMI (Body Mass Index) 33.2 kg/m2 12/02/2018 10:02am Height 72 inches 6'0" Heart Rate 64 /min BP Systolic 150 mmHg BP Diastolic 88 mmHg Respiratory Rate 18 /min Body Temperature 98.0 F Pain Level 0 11/09/2018 2:11pm Height 72 inches 6'0" Weight 251.00 lb w/shoes Heart Rate 77 /min BP Systolic 132 mmHg BP Diastolic 74 mmHg BMI (Body Mass Index) 34.0 kg/m2 11/08/2018 12:02pm Height 72 inches 6'0" Weight 255.00 lb Heart Rate 72 /min BP Systolic Sitting 127 mmHg BP Diastolic Sitting 74 mmHg Body Temperature 98.2 F O2 % BldC Oximetry 99 % BMI (Body Mass Index) 34.6 kg/m2 11/03/2018 9:26am Height 72 inches 6'0" Weight 261.00 lb Heart Rate 96 /min BP Systolic Sitting 118 mmHg lue large cuff BP Diastolic Sitting 64 mmHg lue large cuff BP Systolic Standing 110 mmHg lue ;large cuff BP Diastolic Standing 64 mmHg lue ;large cuff Respiratory Rate 22 /min O2 % BldC Oximetry 94 % BMI (Body Mass Index) 35.4 kg/m2 Ejection Fraction 55-60% 11/03/2018 9:20am Height 72 inches 6'0" Weight 261.00 lb with shoes BMI (Body Mass Index) 35.4 kg/m2 10/21/2018 10:34am Height 72 inches 6'0" Heart [...] Test Result H/L Range Note Laboratory test finding 11/09/2018 [facility] Glucose Random 163 Hemoglobin A1c 6.5 5-7 Inr/Protime 10/30/2018 [facility] Inr 1.29 High 0.77-1.[address] [place] [address] [phone] Laboratory test 10/30/2018 [facility] Partial 36.1 N 26.0- 36.[address] [place] [address] Time PTT [phone] Troponin-I (TnI) 0.00 ng/mL <0.04 1 Laboratory test 10/30/2018 [facility] Rapid Influenza SEE RESULT [address] A B Antigen BELOW [place], [place] [id number] [phone] B-Type Natriuretic Peptide BNP 25 pg/mL <=100 Rapid Influenza 10/30/2018 [facility] Influenza A NEGATIVE Negative 3 A & B Molecular [address] [place] [address] [phone] Influenza B Molecular NEGATIVE Negative Comp Metabolic Panel 10/30/2018 [facility] Sodium 136 mmol/L N 135-[address] [place] [address] [phone] Potassium 4.0 mmol/L N 3.5-5.0 Chloride 100 mmol/L Low 101-111 Co2 Carbon Dioxide 32 mmol/L N 22-32 Anion Gap 4 mmol/L N 2-11 Glucose 168 mg/dL High 70-100 Blood Urea Nitrogen 18 mg/dL N 6-24 Creatinine 0.78 mg/dL N 0.67-1.17 BUN/Creatinine Ratio 23.1 High 8-20 Calcium 8.8 mg/dL N 8.6-10.3 Total Protein 7.1 g/dL N 6.4-8.9 Albumin 3.5 g/dL N 3.2-5.2 Globulin 3.6 g/dL N 2-4 Albumin/Globulin Ratio 1.0 N 1-3 Total Bilirubin 0.60 mg/dL N 0.2-1.0 Alkaline Phosphatase 101 U/L N 34-104 Alt 16 U/L N 7-52 Ast 11 U/L Low 13-39 Egfr Non- 101.9 >60 Egfr 123.3 >60 4 Laboratory test 10/30/2018 [facility] Creatine 52 U/L N 10- [address] Kinase(CK) [place] [address] [phone] C Reactive Protein 177.78 mg/L High <8.01 Lactic Acid 1.6 mmol/L N 0.5-2.0 5 Laboratory test 10/30/2018 [facility] MRSA/S. aureus SEE RESULT 6, [address] Blood [place] [address] [phone] Laboratory test 10/30/2018 [facility] Erythrocyte Sed 1 mm/Hr N 0-[address] [place] [address] [phone] Blood Culture SEE RESULT BELOW 9 CBC Auto 10/30/2018 [facility] White Blood 13.0 10^3/uL High 3.5-10.[address] [place] [address] [phone] Red Blood Count 4.44 10^6/uL N 4.00-5.40 Hemoglobin 11.9 g/dL Low 14.0-18.0 Hematocrit 36 % Low 42-52 Mean Corpuscular Volume 82 fL N 80-94 Mean Corpuscular Hemoglobin 27 pg N 27-31 Mean Corpuscular HGB Conc 33 g/dL N 31-36 Red Cell Distribution Width 13 % N 10.5-15 Platelet Count 209 10^3/uL N 150-450 Mean Platelet Volume 7.3 fL Low 7.4-10.4 Abs Neutrophils 8.9 10^3/uL High 1.5-7.7 Abs Lymphocytes 2.3 10^3/uL N 1.0-4.8 Abs Monocytes 1.5 10^3/uL High 0-0.8 Abs Eosinophils 0.2 10^3/uL N 0-0.6 Abs Basophils 0 10^3/uL N 0-0.2 Abs Nucleated RBC 0 10^3/uL Granulocyte % 68.8 % Lymphocyte % 17.8 % Monocyte % 11.8 % Eosinophil % 1.2 % Basophil % 0.4 % Nucleated Red Blood Cells % 0 Laboratory test 10/11/2018 Other Rendering Hemoglobin A1c 6.7 finding Laboratory test 08/24/2018 [facility] Glucose Random 173 finding CBC Auto Diff 07/21/2018 [facility] White Blood Count 8.8 N 3.5-10. [address] 10^3/uL 8 [place] [address] [phone] Red Blood Count 4.22 10^6/uL N 4.00-5.40 [...] Cells % 0.1 Comp Metabolic Panel 07/21/2018 [facility] Sodium 137 mmol/L N 135-[address] [place] [address] [phone] Chloride 102 mmol/L N 101-111 Co2 Carbon [...] Egfr Non- 65.7 >60 Egfr 79.6 >60 11 Potassium 5.4 mmol/L High 3.5-5.0 Anion Gap 7 mmol/L N 2-11 Laboratory test 07/21/2018 [facility] C Reactive 7.84 mg/L N < 8.01 [address] [place] [address] [phone] Comp Metabolic 07/14/2018 [facility] Sodium 138 mmol/L N 135- 145 [address] [place] [address] [phone] Potassium 4.7 mmol/L N 3.5-5.0 Chloride 102 [...] Egfr Non- 101.9 >60 Egfr 123.3 >60 14 Laboratory test 07/14/2018 [facility] C Reactive 18.20 mg/L High <8.01 [address] [place] [address] [phone] CBC Auto Diff 07/14/2018 [facility] White Blood 12.3 High 3.5- 10.[address] Count 10^3/[place] [address] [phone] Red Blood Count 4.29 10^6/uL N 4.00-5.40 [...] Red Blood Cells % 0.1 Laboratory test 07/12/2018 [facility] Glucose Random 245 finding CBC Auto Diff 07/07/2018 [facility] White Blood 13.7 High 3.5- 10. [address] Count 10^3/uL 8 [place] [address] [phone] Red Blood Count 4.35 10^6/uL N 4.00-5.40 [...] Cells % 0 Comp Metabolic Panel 07/07/2018 [facility] Sodium 137 mmol/L N 135-[address] [place] [address] [phone] Potassium 4.3 mmol/L N 3.5-5.0 Chloride 99 [...] Egfr Non- 125.7 >60 Egfr 152.1 >60 17 Laboratory test 07/07/2018 [facility] C Reactive 19.96 mg/L High <8.01 [address] [place] [address] [phone] Wound 06/25/2018 [facility] Wound/Misc SEE RESULT 19 Culture/Sensi [address] [place] [address] Stain [phone] CBC Auto Diff 06/25/2018 [facility] White Blood 15.5 High 3.5- 10.[address] Count 10^3/[place] [address] [phone] Red Blood Count 4.46 10^6/uL N 4.00-5.40 [...] Blood Cells % 0.1 Urine Microalbumin 06/25/2018 [facility] Ur Microalbumin 22.[address] (mg/L) [place] [address] [phone] Urine Creatinine 109.42 mg/dL Urine Microalbumin/Creatinine 20.8 N <31 Laboratory 06/25/2018 [facility] Hemoglobin A1c 12.7 % High 4.0-5.6 20 test finding [address] (Glyco HGB) [place], [place] [address] [phone] Laboratory 06/25/2018 [facility] MRSA/S. aureus SEE RESULT 21 test finding [address] Ssti PCR BELOW [place], [place] [id number] [phone] Inr/Protime 06/25/2018 [facility] Inr 1.61 High 0.77-1.[address] [place] [address] [phone] Laboratory 06/25/2018 [facility] Partial 34.8 N 26.0-36.3 test finding [address] [place] [address] PTT [phone] Lactic Acid 2.7 mmol/L High 0.5-2.0 22 Blood Culture SEE RESULT BELOW 23 Comp Metabolic Panel 06/25/2018 [facility] Sodium 134 mmol/L Low 135-[address] [place] [address] [phone] Chloride 97 mmol/L Low 101-111 Co2 Carbon [...] Egfr Non- 61.4 >60 Egfr 74.3 >60 24 Potassium 5.7 mmol/L High 3.5-5.0 Anion Gap 7 mmol/L N 2-11 Lipid Profile 06/25/2018 [facility] Triglycerides 96 mg/dL 25 (Trig/Chol/HDL) [address] [place] [address] [phone] Cholesterol 85 mg/dL 26 HDL Cholesterol 28.7 mg/dL 27 LDL Cholesterol 37 mg/dL 28 Laboratory test 06/25/2018 [facility] C Reactive 117.98 mg/L High <8.[address] [place] [address] [phone] Erythrocyte Sed Rate 76 mm/Hr High 0-20 Wound Culture/Sensi 06/01/2018 [facility] Wound/Misc SEE RESULT [address] Culture-[place] [address] [phone] Wound Culture/Sensi 05/04/2018 [facility] Wound/Misc SEE RESULT [address] Culture-Gram Stain BELOW [place], [place] [phone] Lipid Profile 03/25/2018 [facility] Triglycerides 175 mg/dL 31 (Trig/Chol/HDL) [address] [place] [address] [phone] Cholesterol 115 mg/dL 32 HDL Cholesterol 29.4 mg/dL 33 LDL Cholesterol 51 mg/dL 34 Hepatitis B 03/25/2018 [facility] Hepatitis B Not Immune Abnormal Immune Sola AB Titer [address] [place] [address] [phone] Hep B Surf AB Level < 3.10 mIU/mL >12 CBC Auto 03/25/2018 [facility] White Blood 11.8 10^3/uL High 3.5-10.[address] [place] [address] [phone] Red Blood Count 5.01 10^6/uL N 4.00-5.40 [...] 0-2 Nucleated Red Blood Cells % 0 Urine Microalbumin 03/25/2018 [facility] Ur Microalbumin 43.8 mg /L Random [address] (mg/L) [place] [address] [phone] Urine Creatinine 204.54 mg/dL Urine Microalbumin/Creatinine 21.4 ug/mg N <31 Comp Metabolic Panel 03/25/2018 [facility] Sodium 136 mmol/L N 135-[address] [place] [address] [phone] Potassium 4.9 mmol/L N 3.5-5.0 Chloride 100 [...] Egfr Non- 98.9 >60 Egfr 119.7 >60 35 Laboratory 03/25/2018 [facility] Hepatitis C Nonreactive Nonreactive 36 test finding [address] [place] [address] [phone] Laboratory 03/25/2018 [facility] Hemoglobin 10.0 % High 4.0- 5.6 37 test finding [address] A1c ([place] [address] HGB) [phone] Laboratory 12/14/2017 [facility] Hemoglobin 9.0 High 5-7 test finding A1c Order 11/11/2017 [facility] Sleep-Homeca <pending> [address] [place] [address] [phone] CBC Auto Diff 10/26/2017 [facility] White Blood 10.6 10^3/uL N 3.5-10.[address] [place] [address] [phone] Red Blood Count 4.82 10^6/uL N 4.0-5.4 [...] Blood Cells % 0.1 Laboratory test 10/26/2017 [facility] PSA Screening 0.391 ng/mL N 0-4.000 38 [address] [place] [address] [phone] Comp Metabolic 10/26/2017 [facility] Sodium 138 mmol/L N 133- [address] [place] [address] [phone] Potassium 4.7 mmol/L N 3.5-5.0 Chloride 100 [...] Egfr Non- 117.8 >60 Egfr 151.5 >60 39 Laboratory test 09/18/2017 [facility] Hemoglobin A1c 7.8 High 5-7 finding Creatinine 07/21/2017 [facility] Creatinine 0.98 mg/dL N 0.67- 1.17 [address] [place] [address] [phone] Egfr Non- 78.6 >60 Egfr 101.0 >60 40 Laboratory test 07/21/2017 [facility] Blood Urea 26 mg/dL High 6-24 finding [address] [facility] [place] [address] [phone] Basic Metabolic 05/05/2017 [facility] Sodium 136 mmol/L N 133- 145 41 Panel [address] [place] [address] [phone] Potassium 4.0 mmol/L N 3.5-5.0 Chloride 100 mmol/L Low 101-111 Co2 Carbon Dioxide 29 mmol/L N 22-32 Anion Gap 7 mmol/L N 2-11 Glucose 248 mg/dL High 70-100 Blood Urea Nitrogen 10 mg/dL N 6-24 Creatinine 0.63 mg/dL Low 0.67-1.17 BUN/Creatinine Ratio 15.9 N 8-20 Calcium 9.0 mg/dL N 8.6-10.3 Egfr Non- 130.8 N >60 Egfr 168.2 N >60 42 CBC Auto 05/05/2017 [facility] White Blood 11.8 10^3/uL High 3.5-10.[address] [place] [address] [phone] Red Blood Count 5.46 10^6/uL High 4.0-5.4 [...] Nucleated Red Blood Cells % 0.1 N Manual Differential 05/05/2017 [facility] Neutrophil % 56 % N 38-[address] [place] [address] [phone] Lymphocytes % 13 % Low 25-47 Monocytes % 13 % N 0-13 Eosinophils % 4 % N 0-6 Reactive Lymph % 14 % High 0-6 RBC Morphology Normal N Normal Laboratory test 05/05/2017 [facility] Pathologist (SEE NOTE) N [address] [place] [address] [phone] Laboratory test 05/05/2017 [facility] Erythrocyte Sed 16 mm/Hr N 0-20 [address] [place] [address] [phone] C Reactive Protein 10.23 mg/L High < 5.00 45 Laboratory test 04/02/2017 [facility] Hemoglobin A1c 12.3 % High Less [address] (Glyco HGB) than 6.0 [place] [address] [phone] Urine 04/02/2017 [facility] Urine 103.[address] Creatinine mg/[place] [address] [phone] Ur Microalbumin (mg/L) 153.4 mg/L N Urine Microalbumin/Creatinine 148.0 ug/mg High <31 Laboratory test 04/02/2017 [facility] B-Type Natriuretic 16 pg/ mL N [address] [place] [address] [phone] Lipid Profile 04/02/2017 [facility] Triglycerides 317 mg/dL N 48 (Trig/Chol/HDL) [address] [place] [address] [phone] Cholesterol 218 mg/dL N 49 HDL Cholesterol 37.7 mg/dL N 50 LDL Cholesterol 117 mg/dL N 51 Laboratory test 04/02/2017 [facility] Thyroxine 9.28 g/mL N 6.09-12.23 [address] [place] [address] [phone] TSH (Thyroid Stim Horm) 1.89 mcIU/mL N 0.34-5.60 53 Vitamin B12 And 04/02/2017 [facility] Vitamin B12 490 pg/mL N 180-914 54 Folate Serum [address] [place] [address] [phone] Folic Acid (Folate) 11.59 ng/mL N >3.99 55 Laboratory test 04/02/2017 [facility] Vitamin B1 165 nmol/L N 70-180 [address] (Whole Blood) [place] [address] [phone] Lyme Disease Serology Negative N Negative 57 Basic Metabolic 04/02/2017 [facility] Sodium 130 mmol/L Low 133-145 Panel [address] [place] [address] [phone] Potassium 4.2 mmol/L N 3.5-5.0 Chloride 95 mmol/L Low 101-111 Co2 Carbon Dioxide 29 mmol/L N 22-32 Anion Gap 6 mmol/L N 2-11 Glucose 360 mg/dL High 70-100 Blood Urea Nitrogen 16 mg/dL N 6-24 Creatinine 0.79 mg/dL N 0.67-1.17 BUN/Creatinine Ratio 20.3 High 8-20 Calcium 9.1 mg/dL N 8.6-10.3 Egfr Non- 100.7 N >60 Egfr 129.6 N >60 58 Laboratory test 08/09/2015 [facility] Inr/Protime 1.09 N 0.89- 1.11 59 finding [address] [place] [address] [phone] Inr/Protime 06/05/2015 [facility] Inr 1.48 High 0.78-1.07 [address] [place] [address] [phone] Laboratory test 05/29/2015 [facility] Inr/Protime 1.42 High 0.78-1.07 60 finding [address] [place] [address] [phone] Inr/Protime 05/17/2015 Inr 1.67 High 0.78-1.07 Basic Metabolic 05/16/2015 [facility] Sodium 134 N 133-[address] mmol/[place] [address] [phone] Potassium 4.3 mmol/L N 3.5-5.0 Chloride 102 mmol/L N 101-111 Co2 Carbon Dioxide 27 mmol/L N 22-32 Anion Gap 5 mmol/L N 2-11 Glucose 100 mg/dL N 70-100 Blood Urea Nitrogen 32 mg/dL High 6-24 Creatinine 1.03 mg/dL N 0.67-1.17 BUN/Creatinine Ratio 31.1 High 8-20 Calcium 8.9 mg/dL N 8.6-10.3 Egfr Non- 74.7 N >60 Egfr 96.1 N >60 61 Inr/Protime 05/07/2015 Inr 1.06 N 0.78-1.07 Basic Metabolic Panel 10/05/2013 [facility] Sodium 134 mmol/L 133-145 [address] [place] [address] [phone] Potassium 4.2 mmol/L 3.5-5.0 Chloride 100 mmol/L Low 101-111 Co2 Carbon Dioxide 30.0 mmol/L 22-32 Anion Gap 4.0 mmol/L 2-11 Glucose 127 mg/dL High 70-100 Blood Urea Nitrogen 15 mg/dL 6-24 Creatinine 0.70 mg/dL 0.50-1.40 BUN/Creatinine Ratio 21.4 High 8-20 Calcium 9.2 mg/dL 8.1-9.9 Egfr Non- 117.5 >60 Egfr 151.1 >60 62 Basic Metabolic Panel 05/23/2013 [facility] Sodium 134 mmol/L 133-145 63 [address] [place] [address] [phone] Potassium 4.4 mmol/L 3.5-5.0 Chloride 93 mmol/L Low 101-111 Co2 Carbon Dioxide 36.0 mmol/L High 22-32 Anion Gap 5.0 mmol/L 2-11 Glucose 260 mg/dL High 70-100 Blood Urea Nitrogen 11 mg/dL 6-24 Creatinine 1.00 mg/dL 0.50-1.40 BUN/Creatinine Ratio 11.0 8-20 Calcium 8.8 mg/dL 8.1-9.9 Egfr Non- 77.9 >60 Egfr 100.1 >60 64 1 Troponin-I testing on Plasma Separator Tubes (PST) has a known false positive rate of 0.20-0.40%. All positive troponins reflex immediate secondary confirmatory testing. 2 SEE RESULT BELOW Name: KIRK ZARAGOZA : [address]: Bel Lloyd MD Acct: [id number] Unit: [id number] AGE: 58 Location: ED Re10/30/18 SEX: M Status: REG ER SPEC: [id number] KATIE: 10/30/[address]: Bel Lloyd MD REQ: [id number] RECD: 10/30/18 STATUS: HARPREET CULLEN DR: Magdalene Emanuel MD _ SOURCE: NASAL SPDESC: ORDERED: Flu A B Request Procedure Result Reported Site Rapid Influenza A B Request Final 10/30/18- 1657 ML Specimen received for Influenza A/B Molecular testing * ML - Main Lab . END OF REPORT DEPARTMENT OF PATHOLOGY, [address] [place] [address] Bulmaro Marks M.D. Director [facility] # [id number] Manufacturer Representative: [id number] 4 Because ethnic data is not always readily [...] 15-29 5 Kidney failure <15 (or dialysis) 5 [facility] Severe Sepsis and Septic Shock Management Bundle Measure requires all lactic acids initially measuring >2.0 mmol/L be repeated. 6 PCR RUN FROM [id number] 7 SEE RESULT BELOW Name: KIRK ZARAGOZA : [address]: Bel Lloyd MD Acct: [id number] Unit: [id number] AGE: 58 Location: ED Re10/30/18 SEX: M Status: DEP ER SPEC: [id number] KATIE: 10/30/[address] [facility] [address]: Bel Lloyd MD REQ: [id number] RECD: 11/01/18 STATUS: HARPREET CULLEN DR: Magdalene Emanuel MD _ SOURCE: BLOOD,VENO SPDESC: ORDERED: MRSA/SA BC PCR COMMENTS: PCR RUN FROM [id number] Procedure Result Reported Site MRSA/S. aureus Blood Cult PCR Final 11/01/18- 012 ML Organism 1 MRSA NEGATIVE Organism 2 S.AUREUS NEGATIVE * ML - Main Lab . END OF REPORT DEPARTMENT OF PATHOLOGY, [address] [place] [address] Bulmaro Marks M.D. Director [facility] # [id number] Test Performed by: [facility] [address] [place] [id number] Bulmaro Marks M.D. Director of Laboratory 9 SEE RESULT BELOW Name: KIRK ZARAGOZA : [address]: Bel Lloyd MD Acct: [id number] Unit: [id number] AGE: 58 Location: ED Re10/30/18 SEX: M Status: DEP ER SPEC: [id number] KATIE: 10/30/[address] [facility] [address]: Bel Lloyd MD REQ: [id number] RECD: 10/30/18 STATUS: HARPREET CULLEN DR: Magdalene Emanuel MD _ SOURCE: BLOOD,VENO SPDESC: ORDERED: Blood Cult COMMENTS: Sydney BLOUNT FOR PCR, PLEASE REFER TO [id number] Verbal to ARMINDA WADSWORTH by [id number] at 0123 on 11/01/18. Results read back accurately. Procedure Result Reported Site Aerobic Culture Bottle Final 11/19/18- 1613 ML Aerobic Bottle Gram Stain Gram Positive Cocci, resemb. Staph Organism 1 STAPHYLOCOCCUS HOMINIS - Sensitivity not performed; probable contaminant. If further testing is required, please call microbiology laboratory. Anaerobic Culture Bottle Final 11/04/18- 1743 ML No Growth Day 5 * ML - Main Lab . END OF REPORT DEPARTMENT OF PATHOLOGY, [address] [place] [address] Bulmaro Marks M.D. Director [facility] # [id number] 10 [facility] - Floor: 1, #: [id number] 11 Because ethnic data is not always [...] 5 Kidney failure <15 (or dialysis) 12 [facility] - Floor: 1, Rm #: [id number] [facility] - Floor: 1, Rm #: [id number] 14 Because ethnic data is not always readily [...] 15-29 5 Kidney failure <15 (or dialysis) 15 [facility] - Floor: 1, Rm #: [id number] 16 Specimen approval form received. Correct patient identification verified by provider 02/25/19 17 Because ethnic data is not always readily [...] 15-29 5 Kidney failure <15 (or dialysis) 18 Specimen approval form received. Correct patient identification verified by provider 1960. [facility] - Floor: 1, Rm #: [id number] 19 SEE RESULT BELOW Name: KIRK ZARAGOZA : [address]: Basil Mejia MD Acct: [id number] Unit: [id number] AGE: 58 Location: ED Re06/25/18 SEX: M Status: REG ER SPEC: [id number] KATIE: 06/25/[address] [facility] [address]: Lisa TORRES REQ: [id number] RECD: 06/25/18 STATUS: RES ALYSE DR: Magdalene Mejia MD _ SOURCE: MANJEETRIGHT SPDESC: ORDERED: MRSA/SA SSTI, Culture Stain Procedure Result Reported Site MRSA/S. aureus SSTI PCR PENDING Wound/Misc Gram Stain Final 06/25/18- 1634 ML 3+ Epithelial Cells 3+ Neutrophils 4+ Gram Negative Bacilli 4+ Gram Positive Cocci 4+ Gram Negative Coccobacilli 3+ Gram Positive Bacilli Wound/Misc Culture PENDING * ML - Main Lab . END OF REPORT DEPARTMENT OF PATHOLOGY, [address] [place] [address] Bulmaro Marks M.D. Director [facility] # [id number] 20 Therapeutic target for the treatment of diabetes mellitus patients is <7% HBA1C, and in selective patients <6.0%. Please refer to [place] [employer] diabetic care guidelines for further information. 21 SEE RESULT BELOW Name: KIRK ZARAGOZA : [address]: Sushant Han MD Acct: [id number] Unit: [id number] AGE: 58 Location: [place] [address] Re06/25/18 SEX: M Status: ADM IN SPEC: [id number] KATIE: 06/25/[address] [facility] [address]: Lisa TORRES REQ: [id number] RECD: 06/25/18 STATUS: RES [facility] DR: Magdalene Mejia MD _ SOURCE: FOOT,RIGHT [...] CONTINUED ON NEXT PAGE DEPARTMENT OF PATHOLOGY, [address] [place] [address] Bulmaro Marks M.D. Director [facility] # [id number] Patient: KIRK ZARAGOZA [id number] (Continued) Specimen: [id number] Collected: 06/25/18 Received: 06/25/18 (Continued) Procedure Result [...] These antibiotics are not available in the [facility] Formulary Contact the Microbiology Department for any additional antibiotic reporting. CONTINUED ON NEXT PAGE DEPARTMENT OF PATHOLOGY, [address] [place] [address] Bulmaro Marks M.D. Director [facility] # [id number] Patient: KIRK ZARAGOZA [id number] (Continued) Specimen: [id number] Collected: 06/25/18 Received: 06/25/18 (Continued) Procedure Result Reported Site Wound/Misc Culture Preliminary (continued) Contact the Microbiology Department for any additional antibiotic reporting. * ML - Main Lab . END OF REPORT DEPARTMENT OF PATHOLOGY, [address] [place] [address] Bulmaro Marks M.D. Director [facility] # [id number] 22 Critical Result LACT:2.7 Called to [id number] at: 16:13:07 by:[id number] Read back by:[email or web address] [facility] Severe Sepsis and Septic Shock Management Bundle Measure requires all lactic acids initially measuring >2.0 mmol/L be repeated. 23 SEE RESULT BELOW Name: KIRK ZARAGOZA : [address]: Radha Pink MD Acct: [id number] Unit: [id number] AGE: 58 Location: [facility] 339- Re06/25/18 SEX: M Status: ADM IN SPEC: [id number] KATIE: 06/25/[address]: Lisa TORRES REQ: [id number] RECD: 06/25/18 STATUS: HARPREET CULLEN DR: Magdalene Mejia MD _ SOURCE: BLOOD,VENO SPDESC: ORDERED: Blood Cult Procedure Result Reported Site Aerobic Culture Bottle Final 06/30/18- 1616 ML No Growth Day 5 Anaerobic Culture Bottle Final 06/30/18- 1614 ML No Growth Day 5 * - Main Lab . END OF REPORT DEPARTMENT OF PATHOLOGY, [address] [place] [address] Bulmaro Marks M.D. Director [facility] # [id number] 24 Because ethnic data is not always readily [...] 15-29 5 Kidney failure <15 (or dialysis) 25 Desirable: <150 Borderline High: 150-199 High: 200-499 Very High: >500 26 Desirable: <200 Borderline High: 200-239 High: >239 27 Low: <40 Desirable: 40-60 High: >60 28 Desirable: <100 Near Optimal: 100-129 Borderline High: 130-159 High: 160-189 Very High: >189 29 SEE RESULT BELOW Name: KIRK ZARAGOZA : [address]: Kirk Morrison MD Acct: [id number] Unit: [id number] AGE: 58 Location: WOUND Re06/01/18 SEX: M Status: REG REF SPEC: [id number] KATIE: 06/01/18-[address] [facility] [address]: Kirk Morrison MD REQ: [id number] RECD: 06/01/18 STATUS: HARPREET CULLEN DR: Magdalene [...] . END OF REPORT DEPARTMENT OF PATHOLOGY, [address] [place] [address] Bulmaro Marks M.D. Director [facility] # [id number] 30 SEE RESULT BELOW Name: KIRK ZARAGOZA : [address]: Kirk Morrison MD Acct: [id number] Unit: [id number] AGE: 58 Location: WOUND Re05/04/18 SEX: M Status: REG REF SPEC: [id number] KATIE: 05/04/18-[address] [facility] [address]: Kirk Morrison MD REQ: [id number] RECD: 05/04/18 STATUS: HARPREET CULLEN DR: Magdalene [...] . END OF REPORT DEPARTMENT OF PATHOLOGY, [address] [place] [address] Bulmaro Marks M.D. Director [facility] # [id number] 31 Desirable: <150 Borderline High: 150-199 High: 200-499 Very High: >500 32 Desirable: <200 Borderline High: 200-239 High: >239 33 Low: <40 Desirable: 40-60 High: >60 34 Desirable: <100 Near Optimal: 100-129 Borderline High: 130-159 High: 160-189 Very High: >189 35 Because ethnic data is not always readily [...] 15-29 5 Kidney failure <15 (or dialysis) 36 FASTING 10 HOUR 37 Therapeutic target for the treatment of diabetes mellitus patients is <7% HBA1C, and in selective patients <6.0%. Please refer to [place] [employer] diabetic care guidelines for further information. 38 Serum levels of PSA measured using the [employer] DXI Hybritech immunoassay should not be interpreted [...] methods or kits cannot be used interchangeably. 39 Because ethnic data is not always readily [...] 15-29 5 Kidney failure <15 (or dialysis) 40 Because ethnic data is not always readily [...] 15-29 5 Kidney failure <15 (or dialysis) 41 [id number] 42 Because ethnic data is not always readily [...] 15-29 5 Kidney failure <15 (or dialysis) 43 Leukocytosis with absolute neutrophilia suggestive of acute inflammatory/reactive process. Additional studies as clinically warranted. Reviewed by Dr. Marks 44 [id number] 45 Acute inflammation: >10.00 46 Therapeutic target for the treatment of diabetes Mellitus patients is <7% HBA1C, and in selective patients <6.0%.Please refer to [place] [employer] Diabetic care guidelines for further information. 47 >100 to <200 pg/mL: likely compensated congestive heart failure (CHF) 200 to 400 pg/mL: likely moderate CHF >400 pg/mL: likely moderate to severe CHF 48 Desirable <150 Borderline high 150-199 High 200-499 Very High >500 49 Desirable <200 Borderline high 200-239 High >239 50 Low <40 Desirable: 40-60 High: >60 51 Desirable: <100 mg/dL Near Optimal: 100-129 mg/dL Borderline High: 130-159 mg/dL High: 160-189 mg/dL Very High: >189 mg/dL 52 FASTING 10 HOUR 53 FASTING 10 HOUR 54 Normal Range 180 to 914 Indeterminate Range 145 to 180 Deficient Range <145 55 FASTING 10 HOUR 56 ADDITIONAL INFORMATION This test was developed and its performance characteristics determined by [facility] in a manner consistent with CLIA requirements. This test has not been cleared or approved by the U.S. Food and Drug Administration. Test Performed by: [facility] - [address] [address] 57 Serologic response to B. burgdorferi infection is not detected, but cannot rule out early infection during which low or undetectable antibody levels to B. burgdorferi may be present. If clinically indicated, a new serum specimen should be submitted in 7-14 days. Test Performed by: [address] [address] 58 Because ethnic data is not always readily [...] 15-29 5 Kidney failure <15 (or dialysis) 59 PRN EXP: 11/15/15 60 PRN EXP: 11/15/15 61 Because ethnic data is not always readily [...] 15-29 5 Kidney failure <15 (or dialysis) 62 Because ethnic data is not always readily [...] 15-29 5 Kidney failure <15 (or dialysis) 63 pt to get pcp 64 Because ethnic data is not always readily [...] (or dialysis) Procedures Date Code Description Status 11/03/2018 79868 EKG Tracing & Interpretation Completed 09/29/2018 38744 ECHO Transthoracic, Real-Time 2D With Doppler And Color Completed Flow 09/29/2018 40625 ECHO Transthoracic, Real-Time 2D With Doppler And Color Completed Flow 06/28/2018 69858 EKG, Interpretation Only Completed 06/28/2018 31531 Amputation Metatarsal W/Toe Completed 06/28/2018 32523 Amputation Metatarsal W/Toe Completed 06/27/2018 83580 ECHO Transthorasic Realtime 2D W Doppler & Color Flow Completed Hosp 06/15/2018 45308 Debridement Skin,& sq Tissue Completed 06/08/2018 59902 Debridement Skin,& sq Tissue Completed 06/03/2018 87509 Apply Total Contact Leg Cast Completed 06/01/2018 17756 Debridement Skin, Subcutaneous Tissue & Muscle Completed 05/25/2018 28655 Debridement Skin,& sq Tissue Completed 05/18/2018 52777 Debridement Skin,& sq Tissue Completed 05/11/2018 66190 Debridement Skin,& sq Tissue Completed 05/04/2018 09015 Debridement Skin,& sq Tissue Completed 04/29/2018 36932 Debridement Skin,& sq Tissue Completed 12/14/2017 12469 Polysomnography Sleep Staging 4+ Parameters W/Cpap Completed 11/26/2017 01231168 Colonoscopy Completed 11/03/2017 82841 Polysomnography Sleep Staging 4+ Parameters Completed 07/20/2017 23598 Stress Test Completed 07/20/2017 28039 Myocardial Perfusion Imaging Tomographic (Spect) Completed Multiple Studies 06/12/2017 50240 EEG Recording Awake & Drowsy Completed 05/20/2017 66582 ECHO Transthoracic, Real-Time 2D With Doppler And Color Completed Flow 05/20/2017 33338 ECHO Transthoracic, Real-Time 2D With Doppler And Color Completed Flow 04/29/2017 24573 EKG Tracing & Interpretation Completed 04/15/2017 87581 Holter Monitor Review (24 hr)dr review & interp only Completed 04/09/2017 95676 ECG Monitor/Recording W/Visual Superimposition Scanning Completed 03/27/2017 18543 EKG Tracing & Interpretation Completed 08/07/2015 09049 EKG Tracing & Interpretation Completed 05/09/2015 36628 EKG Tracing & Interpretation Completed 05/08/2015 82441 ECHO Transthoracic, Real-Time 2D With Doppler And Color Completed Flow 01/11/2015 46431 ECHO Transthorasic Realtime 2D W Doppler & Color Flow Completed Hosp 01/10/2015 09915 EKG, Interpretation Only Completed 01/10/2015 08240 Cardioversion Completed 01/10/2015 46376 Color Flow Doppler/Interp & Reprt Completed 01/10/2015 66509 Pulse Wave/Continuous-Interp.RPT Completed 01/10/2015 25928 Echocardiography, Transesophageal, Real Time W/Image 2D Completed W/W/O M-M 01/09/2015 16939 EKG, Interpretation Only Completed 01/07/2015 49292 ECHO Transthorasic Realtime 2D W Doppler & Color Flow Completed Hosp 09/09/2013 39871 ECHO Transthoracic, Real-Time 2D With Doppler And Color Completed Flow 08/09/2013 17462 EKG Tracing & Interpretation Completed 05/25/2013 66594 EKG, Interpretation Only Completed 05/25/2013 15429 Cardioversion Completed 05/20/2013 19534 EKG Tracing & Interpretation Completed 04/06/2013 60026 Color Flow Doppler/Interp & Reprt Completed 04/06/2013 80906 Pulse Wave/Continuous-Interp.RPT Completed 04/06/2013 84315 Echocardiography, Transesophageal, Real Time W/Image 2D Completed W/W/O M-M 04/06/2013 56380 EKG, Interpretation Only Completed Encounters Type Date Location Provider Dx Diagnosis Office Visit 11/09/2018 [facility] Looney MD Z79.4 penitentiary 2:40p Endocrinology of [facility] (current) use of insulin E11.9 Type 2 diabetes mellitus without complications Office Visit 11/08/2018 11:40a [facility] Internal Magdalene E11.9 Type 2 diabetes Medicine - Janeth Emanuel mellitus without [place] complications I10 Essential (primary) hypertension L03.116 Cellulitis of left lower limb 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 ankle and foot Office Visit 10/05/2018 [facility] Marek Gr E11.9 Type 2 diabetes 11:10a For Infectious [place], mellitus without Diseases M.D. complications Office Visit 08/25/2018 [facility] Marek Gr M86.171 Other acute 10:30a For Infectious [place], osteomyelitis, right Diseases M.D. ankle and foot Z79.2 penitentiary (current) use of antibiotics E11.69 Type 2 diabetes mellitus with other specified complication Office Visit 08/24/2018 [facility] Looney, E11.65 Type 2 diabetes 1:20p Endocrinology of mellitus with [facility] hyperglycemia E11.69 Type 2 diabetes mellitus with other specified complication Z79.4 [place] (current) use of insulin M86.171 Other acute osteomyelitis, right ankle and foot Office Visit 07/22/2018 [facility] Marek Gr M86.171 Other acute 3:40p For Infectious [place], M.D. osteomyelitis, Diseases right ankle and foot E11.69 Type 2 diabetes mellitus with other specified complication Z79.2 oysterman (current) use of antibiotics Office Visit 07/12/2018 1:00p [facility] Bigg Looney, Z79.4 penitentiary Endocrinology of [place] MOE (current) use of insulin E11.69 Type 2 diabetes mellitus with other specified complication Office Visit 07/05/2018 [facility] M86.171 Other acute 9:21a rebecca Whyte NP osteomyelitis, Hospitalists right ankle and foot E11.621 Type 2 diabetes mellitus with foot ulcer L97.519 Non-prs chronic ulcer oth prt right foot w unsp severity Z89.421 Acquired absence of other right toe(s) Office Visit 07/04/2018 [facility] Z47.81 Encounter for 9:20a rebecca Whyte NP orthopedic Hospitalists aftercare following surgical amp Z89.421 Acquired absence of other right toe(s) E11.65 Type 2 diabetes mellitus with hyperglycemia D72.829 Elevated white blood cell count, unspecified I10 Essential (primary) hypertension Office Visit 07/03/2018 [facility] Z47.81 Encounter for 9:20a rebecca Whyte NP orthopedic Hospitalists aftercare following surgical amp Z89.421 Acquired absence of other right toe(s) E11.65 Type 2 diabetes mellitus with hyperglycemia D72.829 Elevated white blood cell count, unspecified I10 Essential (primary) hypertension Office Visit 07/02/2018 [facility] Marek Gr E11.69 Type 2 diabetes 8:25a For Kristian Cheatham M.D. 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.073 Infective myositis, right foot L03.115 Cellulitis of right lower limb Office Visit 07/02/2018 [facility] Lo[facility], E11.69 Type 2 diabetes 8:54a Endocrinology of MD mellitus with Adolescent Counselor other specified complication M60.073 Infective myositis, right foot Office Visit 07/02/2018 [facility] Z47.81 Encounter for 9:20a rebecca Whyte, BUSINESS INFORMATION CONSULTANT orthopedic Hospitalists aftercare following surgical amp Z89.421 Acquired absence of other right toe(s) E11.65 Type 2 diabetes mellitus with hyperglycemia D72.829 Elevated white blood cell count, unspecified I10 Essential (primary) hypertension Office Visit 07/01/2018 [facility] Z47.81 Encounter for 9:19a rebecca Whyte BUSINESS INFORMATION CONSULTANT orthopedic Hospitalists aftercare following surgical amp Z89.421 Acquired absence of other right toe(s) E11.65 Type 2 diabetes mellitus with hyperglycemia D72.829 Elevated white blood cell count, unspecified Z87.891 Personal history of nicotine dependence I10 Essential (primary) hypertension Office Visit 06/30/2018 9:19a [facility] Z47.81 Encounter for rebecca Whyte NP orthopedic Hospitalists aftercare following surgical amp Z89.421 Acquired absence of other right toe(s) E11.9 Type 2 diabetes mellitus without complications I10 Essential (primary) hypertension D72.829 Elevated white blood cell count, unspecified Office Visit 06/29/2018 9:18a [facility] Z47.81 Encounter for rebecca Whyte NP orthopedic Hospitalists aftercare following surgical amp Z89.421 Acquired absence of other right toe(s) E11.9 Type 2 diabetes mellitus without complications I10 Essential (primary) hypertension R00.0 Tachycardia, unspecified D72.829 Elevated white blood cell count, unspecified Office Visit 06/29/2018 [facility] Marek Gr E11.69 Type 2 diabetes 7:59a For Kristian Cheatham M.D. 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.073 Infective myositis, right foot L03.115 Cellulitis of right lower limb Office Visit 06/28/2018 7:57a [facility] Marek Gr E11.40 Type 2 diabetes For Infectious Janeth Cheatham mellitus with Diseases diabetic neuropathy, unsp E11.69 Type 2 diabetes mellitus with other specified complication M86.171 Other acute osteomyelitis, right ankle and foot M84.674A Pathological fracture in oth disease, right foot, init Office Visit 06/28/2018 [facility] M86.171 Other acute 9:16a rebecca Whyte NP osteomyelitis, Hospitalists right ankle and foot E11.621 Type 2 diabetes mellitus with foot ulcer L97.519 Non-prs chronic ulcer oth prt right foot w unsp severity I10 Essential (primary) hypertension Office Visit 06/27/2018 [facility] M86.171 Other acute 9:16a rebecca Whyte M.D. osteomyelitis, Hospitalists right ankle and foot E11.621 Type 2 diabetes mellitus with foot ulcer L97.519 Non-prs chronic ulcer oth prt right foot w unsp severity Office Visit 06/27/2018 Orthopedic Nicole Adame M86.171 Other acute 8:46a Services Of MELISSA Barry osteomyelitis, C.M.A. right ankle and foot Office Visit 06/26/2018 [facility] M86.171 Other acute 9:16a rebecca [...] right foot, initial encounter Office Visit 06/25/2018 [facility] M86.171 Other acute 9:16a rebecca Whyte M.D. osteomyelitis, Hospitalists right ankle and foot E11.621 Type 2 diabetes mellitus with foot ulcer L97.519 Non-prs chronic ulcer oth prt right foot w unsp severity I10 Essential (primary) hypertension Office Visit 04/29/2018 1:00p Wound Care Kirk Clifford E11.621 Type 2 diabetes [facility] Janeth Morrison mellitus with foot ulcer I10 Essential (primary) hypertension Z79.01 oysterman (current) use of anticoagulants E11.40 Type 2 diabetes mellitus with diabetic neuropathy, unsp Office Visit 03/30/2018 4:00p [facility] Internal Magdalene E11.65 Type 2 diabetes Leo Emanuel M.D. mellitus with hyperglycemia I10 Essential (primary) hypertension E78.5 Hyperlipidemia, unspecified Office Visit 01/18/2018 4:00p [facility] Internal Magdalene I10 Essential ( primary) Medicine Janeth Emanuel hypertension K62.5 Hemorrhage of anus and rectum E11.65 Type 2 diabetes mellitus with hyperglycemia Z11.59 Encounter for screening for other viral diseases Office Visit 01/12/2018 Pulmonology And Rosie G47.33 Obstructive sleep 1:45p [facility] TAMARA Stewart RN, apnea (adult) [facility] 12/14/2017 [facility] Internal Magdalene E11.65 Type 2 diabetes 2:40p Leo Emanuel M.D. 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 anus and rectum L89.300 Pressure ulcer of unspecified buttock, unstageable E11.65 Type 2 diabetes mellitus with hyperglycemia R21 Rash and other nonspecific skin eruption R41.82 Altered mental status, unspecified Office Visit 10/22/2017 2:30p Pul[facility]ology [facility] Sleep Yeimy Coronel, R06.83 Snoring Services Of [facility] R40.0 Somnolence Office Visit 09/18/2017 2:00p [facility] Internal Magdalene I10 Essential ( primary) Medicine Janeth Emanuel hypertension E11.65 Type 2 diabetes mellitus with hyperglycemia Z23 Encounter for immunization K62.5 Hemorrhage of anus and rectum Z12.5 Encounter for screening for malignant neoplasm of prostate Office Visit 09/17/2017 9:15a Bambi Toro, I69.318 Other symptoms Neurologic M.D. and signs w Services Of [facility] cogn fnctns fol cerebral infrc G47.30 Sleep apnea, unspecified I48.0 Paroxysmal atrial fibrillation Z79.01 penitentiary (current) use of anticoagulants Office Visit 07/31/2017 [place] Arthur Childers, I77.810 Thoracic aortic 8:45a Cardiology Of Janeth, FACC, FASNC ectasia [facility] Office Visit 06/11/2017 Bambi Toro, R41.82 Altered mental 1:00p Neurologic M.D. status, Services Of [facility] unspecified Z86.73 Prsnl hx of TIA (TIA), and cereb infrc w/o resid deficits I10 Essential (primary) hypertension Z79.01 penitentiary (current) use of anticoagulants Office Visit 05/15/2017 4:40p [facility] Internal Magdalene I10 Essential ( primary) Medicine Janeth Emanuel hypertension E11.65 Type 2 diabetes mellitus with hyperglycemia R06.83 Snoring Office Visit 05/05/2017 9:00a [facility] Internal Magdalene I10 Essential ( primary) Medicine Janeth Emanuel hypertension E11.65 Type 2 diabetes mellitus with hyperglycemia 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 R07.89 Other chest pain R41.82 Altered mental status, unspecified Office Visit 04/29/2017 11:30a [place] [facility] Arthur Restrepo I48.0 Paroxysmal atrial Of Falguni Childers M.D., fibrillation FACRachelle, FASALEJANDRO I45.10 Unspecified right bundle-branch block Office Visit 04/03/2017 2:40p [facility] Internal Magdalene I10 Essential ( primary) Medicine Janeth Emanuel hypertension E11.65 Type 2 diabetes mellitus with hyperglycemia R41.82 Altered mental status, unspecified I48.0 Paroxysmal atrial fibrillation Office Visit 03/27/2017 3:40p [facility] Internal Magdalene I10 Essential ( primary) Medicine Janeth Emanuel hypertension I42.9 Cardiomyopathy, unspecified E11.9 Type 2 diabetes mellitus without complications I48.91 Unspecified atrial fibrillation R41.82 Altered mental status, unspecified Office Visit 08/07/2015 2:00p [place] [facility] Arthur Restrepo I48.0 Paroxysmal atrial Of Falguni Childers M.D., fibrillation FACC, FASDE Office Visit 05/09/2015 12:45p [place] [facility] Vi Mendoza, 427.31 Atrial Of Falguni Fowler Fibrillation 425.9 Cardiomyopathy Secondary Unspecified 401.1 Hypertension Benign 250.00 Diabetes Mellitus W/O Compl Type II Or Unspec Controlled Office Visit 01/12/2015 [facility] Nora Bryson, 427.31 Atrial 4:23p rebecca Whyte M.D. [facility] 250.90 Diabetes W/ Unspec Compl Type II Or Unspec Controlled 428.20 Systolic Heart Failure Unspecified [facility] 427.31 Atrial 4:22p rebecca hWyte M.D. [facility] 250.90 Diabetes W/ Unspec Compl Type II Or Unspec Controlled 458.0 Hypotension Orthostatic 428.30 Diastolic Heart Failure Unspecified Office Visit 01/10/2015 10:41a [facility] Marcus Clifford 427.32 Atrial Flutter Janeth German 425.4 Cardiomyopathy Other Prim Office Visit 01/10/2015 [facility] Gracia 427.31 Atrial 4:22p Assrebecca amin DO [facility] 428.30 Diastolic Heart Failure Unspecified 250.90 Diabetes W/ Unspec Compl Type II Or Unspec Controlled 790.6 Abnormal Blood Chemistry Other Office Visit 01/09/2015 11:44a [facility] [facility] Adan Gr 427.31 Atrial Of Falguni Mckinley M.D. Fibrillation 425.4 Cardiomyopathy Other Prim Office Visit 01/09/2015 [facility] Gracia 427.31 Atrial 4:21p Assrebecca amin DO [facility] 428.30 Diastolic Heart Failure Unspecified 250.90 Diabetes W/ Unspec Compl Type II Or Unspec Controlled 790.6 Abnormal Blood Chemistry Other Office Visit 01/08/2015 [facility] 427.31 Atrial 4:21p rebecca Whyte M.D. [facility] 428.30 Diastolic Heart Failure Unspecified 250.90 Diabetes W/ Unspec Compl Type II Or Unspec Controlled Office Visit 01/07/2015 [facility] 427.31 Atrial 4:21p rebecca Whyte M.D. [facility] 428.30 Diastolic Heart Failure Unspecified 790.6 Abnormal Blood Chemistry Other Office Visit 01/06/2015 [facility] 427.31 Atrial 4:20p rebecca Whyte II, M.D. [facility] Hospitalists 428.30 Diastolic Heart Failure Unspecified 790.6 Abnormal Blood Chemistry Other 276.2 Acidosis Office Visit 09/28/2013 [facility] Arthur Restrepo 427.31 Atrial 10:00a Of Falguni Childers M.D., Fibrillation FACC, FASDE Office Visit 08/09/2013 [facility] Arthur Restrepo 427.31 Atrial 9:00a Of Falguni Childers M.D., Fibrillation FACC, FASNC Office Visit 05/20/2013 [facility] Arthur Restrepo 427.32 Atrial Flutter 12:15p Of Falguni Childers M.D., FACC, FASNC Office Visit 04/09/2013 [facility] 427.31 Atrial 8:38a rebecca Whyte M.D. [facility] 411.1 Coronary Syndrome Intermediate 275.2 Metabolic Disorder Magnesium 790.6 Abnormal Blood Chemistry Other [facility] 8:38a rebecca Whyte M.D. [facility] 411.1 Coronary Syndrome Intermediate 275.2 Metabolic Disorder Magnesium 790.6 Abnormal Blood Chemistry Other Office Visit 04/08/2013 3:59p [facility] [facility] Arthur Restrepo 427.31 Atrial Of Falguni Childers M.D., Fibrillation FACC, FASNC 786.05 Shortness Of Breath Office Visit 04/07/2013 [facility] 427.31 Atrial 8:37a rebecca Whyte M.D. [facility] 411.1 Coronary Syndrome Intermediate 275.2 Metabolic Disorder Magnesium 790.6 Abnormal Blood Chemistry Other Office Visit 04/07/2013 [facility] Adan Gr 427.31 Atrial 1:18p Of [facility] Janeth Mckinley Fibrillation Office Visit 04/06/2013 [facility] Yudy 427.31 Atrial 8:37a rebecca Whyte MD [facility] 411.1 Coronary Syndrome Intermediate 275.2 Metabolic Disorder Magnesium 790.6 Abnormal Blood Chemistry Other Office Visit 04/06/2013 3:00p [facility] Arthur Lauro 427.32 Atrial Flutter Of [facility] Janeth Childers, [facility] 427.31 Atrial Fibrillation Office Visit 04/05/2013 [facility] Nora Bryson, 427.31 Atrial 8:37a rebecca Whyte M.D. [facility] 411.1 Coronary Syndrome Intermediate 275.2 Metabolic Disorder Magnesium 790.6 Abnormal Blood Chemistry Other Plan of Treatment Future Appointment(s):02/09/2019 11:00 am - Bigg Looney MD at [facility]03/17/2019 10:20 am - Magdalene Emanuel M.D. at [facility] Internal Mjobppax82/23/2019 - Davy Raza M.D.L03.116 Cellulitis of left lower limbFollow up:As needed
--- OUTSIDE RECORDS SUMMARY | 2018-12-31 13:21 | XMS REPORT | Continuity of Care Document ---
:1960 External Reference #:[id number] Author Name Jeremiah Leaersten Care Team Providers Name Role Phone Magdalene Emanuel MD Primary Care Physician Unavailable Payers Date Identification Numbers Payment Provider Subscriber Effective: 2017 Policy Number: [id number] Roshan Zaragoza Group Number: [id number] [address] PayID: [id number] [place] [address] Expires: 2017 Policy Number: [id number] Medicaid Kirk Zaragoza Group Name: 1 1 [address] PayID: [id number] [place] [address] Effective: 2015 Policy Number: [id number] Roshan Zaragoza Expires: 2016 Group Name: [id number] [address] PayID: [id number] [place] [address] Effective: 2016 Policy Number: [id number] [facility] Kirk Zaragoza Expires: 2018 Group Number: [id number] PayID: [id number] [address] [place] [address] Effective: 2018 Policy Number: [id number] [facility] Kirk Zaragoza Expires: 2019 Group Number: 70% [address] PayID: [id number] [address] Advance Directives Type Date Description Status Comment Other Directive 03/27/2017 Health Care Proxy Current and Verified Problems Date Description Provider Status Onset: 08/09/2013 Atrial fibrillation Arthur Childers M.D., Active [facility], [facility] Onset: 05/09/2015 Benign essential hypertension Vi Mendoza M.D. Active Onset: 03/27/2017 Cardiomyopathy Magdalene Emanuel M.D. Active Onset: 04/03/2017 Type 2 diabetes mellitus Magdalene Emanuel M.D. Active Onset: 04/29/2017 Paroxysmal atrial fibrillation Arthur Childers M.D., Active [facility] [place] Onset: 06/11/2017 Altered mental status Phu Toro M.D. Active Onset: 06/11/2017 History of cerebrovascular Phu Toro M.D. Active accident without residual deficits Onset: 07/31/2017 Thoracic aortic ectasia Arthur Childers M.D., Active [facility] [place] Onset: 09/17/2017 Difficulty breathing Phu Toro M.D. Active Onset: 11/12/2017 Obstructive sleep apnea syndrome Rosie Stewart DNP, RN, Active [facility] Onset: 12/07/2017 Disturbance of consciousness Phu Toro [...] Former Cigarette Smoker Unknown Smoking Status Reviewed: 12/02/18 Former Cigarette Smoker ETOH Use Has consumed [...] Form Strength Qnty SIG Indications Ordering Provider Keflex 12/03/19 Active Capsules 500mg 42cap take 1 Davy 19 s tab by Janeth Raza mouth 3 times a day x 14 days until finished . Freestyle Kyler 11/10/19 Active Device 1unit use at E11.9 Pride Coch, 14 19 s least 4 MD Day/[place] times h Monitoring daily System with sensor Freestyle Kyler 11/10/[address] E11.9 Pride Coch, 14 19 s one MD Day/Sensor/Flas sensor h Monitoring every 14 System days Pen Triplett 11/09/19 Active Misc 29G X 100un For use E11.621 Magdalene 1/" 19 12mm its bid with Janeth Emanuel insulin pen Furosemide 11/03/19 Active Tablets 20mg 45tab 1 by Magdalene 19 s hi Emanuel M.D. every day until 11/08/18 Aquaphor 10/21/19 Active Ointment 1Tube apply to Davy Advanced 19 affected Janeth Raza Therapy area daily Knee High 10/21/19 Active 1Pair Davy Compression 19 Janeth Raza Stockings Lisinopril 07/06/20 Active Tablets 10mg 1 by I10 Magdalene 18 hi Emanuel M.D. every day Thiamine HCL 12/08/19 Active Tablets 100mg 90tab take 1 F10.19 Kirk Acosta 18 s tablet natali Baeza M.D. Xarelto 05/22/20 Active Tablets 20mg 30tab 1 by Magdalene 17 s hi Emanuel M.D. every day, take with evening meal Atorvastatin 04/03/20 Active Tablets 10mg 30tab 1 by E11.65 Neli Calcium 17 s mouth Varn, N.P. every day Metoprolol 03/27/20 Active Tablets 25mg 30tab 1 by I10 Magdalene Succinate ER 17 ER 24HR s hi Emanuel M.D. every day Metformin HCL Active Tablets 500mg 1 by Unknown 00 mouth twice a day Acetaminophen Active Tablets 325mg 2 Unknown 00 tablets by mouth every 6 hours as needed for pain/fev er Humalog Mix Active Suspensio (75-25)10 10ml start 35 E11.69 Cotton, 75/25 00 n 0Unit/ML units in Magdalene the morning with first meal of the day, 10 units in the evening with last meal of the day Humalog Mix 08/24/20 Hx Supn (75-25)10 30ml 40 units E11.69 Pride Coch , 75/25 Kwikpen 18 - 0Unit/ML with MD 08/24/20 first 18 meal of the day, 25 units with last meal of the day Bactrim DS 07/15/20 Hx Tablets 800-160mg 30tab 1 by Davy 18 - s hi Raza M.D. 08/25/20 twice a 18 day Lantus Solostar 07/12/20 Hx Solution 100Unit/M 36 units Pride Coch, 18 - Pen-Injec L daily SD 08/24/20 t 18 Humalog Kwikpen 07/12/20 Hx Solution 100Unit/M 12 units E11.69 Bigg Looney, 18 - Pen-Injec L per meal SD 08/24/20 t w/ 18 sliding scale. BS 200-250 2 units, 251-300 4 units, 301-350 6 units, 351-400 8 units, 401-450 10 units Doxycycline 06/01/20 Hx Capsules 100mg 14cap Twice Unknown Hyclate 18 - s Daily 07/21/20 18 Clindamycin HCL 04/18/20 Hx Capsules 300mg 21cap Three Unknown 18 - s Times 07/21/20 Daily 18 Multivitamin 12/08/19 Hx Tablets Take 1 a F10.19 Anguser Adult 18 - day Janeth Toro Unknown Ketoconazole 11/11/19 Hx Cream 2% 60gm apply R21 Magdalene Castillo - thin Janeth Emanuel 01/19/20 film 18 twice daily to skin on the abdomen Glipizide 11/11/19 Hx Tablets 10mg 60tab 1 by E11.65 Magdalene 18 - s hi Emanuel M.D. 07/04/20 twice 18 daily Chlorthalidone 09/18/19 Hx Tablets 25mg 30tab 1 by I10 Magdalene 18 - s hi Emanuel M.D. 11/02/19 every 19 day Metformin HCL 09/18/19 Hx Tablets 500mg 30tab 1 by E11.65 Magdalene ER 18 - ER 24HR s mouth Janeth Emanuel 11/11/19 every 18 day Glipizide XL 05/15/20 Hx Tablets 5mg 30tab 1 PO qd E11.65 Magdalene 17 - ER 24HR s Janeth Emanuel 11/11/19 18 Lisinopril 05/05/20 Hx Tablets 20mg 30tab 1 by I10 Magdalene 17 - s hi Emanuel M.D. 07/06/20 every 18 day Xarelto 04/22/20 Hx Tablets 15mg 42tab 1 by Magdalene Vee - s hi Emanuel M.D. 07/09/20 twice 17 daily with food for 21 days. Then switch to the new dose, patient states he is on the higher dose.. No Active 03/27/20 Hx Unknown Medications - 03/27/20 17 Glipizide XL 03/27/20 Hx Tablets 2.5mg 30tab take 1 E11. Magdalene 17 - ER 24HR s marcelo Emanuel M.D. 05/15/20 by mouth 17 every morning Lisinopril 03/27/20 Hx Tablets 10mg 30tab 1 by I10 Magdalene Woods s hi Emanuel M.D. 05/05/20 every 17 day Xarelto 06/04/20 Hx Tablets 20mg 90tab 1 by Arthur Nash - s hi Childers M.D., 03/27/20 every [facility], [facility] 17 day Coumadin 05/08/20 Hx Tablets 5mg 200ta take 1 Vi Nash - maritza Mendoza, 06/04/20 daily or MCullenDCullen 15 as directed Lasix 09/28/19 Hx Tablets 20mg 1 po qd Arthur Childers M.D., 09/21/19 [facility], [facility]ALEJAN[facility]O 14 Lisinopril 09/28/19 Hx Tablets 20mg 90tab 1 po qd Arthur Domingo - s pt desi Childers M.D., 09/08/19 10 mg FACC, FASALEJANDRO 15 Lasix 09/21/19 Hx Tablets 20mg 30tab 1 by Arthur Domingo - s hi Childers M.D., 03/27/20 every FACC, FASALEJANDRO 17 day Lisinopril 08/09/20 Hx Tablets 10mg 90tab 1 po qd Arthur Restrepo 13 - s Janeth Childers, 09/28/19 [facility], [facility] 14 Lasix 05/20/20 Hx Tablets 40mg 90tab one Arthur Restrepo 13 - s tablet Janeth Childers, 09/14/19 po qam [facility], [facility] 14 Xarelto Hx Tablets 20mg 30tab 1 po qd s 09/08/19 15 Lisinopril Hx Tablets 2.5mg 90tab 1 po qd Unknown s 08/09/20 13 Glipizide ER Hx Tablets 2.5mg 270ta 1 po qd - ER 24HR bs 03/27/20 17 Metoprolol Hx Tablets 100mg 180ta 1/2 by Arthur Restrepo Tartrate 00 - bs mouth Janeth Childers, 03/27/20 twice a [facility], [facility] 17 day Omeprazole Hx Capsules 20mg 1 by Unknown 00 - DR mouth 05/09/20 every 15 day Lisinopril Hx Tablets 10mg 90tab 1 by Arthur Restrepo 00 - s mouth Janeth Childers, 03/27/20 every [facility], [facility] 17 day Ceftriaxone Hx Solution 2gm 2 grams Unknown Sodium 00 - Rec daily iv 07/16/20 at [facility] [place] 18 dischare gd on 07/02/18 for additona l 14 days Flagyl Hx Tablets 500mg 1 tablet Unknown 00 - by mouth 07/11/20 3 times 18 daily for 14 days post discharg e Flagyl Hx Tablets 500mg 1 tab by Unknown 00 - mouth at 07/21/20 1:00 at 18 night & 7:00 at night the day before surgery and at 7:00 in the morning the day of surgery Oxycodone HCL Hx Tablets 1 - 2 Unknown 00 - tabs by 11/08/19 mouth 19 every 12 hours as needed pain Cephalexin Hx Capsules 500mg 1 by Unknown 00 - mouth 11/09/19 four 19 times a day Humalog Mix Hx Supn (75-25)10 Unknown 75/25 Kwikpen 00 - 0Unit/ML 11/08/19 19 Ra Vitamin B-1 Hx Tablets 100mg take 1 Unknown 00 - tablet Unknown by mouth once daily Cephalexin Hx Capsules 500mg 1 by Unknown 00 - mouth 12/02/19 four 19 times a day Medications Administered in Office Medication Date Status Form Strength Qnty SIG Indications Ordering Provider Inj, Administered Injection Arthur Restrepo Regadenoson, 017 Alvarado, 0.1 MG M.DCullen, FACRachelle, FASALEJANDRO Technetium TC Administered Injection Arthur Restrepo 99M 017 Alvarado TetrofosminJaneth, [facility], Per Unit Dose FASNJ Up To 40 Millicuries Immunizations CPT Code Status Date Vaccine Lot # [id number] Given 09/18/2017 Pneumonia Vaccine [id number] Given 09/18/2017 Influenza Virus Vaccine, Quadrivalent, Split, [id number] Preservative Free Vital Signs Date Vital Result Comment 12/02/2018 10:02am Height 72 inches 6'0" Heart [...] H/L Range Note Laboratory test finding 11/09/2018 [facility] Glucose Random 163 Hemoglobin A1c 6.5 5-7 Inr/Protime 10/30/2018 [facility] Inr 1.29 High 0.77-1.[address] [place] [address] [phone] Laboratory test 10/30/2018 [facility] Partial 36.1 N 26.0- 36.[address] [place] [address] Time PTT [phone] Troponin-I (TnI) 0.00 ng/mL <0.04 1 Laboratory test 10/30/2018 [facility] Rapid Influenza SEE RESULT [address] [place] [address] [phone] B-Type Natriuretic Peptide BNP 25 pg/mL <=100 Rapid Influenza 10/30/2018 [facility] Influenza A NEGATIVE Negative 3 A & B Molecular [address] [place] [address] [phone] Influenza B Molecular NEGATIVE Negative Comp Metabolic Panel 10/30/2018 [facility] Sodium 136 mmol/L N 135-[address] [place] [address] [phone] Potassium 4.0 mmol/L N 3.5-5.0 Chloride 100 [...] Egfr 123.3 >60 4 Laboratory test 10/30/2018 [facility] Creatine 52 U/L N 10- [address] Kinase(CK) [place] [address] [phone] C Reactive Protein 177.78 mg/L High <8.01 Lactic Acid 1.6 mmol/L N 0.5-2.0 5 Laboratory test 10/30/2018 [facility] MRSA/S. aureus SEE RESULT 6, [address] Blood [place] [address] [phone] Laboratory test 10/30/2018 [facility] Erythrocyte Sed 1 mm/Hr N 0-20 [address] [place] [address] [phone] Blood Culture SEE RESULT BELOW 9 CBC Auto 10/30/2018 [facility] White Blood 13.0 10^3/uL High 3.5-10.[address] [place] [address] [phone] Red Blood Count 4.44 10^6/uL N 4.00-5.40 [...] Hemoglobin A1c 6.7 finding Laboratory test 08/24/2018 [facility] Glucose Random 173 finding CBC Auto Diff 07/21/2018 [facility] White Blood Count 8.8 N 3.5-10. [address] 10^3/uL 8 [place] [address] [phone] Red Blood Count 4.22 10^6/uL N 4.00-5.40 [...] Cells % 0.1 Comp Metabolic Panel 07/21/2018 [facility] Sodium 137 mmol/L N 135-[address] [place] [address] [phone] Chloride 102 mmol/L N 101-111 Co2 Carbon [...] 7 mmol/L N 2-11 Laboratory test 07/21/2018 [facility] C Reactive 7.84 mg/L N < 8.01 [address] [place] [address] [phone] Comp Metabolic 07/14/2018 [facility] Sodium 138 mmol/L N 135- 145 [address] [place] [address] [phone] Potassium 4.7 mmol/L N 3.5-5.0 Chloride 102 [...] Egfr 123.3 >60 14 Laboratory test 07/14/2018 [facility] C Reactive 18.20 mg/L High <8.01 [address] [place] [address] [phone] CBC Auto Diff 07/14/2018 [facility] White Blood 12.3 High 3.5- 10.[address] Count 10^3/[place] [address] [phone] Red Blood Count 4.29 10^6/uL N 4.00-5.40 [...] Blood Cells % 0.1 Laboratory test 07/12/2018 [facility] Glucose Random 245 finding CBC Auto Diff 07/07/2018 [facility] White Blood 13.7 High 3.5- 10. [address] Count 10^3/uL 8 [place] [address] [phone] Red Blood Count 4.35 10^6/uL N 4.00-5.40 [...] Cells % 0 Comp Metabolic Panel 07/07/2018 [facility] Sodium 137 mmol/L N 135-[address] [place] [address] [phone] Potassium 4.3 mmol/L N 3.5-5.0 Chloride 99 [...] Egfr 152.1 >60 17 Laboratory test 07/07/2018 [facility] C Reactive 19.96 mg/L High <8.01 [address] Protein [place], [place] [phone] Wound 06/25/2018 [facility] Wound/Misc SEE RESULT 19 Culture/Sensi [address] [place] [address] Stain [phone] CBC Auto Diff 06/25/2018 [facility] White Blood 15.5 High 3.5- 10.[address] Count 10^3/uL [place], [place] [address]62 [phone] Red Blood Count 4.46 10^6/uL N 4.00-5.40 [...] Blood Cells % 0.1 Urine Microalbumin 06/25/2018 [facility] Ur Microalbumin 22.[address] (mg/L) [place] [address] [phone] Urine Creatinine 109.42 mg/dL Urine Microalbumin/Creatinine 20.8 N <31 Laboratory 06/25/2018 [facility] Hemoglobin A1c 12.7 % High 4.0-5.6 20 test finding [address] (Glyco HGB) [place], [place] [id number] [phone] Laboratory 06/25/2018 [facility] MRSA/S. aureus SEE RESULT 21 test finding [address] Ssti PCR BELOW [place], [place] [address]87 [phone] Inr/Protime 06/25/2018 [facility] Inr 1.61 High 0.77-1.[address] [place] [address] [phone] Laboratory 06/25/2018 [facility] Partial 34.8 N 26.0-36.3 test finding [address] [place] [address] PTT [phone] Lactic Acid 2.7 mmol/L High 0.5-2.0 22 Blood Culture SEE RESULT BELOW 23 Comp Metabolic Panel 06/25/2018 [facility] Sodium 134 mmol/L Low 135-[address] [place] [address] [phone] Chloride 97 mmol/L Low 101-111 Co2 Carbon [...] 7 mmol/L N 2-11 Lipid Profile 06/25/2018 [facility] Triglycerides 96 mg/dL 25 (Trig/Chol/HDL) [address] [place] [address] [phone] Cholesterol 85 mg/dL 26 HDL Cholesterol 28.7 mg/dL 27 LDL Cholesterol 37 mg/dL 28 Laboratory test 06/25/2018 [facility] C Reactive 117.98 mg/L High <8.[address] [place] [address] [phone] Erythrocyte Sed Rate 76 mm/Hr High 0-20 Wound Culture/Sensi 06/01/2018 [facility] Wound/Misc SEE RESULT [address] Culture-[place] [address] [phone] Wound Culture/Sensi 05/04/2018 [facility] Wound/Misc SEE RESULT [address] Culture-[place] [address] [phone] Lipid Profile 03/25/2018 [facility] Triglycerides 175 mg/dL 31 (Trig/Chol/HDL) [address] [place] [address] [phone] Cholesterol 115 mg/dL 32 HDL Cholesterol 29.4 mg/dL 33 LDL Cholesterol 51 mg/dL 34 Hepatitis B 03/25/2018 [facility] Hepatitis B Not Immune Abnormal Immune Osla AB Titer [address] [place] [address] [phone] Hep B Surf AB Level < 3.10 mIU/mL >12 CBC Auto 03/25/2018 [facility] White Blood 11.8 10^3/uL High 3.5-10.[address] [place] [address] [phone] Red Blood Count 5.01 10^6/uL N 4.00-5.40 [...] Blood Cells % 0 Urine Microalbumin 03/25/2018 [facility] Ur Microalbumin 43.8 mg /L Random [address] (mg/L) [place] [address] [phone] Urine Creatinine 204.54 mg/dL Urine Microalbumin/Creatinine 21.4 ug/mg N <31 Comp Metabolic Panel 03/25/2018 [facility] Sodium 136 mmol/L N 135-[address] [place] [address] [phone] Potassium 4.9 mmol/L N 3.5-5.0 Chloride 100 [...] >60 Egfr 119.7 >60 35 Laboratory 03/25/2018 [facility] Hepatitis C Nonreactive Nonreactive 36 test finding [address] [place] [address] [phone] Laboratory 03/25/2018 [facility] Hemoglobin 10.0 % High 4.0- 5.6 37 test finding [address] A1c ([place] [address] HGB) [phone] Laboratory 12/14/2017 [facility] Hemoglobin 9.0 High 5-7 test finding A1c Order 11/11/2017 [facility] Sleep-Homeca <pending> [address] [place] [address] [phone] CBC Auto Diff 10/26/2017 [facility] White Blood 10.6 10^3/uL N 3.5-10.[address] [place] [address] [phone] Red Blood Count 4.82 10^6/uL N 4.0-5.4 [...] Blood Cells % 0.1 Laboratory test 10/26/2017 [facility] PSA Screening 0.391 ng/mL N 0-4.000 [address] [place] [address] [phone] Comp Metabolic 10/26/2017 [facility] Sodium 138 mmol/L N 133- [address] [place] [address] [phone] Potassium 4.7 mmol/L N 3.5-5.0 Chloride 100 [...] Egfr 151.5 >60 39 Laboratory test 09/18/2017 [facility] Hemoglobin A1c 7.8 High 5-7 finding Creatinine 07/21/2017 [facility] Creatinine 0.98 mg/dL N 0.67- 1.[address] [place] [address] [phone] Egfr Non- 78.6 >60 Egfr 101.0 >60 40 Laboratory test 07/21/2017 [facility] Blood Urea 26 mg/dL High 6-[address] [place] [address] [phone] Basic Metabolic 05/05/2017 [facility] Sodium 136 mmol/L N 133- 145 [address] [place] [address] [phone] Potassium 4.0 mmol/L N 3.5-5.0 Chloride 100 mmol/L Low 101-111 Co2 Carbon Dioxide 29 mmol/L N 22-32 Anion Gap 7 mmol/L N 2-11 Glucose 248 mg/dL High 70-100 Blood Urea Nitrogen 10 mg/dL N 6-24 Creatinine 0.63 mg/dL Low 0.67-1.17 BUN/Creatinine Ratio 15.9 N 8-20 Calcium 9.0 mg/dL N 8.6-10.3 Egfr Non- 130.8 N >60 Egfr 168.2 N >60 42 CBC Auto 05/05/2017 [facility] White Blood 11.8 10^3/uL High 3.5-10.[address] [place] [address] [phone] Red Blood Count 5.46 10^6/uL High 4.0-5.4 [...] Cells % 0.1 N Manual Differential 05/05/2017 [facility] Neutrophil % 56 % N 38-[address] [place] [address] [phone] Lymphocytes % 13 % Low 25-47 Monocytes % 13 % N 0-13 Eosinophils % 4 % N 0-6 Reactive Lymph % 14 % High 0-6 RBC Morphology Normal N Normal Laboratory test 05/05/2017 [facility] Pathologist (SEE NOTE) N [address] [place] [address] [phone] Laboratory test 05/05/2017 [facility] Erythrocyte Sed 16 mm/Hr N 0-20 [address] [place] [address] [phone] C Reactive Protein 10.23 mg/L High < 5.00 45 Laboratory test 04/02/2017 [facility] Hemoglobin A1c 12.3 % High Less [address] (Glyco HGB) than 6.0 [place] [address] [phone] Urine 04/02/2017 [facility] Urine 103.[address] Creatinine mg/[place] [address] [phone] Ur Microalbumin (mg/L) 153.4 mg/L N Urine Microalbumin/Creatinine 148.0 ug/mg High <31 Laboratory test 04/02/2017 [facility] B-Type Natriuretic 16 pg/ mL N [address] [place] [address] [phone] Lipid Profile 04/02/2017 [facility] Triglycerides 317 mg/dL N 48 (Trig/Chol/HDL) [address] [place] [address] [phone] Cholesterol 218 mg/dL N 49 HDL Cholesterol 37.7 mg/dL N 50 LDL Cholesterol 117 mg/dL N 51 Laboratory test 04/02/2017 [facility] Thyroxine 9.28 g/mL N 6.09-12.23 [address] [place] [address] [phone] TSH (Thyroid Stim Horm) 1.89 mcIU/mL N 0.34-5.60 53 Vitamin B12 And 04/02/2017 [facility] Vitamin B12 490 pg/mL N 180-914 54 Folate Serum [address] [place] [address] [phone] Folic Acid (Folate) 11.59 ng/mL N >3.99 55 Laboratory test 04/02/2017 [facility] Vitamin B1 165 nmol/L N 70-[address] (Whole Blood) [place] [address] [phone] Lyme Disease Serology Negative N Negative 57 Basic Metabolic 04/02/2017 [facility] Sodium 130 mmol/L Low 133-[address] [place] [address] [phone] Potassium 4.2 mmol/L N 3.5-5.0 Chloride 95 mmol/L Low 101-111 Co2 Carbon Dioxide 29 mmol/L N 22-32 Anion Gap 6 mmol/L N 2-11 Glucose 360 mg/dL High 70-100 Blood Urea Nitrogen 16 mg/dL N 6-24 Creatinine 0.79 mg/dL N 0.67-1.17 BUN/Creatinine Ratio 20.3 High 8-20 Calcium 9.1 mg/dL N 8.6-10.3 Egfr Non- 100.7 N >60 Egfr 129.6 N >60 58 Laboratory test 08/09/2015 [facility] Inr/Protime 1.09 N 0.89- 1.11 59 finding [address] [place] [address] [phone] Inr/Protime 06/05/2015 [facility] Inr 1.48 High 0.78-1.07 [address] [place] [address] [phone] Laboratory test 05/29/2015 [facility] Inr/Protime 1.42 High 0.78-1.07 60 finding [address] [place] [address] [phone] Inr/Protime 05/17/2015 Inr 1.67 High 0.78-1.07 Basic Metabolic 05/16/2015 [facility] Sodium 134 N 133-[address] mmol/[place] [address] [phone] Potassium 4.3 mmol/L N 3.5-5.0 Chloride 102 [...] 1.06 N 0.78-1.07 Basic Metabolic Panel 10/05/2013 [facility] Sodium 134 mmol/L 133-145 [address] [place] [address] [phone] Potassium 4.2 mmol/L 3.5-5.0 Chloride 100 mmol/L Low 101-111 Co2 Carbon Dioxide 30.0 mmol/L 22-32 Anion Gap 4.0 mmol/L 2-11 Glucose 127 mg/dL High 70-100 Blood Urea Nitrogen 15 mg/dL 6-24 Creatinine 0.70 mg/dL 0.50-1.40 BUN/Creatinine Ratio 21.4 High 8-20 Calcium 9.2 mg/dL 8.1-9.9 Egfr Non- 117.5 >60 Egfr 151.1 >60 62 Basic Metabolic Panel 05/23/2013 [facility] Sodium 134 mmol/L 133-145 63 [address] [place] [address] [phone] Potassium 4.4 mmol/L 3.5-5.0 Chloride 93 mmol/L [...] [address]: Bel Lloyd MD Acct: [id number] Unit: [id number] AGE: 58 Location: ED Re10/30/18 SEX: M Status: REG ER SPEC: [id number] KATIE: 10/30/[address] [facility] [address]: Bel Lloyd MD REQ: [id number] RECD: 10/30/18 STATUS: HARPREET CULLEN DR: Magdalene Emanuel MD _ SOURCE: NASAL SPDESC: ORDERED: Flu A B Request Procedure Result Reported Site Rapid Influenza A B Request Final 10/30/181657 ML Specimen received for Influenza A/B Molecular testing * ML - Main Lab . END OF REPORT DEPARTMENT OF PATHOLOGY, [address] [place] [address] Bulmaro Marks M.D. Director [facility] # [id number] 3 Inspector Eyeglass: [id number] 4 Because ethnic data is not always [...] 5 Kidney failure <15 (or dialysis) 5 [facility] Severe Sepsis and Septic Shock Management Bundle Measure requires all lactic acids initially measuring >2.0 mmol/L be repeated. 6 PCR RUN FROM [id number] 7 SEE RESULT BELOW Name: KIRK ZARAGOZA : [address]: Bel Lloyd MD Acct: [id number] Unit: [id number] AGE: 58 Location: ED Re10/30/18 SEX: M Status: DEP ER SPEC: [id number] KATIE: 10/30/18-[address] [facility] [address]: Bel Lloyd MD REQ: [id number] RECD: 11/01/18 STATUS: HARPREET CULLEN DR: Magdalene Emanuel MD _ SOURCE: BLOOD,VENO SPDESC: ORDERED: MRSA/SA BC PCR COMMENTS: PCR RUN FROM [id number] Procedure Result Reported Site MRSA/S. aureus Blood Cult PCR Final 11/01/18- 0121 ML Organism 1 MRSA NEGATIVE Organism 2 S.AUREUS NEGATIVE * ML - Main Lab . END OF REPORT DEPARTMENT OF PATHOLOGY, [address] [place] [id number] Bulmaro Marks M.D. Director [facility] # [id number] Test Performed by: [facility] [address] [place] [address] Bulmaro Marks M.D. Director of Laboratory 9 SEE RESULT BELOW Name: KIRK ZARAGOZA : [address]: Bel Lloyd MD Acct: [id number] Unit: [id number] AGE: 58 Location: ED Re10/30/18 SEX: M Status: DEP ER SPEC: [id number] KATIE: 10/30/18-[address] [facility] [address]: Bel Lloyd MD REQ: [id number] RECD: 10/30/18 STATUS: HARPREET CULLEN DR: Magdalene Emanuel MD _ SOURCE: BLOOD,VENO SPDESC: ORDERED: Blood Cult COMMENTS: Sydney BLOUNT FOR PCR, PLEASE REFER TO [id number] Verbal to ARMINDA WADSWORTH by [id number] at 0123 on 11/01/18. Results read back [...] . END OF REPORT DEPARTMENT OF PATHOLOGY, [address] [place] [address] Bulmaro Marks M.D. Director [facility] # [id number] [facility] - Floor: 1, #: [id number] Because ethnic data is not always [...] 5 Kidney failure <15 (or dialysis) 12 [facility] - Floor: 1, Rm #: [id number] [id number] 13 [facility] - Floor: 1, Rm #: 144B [id number] 14 Because ethnic data is not always [...] 5 Kidney failure <15 (or dialysis) 15 [facility] - Floor: 1, Rm #: 144B [id number] Specimen approval form received. Correct patient [...] Correct patient identification verified by provider 1960. [facility] - Floor: 1, #: 144B [id number] 19 SEE RESULT BELOW Name: KIRK ZARAGOZA : [address]: Basil Mejia MD Acct: [id number] Unit: [id number] AGE: 58 Location: ED Re06/25/18 SEX: M Status: REG ER SPEC: [id number] KATIE: 06/25/[address] [facility] [address]: Lisa TORRES REQ: [id number] RECD: 06/25/18 STATUS: RES SANDI DR: Magdalene Mejia MD _ SOURCE: FOOT,RIGHT [...] . END OF REPORT DEPARTMENT OF PATHOLOGY, [address] [place] [address] Blumaro Marks M.D. Director [facility] # [id number] 20 Therapeutic target for the treatment of diabetes mellitus patients is <7% HBA1C, and in selective patients <6.0%. Please refer to [place] [employer] diabetic care guidelines for further information. 21 SEE RESULT BELOW Name: KIRK ZARAGOZA : [address]: Sushant Han MD Acct: [id number] Unit: [id number] AGE: 58 Location: [place] [address] Re06/25/18 SEX: M Status: ADM IN SPEC: [id number] KATIE: 06/25/[address]: Lisa TORRES REQ: [id number] RECD: 06/25/18 STATUS: RES ALYSE DR: Magdalene Mejia MD _ SOURCE: FOOT,RIGHT [facility]: ORDERED: MRSA/SA SSTI, Culture Stain Procedure Result [...] CONTINUED ON NEXT PAGE DEPARTMENT OF PATHOLOGY, [address] [place] [address] Bulmaro Marks M.D. Director [facility] # [id number] Patient: KIRK ZARAGOZA [id number] (Continued) Specimen: [id number] Collected: 06/25/18 Received: 06/25/18-1613 (Continued) Procedure Result [...] These antibiotics are not available in the [facility] Formulary Contact the Microbiology Department for any additional antibiotic reporting. CONTINUED ON NEXT PAGE DEPARTMENT OF PATHOLOGY, [address] [place] [address] Bulmaro Marks M.D. Director [facility] # [id number] Patient: KIRK ZARAGOZA [id number] (Continued) Specimen: [id number] Collected: 06/25/18 Received: 06/25/18 (Continued) Procedure Result Reported Site Wound/Misc Culture Preliminary (continued) Contact the Microbiology Department for any additional antibiotic reporting. * ML - Main Lab . END OF REPORT DEPARTMENT OF PATHOLOGY, [address] [place] [address] Bulmaro Marks M.D. Director [facility] # [id number] 22 Critical Result LACT:2.7 Called to ALIX at: 16:13:07 by:[id number] Read back by:ALIX PENN Severe Sepsis and Septic Shock Management Bundle Measure requires all lactic acids initially measuring >2.0 mmol/L be repeated. 23 SEE RESULT BELOW Name: KIRK ZARAGOZA : [address]: Radha Pink MD Acct: [id number] Unit: [id number] AGE: 58 Location: [place] [address]- Re06/25/18 SEX: M Status: ADM IN SPEC: [id number] KATIE: 06/25/[address] [facility] [address]: iLsa TORRES REQ: [id number] RECD: 06/25/18 STATUS: HARPREET CULLEN DR: Magdalene Mejia MD _ SOURCE: BLOOD,VENO SPDESC: ORDERED: Blood Cult Procedure Result Reported Site Aerobic Culture Bottle Final 06/30/18- 1616 ML No Growth Day 5 Anaerobic Culture Bottle Final 06/30/18- 1614 ML No Growth Day 5 * ML - Main Lab . END OF REPORT DEPARTMENT OF PATHOLOGY, [address] [place] [address] Bulmaro Marks M.D. Director [facility] # [id number] 24 Because ethnic data is not always [...] [address]: Kirk Morrison MD Acct: [id number] Unit: [id number] AGE: 58 Location: WOUND Re06/01/18 SEX: M Status: REG REF SPEC: [id number] KATIE: 06/01/[address] [facility] [address]: Kirk Morrison MD REQ: [id number] RECD: 06/01/18 STATUS: HARPREET CULLEN DR: Magdalene Emanuel MD _ SOURCE: TOE SPDESC:RIGHT ORDERED: Culture Stain QUERIES: Specimen Description RIGHT 5TH TOE Procedure Result Reported Site Wound/Misc Gram Stain Final 06/01/18- 1740 ML 1+ Epithelial Cells 2+ Neutrophils 4+ Gram Positive Cocci Wound/Misc Culture Final 06/05/18- 843 ML Organism 1 STREP GROUP C Quantity [...] laboratory. Suggest resubmission. * - [facility] . END OF REPORT DEPARTMENT OF PATHOLOGY, [address] [place] [address] Bulmaro Marks M.D. Director [facility] # [id number] 30 SEE RESULT BELOW Name: KIRK ZARAGOZA : [address]: Kirk Morrison MD Acct: [id number] Unit: [id number] AGE: 58 Location: WOUND Re05/04/18 SEX: M Status: REG REF SPEC: [id number] KATIE: 05/04/18-[address]: Kirk Morrison MD REQ: [id number] RECD: 05/04/18 STATUS: COMP [facility] DR: Magdalene Emanuel MD _ SOURCE: FOOT,RIGHT SPDESC: ORDERED: Culture Stain QUERIES: Specimen Description RIGHT LATERAL FOOT Procedure Result Reported Site Wound/Misc Gram Stain Final 05/05/18- 1128 ML 1+ Nucleated Cells 1+ Epithelial Cells No Organisms Seen Wound/Misc Culture Final 05/06/18- 1035 ML Organism 1 NORMAL DIVINA Quantity 1+ * ML - Main Lab . END OF REPORT DEPARTMENT OF PATHOLOGY, [address] [place] [address] Bulmaro Marks M.D. Director [facility] # [id number] 31 Desirable: <150 Borderline High: 150-199 High: [...] in selective patients <6.0%. Please refer to [place] [employer] diabetic care guidelines for further information. 38 Serum levels of PSA measured using the [employer] DXI Hybritech immunoassay should not be interpreted [...] 5 Kidney failure <15 (or dialysis) 41 [id number] 42 Because ethnic data is not always [...] clinically warranted. Reviewed by Dr. Marks 44 [id number] 45 Acute inflammation: >10.00 46 Therapeutic target for the treatment of diabetes Mellitus patients is <7% HBA1C, and in selective patients <6.0%.Please refer to [place] [employer] Diabetic care guidelines for further [...] developed and its performance characteristics determined by [facility] in a manner consistent with CLIA requirements. This test has not been cleared or approved by the U.S. Food and Drug Administration. Test Performed by: [facility] - [place] [id number] 57 Serologic response to B. burgdorferi infection is not detected, but cannot rule out early infection during which low or undetectable antibody levels to B. burgdorferi may be present. If clinically indicated, a new serum specimen should be submitted in 7-14 days. Test Performed by: [address] [id number] 58 Because ethnic data is not always [...] dialysis) Procedures Date Code Description Status 11/03/2018 90827 EKG Tracing & Interpretation Completed 09/29/2018 67872 ECHO Transthoracic, Real-Time 2D With Doppler And Color Completed Flow 09/29/2018 89266 ECHO Transthoracic, Real-Time 2D With Doppler And Color Completed Flow 06/28/2018 57273 EKG, Interpretation Only Completed 06/28/2018 03656 Amputation Metatarsal W/Toe Completed 06/28/2018 10056 Amputation Metatarsal W/Toe Completed 06/27/2018 09259 ECHO Transthorasic Realtime 2D W Doppler & Color Flow Completed Hosp 06/15/2018 93749 Debridement Skin,& sq Tissue Completed 06/08/2018 80734 Debridement Skin,& sq Tissue Completed 06/03/2018 58868 Apply Total Contact Leg Cast Completed 06/01/2018 82580 Debridement Skin, Subcutaneous Tissue & Muscle Completed 05/25/2018 88987 Debridement Skin,& sq Tissue Completed 05/18/2018 37770 Debridement Skin,& sq Tissue Completed 05/11/2018 53183 Debridement Skin,& sq Tissue Completed 05/04/2018 82233 Debridement Skin,& sq Tissue Completed 04/29/2018 57379 Debridement Skin,& sq Tissue Completed 12/14/2017 07118 Polysomnography Sleep Staging 4+ Parameters W/Cpap Completed 11/26/2017 44481126 Colonoscopy Completed 11/03/2017 12611 Polysomnography Sleep Staging 4+ Parameters Completed 07/20/2017 78420 Stress Test Completed 07/20/2017 20505 Myocardial Perfusion Imaging Tomographic (Spect) Completed Multiple Studies 06/12/2017 44032 EEG Recording Awake & Drowsy Completed 05/20/2017 31207 ECHO Transthoracic, Real-Time 2D With Doppler And Color Completed Flow 05/20/2017 18745 ECHO Transthoracic, Real-Time 2D With Doppler And Color Completed Flow 04/29/2017 76393 EKG Tracing & Interpretation Completed 04/15/2017 22416 Holter Monitor Review (24 hr)dr review & interp only Completed 04/09/2017 64675 ECG Monitor/Recording W/Visual Superimposition Scanning Completed 03/27/2017 69242 EKG Tracing & Interpretation Completed 08/07/2015 77559 EKG Tracing & Interpretation Completed 05/09/2015 41064 EKG Tracing & Interpretation Completed 05/08/2015 68324 ECHO Transthoracic, Real-Time 2D With Doppler And Color Completed Flow 01/11/2015 99216 ECHO Transthorasic Realtime 2D W Doppler & Color Flow Completed Hosp 01/10/2015 82081 EKG, Interpretation Only Completed 01/10/2015 62147 Cardioversion Completed 01/10/2015 93799 Color Flow Doppler/Interp & Reprt Completed 01/10/2015 05101 Pulse Wave/Continuous-Interp.RPT Completed 01/10/2015 28474 Echocardiography, Transesophageal, Real Time W/Image 2D Completed W/W/O M-M 01/09/2015 06866 EKG, Interpretation Only Completed 01/07/2015 12388 ECHO Transthorasic Realtime 2D W Doppler & Color Flow Completed Hosp 09/09/2013 15394 ECHO Transthoracic, Real-Time 2D With Doppler And Color Completed Flow 08/09/2013 03514 EKG Tracing & Interpretation Completed 05/25/2013 20491 EKG, Interpretation Only Completed 05/25/2013 04223 Cardioversion Completed 05/20/2013 19779 EKG Tracing & Interpretation Completed 04/06/2013 61242 Color Flow Doppler/Interp & Reprt Completed 04/06/2013 38872 Pulse Wave/Continuous-Interp.RPT Completed 04/06/2013 97012 Echocardiography, Transesophageal, Real Time W/Image 2D Completed W/W/O M-M 04/06/2013 18425 EKG, Interpretation Only Completed Encounters Type Date Location Provider Dx Diagnosis Office Visit 11/09/2018 [place] [facility] Bigg Looney MD Z79.4 shelter 2:40p Endocrinology of [facility] (current) use of insulin E11.9 Type 2 diabetes mellitus without complications Office Visit 11/08/2018 11:40a [facility] Internal Magdalene E11.9 Type 2 diabetes Medicine - Janeth Emanuel mellitus without [place] complications I10 Essential (primary) hypertension L03.116 Cellulitis of left lower limb 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 osteomyelitis, right C.M.A. ankle and foot Office Visit 10/05/2018 [facility] Marek Gr E11.9 Type 2 diabetes 11:10a For Infectious [place], mellitus without Diseases M.D. complications Office Visit 08/25/2018 [facility] Marek Gr M86.171 Other acute 10:30a For Infectious [place], osteomyelitis, right Diseases M.D. ankle and foot Z79.2 long term care social worker (current) use of antibiotics E11.69 Type 2 diabetes mellitus with other specified complication Office Visit 08/24/2018 [place] [facility] Bigg Looney, E11.65 Type 2 diabetes 1:20p Endocrinology of mellitus with [facility] hyperglycemia E11.69 Type 2 diabetes mellitus with other specified complication Z79.4 long term care social worker (current) use of insulin M86.171 Other acute osteomyelitis, right ankle and foot Office Visit 07/22/2018 [facility] Marek Gr M86.171 Other acute 3:40p For Infectious [place], M.D. osteomyelitis, Diseases right ankle and foot E11.69 Type 2 diabetes mellitus with other specified complication Z79.2 long term care social worker (current) use of antibiotics Office Visit 07/12/2018 1:00p [place] Tatiana and Bigg Looney, Z79.4 shelter Endocrinology of [facility] MD (current) use of insulin E11.69 Type 2 diabetes mellitus with other specified complication Office Visit 07/05/2018 [facility] M86.171 Other acute 9:21a Assocrebecca NP osteomyelitis, Hospitalists right ankle and foot E11.621 Type 2 diabetes mellitus with foot ulcer L97.519 Non-prs chronic ulcer oth prt right foot w unsp severity Z89.421 Acquired absence of other right toe(s) Office Visit 07/04/2018 [facility] Z47.81 Encounter for 9:20a rebecca Whyte NP orthopedic Hospitalists aftercare following surgical amp Z89.421 Acquired absence of other right toe(s) E11.65 Type 2 diabetes mellitus with hyperglycemia D72.829 Elevated white blood cell count, unspecified I10 Essential (primary) hypertension Office Visit 07/03/2018 [facility] Z47.81 Encounter for 9:20a rebecca Whyte NP orthopedic Hospitalists aftercare following surgical amp Z89.421 Acquired absence of other right toe(s) E11.65 Type 2 diabetes mellitus with hyperglycemia D72.829 Elevated white blood cell count, unspecified I10 Essential (primary) hypertension Office Visit 07/02/2018 [facility] Marek Gr E11.69 Type 2 diabetes 8:25a For Infectious Janeth Cheatham 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.073 Infective myositis, right foot L03.115 Cellulitis of right lower limb Office Visit 07/02/2018 [place] [facility] Bigg Looney E11.69 Type 2 diabetes 8:54a Endocrinology of MD mellitus with Setter Helper other specified complication M60.073 Infective myositis, right foot Office Visit 07/02/2018 [facility] Z47.81 Encounter for 9:20a rebecca Whyte NP orthopedic Hospitalists aftercare following surgical amp Z89.421 Acquired absence of other right toe(s) E11.65 Type 2 diabetes mellitus with hyperglycemia D72.829 Elevated white blood cell count, unspecified I10 Essential (primary) hypertension Office Visit 07/01/2018 [facility] Z47.81 Encounter for 9:19a rebecca Whyte NP orthopedic Hospitalists aftercare following surgical amp Z89.421 Acquired absence of other right toe(s) E11.65 Type 2 diabetes mellitus with hyperglycemia D72.829 Elevated white blood cell count, unspecified Z87.891 Personal history of nicotine dependence I10 Essential (primary) hypertension Office Visit 06/30/2018 9:19a [facility] Z47.81 Encounter for rebecca Whyte NP orthopedic Hospitalists aftercare following surgical amp Z89.421 Acquired absence of other right toe(s) E11.9 Type 2 diabetes mellitus without complications I10 Essential (primary) hypertension D72.829 Elevated white blood cell count, unspecified Office Visit 06/29/2018 9:18a [facility] Z47.81 Encounter for rebecca Whyte NP orthopedic Hospitalists aftercare following surgical amp Z89.421 Acquired absence of other right toe(s) E11.9 Type 2 diabetes mellitus without complications I10 Essential (primary) hypertension R00.0 Tachycardia, unspecified D72.829 Elevated white blood cell count, unspecified Office Visit 06/29/2018 [facility] Marek D. E11.69 Type 2 diabetes 7:59a For Infectious Madi Cheatham. 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.073 Infective myositis, right foot L03.115 Cellulitis of right lower limb Office [facility] 06/28[facility]2018 [facility]40 Type 2 diabetes For Infectious Janeth Cheatham mellitus with Diseases diabetic neuropathy, unsp E11.69 Type 2 diabetes mellitus with other specified complication M86.171 Other acute osteomyelitis, right ankle and foot M84.674A Pathological fracture in oth disease, right foot, init Office Visit 06/28/2018 [facility] M86.171 Other acute 9:16a rebecca Whyte NP osteomyelitis, Hospitalists right ankle and foot E11.621 Type 2 diabetes mellitus with foot ulcer L97.519 Non-prs chronic ulcer oth prt right foot w unsp severity I10 Essential (primary) hypertension Office Visit 06/27/2018 [facility] M86.171 Other acute 9:16a rebecca Whyte M.D. osteomyelitis, Hospitalists right ankle and foot E11.621 Type 2 diabetes mellitus with foot ulcer L97.519 Non-prs chronic ulcer oth prt right foot w unsp severity Office Visit 06/27/2018 Orthopedic Nicole Adame M86.171 Other acute 8:46a Services Of MELISSA Barry osteomyelitis, C.M.A. right ankle and foot Office Visit 06/26/2018 [facility] M86.171 Other acute 9:16a rebecca Whyte [...] right foot, initial encounter Office Visit 06/25/2018 [facility] Armando M86.171 Other acute 9:16a Assrebecca amin M.D. osteomyelitis, Hospitalists right ankle and foot E11.621 Type 2 diabetes mellitus with foot ulcer L97.519 Non-prs chronic ulcer oth prt right foot w unsp severity I10 Essential (primary) hypertension Office Visit 04/29/2018 1:00p Wound Care Kirk Clifford E11.621 Type 2 diabetes [facility] [place]eth Morrison mellitus with foot ulcer I10 Essential (primary) hypertension Z79.01 long term care social worker (current) use of anticoagulants E11.40 Type 2 diabetes mellitus with diabetic neuropathy, unsp Office Visit 03/30/2018 [facility] Internal Magdalene E11.65 Type 2 diabetes 4:00p Leo Emanuel M.D. mellitus with [place] hyperglycemia I10 Essential (primary) hypertension E78.5 Hyperlipidemia, unspecified Office Visit 01/18/2018 4:00p [facility] Internal Magdalene I10 Essential ( primary) Leo Emanuel M.D. hypertension [place] K62.5 Hemorrhage of anus and rectum E11.65 Type 2 diabetes mellitus with hyperglycemia Z11.59 Encounter for screening for other viral diseases Office Visit 01/12/2018 [facility] Rosie G47.33 Obstructive sleep 1:45p Sleep Services Of TAMARA Stewart, TRI, apnea (adult) [facility] (pediatric) Office Visit 12/14/2017 [facility] Internal Magdalene E11.65 Type 2 diabetes 2:40p Leo Emanuel M.D. 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 anus and rectum [place] L89.300 Pressure ulcer of unspecified buttock, unstageable E11.65 Type 2 diabetes mellitus with hyperglycemia R21 Rash and other nonspecific skin eruption R41.82 Altered mental status, unspecified Office Visit 10/22/2017 2:30p [facility] Yeimy Coronel, R06.83 Snoring Services Of [facility] R40.0 Somnolence Office Visit 09/18/2017 2:00p [facility] Internal Magdalene I10 Essential ( primary) Leo Emanuel M.D. hypertension [place] E11.65 Type 2 diabetes mellitus with hyperglycemia Z23 Encounter for immunization K62.5 Hemorrhage of anus and rectum Z12.5 Encounter for screening for malignant neoplasm of prostate Office Visit 09/17/2017 9:15a Bambi Toro, I69.318 Other symptoms Neurologic M.D. and signs w Services Of [facility] cogn fnctns fol cerebral infrc G47.30 Sleep apnea, unspecified I48.0 Paroxysmal atrial fibrillation Z79.01 long term care social worker (current) use of anticoagulants Office Visit 07/31/2017 [place] Arthur Childers, I77.810 Thoracic aortic 8:45a Cardiology Of M.Michael., FACC, FASNC ectasia [facility] Office Visit 06/11/2017 Bambi Toro, R41.82 Altered mental 1:00p Neurologic M.D. status, Services Of [facility] unspecified Z86.73 Prsnl hx of TIA (TIA), and cereb infrc w/o resid deficits I10 Essential (primary) hypertension Z79.01 long term care social worker (current) use of anticoagulants Office Visit 05/15/2017 4:40p [facility] Internal Magdalene I10 Essential ( primary) Leo Emanuel M.D. hypertension [place] E11.65 Type 2 diabetes mellitus with hyperglycemia R06.83 Snoring Office Visit 05/05/2017 9:00a [facility] Internal Magdalene I10 Essential ( primary) Leo Emanuel M.D. 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 hypertension [place] E11.65 Type 2 diabetes mellitus with hyperglycemia R41.82 Altered mental status, unspecified I48.0 Paroxysmal atrial fibrillation Office Visit 03/27/2017 3:40p [facility] Internal Magdalene I10 Essential ( primary) Medicine Chuck Emanuel M.D. hypertension [place] I42.9 Cardiomyopathy, unspecified E11.9 Type 2 diabetes mellitus without complications I48.91 Unspecified atrial fibrillation R41.82 Altered mental status, unspecified Office Visit 08/07/2015 2:00p [facility] Arthur Restrepo I48.0 Paroxysmal atrial Of Falguni Childers M.D., fibrillation FACC, FASNC Office Visit 05/09/2015 12:45p [facility] Vi Mendoza, 427.31 Atrial Of Falguni Fowler Fibrillation 425.9 Cardiomyopathy Secondary Unspecified 401.1 Hypertension Benign 250.00 Diabetes Mellitus W/O Compl Type II Or Unspec Controlled Office Visit 01/12/2015 [facility] Nora Bryson, 427.31 Atrial 4:23p rebecca Whyte M.D. Fibrillation Hospitalists 250.90 Diabetes W/ Unspec Compl Type II Or Unspec Controlled 428.20 Systolic Heart Failure Unspecified Office Visit 01/11/2015 [facility] Nora Bryson, 427.31 Atrial 4:22p rebecca Whyte M.D. Fibrillation Hospitalists 250.90 Diabetes W/ Unspec Compl Type II Or Unspec Controlled 458.0 Hypotension Orthostatic 428.30 Diastolic Heart Failure Unspecified Office Visit 01/10/2015 10:41a [facility] Marcus Clifford 427.32 Atrial Flutter Janeth German 425.4 Cardiomyopathy Other Prim Office Visit 01/10/2015 [facility] Gracia 427.31 Atrial 4:22p Assoc,pc Rooth, DO Fibrillation Hospitalists 428.30 Diastolic Heart Failure Unspecified 250.90 Diabetes W/ Unspec Compl Type II Or Unspec Controlled 790.6 Abnormal Blood Chemistry Other Office Visit 01/09/2015 11:44a [facility] Adan DCullen 427.31 Atrial Of Falguni Mckinley M.D. Fibrillation 425.4 Cardiomyopathy Other Prim Office Visit 01/09/2015 [facility] Gracia 427.31 Atrial 4:21p Assrebecca amin DO Fibrillation Hospitalists 428.30 Diastolic Heart Failure Unspecified 250.90 Diabetes W/ Unspec Compl Type II Or Unspec Controlled 790.6 Abnormal Blood Chemistry Other Office Visit 01/08/2015 [facility] 427.31 Atrial 4:21p rebecca Whyte M.D. Fibrillation Hospitalists 428.30 Diastolic Heart Failure Unspecified 250.90 Diabetes W/ Unspec Compl Type II Or Unspec Controlled Office Visit 01/07/2015 [facility] 427.31 Atrial 4:21p rebecca Whyte M.D. Fibrillation Hospitalists 428.30 Diastolic Heart Failure Unspecified 790.6 Abnormal Blood Chemistry Other [facility] 427.31 Atrial 4:20p rebecca Whyte II, M.D. Fibrillation Hospitalists 428.30 Diastolic Heart Failure Unspecified 790.6 Abnormal Blood Chemistry Other 276.2 Acidosis Office Visit 09/28/2013 [facility] Arthur Restrepo 427.31 Atrial 10:00a Of Falguni Childers M.D., Fibrillation FACC, FASNC Office Visit 08/09/2013 [facility] Arthur Restrepo 427.31 Atrial 9:00a Of Falguni Childers M.D., Fibrillation FACC, FASNC Office Visit 05/20/2013 [facility] Arthur Restrepo 427.32 Atrial Flutter 12:15p Of Falguni Childers M.D., FACC, FASNC [facility] 8:38a rebecca Whyte M.D. Fibrillation Hospitalists 411.1 Coronary Syndrome Intermediate 275.2 Metabolic Disorder Magnesium 790.6 Abnormal Blood Chemistry Other [facility] Atrial 8:38a Assrebecca amin M.D. Fibrillation Hospitalists 411.1 Coronary Syndrome Intermediate 275.2 Metabolic Disorder Magnesium 790.6 Abnormal Blood Chemistry Other Office Visit 04/08/2013 3:59p [facility] Arthur Restrepo 427.31 Atrial Of [facility] Janeth Childers, Fibrillation [facility] 786.05 Shortness Of Breath Office Visit 04/07/2013 [facility] Armando 427.31 Atrial 8:37a Assoc,rebecca Han M.D. Fibrillation Hospitalists 411.1 Coronary Syndrome Intermediate 275.2 Metabolic Disorder Magnesium 790.6 Abnormal Blood Chemistry Other Office Visit 04/07/2013 [facility] Adan Gr 427.31 Atrial 1:18p Of Falguni Mckinley M.D. Fibrillation Office Visit 04/06/2013 [facility] Yudy 427.31 Atrial 8:37a Assoc,rebecca Avalos MD Fibrillation Hospitalists 411.1 Coronary Syndrome Intermediate 275.2 Metabolic Disorder Magnesium 790.6 Abnormal Blood Chemistry Other Office Visit 04/06/2013 3:00p [facility] Arthur Restrepo 427.32 Atrial Flutter Of [facility] Janeth Childers, OBDULIA, LEO 427.31 Atrial Fibrillation Office Visit 04/05/2013 [facility] Nora Braydon, 427.31 Atrial 8:37a Assrebecca amin M.D. Fibrillation Hospitalists 411.1 Coronary Syndrome Intermediate 275.2 Metabolic Disorder Magnesium 790.6 Abnormal Blood Chemistry Other Plan of Treatment Future Appointment(s):12/23/2018 10:45 am - [facility]2019 11:00 am - Bigg Looney MD at [facility]03/17/2019 10:20 am - Magdalene Emanuel M.D. at [facility] Internal Medicine [facility]12/02/2018 - Davy Raza M.D.L03.116 Cellulitis of left lower limbFollow up:Follow up: 3 [id number] Acquired absence of other right toe(s)
[2018-12-31 13:28] VITALS: BP 133/74
--- NOTE | 2018-12-31 14:55 | ED ---
Lower Extremity - HPI Summary HPI Summary: 58-year-old male presents with rash on left leg. He states he has history of recurrent cellulitis. He is a small healing lesion present left leg. He was just started on Keflex yesterday. Has not taken it a full [address] that noticed today that rash is spreading on the left leg. On exam rash has disappeared mostly. Only has a mild rash now. No fevers or chills. Has had increasing edema to the left leg. no chest pain or shortness breath. - History of Current Complaint Chief Complaint: UCLowerExtremity Stated Complaint: LT LEG INJURY Time Seen by Provider: 12/31/18 14:42 Pain Intensity: 0 - Allergies/Home Medications Allergies/Adverse Reactions: Allergies Allergy/AdvReac Type Severity Reaction Status Date / Time No Known Allergies Allergy Verified 12/31/18 13:28 PMH/Surg Hx/FS Hx/Imm Hx Endocrine/Hematology History: Reports: Hx Diabetes - on meds Cardiovascular History: Reports: Hx Atrial Fibrillation - on xarelto, Hx Congestive Heart Failure, Hx Hypercholesterolemia, Hx Hypertension, Hx Peripheral Vascular Disease, Other Cardiovascular Problems/Disorders - Afib/ Aflutter Denies: Hx Pacemaker/ICD Respiratory History: Reports: Hx Sleep Apnea GI History: Reports: Other GI Disorders - INCONTINENT BOWEL - PT DOES REALIZE WHEN HE IS History: Denies: Hx Renal Disease Musculoskeletal History: Reports: Other Musculoskeletal History - MOTOR SKILL/ WEAKNESS INCREASED; hx osteomyelitis right foot Sensory History: Denies: Hx Contacts or Glasses, Hx Hearing Aid Opthamlomology History: Denies: Hx Contacts or Glasses Neurological History: Reports: Hx Peripheral Neuropathy, Other Neuro Impairments /Disorders - SHORT TERM MEMORY LOSS, 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 foot surgery Dr. Raza 2018 Hx Anesthesia Reactions: No Infectious Disease History: No Infectious Disease History: Denies: Traveled Outside the [place] in Last 30 Days - Family History Known Family History: Positive: Hypertension, Diabetes - Social History Alcohol Use: Rare Hx Substance Use: No Substance Use Type: Reports: None Hx Tobacco Use: Yes - not currently Smoking Status (MU): Former Smoker Review of Systems Negative: Fever Negative: Chest Pain Negative: Shortness Of Breath Positive: Rash All Other Systems Reviewed And Are Negative: Yes Physical Exam Triage Information Reviewed: Yes Vital Signs On Initial Exam: Initial Vitals Temp Pulse Resp BP Pulse Ox 98.4 F 73 16 133/74 99 12/31/18 13:25 12/31/18 13:25 12/31/18 13:25 12/31/18 13:25 12/31/18 13:25 Vital Signs Reviewed: Yes Appearance: Positive: Well-Appearing Skin: Positive: Warm, Dry, Other - lesion present on left lower leg, mild erythema around left leg without any warmth, appears more like PVD rash as blanches and is present on right leg Head/Face: Positive: Normal Head/Face Inspection Eyes: Positive: Normal, Conjunctiva Clear ENT: Positive: Pharynx normal Respiratory/Lung Sounds: Positive: Clear to Auscultation, Breath Sounds Present Cardiovascular: Positive: Normal, RRR Musculoskeletal: Positive: Normal Neurological: Positive: Normal Psychiatric: Positive: Normal Diagnostics - Vital Signs Vital Signs Temp Pulse Resp BP Pulse Ox 12/31/18 13:25 98.4 F 73 16 133/74 99 - Laboratory Lab Statement: Any lab studies that have been ordered have been reviewed, and results considered in the medical decision making process. Lower Extremity Course/Dx - Course Course Of Treatment: 58-year-old male presents with rash on left leg. He states he has history of recurrent cellulitis. He is a small healing lesion present left leg. He was just started on Keflex yesterday. Has not taken it a full [address] that noticed today that rash is spreading on the left leg. On exam rash has disappeared mostly. Only has a mild rash now. No fevers or chills. Has had increasing edema to the left leg. no chest pain or shortness breath. On exam has mild erythema around lesion on left leg. No warmth. Does ovi. Has similar rash on the right leg. Is more consistent with a peripheral vascularly rash. We'll continue Keflexas has not taken it for a full two days. Will increase lasix as leg edema is present bilaterally. Told to place compression socks in the area. told if the rash continues to spread to go to the ER. told follow up with primary. blood pressure is in pre- htn range and has dx of htn. Patient understands agrees plan. - Diagnoses Differential Diagnosis/HQI/PQRI: Positive: Cellulitis, Other - contact, peripheral vascular disease Provider Diagnoses: Rash Discharge - Sign-Out/Discharge Documenting (check all that apply): Patient Departure All imaging exams completed and their final reports reviewed: No Studies - Discharge Plan Condition: Good Disposition: HOME Prescriptions: Furosemide TAB* [Lasix TAB*] 40 mg PO DAILY #7 tab Patient Education Materials: Cellulitis (ED) Referrals: Magdalene Emanuel MD [Primary Care Provider] - Additional Instructions: will increase lasix daily to 40mg for a week continue keflex three times a day, if rash continues to spread go to ER or call primary elevate leg call primary for script for compression socks follow up with primary within 5 days Go to immediately to the ER if develop fever or any new or worsening symptoms - Billing Disposition and Condition Condition: GOOD Disposition: Home
== END 2018-12-31 15:00 | disposition home or self-care (01) ==
LOC: UCEAST 13:12
DX: R21 Rash and other nonspecific skin eruption (principal); E11.9 Type 2 diabetes mellitus without complications; I48.91 Unspecified atrial fibrillation; I50.9 Heart failure, unspecified; E78.00 Pure hypercholesterolemia, unspecified; I11.0 Hypertensive heart disease with heart failure; I73.9 Peripheral vascular disease, unspecified; Z79.01 Long term (current) use of anticoagulants; Z87.891 Personal history of nicotine dependence; Z79.899 Other long term (current) drug therapy
CPT/HCPCS: 99212; G0463

== ENCOUNTER 2019-03-12 14:56 | Emergency (ER) | payer OTHER ==
[2019-03-12] MEDS ORDERED: NS 0.9% 1000 ML** 1,000 ML IV ONE (15:14)
--- NOTE | 2019-03-12 15:19 | ED ---
HPI Diabetic - HPI Summary HPI Summary: A 59 y/o male accompanied by his primary aide presents to [facility] with a chief complaint of a blood glucose around 415 according to his aide at noon today. Per aide the patient was The patient denies any pain, rating his pain as a 0/10 in severity. He also denies N/V/D. Per aide, the patient has some memory loss from a Hx of CVA. - History Of Current Complaint Chief Complaint: EDDiabeticProb Time Seen by Provider: 03/12/19 15:11 Hx Obtained From: Patient Onset/Duration: Sudden Onset, Lasting Hours, Still Present Timing: Hours Severity Initially: Mild Severity Currently: None Character: Alert Aggravating: Nothing Alleviating: Nothing Associated Signs & Symptoms: Negative - N/V/D - Allergies/Home Medications Allergies/Adverse Reactions: Allergies Allergy/AdvReac Type Severity Reaction Status Date / Time No Known Allergies Allergy Verified 12/31/18 13:28 Home Medications: Home Medications Furosemide TAB* [Lasix TAB*] 20 mg PO DAILY 03/12/19 [History Confirmed 03/12/19 ] Insulin Lispro Protamin/Lispro [Humalog Mix 75-25 Vial] 15 units SUBCUT 1730 02/23 [History Confirmed 03/12/19] Insulin Lispro Protamin/Lispro [Humalog Mix 75-25 Vial] 25 units SUBCUT 0900 02/23 [History Confirmed 03/12/19] PMH/Surg Hx/FS Hx/Imm Hx Endocrine/Hematology History: Reports: Hx Diabetes - on meds Cardiovascular History: Reports: Hx Atrial Fibrillation - on xarelto, Hx Congestive Heart Failure, Hx Hypercholesterolemia, Hx Hypertension, Hx Peripheral Vascular Disease, Other Cardiovascular Problems/Disorders - Afib/ Aflutter Denies: Hx Pacemaker/ICD Respiratory History: Reports: Hx Sleep Apnea GI History: Reports: Other GI Disorders - INCONTINENT BOWEL - PT DOES REALIZE WHEN HE IS History: Denies: Hx Renal Disease Musculoskeletal History: Reports: Other Musculoskeletal History - MOTOR SKILL/ WEAKNESS INCREASED; hx osteomyelitis right foot Sensory History: Denies: Hx Contacts or Glasses, Hx Hearing Aid Opthamlomology History: Denies: Hx Contacts or Glasses Neurological History: Reports: Hx CVA, Hx Peripheral Neuropathy, Other Neuro Impairments/Disorders - SHORT TERM MEMORY LOSS, 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 foot surgery Dr. 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 Negative : Fever Negative: Vomiting, Diarrhea, Nausea All Other Systems Reviewed And Are Negative: Yes Physical Exam - Summary Physical Exam Summary: VITAL SIGNS: Reviewed. GENERAL: Patient is an obese MALE who is lying comfortable in the stretcher. Patient is not in any acute respiratory distress. HEAD AND FACE: No signs of trauma. No ecchymosis, hematomas or skull depressions. No sinus tenderness. EYES: PERRLA, EOMI x 2, No injected conjunctiva, no nystagmus. EARS: Hearing grossly intact. Ear canals and tympanic membranes are within normal limits. MOUTH: Oropharynx within normal limits. NECK: Supple, trachea is midline, no adenopathy, no JVD, no carotid bruit, no c- spine tenderness, neck with full ROM. CHEST: Symmetric, no tenderness at palpation. LUNGS: Clear to auscultation bilaterally. No wheezing or crackles. CVS: Regular rate and rhythm, S1 and S2 present, no murmurs or gallops appreciated. ABDOMEN: Soft, non-tender. No signs of distention. No rebound, no guarding, and no masses palpated. Bowel sounds are normal. EXTREMITIES: FROM in all major joints, no edema, no cyanosis or clubbing. NEURO: Alert and oriented x 3. No acute neurological deficits. Speech is normal and follows commands. Answered all questions appropriately. SKIN: Dry and warm. Triage Information Reviewed: Yes Vital Signs On Initial Exam: Initial Vitals Temp Pulse Resp BP Pulse Ox 98.0 F 86 16 143/77 98 03/12/19 15:02 03/12/19 15:02 03/12/19 15:02 03/12/19 15:02 03/12/19 15:02 Vital Signs Reviewed: Yes Diagnostics - Vital Signs Vital Signs Temp Pulse Resp BP Pulse Ox 03/12/19 15:02 98.0 F 86 16 143/77 98 - Laboratory Result Diagrams: 03/12/19 15:55 03/12/19 15:55 Lab Statement: Any lab studies that have been ordered have been reviewed, and results considered in the medical decision making process. Re-Evaluation - Re-Evaluation First Eval Re-Evaluation Time: 17:20 Change: Unchanged Comment: He had small left gluteal abscesses which were draining so I finished draining and put packing. Diabetic Course/Dx - Course Assessment/Plan: A 59 y/o male accompanied by his primary aide presents to [facility] with a chief complaint of a blood glucose around 415 according to his aide at noon today. Per aide the patient was The patient denies any pain, rating his pain as a 0/10 in severity. He also denies N/V/D. Per aide, the patient has some memory loss from a Hx of CVA. Blood work shows that doses of 16.9, slight anemia with hemoglobin 12.9 and hematocrit 39 and normal platelets. VBG shows a normal pH, PCO2 52, PO2 is 62. CMP shows sodium 134, chloride 99, carbon dioxide 27 and it Was 8 and BUN is 39. He since that the patient is slightly dehydrated therefore the patient was given fluids. Glucose 360, lactic acid is 2.3, CRP of 143, urinalysis is negative for UTI. During the physical exam we noticed that the patient has an left gluteus abscesses. Which I indeed. There were 3 abscesses, using lidocaine 1% and 11 blade. I packed the abscesses and I gave the patient Augmentin for the infection. At this point the fingerstick is 279. The patient will be discharged home with follow-up with primary care physician. Patient was instructed to go see the primary care physician next 2 days for wound check. At this point the patient is hemodynamically stable alert and oriented 3. - Diagnoses Provider Diagnoses: Hyperglycemia, Abscess, gluteal, left, Cellulitis Discharge - Sign-Out/Discharge Documenting (check all that apply): Patient Departure - DC Patient Received Moderate/Deep Sedation with Procedure: No - Discharge Plan Condition: Stable Disposition: HOME Prescriptions: Amoxicillin/Clavulanate TAB* [Augmentin TAB 875*] 875 mg PO BID #20 tab Patient Education Materials: Cellulitis (DC), Abscess (ED), Diabetic Hyperglycemia (ED) Referrals: Magdalene Emanuel MD [Primary Care Provider] - (2-3 days) Additional Instructions: FOLLOW UP WITH YOUR PRIMARY CARE PROVIDER. RETURN TO THE ED FOR ANY WORSENING OR NEW SYMPTOMS. - Billing Disposition and Condition Condition: STABLE Disposition: Home - Attestation Statements Document Initiated by [place]: Yes Documenting Scribe: Reid Farfan Provider For Whom Flacoibjazmin is Documenting (Include Credential): Otf Rangel MD Scribe Attestation: IReid, scribed for Otf Rangel MD on 03/13/19 at 1211. Scribe Documentation Reviewed: Yes Provider Attestation: The documentation as recorded by the Reid nova accurately reflects the service I personally performed and the decisions made by Otf gonzalez MD Status of Scribe Document: Viewed
[2019-03-12 16:17] LABS: Hematocrit 39 % (42-52); Hemoglobin 12.9 g/dL (14.0-18.0); Mean Corpuscular HGB Conc 33 g/dL (31-36); Mean Corpuscular Hemoglobin 27 pg (27-31); Mean Corpuscular Volume 82 fL (80-94); Mean Platelet Volume 7.3 fL (7.4-10.4); Platelet Count 215 10^3/uL (150-450); Red Blood Count 4.75 10^6 /uL (4.18-5.48); Red Cell Distribution Width 13 % (10-15); White Blood Count 16.9 10^3/uL (3.5-10.8)
[2019-03-12 16:22] LABS: Albumin 3.8 g/dL (3.2-5.2); BUN/Creatinine Ratio 33.9 (8-20); C Reactive Protein 143.25 mg/L (<8.01); Calcium 9.2 mg/dL (8.6-10.3); EGFR African American 78.5 (>60); EGFR Non-African American 64.9 (>60); Globulin 3.8 g/dL (2-4); Potassium 4.7 mmol/L (3.5-5.0); Total Bilirubin 0.4 mg/dL (0.2-1.0); Total Protein 7.6 g/dL (6.4-8.9)
[2019-03-12] MEDS ORDERED: Insulin REGULAR(*) 1 UNITS UNIT IV PUSH ONE (16:24)
[2019-03-12 16:56] LABS: ABS Lymphocytes 2.4 10^3/ul (1.0-4.8); ABS Monocytes 1.6 10^3/ul (0-0.8); ABS Neutrophils 12.8 10^3/ul (1.5-7.7); Eosinophil % 0.3 %; Lymphocyte % 14.1 %
[2019-03-12 17:54] LABS: Urine Appearance Clear; Urine Bilirubin Negative (Negative); Urine Blood Negative (Negative); Urine Color Yellow; Urine Glucose 3+(>=500 mg/dL) (Negative); Urine Ketones Negative (Negative); Urine Nitrite Negative (Negative); Urine Protein Negative (Negative); Urine Specific Gravity 1.011 (1.010-1.030); Urine Urobilinogen Negative (Negative)
[2019-03-12] MEDS ORDERED: Amoxicillin/Clavulanate TAB* 875 MG PO ONE (18:06)
[2019-03-12 18:57] VITALS: BP 164/85
== END 2019-03-12 18:56 | disposition home or self-care (01) ==
LOC: ED 14:56
DX: E11.65 Type 2 diabetes mellitus with hyperglycemia (principal); L02.31 Cutaneous abscess of buttock; L03.317 Cellulitis of buttock; I48.91 Unspecified atrial fibrillation; I50.9 Heart failure, unspecified; I11.0 Hypertensive heart disease with heart failure; Z79.4 Long term (current) use of insulin; Z79.899 Other long term (current) drug therapy; Z79.01 Long term (current) use of anticoagulants; Z87.891 Personal history of nicotine dependence
CPT/HCPCS: 10060; 36415; 80053; 81003; 82803; 83605; 85025; 86140; 96361; 96374; 99284; A9270-GY

== ENCOUNTER 2019-09-01 11:39 | Emergency (ER) | payer MEDICARE, OTHER ==
--- OUTSIDE RECORDS SUMMARY | 2019-09-01 11:44 | XMS REPORT | Continuity of Care Document ---
:1960 External Reference #:[id number] Author Name Magdalene Emanuel M.D. (transmitted by agent of provider Sherice Resendez ) Address [address], [place] [address] Care Team Providers Name Role Phone Magdalene Emanuel MD - Internal Care Team Information Campus Recruiting Coordinator Medicine Ignacio Otero MD - Gastroenterology Care Team Information Campus Recruiting Coordinator Ronal Kelley DPM - Foot Surgery Care Team Information Campus Recruiting Coordinator Salomon Charles MD - Surgery Care Team Information Campus Recruiting Coordinator Rc Quiros MD - Surgery Care Team Information Campus Recruiting Coordinator Problems Active Problems Provider Date Atrial fibrillation Arthur Childers M.D., [facility], Onset: 08/09/2013 FASNC Benign essential hypertension Vi Mendoza M.D. Onset: 05/09/2015 Cardiomyopathy Magdalene Emanuel M.D. Onset: 03/27/2017 Type 2 diabetes mellitus Magdalene Emanuel M.D. Onset: 04/03/2017 Paroxysmal atrial fibrillation Arthur Childers M.D., [facility], Onset: 2016 FASNC Altered mental status Phu Toro M.D. Onset: 06/11/2017 History of cerebrovascular accident Phu Toro M.D. Onset: 06/11/2017 without residual deficits Thoracic aortic ectasia Arthur Childers M.D., [facility], Onset: 07/31/2017 FASNC Obstructive sleep apnea syndrome Rosie Stewart DNP, RN, Onset: 11/12/2017 [employer] [employer]ER-BC Disturbance of consciousness Phu Toro M.D. Onset: 12/07/2017 Amnesia Phu Toro M.D. Onset: 12/07/2017 Alcohol-induced psychosis Phu Toro M.D. Onset: 12/07/2017 Social History Type Date Description Comments Sex Unknown Tobacco Use Start: Unknown End: Former Cigarette Smoker Unknown Smoking Status Reviewed: 07/28/19 Former Cigarette Smoker ETOH Use Has consumed alcohol in heavy the past ETOH Use Rarely consumes alcohol 3-5 per month - beer Tobacco Use Start: Unknown End: Patient is a former quit in 2002 Unknown smoker Recreational Drug Use Denies Drug Use Exercise Type/Frequency Exercises regularly PT daily Allergies, Adverse Reactions, Alerts Description No Known Drug Allergies Medications Active Medications SIG Qnty Indications Ordering Provider Date Rollator with 4 x 8" 1units R26.81 Magdalene Cotton, 07/28/2019 [facility] wheels, seat, M.D. basket, breaks for daily use L97.519 Z47.81 Furosemide 1 by mouth every 30tabs Magdalene Cotton, 07/07/2019 20mg Tablets day M.D. Lisinopril 1 by mouth every 30tabs I10 Magdalene Cotton, 07/06/2019 10mg Tablets day M.D. Amlodipine Besylate 1 by mouth every 30tabs Magdalene Cotton, 07/06/2019 5mg day M.D. Tablets U Shaped Callus Pad Apply to heel 30units Magdalene Cotton, 06/18/2019 once daily M.D. Torsemide take 1 tablet by 30tabs Magdalene Cotton, 03/18/2019 10mg Tablets mouth once daily M.D. Depend Underwear Change three 90units Magdalene Cotton, 03/02/2019 Large/Extra Large times daily or as M.D. Maximum Absorbency needed Male [facility] Humalog Mix 75/25 25 units with 15ml E11.69 Bigg Looney MD 12/21/2018 Kwikpen first meal of the (75-25)100Unit/ML day, 15 units Supn with last meal of the day Freestyle Kyler 14 use at least 4 1units E11.9 Bigg Looney MD 11/09/2018 Day/[place]/Flash times daily with Monitoring System sensor Device Freestyle Kyler [address] one sensor 2units E11.9 Pride Coch, MD 2018 Day/Sensor/Flash every 14 days Monitoring System Misc Pen [place] 1/2" for use twice a 100units E11.621 Magdalene Emanuel, 2018 29G X day with insulin M.D. 12mm Misc pen Aquaphor Advanced apply to affected 1Tbeto Raza, 10/21/2018 Therapy area daily M.D. Ointment Knee High Compression 1Pair Davy Raza, 10/21/2018 Stockings M.DCullen Thiamine HCL take 1 tablet a 90tabs F10.19 Magdalene Emanuel, 12/07/2017 100mg day M.D. Tablets Xarelto 1 by mouth every 90tabs Magdalene Emanuel, 05/22/2017 20mg Tablets day, take with M.D. evening meal Atorvastatin Calcium 1 by mouth every 90tabs E11.65 Magdalene Emanuel, 10mg day M.D. Tablets Metoprolol Succinate 1 by mouth every 90tabs I10 Magdalene Emanuel, 2016 ER day M.D. 25mg Tablets ER 24HR Metformin HCL take 1 tablet by 180tabs Magdalene Emanuel, 500mg mouth twice a day M.D. Tablets Acetaminophen 2 tablets by Unknown 325mg mouth every 6 Tablets hours as needed for pain/fever History Medications Lisinopril 1 by mouth 30tabs I10 Magdalene Emanuel, 06/17/2019 - 20mg Tablets every day M.D. 07/06/2019 Valacyclovir HCL 1 PO tid for 21tabs R21 Magdalene Emanuel, 06/17/2019 - 1gm one week M.D. 06/25/2019 Tablets Furosemide 1 by mouth Magdalene Emanuel, 03/14/2019 - 20mg Tablets every day M.D. 03/18/2019 Augmentin one by mouth 20tabs Magdalene Emanuel, 03/14/2019 - 875-125mg every 12 hours M.D. 03/16/2019 Tablets for ten days Lisinopril 10mg once daily 30tabs I10 Bigg Looney MD 03/06/2019 - 10mg Tablets 06/17/2019 HM Entrust Plus Magdalene Emanuel, 02/14/2019 - Disposable M.D. 03/02/2019 Underwear/Mens/Large-E xtra Large Misc Lisinopril 1/2 by mouth 30tabs I10 Bigg Looney MD 02/09/2019 - 20mg Tablets every day 03/06/2019 Medications Administered in Office Medication SIG Qnty Indications Ordering Provider Date Inj, Regadenoson, 0.1 MG Arthur Childers M.D., 07/20/2017 Injection LEO STEINER Technetium TC 99M Arthur Childers M.D., 07/20/2017 Tetrofosmin, Per Unit Dose LEO STEINER Up To 40 Millicuries Injection Immunizations CPT Code Status Date Vaccine Lot # [id number] Given 09/18/2017 Pneumonia Vaccine [id number] Given 09/18/2017 Influenza Virus Vaccine, Quadrivalent, Split, [id number] Preservative Free Vital Signs Date Vital Result Comment 07/28/2019 3:56pm Height 72 inches 6'0" Weight 276.00 lb Heart Rate 82 /min BP Systolic 134 mmHg BP Diastolic 76 mmHg Body Temperature 98.2 F O2 % BldC Oximetry 97 % BMI (Body Mass Index) 37.4 kg/m2 07/21/2019 9:51am Height 72 inches 6'0" Weight 274.38 lb Heart Rate 82 /min BP Systolic Sitting 120 mmHg BP Diastolic Sitting 74 mmHg Respiratory Rate 14 /min Body Temperature 97.3 F BMI (Body Mass Index) 37.2 kg/m2 Results Test Acquired Date Facility Test Result H/L Range Note Basic Metabolic 05/12/2019 [facility] Sodium 136 mmol/L Normal 135-145 Panel [address] [place] [address] [phone] Potassium 4.9 mmol/L Normal 3.5-5.0 Chloride 98 mmol/L Low 101-111 Co2 Carbon Dioxide 30 mmol/L Normal 22-32 Anion Gap 8 mmol/L Normal 2-11 Calcium 9.2 mg/dL Normal 8.6-10.3 Glucose 199 mg/dL High 70-100 Blood Urea Nitrogen 42 mg/dL High 6-24 Creatinine 1.17 mg/dL Normal 0.67-1.17 BUN/Creatinine Ratio 35.9 High 8-20 Egfr Non- 63.6 >60 Egfr 76.9 >60 1 Laboratory test 05/12/2019 [facility] Hemoglobin A1c 7.9 % High 4.0-5.[address] (Glyco HGB) [place] [address] [phone] Laboratory test 03/12/2019 [facility] Point of Care 279 High 70-100 [address] Glucose mg/[place] [address] [phone] Laboratory test 03/12/2019 [facility] Point of Care 382 High 70-100 [address] Glucose mg/[place] [address] [phone] Venous Blood 03/12/2019 [facility] Venous Blood 7.34 Normal 7.32-7.[address] [place] [address] [phone] Venous Pco2 52 mmHg High 41-51 Venous Po2 41.0 mmHg Normal 35-45 Venous O2 Saturation 62.0 % Low 70-80 Venous Blood Base Excess 1.4 mmol/L Normal 0.0-4.0 5 Venous Bicarbonate Hco3 25.0 mmol/L Normal 24-28 Comp Metabolic Panel 03/12/2019 [facility] Sodium 134 mmol/L Low 135-[address] [place] [address] [phone] Potassium 4.7 mmol/L Normal 3.5-5.0 Chloride 99 mmol/L Low 101-111 Co2 Carbon Dioxide 27 mmol/L Normal 22-32 Anion Gap 8 mmol/L Normal 2-11 Glucose 360 mg/dL High 70-100 Blood Urea Nitrogen 39 mg/dL High 6-24 Creatinine 1.15 mg/dL Normal 0.67-1.17 BUN/Creatinine Ratio 33.9 High 8-20 Calcium 9.2 mg/dL Normal 8.6-10.3 Total Protein 7.6 g/dL Normal 6.4-8.9 Albumin 3.8 g/dL Normal 3.2-5.2 Globulin 3.8 g/dL Normal 2-4 Albumin/Globulin Ratio 1.0 Normal 1-3 Total Bilirubin 0.40 mg/dL Normal 0.2-1.0 Alkaline Phosphatase 106 U/L High 34-104 Alt 20 U/L Normal 7-52 Ast 12 U/L Low 13-39 Egfr Non- 64.9 >60 Egfr 78.5 >60 6 Laboratory test 03/12/2019 [facility] C Reactive 143.25 mg/L High <8.[address] [place] [address] [phone] Lactic Acid 2.3 mmol/L Critical high 0.5-2.0 7 CBC Auto 03/12/2019 [facility] White Blood 16.9 10^3/uL High 3.5-10.[address] [place] [address] [phone] Red Blood Count 4.75 10^6/uL Normal 4.18-5.48 Hemoglobin 12.9 g/dL Low 14.0-18.0 Hematocrit 39 % Low 42-52 Mean Corpuscular Volume 82 fL Normal 80-94 Mean Corpuscular Hemoglobin 27 pg Normal 27-31 Mean Corpuscular HGB Conc 33 g/dL Normal 31-36 Red Cell Distribution Width 13 % Normal 10-15 Platelet Count 215 10^3/uL Normal 150-450 Mean Platelet Volume 7.3 fL Low 7.4-10.4 Abs Neutrophils 12.8 10^3/uL High 1.5-7.7 Abs Lymphocytes 2.4 10^3/uL Normal 1.0-4.8 Abs Monocytes 1.6 10^3/uL High 0-0.8 Abs Eosinophils 0.0 10^3/uL Normal 0-0.6 Abs Basophils 0.0 10^3/uL Normal 0-0.2 Abs Nucleated RBC 0.0 10^3/uL Granulocyte % 75.9 % Lymphocyte % 14.1 % Monocyte % 9.4 % Eosinophil % 0.3 % Basophil % 0.3 % Nucleated Red Blood Cells % 0.0 Urinalysis Profile 03/12/2019 [facility] Urine Color Yellow [address] [place] [address] [phone] Urine Appearance Clear Urine Specific [place] 1.011 Normal 1.010-1.030 Urine pH 5.0 Normal 5-9 Urine Urobilinogen Negative Negative Urine Ketones Negative Negative Urine Protein Negative Negative Urine Leukocytes Negative Negative Urine Blood Negative Negative Urine Nitrite Negative Negative Urine Bilirubin Negative Negative Urine Glucose 3+(>=500 mg/dL) Abnormal Negative Basic Metabolic 02/17/2019 [facility] Sodium 138 mmol/L Normal 135-145 Panel [address] [place] [address] [phone] Chloride 102 mmol/L Normal 101-111 Co2 Carbon Dioxide 29 mmol/L Normal 22-32 Calcium 9.4 mg/dL Normal 8.6-10.3 Potassium 5.3 mmol/L High 3.5-5.0 Anion Gap 7 mmol/L Normal 2-11 Glucose 143 mg/dL High 70-100 Blood Urea Nitrogen 43 mg/dL High 6-24 Creatinine 1.04 mg/dL Normal 0.67-1.17 BUN/Creatinine Ratio 41.3 High 8-20 Egfr Non- 73.1 >60 Egfr 88.4 >60 8 Lipid Profile 02/17/2019 [facility] Triglycerides 95 mg/dL 9 (Trig/Chol/HDL) [address] [place] [address] [phone] Cholesterol 98 mg/dL 10 HDL Cholesterol 33.9 mg/dL 11 LDL Cholesterol 45 mg/dL 12 Laboratory test 02/09/2019 [facility] Hemoglobin A1c 7.1 % High 4.0-5.6 [address] (Glyco HGB) [place] [address] [phone] Comp Metabolic 02/09/2019 [facility] Sodium 140 Normal 135- [address] mmol/[place] [address] [phone] Chloride 102 mmol/L Normal 101-111 Co2 Carbon Dioxide 34 mmol/L High 22-32 Glucose 165 mg/dL High 70-100 Blood Urea Nitrogen 36 mg/dL High 6-24 Creatinine 1.12 mg/dL Normal 0.67-1.17 BUN/Creatinine Ratio 32.1 High 8-20 Calcium 9.5 mg/dL Normal 8.6-10.3 Total Protein 7.3 g/dL Normal 6.4-8.9 Albumin 3.8 g/dL Normal 3.2-5.2 Globulin 3.5 g/dL Normal 2-4 Albumin/Globulin Ratio 1.1 Normal 1-3 Total Bilirubin 0.30 mg/dL Normal 0.2-1.0 Alkaline Phosphatase 115 U/L High 34-104 Alt 29 U/L Normal 7-52 Ast 20 U/L Normal 13-39 Egfr Non- 67.1 >60 Egfr 81.2 >60 14 Potassium 5.2 mmol/L High 3.5-5.0 Anion Gap 4 mmol/L Normal 2-11 Laboratory 02/09/2019 [facility] TSH (Thyroid 1.89 Normal 0.34 -5.60 test finding [address] Stim Horm) mcIU/[place] [address] [phone] Free T4 (Free Thyroxine) 1.00 ng/dL Normal 0.61-1.12 1 Because ethnic data is not always readily [...] 15-29 5 Kidney failure <15 (or dialysis) 2 Therapeutic target for the treatment of diabetes mellitus patients is <7% HBA1C, and in selective patients <6.0%. Please refer to [place] [employer] diabetic care guidelines for further information. 3 Benefits Assistant: [id number] 4 Benefits Assistant: [id number] 5 Reference ranges based on room air. 6 Because ethnic data is not always readily [...] 15-29 5 Kidney failure <15 (or dialysis) 7 Critical Result LACT:2.3 Called to [id number] at: 16:22:50 by:[id number] Read back by:[email or web address] [facility] Severe Sepsis and Septic Shock Management Bundle Measure requires all lactic acids initially measuring >2.0 mmol/L be repeated. 8 Because ethnic data is not always [...] 5 Kidney failure <15 (or dialysis) 9 Desirable: <150 Borderline High: 150-199 High: 200-499 Very High: >500 10 Desirable: <200 Borderline High: 200-239 High: >239 11 Low: <40 Desirable: 40-60 High: >60 12 Desirable: <100 Near Optimal: 100-129 Borderline High: 130-159 High: 160-189 Very High: >189 13 Therapeutic target for the treatment of diabetes mellitus patients is <7% HBA1C, and in selective patients <6.0%. Please refer to [place] [employer] diabetic care guidelines for further information. 14 Because ethnic data is not always [...] (or dialysis) Procedures Date Code Description Status 05/25/2019 40469 I&D Of Abscess Complicated Completed 03/17/2019 91048 I&D Of Abscess Complicated Completed 11/26/2017 18458060 Colonoscopy Completed Medical Devices Description No Information Available Encounters Type Date Location Provider Dx Diagnosis Office Visit 07/21/2019 [facility] Asmita Crabtree L97.411 Non- prs chr 10:00a Infectious Joe, ULTRASONOGRAPHER ulcer of right Diseases heel and midft lmt to brwn skin L89.322 Pressure ulcer of left buttock, stage 2 L89.312 Pressure ulcer of right buttock, stage 2 E11.621 Type 2 diabetes mellitus with foot ulcer Office Visit 06/29/2019 11:30a [facility] Alexandra Gr L97.411 Non- prs chr Infectious Janeth Cheatham ulcer of right Diseases heel and midft lmt to brkdwn skin E11.621 Type 2 diabetes mellitus with foot ulcer Office Visit 06/17/2019 10:40a [facility] Internal Magdalene I10 Essential ( primary) Leo Emanuel M.D. hypertension Ccmob R21 Rash and other nonspecific skin eruption L89.600 Pressure ulcer of unspecified heel, unstageable Office Visit 05/17/2019 [facility] Rc Streeter L03.317 Cellulitis of 11:00a Of Falguni Quiros MD buttock Office Visit 05/12/2019 [facility] Willie Looney, E11.9 Type 2 diabetes 11:40a Endocrinology of mellitus without [facility] complications Z79.4 custodial (current) use of insulin Office Visit 05/03/2019 10:00a [facility] Internal Magdalene K62.5 Hemorrhage of Leo Emanuel M.D. 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 07/28/2019 R26.81 Unsteadiness on feet Magdalene Emanuel M.D. 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 heel and midfoot limited to breakdown of skin 06/29/2019 E11.621 Type 2 diabetes mellitus with foot Marek Cheatham M.D. ulcer 06/17/2019 I10 Essential (primary) hypertension Magdalene Emanuel M.D. 06/17/2019 R21 Rash and other nonspecific skin Magdalene Emanuel M.D. eruption 06/17/2019 L89.600 Pressure ulcer of unspecified heel, Magdalene Emanuel M.D. 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 05/03/2019 R60.0 Localized edema Magdalene Emanuel M.D. 05/03/2019 I69.311 Memory deficit following cerebral Magdalene Emanuel M.D. infarction 04/01/2019 L02.31 Cutaneous abscess of buttock Hussein Davies MD, FACS 03/25/2019 L02.31 Cutaneous abscess of buttock Hussein Davies MD, FACS 03/23/2019 L02.31 Cutaneous abscess of buttock Rc Quiros MD 03/21/2019 L02.31 Cutaneous abscess of buttock MELISSA Rodriguez 03/21/2019 Z48.01 Encounter for change or removal of MELISSA Rodriguez surgical wound dressing 03/18/2019 L02.31 Cutaneous abscess of buttock Rc Quiros MD 03/17/2019 L02.31 Cutaneous abscess of buttock Rc Quiros MD 03/17/2019 L02.31 Cutaneous abscess of buttock Magdalene Emanuel M.D. 03/17/2019 I10 Essential (primary) hypertension Magdalene Emanuel M.D. 03/17/2019 E11.9 Type 2 diabetes mellitus without Magdalene Emanuel M.D. 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 at [facility] Internal Medicine - [facility]11/10/2019 11:40 am - Bigg Looney MD at [facility]07/28/2019 - Magdalene Emanuel M.D.I10 Essential (primary) hypertensionComments:Your blood pressure is fine. Continue the same medicationFollow up:Welcome to Medicare - in January or FebruaryR26.81 Unsteadiness on feetNew Medication:Rollator - with 4 x 8" wheels, seat, basket , breaks for daily use Functional Status Description No Information Available Mental Status Description No Information Available Referrals Refer to Reason for Referral Status Appt Date Rc Quiros MD Sent 05/17/2019 [address] [facility] [place] [id number] [phone] Rc Quiros MD gluteal abscess - HAS APPT TODAY AT 1:30 Sent 2018 [address] [id number] [phone]
--- OUTSIDE RECORDS SUMMARY | 2019-09-01 11:44 | XMS REPORT | Continuity of Care Document ---
:1960 External Reference #:[id number] Author Name Asmita Diaz NP (transmitted by agent of provider Alka Parikh) Address [address] [place] [id number] Care Team Providers Name Role Phone Magdalene Emanuel MD - Internal Care Team Information Professor Of Art History [phone] Medicine Ignacio Otero MD - Gastroenterology Care Team Information Professor Of Art History Ronal Kelley DPM - Foot Surgery Care Team Information Professor Of Art History Salomon Charles MD - Surgery Care Team Information Professor Of Art History Rc Quiros MD - Surgery Care Team Information Professor Of Art History Problems Active Problems Provider Date Atrial fibrillation Arthur Childers M.D., [facility], Onset: 08/09/2013 FASNC Benign essential hypertension Vi Mendoza M.D. Onset: 05/09/2015 Cardiomyopathy Magdalene Emanuel M.D. Onset: 03/27/2017 Type 2 diabetes mellitus Magdalene Emanuel M.D. Onset: 04/03/2017 Paroxysmal atrial fibrillation Arthur Childers M.D., [facility], Onset: 2016 FASNC Altered mental status Phu Toro M.D. Onset: 06/11/2017 History of cerebrovascular accident Phu Toro M.D. Onset: 06/11/2017 without residual deficits Thoracic aortic ectasia Arthur Childers M.D., [facility], Onset: 07/31/2017 FASNC Obstructive sleep apnea syndrome Rosie Stewart DNP, RN, Onset: 11/12/2017 [employer]- Disturbance of consciousness Phu Toro M.D. Onset: 12/07/2017 Amnesia Phu Toro M.D. Onset: 12/07/2017 Alcohol-induced psychosis Phu Toro M.D. Onset: 12/07/2017 Social History Type Date Description Comments Sex Unknown Tobacco Use Start: Unknown End: Former Cigarette Smoker Unknown Smoking Status Reviewed: 07/21/19 Former Cigarette Smoker ETOH Use Has consumed [...] Medications SIG Qnty Indications Ordering Date Provider Furosemide 1 by mouth every 30tabs Magdalene 07/07/2019 20mg Tablets day Janeth Emanuel Lisinopril 1 by mouth every 30tabs I10 Magdalene 07/06/2019 10mg Tablets day Janeth Emanuel Amlodipine Besylate 1 by mouth every 30tabs Magdalene 07/06/2019 5mg day Janeth Emanuel Tablets U Shaped Callus Pad Apply to heel 30units Magdalene 06/18/2019 once daily Janeth Emanuel Torsemide take 1 tablet by 30tabs Magdalene 03/18/2019 10mg Tablets mouth once daily Janeth Emanuel Depend Underwear Change three 90units Magdalene 03/02/2019 Large/Extra Large times daily or Janeth Emanuel Maximum Absorbency as needed Male Misc Humalog Mix 75/25 25 units with 15ml E11.69 Bigg Looney MD 12/21/2018 Kwikpen first meal of the day, 15 (75-25)100Unit/ML units with last Supn meal of the day Freestyle Kyler 14 use at least 4 1units E11.9 Bigg Looney MD 11/09/2018 Day/[place]/Flash times daily with Monitoring System sensor Device Freestyle Kyler [address] one sensor 2units E11.9 Bigg Looney MD 2018 Day/Sensor/Flash every 14 days Monitoring System Misc Pen Protivin 1/2" for use twice a 100units E11.621 Magdalene 11/08/2018 29G X day with insulin Janeth Emanuel 12mm Mis pen Aquaphor Advanced apply to 1Tube [place]y [place], 10/21/2018 Therapy affected area Janeth Ointment daily Knee High Compression 1Pair Davy Raza, 10/21/2018 Stockings Janeth Thiamine HCL take 1 tablet a 90tabs F10.19 [facility] 12/07/2017 100mg day Janeth Emanuel Tablets Xarelto 1 by mouth every 90tabs Magdalene 05/22/2017 20mg Tablets day, take with Janeth Emanuel evening meal Atorvastatin Calcium 1 by mouth every 90tabs E11.65 [facility] 04/03/2017 day Janeth Emanuel 10mg Tablets Metoprolol Succinate 1 by mouth every 90tabs I10 [facility] 03/27/2017 ER day Janeth Emanuel 25mg Tablets ER 24HR Metformin HCL take 1 tablet by 180tabs [facility] 500mg mouth twice a Janeth Emanuel Tablets day Acetaminophen 2 tablets by Unknown 325mg mouth every 6 Tablets hours as needed for pain/fever History Medications Lisinopril 1 by mouth 30tabs I10 Magdalene Emanuel 06/17/2019 - 20mg Tablets every day M.D. 07/06/2019 Valacyclovir HCL 1 PO tid for 21tabs R21 Magdaleneroque Emanuel, 06/17/2019 - 1gm one week M.D. 06/25/2019 Tablets Furosemide 1 by mouth Magdaleneroque Emanuel 03/14/2019 - 20mg Tablets every day M.D. 03/18/2019 Augmentin one by mouth 20tabs Magdaleneroque Emanuel, 03/14/2019 - 875-125mg every 12 hours M.D. 03/16/2019 Tablets for ten days Lisinopril 10mg once daily 30tabs I10 Bigg Looney MD 03/06/2019 - 10mg Tablets 06/17/2019 HM Entrust Plus Magdaleneroque Emanuel, 02/14/2019 - Disposable M.D. 03/02/2019 Underwear/Mens/Large-E [...] CPT Code Status Date Vaccine Lot # [id number] Given 09/18/2017 Pneumonia Vaccine [id number] Given 09/18/2017 Influenza Virus Vaccine, Quadrivalent, Split, [id number] Preservative Free Vital Signs Date Vital Result Comment 07/21/2019 9:51am Height 72 inches 6'0" Weight 274.38 lb Heart Rate 82 /min BP Systolic Sitting 120 mmHg BP Diastolic Sitting 74 mmHg Respiratory Rate 14 /min Body Temperature 97.3 F BMI (Body Mass Index) 37.2 kg/m2 06/29/2019 11:44am Height 72 inches 6'0" Heart Rate 72 /min BP Systolic Sitting 126 mmHg BP Diastolic Sitting 70 mmHg Respiratory Rate 14 /min Body Temperature 98.4 F Results Test Acquired Date Facility Test Result H/L Range Note Basic Metabolic 05/12/2019 [facility] Sodium 136 mmol/L Normal 135-[address] [place] [address] [phone] Potassium 4.9 mmol/L Normal 3.5-5.0 Chloride 98 mmol/L Low 101-111 Co2 Carbon Dioxide 30 mmol/L Normal 22-32 Anion Gap 8 mmol/L Normal 2-11 Calcium 9.2 mg/dL Normal 8.6-10.3 Glucose 199 mg/dL High 70-100 Blood Urea Nitrogen 42 mg/dL High 6-24 Creatinine 1.17 mg/dL Normal 0.67-1.17 BUN/Creatinine Ratio 35.9 High 8-20 Egfr Non- 63.6 >60 Egfr 76.9 >60 1 Laboratory test 05/12/2019 [facility] Hemoglobin A1c 7.9 % High 4.0-5.[address] (Glyco HGB) [place] [address] [phone] Laboratory test 03/12/2019 [facility] Point of Care 279 High 70-100 [address] Glucose mg/[place] [address] [phone] Laboratory test 03/12/2019 [facility] 382 High 70-100 [address] Glucose mg/dL [place], [place] [id number] [phone] Venous Blood 03/12/2019 [facility] Venous Blood 7.34 Normal 7.32-7.[address] [place] [address] [phone] Venous Pco2 52 mmHg High 41-51 Venous Po2 41.0 mmHg Normal 35-45 Venous O2 Saturation 62.0 % Low 70-80 Venous Blood Base Excess 1.4 mmol/L Normal 0.0-4.0 5 Venous Bicarbonate Hco3 25.0 mmol/L Normal 24-28 Comp Metabolic Panel 03/12/2019 [facility] Sodium 134 mmol/L Low 135-[address] [place] [address] [phone] Potassium 4.7 mmol/L Normal 3.5-5.0 Chloride 99 [...] Egfr 78.5 >60 6 Laboratory test 03/12/2019 [facility] C Reactive 143.25 mg/L High <8.[address] [place] [address] [phone] Lactic Acid 2.3 mmol/L Critical high 0.5-2.0 7 CBC Auto 03/12/2019 [facility] White Blood 16.9 10^3/uL High 3.5-10.[address] [place] [address] [phone] Red Blood Count 4.75 10^6/uL Normal 4.18-5.48 [...] Blood Cells % 0.0 Urinalysis Profile 03/12/2019 [facility] Urine Color Yellow [address] [place] [address] [phone] Urine Appearance Clear Urine Specific Gobler 1.011 Normal 1.010-1.030 Urine pH 5.0 Normal 5-9 Urine Urobilinogen Negative Negative Urine Ketones Negative Negative Urine Protein Negative Negative Urine Leukocytes Negative Negative Urine Blood Negative Negative Urine Nitrite Negative Negative Urine Bilirubin Negative Negative Urine Glucose 3+(>=500 mg/dL) Abnormal Negative Basic Metabolic 02/17/2019 [facility] Sodium 138 mmol/L Normal 135-[address] [place] [address] [phone] Chloride 102 mmol/L Normal 101-111 Co2 Carbon Dioxide 29 mmol/L Normal 22-32 Calcium 9.4 mg/dL Normal 8.6-10.3 Potassium 5.3 mmol/L High 3.5-5.0 Anion Gap 7 mmol/L Normal 2-11 Glucose 143 mg/dL High 70-100 Blood Urea Nitrogen 43 mg/dL High 6-24 Creatinine 1.04 mg/dL Normal 0.67-1.17 BUN/Creatinine Ratio 41.3 High 8-20 Egfr Non- 73.1 >60 Egfr 88.4 >60 8 Lipid Profile 02/17/2019 [facility] Triglycerides 95 mg/dL 9 (Trig/Chol/HDL) [address] [place] [address] [phone] Cholesterol 98 mg/dL 10 HDL Cholesterol 33.9 mg/dL 11 LDL Cholesterol 45 mg/dL 12 Laboratory test 02/09/2019 [facility] Hemoglobin A1c 7.1 % High 4.0-5.[address] (Glyco HGB) [place] [address] [phone] Comp Metabolic 02/09/2019 [facility] Sodium 140 Normal 135- [address] mmol/[place] [address] [phone] Chloride 102 mmol/L Normal 101-111 Co2 Carbon [...] Gap 4 mmol/L Normal 2-11 Laboratory 02/09/2019 [facility] TSH (Thyroid 1.89 Normal 0.34 -5.60 test finding [address] Stim Horm) mcIU/[place] [address] [phone] Free T4 (Free Thyroxine) 1.00 ng/dL Normal [...] in selective patients <6.0%. Please refer to [place] [employer] diabetic care guidelines for further information. 3 Unemployment Claims Adjudicator: [id number] Unemployment Claims Adjudicator: [id number] 5 Reference ranges based on room air. [...] dialysis) 7 Critical Result LACT:2.3 Called to [id number] at: 16:22:50 by:[id number] Read back by:[facility] Severe Sepsis and Septic Shock Management [...] in selective patients <6.0%. Please refer to [place] [employer] diabetic care guidelines for further [...] dialysis) Procedures Date Code Description Status 05/25/2019 07306 I&D Of Abscess Complicated Completed 03/17/2019 54828 I&D Of Abscess Complicated Completed 11/26/2017 20573552 Colonoscopy Completed Medical Devices Description No Information Available Encounters Type Date Location Provider Dx Diagnosis Office Visit 06/29/2019 [facility] Alexandra Gr L97.411 Non-prs chr ulcer 11:30a Infectious Janeth Cheatham of right heel and Diseases midft lmt to brkdwn skin E11.621 Type 2 diabetes mellitus with foot ulcer Office Visit 06/17/2019 10:40a [facility] Internal Magdalene I10 Essential ( primary) Leo Emanuel M.D. 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 anus and rectum Ccmob R60.0 Localized edema I69.311 Memory deficit following cerebral infarction Office Visit 03/17/2019 10:20a [facility] Internal Magdalene L02.31 Cutaneous Leo Emanuel M.D. abscess of Ccmob buttock I10 Essential (primary) hypertension E11.9 Type 2 diabetes mellitus without complications Office Visit 02/09/2019 [facility] Bigg Looney, E11.9 Type 2 diabetes 11:00a Endocrinology of mellitus without [facility] complications L03.116 Cellulitis of left lower limb Z79.4 nursing home (current) use of insulin I10 Essential (primary) hypertension Office Visit 01/24/2019 1:40p [facility] Caden Gr L03.116 Cellulitis of For Kristian Cheatham M.D. 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 03/17/2019 L02.31 Cutaneous abscess of buttock Rc Quiros MD 03/17/2019 I10 Essential (primary) hypertension Magdalene Emanuel M.D. 03/17/2019 E11.9 Type 2 diabetes mellitus without Magdalene Emanuel M.D. 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 01/24/2019 I89.0 Lymphedema, not elsewhere classified Marek Cheatham M.D. Plan of Treatment Future Appointment(s):07/28/2019 4:00 pm - Magdalene Emanuel M.D. at [facility] Internal Medicine - [facility]11/10/2019 11:40 am - Bigg Looney MD at [facility]07/21/2019 - Asmita Diaz, NPL97.411 Non-prs chr ulcer of right [facility] skinFoll up: as vgseyhZ11.322 Pressure ulcer of left buttock, stage 2L89.312 Pressure ulcer of right buttock, stage 2E11.621 Type 2 diabetes mellitus with foot ulcer Functional Status Description No Information Available Mental Status Description No Information Available Referrals Refer to Dr Reason for Referral Status Appt Date Rc Quiros MD Sent 05/17/2019 [address] [id number] [phone] Rc Quiros MD gluteal abscess - HAS APPT TODAY AT 1:30 Sent 2018 [address] [id number] [phone]
[2019-09-01 12:17] VITALS: BP 135/68
--- NOTE | 2019-09-01 13:17 | UC ---
Respiratory Complaint HPI - HPI Summary HPI Summary: 59 yo diabetic with history of past stroke, here with an aide (he has aide support about 12 hours per day). One week history of congested cogh and malaise , no fever and denies chest pain or shortness of breath. This morning he was found to have a blood sugar of 48, increased post orange and breakfast to 86. Cough is persistent, appetite improved yesterday. He has had compromised function for some years, predating his stroke, with a complicated history which is difficult to sort out due to his own compromise and the limited information provided by his aide. - History of Current Complaint Chief Complaint: UCRespiratory Stated Complaint: CHEST CONGESTION Time Seen by Provider: 09/01/19 13:05 Hx Obtained From: Patient Onset/Duration: Gradual Onset, Lasting Days - 6-7 Timing: Constant Pain Intensity: 5 Character: Cough: Productive Aggravating Factors: Deep Breaths, Recumbent Position Alleviating Factors: Nothing - Allergies/Home Medications Allergies/Adverse Reactions: Allergies Allergy/AdvReac Type Severity Reaction Status Date / Time No Known Allergies Allergy Verified 09/01/19 12:17 PMH/Surg Hx/FS Hx/Imm Hx Endocrine History: Diabetes, Dyslipidemia Cardiovascular History: Hypertension, Atrial Fibrillation Neurological History: CVA - Surgical History Surgical History: Yes Surgery Procedure, Year, and Place: cardioversion 2004 - 2xs. foot surgery Dr. Raza 2018 - Family History Known Family History: Positive: Hypertension, Diabetes - Social History Occupation: Disabled Lives: Alone - with aide support Alcohol Use: Rare Substance Use Type: None Smoking Status (MU): Former Smoker - Immunization History Most Recent Influenza Vaccination: 06/27/18 Most Recent Tetanus Shot: 2004 Most Recent Pneumonia Vaccination: 06/27/18 Review of Systems All Other Systems Reviewed And Are Negative: Yes Constitutional: Positive: Fatigue Skin: Positive: Negative Eyes: Positive: Negative Respiratory: Positive: Cough Cardiovascular: Positive: Negative, Other - hx of a fib Genitourinary: Positive: Negative Motor: Positive: Negative Neurovascular: Positive: Negative Musculoskeletal: Positive: Negative Neurological: Positive: Negative Psychological: Positive: Negative Is Patient Immunocompromised?: No Physical Exam Triage Information Reviewed: Yes Appearance: Ill-Appearing, Obese Vital Signs: Initial Vital Signs Temp 98.2 F 09/01/19 12:10 Pulse 79 09/01/19 12:10 Resp 24 09/01/19 12:10 BP 135/68 09/01/19 12:10 Pulse Ox 94 09/01/19 12:10 ENT: Positive: Tonsillar swelling. Negative: Tonsillar exudate Dental Exam: Normal Neck: Positive: Supple, Nontender, No Lymphadenopathy Respiratory: Positive: Decreased breath sounds, Rhonchi - both lung hernández. Cardiovascular: Positive: RRR, No Murmur Neurological Exam: Other - walker dependent. Neurological: Positive: Alert Psychological Exam: Other - flat mood and affect. Skin Exam: Other - both ears with dry flaking skin, with scale in the scalp both sides. Diagnostics - Radiology No standard instances Radiology Interpretation Completed By: Radiologist - Lungs underinflated with no acute disease per Dr. [place]. Respiratory Course/Dx - Course Course Of Treatment: bronchitis in 59 yo diabetic with compromised acitivity post stroke. Will treat with doxycycline with follow up by his primary care. Triamcinolone to dry ears. - Differential Dx/Diagnosis Differential Diagnosis/HQI/PQRI: Asthma, Bronchitis, Lower Resp Infection, Sinusitis Provider Diagnosis: Bronchitis Discharge ED - Sign-Out/Discharge Documenting (check all that apply): Patient Departure All imaging exams completed and their final reports reviewed: Yes - Discharge Plan Condition: Stable Disposition: HOME Prescriptions: DOXYcycline CAP(*) [DOXYcycline 100MG CAP(*)] 100 mg PO BID #14 cap Triamcinolone 0.5% OINT * 1 applic TOPICAL BID #30 g Patient Education Materials: Acute Bronchitis (ED) Referrals: Magdalene Emanuel MD [Primary Care Provider] - Additional Instructions: Begin course of doxycycline for treatment of bronchitis. If you have increase in fever or worsening shortness of breath, please go to the emergency room for evaluation. Use the ointment given for dry skin in the ears, applying it twice daily. This ointment is not for use on the face. Please arrange a follow up check with Dr. Emanuel next week. - Billing Disposition and Condition Condition: STABLE Disposition: Home
== END 2019-09-01 14:12 | disposition home or self-care (01) ==
LOC: UCEAST 11:39
DX: J40 Bronchitis, not specified as acute or chronic (principal); E11.9 Type 2 diabetes mellitus without complications; I10 Essential (primary) hypertension; Z86.73 Personal history of transient ischemic attack (TIA), and cerebral infarction without residual deficits; Z87.891 Personal history of nicotine dependence
CPT/HCPCS: 71046; 99212; G0463

== ENCOUNTER 2021-02-15 14:27 | Inpatient (IN) ==
[2021-02-15 14:47] LABS: ABS Eosinophils 0.2 10^3/ul (0-0.6); ABS Lymphocytes 2.1 10^3/ul (1.0-4.8); ABS Monocytes 1.4 10^3/ul (0-0.8); ABS Neutrophils 10.8 10^3/ul (1.5-7.7); Eosinophil % 1.2 %; Hematocrit 44 % (42-52); Lymphocyte % 14.5 %; Mean Corpuscular HGB Conc 32 g/dL (31-36); Mean Corpuscular Hemoglobin 26 pg (27-31); Mean Corpuscular Volume 83 fL (80-94); Mean Platelet Volume 6.6 fL (7.4-10.4); Platelet Count 229 10^3/uL (150-450); Red Blood Count 5.32 10^6 /uL (4.18-5.48); Red Cell Distribution Width 14 % (10-15); White Blood Count 14.5 10^3/uL (3.5-10.8)
[2021-02-15 15:07] LABS: Troponin I 0.01 ng/mL (<0.03)
[2021-02-15 15:20] LABS: Albumin 3.7 g/dL (3.2-5.2); Albumin/Globulin Ratio 0.9 (1-3); Calcium 8.9 mg/dL (8.6-10.3); EGFR Non-African American 70.3 (>60); Globulin 4.1 g/dL (2-4); Potassium 3.7 mmol/L (3.5-5.0); Total Bilirubin 0.3 mg/dL (0.2-1.0); Total Protein 7.8 g/dL (6.4-8.9)
[2021-02-15] MEDS ORDERED: Iodixanol (CONTRAST) 320 MG/ML 100 ML SDV IV ONE (15:57)
[2021-02-15 18:21] LABS: Urine Appearance Clear; Urine Bilirubin Negative (Negative); Urine Blood 2+ (Negative); Urine Color Straw; Urine Glucose Negative (Negative); Urine Ketones Negative (Negative); Urine Nitrite Negative (Negative); Urine Protein Negative (Negative); Urine Specific Gravity 1.029 (1.002-1.030); Urine Urobilinogen Negative (Negative)
[2021-02-15 18:26] LABS: Urine Bacteria 1+ (Absent); Urine Red Blood Cell 2+(6-10/hpf) (Absent); Urine Squamous Epithelial Cell Present (Absent); Urine White Blood Cell 2+(11-20/hpf) (Absent)
[2021-02-15] MEDS ORDERED: cefTRIAXone 2 GM ADDV.VIAL 2 GM in NS 0.9% 100 ml BAG 100 ML IVPB ONE (18:27)
[2021-02-15] MEDS ORDERED: Dextrose 50% Syringe 50 ml 25 GM/50 ML SYRINGE IV PUSH PRN (23:04)
[2021-02-16 05:43] LABS: ABS Basophils 0.1 10^3/ul (0-0.2); ABS Eosinophils 0.1 10^3/ul (0-0.6); ABS Lymphocytes 1.5 10^3/ul (1.0-4.8); ABS Monocytes 1.3 10^3/ul (0-0.8); ABS Neutrophils 9.5 10^3/ul (1.5-7.7); Eosinophil % 1.1 %; Hematocrit 40 % (42-52); Hemoglobin 12.8 g/dL (14.0-18.0); Lymphocyte % 11.9 %; Mean Corpuscular HGB Conc 32 g/dL (31-36); Mean Corpuscular Hemoglobin 26 pg (27-31); Mean Corpuscular Volume 82 fL (80-94); Mean Platelet Volume 6.7 fL (7.4-10.4); Platelet Count 217 10^3/uL (150-450); Red Blood Count 4.91 10^6 /uL (4.18-5.48); Red Cell Distribution Width 15 % (10-15); White Blood Count 12.5 10^3/uL (3.5-10.8)
[2021-02-16 06:07] LABS: Calcium 8.7 mg/dL (8.6-10.3); EGFR African American 80.7 (>60); EGFR Non-African American 66.7 (>60)
[2021-02-16] MEDS: Multivitamins/Minerals TAB PO SCH (09:22)
[2021-02-16] MEDS: Triamcinolone 0.025% OINT 15 GM TUBE TOPICAL SCH (09:23)
[2021-02-16] MEDS ORDERED: Iodixanol (CONTRAST) 320 MG/ML 100 ML SDV IV SCH (11:07)
[2021-02-16 11:37] LABS: C Reactive Protein 112.46 mg/L (<8.01)
[2021-02-16] MEDS: Insulin ISOPH/REG 70/30 SUBCUT SCH (17:29)
[2021-02-16] MEDS: cefTRIAXone 1 gm/50 mL NS BAG 1 GM/50 ML BAG IVPB SCH (17:30)
[2021-02-17] MEDS: Insulin ISOPH/REG 70/30 SUBCUT SCH ×2 (09:12→17:18)
[2021-02-17] MEDS: Multivitamins/Minerals TAB PO SCH (09:14)
[2021-02-17] MEDS: Triamcinolone 0.025% OINT 15 GM TUBE TOPICAL SCH (09:16)
[2021-02-17] MEDS ORDERED: Perflutren Lipid Microsphere 3 ML VIAL ONE (10:37)
[2021-02-17] MEDS ORDERED: Magnesium Hydroxide LIQ 30 ML UDC PO PRN (15:59)
[2021-02-17] MEDS ORDERED: Polyethylene Glycol 3350 17 GM PACKET PO PRN (15:59)
[2021-02-17] MEDS ORDERED: Senna TAB 8.6 mg TAB PO PRN (15:59)
[2021-02-17] MEDS: cefTRIAXone 1 gm/50 mL NS BAG 1 GM/50 ML BAG IVPB SCH (17:18)
[2021-02-18 05:56] LABS: ABS Eosinophils 0.3 10^3/ul (0-0.6); ABS Lymphocytes 1.4 10^3/ul (1.0-4.8); ABS Monocytes 1.1 10^3/ul (0-0.8); ABS Neutrophils 10.4 10^3/ul (1.5-7.7); Eosinophil % 2.2 %; Hematocrit 39 % (42-52); Hemoglobin 12.8 g/dL (14.0-18.0); Lymphocyte % 10.8 %; Mean Corpuscular HGB Conc 33 g/dL (31-36); Mean Corpuscular Hemoglobin 26 pg (27-31); Mean Corpuscular Volume 80 fL (80-94); Platelet Count 228 10^3/uL (150-450); Red Blood Count 4.88 10^6 /uL (4.18-5.48); Red Cell Distribution Width 14 % (10-15); White Blood Count 13.4 10^3/uL (3.5-10.8)
[2021-02-18 06:02] LABS: Calcium 8.5 mg/dL (8.6-10.3); EGFR African American 58.9 (>60); EGFR Non-African American 48.7 (>60); Potassium 3.2 mmol/L (3.5-5.0)
[2021-02-18 06:27] LABS: TSH Ultra Thyroid Stim Horm 1.19 mcIU/mL (0.34-5.60)
[2021-02-18] MEDS ORDERED: Potassium Chlor 20 meq TAB.ER PO ONE (08:24)
[2021-02-18] MEDS: Triamcinolone 0.025% OINT 15 GM TUBE TOPICAL SCH (09:32)
[2021-02-18] MEDS: Multivitamins/Minerals TAB PO SCH (09:34)
[2021-02-18] MEDS: Insulin ISOPH/REG 70/30 SUBCUT SCH ×2 (09:37→17:10)
[2021-02-18] MEDS: Aspirin EC 81 mg TAB.EC (enteric coated) PO SCH (10:21)
[2021-02-18] MEDS: cefTRIAXone 1 gm/50 mL NS BAG 1 GM/50 ML BAG IVPB SCH (17:11)
[2021-02-19 06:33] LABS: ABS Eosinophils 0.3 10^3/ul (0-0.6); ABS Lymphocytes 1.2 10^3/ul (1.0-4.8); ABS Monocytes 0.9 10^3/ul (0-0.8); ABS Neutrophils 9.1 10^3/ul (1.5-7.7); Eosinophil % 2.8 %; Hematocrit 42 % (42-52); Hemoglobin 13.7 g/dL (14.0-18.0); Lymphocyte % 10.1 %; Mean Corpuscular HGB Conc 33 g/dL (31-36); Mean Corpuscular Hemoglobin 26 pg (27-31); Mean Corpuscular Volume 81 fL (80-94); Mean Platelet Volume 6.8 fL (7.4-10.4); Platelet Count 233 10^3/uL (150-450); Red Cell Distribution Width 14 % (10-15); White Blood Count 11.5 10^3/uL (3.5-10.8)
[2021-02-19 07:00] LABS: EGFR African American 68.5 (>60); EGFR Non-African American 56.6 (>60); Potassium 3.4 mmol/L (3.5-5.0)
[2021-02-19] MEDS: Triamcinolone 0.025% OINT 15 GM TUBE TOPICAL SCH ×2 (09:21→18:51)
[2021-02-19] MEDS: Aspirin EC 81 mg TAB.EC (enteric coated) PO SCH (09:32)
[2021-02-19] MEDS: Multivitamins/Minerals TAB PO SCH (09:32)
[2021-02-19] MEDS: Insulin ISOPH/REG 70/30 SUBCUT SCH ×2 (09:35→18:18)
[2021-02-19] MEDS ORDERED: Potassium Chlor 20 meq TAB.ER PO ONE (11:16)
[2021-02-20 09:09] LABS: ABS Eosinophils 0.2 10^3/ul (0-0.6); ABS Lymphocytes 1.3 10^3/ul (1.0-4.8); ABS Monocytes 1.1 10^3/ul (0-0.8); ABS Neutrophils 8.2 10^3/ul (1.5-7.7); Eosinophil % 2.1 %; Hematocrit 43 % (42-52); Hemoglobin 13.8 g/dL (14.0-18.0); Mean Corpuscular HGB Conc 32 g/dL (31-36); Mean Corpuscular Hemoglobin 26 pg (27-31); Mean Corpuscular Volume 82 fL (80-94); Mean Platelet Volume 6.5 fL (7.4-10.4); Nucleated Red Blood Cells % 0.1; Platelet Count 224 10^3/uL (150-450); Red Blood Count 5.28 10^6 /uL (4.18-5.48); Red Cell Distribution Width 15 % (10-15); White Blood Count 10.8 10^3/uL (3.5-10.8)
[2021-02-20 09:44] LABS: Calcium 9.3 mg/dL (8.6-10.3); EGFR African American 65.6 (>60); EGFR Non-African American 54.2 (>60); Magnesium 2.2 mg/dL (1.9-2.7); Potassium 3.5 mmol/L (3.5-5.0)
[2021-02-20 10:11] LABS: C Reactive Protein 79.22 mg/L (<8.01)
[2021-02-20] MEDS: Insulin ISOPH/REG 70/30 SUBCUT SCH ×2 (11:56→18:54)
[2021-02-20] MEDS: Multivitamins/Minerals TAB PO SCH (11:59)
[2021-02-20] MEDS: Aspirin EC 81 mg TAB.EC (enteric coated) PO SCH (12:01)
[2021-02-20] MEDS: Triamcinolone 0.025% OINT 15 GM TUBE TOPICAL SCH (14:08)
[2021-02-20] MEDS ORDERED: Gadoteridol (CONTRAST) 279.3 MG/ML 10 ML IV ONE (15:38)
[2021-02-21 07:03] LABS: ABS Eosinophils 0.2 10^3/ul (0-0.6); ABS Lymphocytes 1.6 10^3/ul (1.0-4.8); ABS Monocytes 1.1 10^3/ul (0-0.8); ABS Neutrophils 8.5 10^3/ul (1.5-7.7); Eosinophil % 1.6 %; Hematocrit 42 % (42-52); Hemoglobin 13.7 g/dL (14.0-18.0); Lymphocyte % 14.3 %; Mean Corpuscular HGB Conc 33 g/dL (31-36); Mean Corpuscular Hemoglobin 26 pg (27-31); Mean Corpuscular Volume 80 fL (80-94); Nucleated Red Blood Cells % 0.1; Platelet Count 242 10^3/uL (150-450); Red Blood Count 5.19 10^6 /uL (4.18-5.48); Red Cell Distribution Width 14 % (10-15); White Blood Count 11.4 10^3/uL (3.5-10.8)
[2021-02-21 07:15] LABS: Calcium 9.1 mg/dL (8.6-10.3); EGFR African American 57.1 (>60); EGFR Non-African American 47.2 (>60); Potassium 3.3 mmol/L (3.5-5.0)
[2021-02-21] MEDS: Insulin ISOPH/REG 70/30 SUBCUT SCH ×2 (08:23→18:36)
[2021-02-21] MEDS: Aspirin EC 81 mg TAB.EC (enteric coated) PO SCH (08:34)
[2021-02-21] MEDS: Multivitamins/Minerals TAB PO SCH (08:35)
[2021-02-21 08:56] LABS: Magnesium 2.2 mg/dL (1.9-2.7)
[2021-02-21 09:10] LABS: C Reactive Protein 67.59 mg/L (<8.01)
[2021-02-21] MEDS: Triamcinolone 0.025% OINT 15 GM TUBE TOPICAL SCH (13:54)
[2021-02-22 06:44] LABS: ABS Eosinophils 0.3 10^3/ul (0-0.6); ABS Lymphocytes 2.2 10^3/ul (1.0-4.8); ABS Neutrophils 8.4 10^3/ul (1.5-7.7); Eosinophil % 2.4 %; Hematocrit 42 % (42-52); Hemoglobin 13.4 g/dL (14.0-18.0); Lymphocyte % 18.5 %; Mean Corpuscular HGB Conc 32 g/dL (31-36); Mean Corpuscular Hemoglobin 26 pg (27-31); Mean Corpuscular Volume 81 fL (80-94); Mean Platelet Volume 6.8 fL (7.4-10.4); Platelet Count 230 10^3/uL (150-450); Red Blood Count 5.16 10^6 /uL (4.18-5.48); Red Cell Distribution Width 14 % (10-15)
[2021-02-22 07:01] LABS: Calcium 8.9 mg/dL (8.6-10.3); Potassium 3.3 mmol/L (3.5-5.0)
[2021-02-22 07:07] LABS: EGFR African American 60.3 (>60); EGFR Non-African American 49.9 (>60)
[2021-02-22] MEDS ORDERED: Potassium Chlor 20 meq TAB.ER PO ONE (09:00)
[2021-02-22] MEDS: Aspirin EC 81 mg TAB.EC (enteric coated) PO SCH (09:01)
[2021-02-22] MEDS: Multivitamins/Minerals TAB PO SCH (09:01)
[2021-02-22] MEDS: Insulin ISOPH/REG 70/30 SUBCUT SCH ×2 (09:03→17:38)
[2021-02-22] MEDS: Triamcinolone 0.025% OINT 15 GM TUBE TOPICAL SCH (14:54)
[2021-02-23 04:18] LABS: Calcium 8.9 mg/dL (8.6-10.3); EGFR African American 61.3 (>60); EGFR Non-African American 50.7 (>60); Magnesium 2.2 mg/dL (1.9-2.7); Potassium 2.9 mmol/L (3.5-5.0)
[2021-02-23] MEDS ORDERED: Potassium Chloride LIQUID 20 MEQ/15 ML LIQUID PO ONE (04:28)
[2021-02-23 04:50] LABS: ABS Basophils 0.1 10^3/ul (0-0.2); ABS Eosinophils 0.2 10^3/ul (0-0.6); ABS Lymphocytes 2.8 10^3/ul (1.0-4.8); ABS Monocytes 1.2 10^3/ul (0-0.8); ABS Neutrophils 7.6 10^3/ul (1.5-7.7); Eosinophil % 1.9 %; Hematocrit 41 % (42-52); Hemoglobin 13.4 g/dL (14.0-18.0); Lymphocyte % 23.3 %; Mean Corpuscular HGB Conc 33 g/dL (31-36); Mean Corpuscular Hemoglobin 26 pg (27-31); Mean Corpuscular Volume 80 fL (80-94); Mean Platelet Volume 7.2 fL (7.4-10.4); Nucleated Red Blood Cells % 0.1; Platelet Count 234 10^3/uL (150-450); Red Blood Count 5.11 10^6 /uL (4.18-5.48); Red Cell Distribution Width 15 % (10-15); White Blood Count 11.8 10^3/uL (3.5-10.8)
[2021-02-23] MEDS: KCL 20 MEQ/100 ML IVPREMIX 20 MEQ/100 ML BAG IV SCH ×2 (08:59→12:58)
[2021-02-23] MEDS: Aspirin EC 81 mg TAB.EC (enteric coated) PO SCH (09:00)
[2021-02-23] MEDS: Insulin ISOPH/REG 70/30 SUBCUT SCH ×2 (09:01→17:36)
[2021-02-23] MEDS: Multivitamins/Minerals TAB PO SCH (09:01)
[2021-02-23] MEDS: Triamcinolone 0.025% OINT 15 GM TUBE TOPICAL SCH (10:28)
[2021-02-24] MEDS: Insulin ISOPH/REG 70/30 SUBCUT SCH ×2 (08:41→17:52)
[2021-02-24] MEDS: Aspirin EC 81 mg TAB.EC (enteric coated) PO SCH (08:42)
[2021-02-24] MEDS: Multivitamins/Minerals TAB PO SCH (08:43)
[2021-02-24] MEDS: Triamcinolone 0.025% OINT 15 GM TUBE TOPICAL SCH (08:49)
[2021-02-24 09:25] LABS: ABS Eosinophils 0.2 10^3/ul (0-0.6); ABS Lymphocytes 2.3 10^3/ul (1.0-4.8); ABS Neutrophils 9.4 10^3/ul (1.5-7.7); Eosinophil % 1.7 %; Hematocrit 42 % (42-52); Hemoglobin 13.7 g/dL (14.0-18.0); Lymphocyte % 17.7 %; Mean Corpuscular HGB Conc 33 g/dL (31-36); Mean Corpuscular Hemoglobin 26 pg (27-31); Mean Corpuscular Volume 81 fL (80-94); Platelet Count 273 10^3/uL (150-450); Red Blood Count 5.22 10^6 /uL (4.18-5.48); Red Cell Distribution Width 14 % (10-15); White Blood Count 12.9 10^3/uL (3.5-10.8)
[2021-02-24 09:39] LABS: Calcium 9.2 mg/dL (8.6-10.3); EGFR African American 63.4 (>60); EGFR Non-African American 52.4 (>60); Magnesium 2.2 mg/dL (1.9-2.7); Potassium 3.3 mmol/L (3.5-5.0)
[2021-02-24] MEDS ORDERED: Potassium Chlor 20 meq TAB.ER PO ONE ×2 (09:40→18:00)
[2021-02-25 06:15] LABS: ABS Basophils 0.1 10^3/ul (0-0.2); ABS Eosinophils 0.2 10^3/ul (0-0.6); ABS Lymphocytes 2.7 10^3/ul (1.0-4.8); ABS Monocytes 1.1 10^3/ul (0-0.8); ABS Neutrophils 8.6 10^3/ul (1.5-7.7); Eosinophil % 1.8 %; Hematocrit 41 % (42-52); Hemoglobin 13.5 g/dL (14.0-18.0); Mean Corpuscular HGB Conc 33 g/dL (31-36); Mean Corpuscular Hemoglobin 27 pg (27-31); Mean Corpuscular Volume 81 fL (80-94); Nucleated Red Blood Cells % 0.1; Platelet Count 258 10^3/uL (150-450); Red Cell Distribution Width 14 % (10-15); White Blood Count 12.6 10^3/uL (3.5-10.8)
[2021-02-25 06:34] LABS: EGFR African American 54.4 (>60); Potassium 3.1 mmol/L (3.5-5.0)
[2021-02-25] MEDS: Aspirin EC 81 mg TAB.EC (enteric coated) PO SCH (08:24)
[2021-02-25] MEDS: Triamcinolone 0.025% OINT 15 GM TUBE TOPICAL SCH (08:26)
[2021-02-25] MEDS: Insulin ISOPH/REG 70/30 SUBCUT SCH (08:26)
[2021-02-25] MEDS ORDERED: Potassium Chlor 20 meq TAB.ER PO ONE (08:27)
[2021-02-25 08:50] LABS: C Reactive Protein 51.94 mg/L (<8.01)
[2021-02-25] MEDS: Multivitamins/Minerals TAB PO SCH (10:04)
[2021-02-25] MEDS: KCL 20 MEQ/100 ML IVPREMIX 20 MEQ/100 ML BAG IV SCH ×2 (10:04→12:21)
[2021-02-25 12:00] VITALS: BP 121/64
[2021-02-26] MEDS ORDERED: Potassium Chlor 20 meq TAB.ER PO SCH (09:00)
== END 2021-02-25 14:50 | DRG 690 ==
LOC: ED 14:27 → MEDTELE 14:27
PROVIDERS: ADMIT Internal Medicine; ATTEND Hospitalist

== ENCOUNTER 2021-04-09 19:51 | Inpatient (IN) ==
[2021-04-09 20:46] LABS: PO2 Arterial 63 mmHg (80-100)
[2021-04-09 20:48] LABS: PCO2 Arterial 74 mmHg (35-45)
[2021-04-09 20:51] LABS: ABS Eosinophils 0.1 10^3/ul (0-0.6); ABS Neutrophils 7.1 10^3/ul (1.5-7.7); ABS Nucleated RBC 0.1 10^3/ul; Eosinophil % 0.8 %; Hematocrit 42 % (42-52); Hemoglobin 12.8 g/dL (14.0-18.0); Lymphocyte % 19.1 %; Mean Corpuscular HGB Conc 31 g/dL (31-36); Mean Corpuscular Hemoglobin 25 pg (27-31); Mean Corpuscular Volume 83 fL (80-94); Nucleated Red Blood Cells % 0.9; Platelet Count 229 10^3/uL (150-450); Red Blood Count 5.06 10^6 /uL (4.18-5.48); Red Cell Distribution Width 16 % (10-15); White Blood Count 10.2 10^3/uL (3.5-10.8)
[2021-04-09 21:26] LABS: ALT 12 U/L (7-52); AST 11 U/L (13-39); Albumin 3.3 g/dL (3.2-5.2); Albumin/Globulin Ratio 0.8 (1-3); Alkaline Phosphatase 93 U/L (35-149); Anion Gap 3 mmol/L (2-11); Blood Urea Nitrogen 60 mg/dL (6-24); C Reactive Protein 97.97 mg/L (<8.01); CO2 Carbon Dioxide 33 mmol/L (22-32); Chloride 98 mmol/L (101-111); EGFR African American 56.5 (>60); EGFR Non-African American 46.7 (>60); Globulin 3.9 g/dL (2-4); Glucose 139 mg/dL (70-100); Magnesium 2.2 mg/dL (1.9-2.7); Potassium 4.5 mmol/L (3.5-5.0); Sodium 134 mmol/L (135-145); Total Protein 7.2 g/dL (6.4-8.9)
[2021-04-09] MEDS ORDERED: Iodixanol (CONTRAST) 320 MG/ML 100 ML SDV IV ONE (21:29)
[2021-04-09 21:33] LABS: Troponin I 0.04 ng/mL (<0.03)
[2021-04-09] MEDS ORDERED: Piperacillin/Tazobac ADVAN 3.375 GM in NS 0.9% 100 ml BAG 100 ML IV ONE (22:03)
[2021-04-09] MEDS ORDERED: methylPREDNISolone 125 mg 2 ML VIAL IV SCH (23:45)
[2021-04-09] MEDS ORDERED: methylPREDNISolone 125 mg 2 ML VIAL IV ONE (23:59)
[2021-04-09] MEDS ORDERED: Ondansetron 4 mg VIAL 2 MG/ML 2 ml VIAL IV PRN (23:59)
[2021-04-09] MEDS ORDERED: Dextrose 50% Syringe 50 ml 25 GM/50 ML SYRINGE IV PUSH PRN (23:59)
[2021-04-10 00:28] LABS: Amylase 35 U/L (29-103); Lipase 19 U/L (11.0-82.0)
[2021-04-10] MEDS ORDERED: NS 0.9% 1000 ml BAG 1,000 ML IV SCH (00:30)
[2021-04-10] MEDS: Albuterol HFA INHALER 8 gm MDI INH SCH ×5 (01:20→19:59)
[2021-04-10] MEDS: Azithromycin 500 mg/250 ml NS 500 MG/250 ML BAG IVPB SCH (01:36)
[2021-04-10] MEDS: cefTRIAXone 1 gm/50 mL NS BAG 1 GM/50 ML BAG IVPB SCH (01:36)
[2021-04-10 03:20] LABS: PCO2 Arterial 70 mmHg (35-45); PO2 Arterial 83 mmHg (80-100)
[2021-04-10 04:29] LABS: Anion Gap 5 mmol/L (2-11); Blood Urea Nitrogen 52 mg/dL (6-24); CO2 Carbon Dioxide 31 mmol/L (22-32); Calcium 6.6 mg/dL (8.6-10.3); Chloride 104 mmol/L (101-111); EGFR African American 66.5 (>60); Glucose 104 mg/dL (70-100); Influenza A Molecular Negative (Negative); Influenza B Molecular Negative (Negative); Potassium 4.1 mmol/L (3.5-5.0); Sodium 140 mmol/L (135-145)
[2021-04-10 04:35] LABS: Troponin I 0.04 ng/mL (<0.03)
[2021-04-10] MEDS: Mometasone/Formoter 200/5 MDI INH SCH ×3 (07:02→19:59)
[2021-04-10 07:19] LABS: PO2 Arterial 70 mmHg (80-100)
[2021-04-10 07:26] LABS: PCO2 Arterial 72 mmHg (35-45)
[2021-04-10] MEDS: methylPREDNISolone 125 mg 2 ML VIAL IV SCH ×2 (07:35→17:20)
[2021-04-10] MEDS: Aspirin EC 81 mg TAB.EC (enteric coated) PO SCH (07:38)
[2021-04-10] MEDS: Potassium Chloride LIQUID 20 MEQ/15 ML LIQUID PO SCH (07:56)
[2021-04-10] MEDS ORDERED: Insulin ISOPH/REG 70/30 SUBCUT SCH ×2 (08:00→17:00)
[2021-04-10 08:02] LABS: Urine Appearance Clear; Urine Bilirubin Negative (Negative); Urine Blood 1+ (Negative); Urine Color Yellow; Urine Glucose Negative (Negative); Urine Ketones Negative (Negative); Urine Nitrite Negative (Negative); Urine Protein Negative (Negative); Urine Specific Gravity 1.042 (1.002-1.030); Urine Urobilinogen Negative (Negative)
[2021-04-10 08:16] LABS: Urine Bacteria Absent (Absent); Urine Red Blood Cell 1+(3-5/hpf) (Absent); Urine White Blood Cell Trace(0-5/hpf) (Absent)
[2021-04-10] MEDS ORDERED: Furosemide 40 mg/4 ml IV VIAL IV ONE (10:46)
[2021-04-10 11:44] LABS: ABS Lymphocytes 0.9 10^3/ul (1.0-4.8); ABS Monocytes 0.1 10^3/ul (0-0.8); ABS Neutrophils 8.6 10^3/ul (1.5-7.7); ABS Nucleated RBC 0.1 10^3/ul; Eosinophil % 0.1 %; Hematocrit 45 % (42-52); Hemoglobin 14.1 g/dL (14.0-18.0); Lymphocyte % 8.9 %; Mean Corpuscular HGB Conc 32 g/dL (31-36); Mean Corpuscular Hemoglobin 26 pg (27-31); Mean Corpuscular Volume 82 fL (80-94); Mean Platelet Volume 7.6 fL (7.4-10.4); Nucleated Red Blood Cells % 0.7; Platelet Count 191 10^3/uL (150-450); Red Blood Count 5.46 10^6 /uL (4.18-5.48); Red Cell Distribution Width 16 % (10-15); White Blood Count 9.6 10^3/uL (3.5-10.8)
[2021-04-10 11:56] LABS: INR 2.1 (0.86-1.15)
[2021-04-10 15:18] LABS: PCO2 Arterial 62 mmHg (35-45); PO2 Arterial 169 mmHg (80-100)
[2021-04-10] MEDS ORDERED: Polyethylene Glycol 3350 17 GM PACKET PO PRN (19:14)
[2021-04-11] MEDS: Albuterol HFA INHALER 8 gm MDI INH SCH ×3 (01:01→13:30)
[2021-04-11] MEDS: cefTRIAXone 1 gm/50 mL NS BAG 1 GM/50 ML BAG IVPB SCH (01:30)
[2021-04-11] MEDS: methylPREDNISolone 125 mg 2 ML VIAL IV SCH ×3 (01:30→09:12)
[2021-04-11] MEDS: Azithromycin 500 mg/250 ml NS 500 MG/250 ML BAG IVPB SCH (01:31)
[2021-04-11 05:48] LABS: ABS Lymphocytes 0.7 10^3/ul (1.0-4.8); ABS Monocytes 0.2 10^3/ul (0-0.8); ABS Neutrophils 9.9 10^3/ul (1.5-7.7); ABS Nucleated RBC 0.1 10^3/ul; Hematocrit 41 % (42-52); Lymphocyte % 6.3 %; Mean Corpuscular HGB Conc 32 g/dL (31-36); Mean Corpuscular Hemoglobin 26 pg (27-31); Mean Corpuscular Volume 81 fL (80-94); Mean Platelet Volume 7.3 fL (7.4-10.4); Nucleated Red Blood Cells % 0.9; Platelet Count 232 10^3/uL (150-450); Red Blood Count 5.03 10^6 /uL (4.18-5.48); Red Cell Distribution Width 16 % (10-15); White Blood Count 10.8 10^3/uL (3.5-10.8)
[2021-04-11 06:06] LABS: Albumin 3.2 g/dL (3.2-5.2); Albumin/Globulin Ratio 0.8 (1-3); Calcium 7.9 mg/dL (8.6-10.3); EGFR African American 66.5 (>60); Magnesium 2.3 mg/dL (1.9-2.7); Phosphorus 3.4 mg/dL (2.5-5.0); Total Bilirubin 0.3 mg/dL (0.2-1.0); Total Protein 7.2 g/dL (6.4-8.9)
[2021-04-11] MEDS: Mometasone/Formoter 200/5 MDI INH SCH (08:08)
[2021-04-11] MEDS: Aspirin EC 81 mg TAB.EC (enteric coated) PO SCH (08:45)
[2021-04-11 08:48] LABS: Potassium 5.4 mmol/L (3.5-5.0)
[2021-04-11] MEDS: Potassium Chloride LIQUID 20 MEQ/15 ML LIQUID PO SCH (09:12)
[2021-04-11] MEDS ORDERED: Furosemide 20 mg/2 ml IV VIAL IV ONE (09:31)
[2021-04-11 13:05] LABS: Glucose Confirmatory 413 mg/dL (70-100)
[2021-04-11 14:33] LABS: Glucose Confirmatory 435 mg/dL (70-100)
[2021-04-11] MEDS ORDERED: Dextrose 50% Syringe 50 ml 25 GM/50 ML SYRINGE IV PUSH PRN (17:14)
[2021-04-11] MEDS ORDERED: Insulin GLARGINE 100 un/ml 10 ml VIAL SUBCUT ONE (17:14)
[2021-04-11] MEDS ORDERED: Insulin GLARGINE 100 un/ml 10 ml VIAL ONE (17:16)
[2021-04-11] MEDS ORDERED: Albuterol HFA INHALER 8 gm MDI INH PRN (17:34)
[2021-04-11] MEDS ORDERED: Insulin GLARGINE 100 un/ml 10 ml VIAL SUBCUT SCH (21:00)
[2021-04-11] MEDS ORDERED: methylPREDNISolone SOD 40 mg/ml 1 ml VIAL IV SCH (21:00)
[2021-04-11] MEDS: Budesonide NEB 0.5 MG/2 ML NEB.SOLN INH SCH (21:05)
[2021-04-12] MEDS: cefTRIAXone 1 gm/50 mL NS BAG 1 GM/50 ML BAG IVPB SCH (02:44)
[2021-04-12] MEDS: Azithromycin 500 mg/250 ml NS 500 MG/250 ML BAG IVPB SCH (02:55)
[2021-04-12 05:22] LABS: ABS Lymphocytes 0.8 10^3/ul (1.0-4.8); ABS Monocytes 0.4 10^3/ul (0-0.8); ABS Neutrophils 12.4 10^3/ul (1.5-7.7); ABS Nucleated RBC 0.1 10^3/ul; Hematocrit 40 % (42-52); Hemoglobin 12.9 g/dL (14.0-18.0); Mean Corpuscular HGB Conc 32 g/dL (31-36); Mean Corpuscular Hemoglobin 26 pg (27-31); Mean Corpuscular Volume 81 fL (80-94); Mean Platelet Volume 7.1 fL (7.4-10.4); Nucleated Red Blood Cells % 0.6; Platelet Count 225 10^3/uL (150-450); Red Blood Count 5.02 10^6 /uL (4.18-5.48); Red Cell Distribution Width 16 % (10-15); White Blood Count 13.6 10^3/uL (3.5-10.8)
[2021-04-12 05:33] LABS: Calcium 7.8 mg/dL (8.6-10.3); EGFR African American 80.4 (>60); EGFR Non-African American 66.4 (>60); Potassium 4.9 mmol/L (3.5-5.0)
[2021-04-12] MEDS: Budesonide NEB 0.5 MG/2 ML NEB.SOLN INH SCH (05:37)
[2021-04-12] MEDS ORDERED: Furosemide 100 mg/10 ml IV VIAL IV ONE (09:31)
[2021-04-12] MEDS: Potassium Chloride LIQUID 20 MEQ/15 ML LIQUID PO SCH (09:58)
[2021-04-12] MEDS: Aspirin EC 81 mg TAB.EC (enteric coated) PO SCH (09:58)
[2021-04-12] MEDS ORDERED: Insulin ISOPH/REG 70/30 SUBCUT SCH (17:00)
[2021-04-12] MEDS ORDERED: Polyethylene Glycol 3350 17 GM PACKET PO PRN (21:10)
[2021-04-12] MEDS ORDERED: Senna TAB 8.6 mg TAB PO PRN (21:10)
[2021-04-12] MEDS ORDERED: Magnesium Hydroxide LIQ 30 ML UDC PO PRN (21:10)
[2021-04-12] MEDS: Mometasone/Formoter 200/5 MDI INH SCH (22:25)
[2021-04-13] MEDS: cefTRIAXone 1 gm/50 mL NS BAG 1 GM/50 ML BAG IVPB SCH (01:55)
[2021-04-13] MEDS: Azithromycin 500 mg/250 ml NS 500 MG/250 ML BAG IVPB SCH (01:56)
[2021-04-13 06:41] LABS: Calcium 8.2 mg/dL (8.6-10.3); EGFR African American 99.6 (>60); EGFR Non-African American 82.3 (>60); Potassium 4.4 mmol/L (3.5-5.0)
[2021-04-13] MEDS ORDERED: Insulin ISOPH/REG 70/30 SUBCUT SCH (08:00)
[2021-04-13] MEDS: Aspirin EC 81 mg TAB.EC (enteric coated) PO SCH (08:51)
[2021-04-13] MEDS: Potassium Chloride LIQUID 20 MEQ/15 ML LIQUID PO SCH (08:51)
[2021-04-13] MEDS: Mometasone/Formoter 200/5 MDI INH SCH (13:38)
[2021-04-13 15:42] VITALS: BP 179/76
== END 2021-04-13 15:39 | disposition home or self-care (01) | DRG 189 ==
LOC: ED 19:51 → ICU 23:51 → MEDTELE 04-11 17:33
PROVIDERS: ADMIT Internal Medicine; ATTEND Internal Medicine

== ENCOUNTER 2022-07-28 18:11 | Inpatient (IN) ==
[2022-07-28 20:13] LABS: ABS Eosinophils 0.2 10^3/ul (0-0.6); ABS Lymphocytes 1.7 10^3/ul (1.0-4.8); ABS Monocytes 1.1 10^3/ul (0-0.8); ABS Neutrophils 8.6 10^3/ul (1.5-7.7); Eosinophil % 1.4 %; Hematocrit 39 % (42-52); Hemoglobin 12.1 g/dL (14.0-18.0); Lymphocyte % 14.3 %; Mean Corpuscular HGB Conc 31 g/dL (31-36); Mean Corpuscular Hemoglobin 24 pg (27-31); Mean Corpuscular Volume 79 fL (80-94); Mean Platelet Volume 6.6 fL (7.4-10.4); Platelet Count 230 10^3/uL (150-450); Red Blood Count 4.94 10^6 /uL (4.18-5.48); Red Cell Distribution Width 16 % (10-15); White Blood Count 11.6 10^3/uL (3.5-10.8)
[2022-07-28 20:40] LABS: Albumin 3.8 g/dL (3.2-5.2)
[2022-07-28 20:46] LABS: C Reactive Protein 52.38 mg/L (<8.01); Globulin 3.7 g/dL (2-4); Total Protein 7.5 g/dL (6.4-8.9)
[2022-07-28 20:51] LABS: Calcium 8.9 mg/dL (8.6-10.3); Potassium 4.7 mmol/L (3.5-5.0); Total Bilirubin 0.2 mg/dL (0.2-1.0); eGFR CKD-EPI 35.3 (>60)
[2022-07-28 21:49] LABS: High Sensitivity Troponin 1 Hr 7 pg/mL (<20)
[2022-07-29] MEDS ORDERED: Albuterol/Ipratropium NEB.SOL (2.5/0.5 MG) 3 ML NEB.SOLN INH ONE ×2 (01:47→03:40)
[2022-07-29 03:17] LABS: PCO2 Arterial 66 mmHg (35-45)
[2022-07-29 03:30] LABS: PO2 Arterial < 38 mmHg (80-100)
[2022-07-29] MEDS ORDERED: Albuterol HFA INHALER 8 gm MDI INH PRN ×2 (03:53→12:22)
[2022-07-29] MEDS ORDERED: Furosemide 40 mg/4 ml IV VIAL IV SLOW PU ONE (04:00)
[2022-07-29] MEDS: Albuterol/Ipratropium NEB.SOL (2.5/0.5 MG) 3 ML NEB.SOLN INH SCH ×2 (04:02→04:50)
[2022-07-29] MEDS ORDERED: cefTRIAXone 1 gm/50 mL D5W 1 GM/50 ML BAG IV SCH (04:45)
[2022-07-29] MEDS ORDERED: Dextrose 50% Syringe 50 ml 25 GM/50 ML SYRINGE IV PUSH PRN ×2 (04:53→22:12)
[2022-07-29] MEDS: methylPREDNISolone SOD SUCC 40 mg/ml 1 ml VIAL IV SCH ×3 (06:08→21:18)
[2022-07-29] MEDS: Azithromycin 500 mg/250 ml NS 500 MG/250 ML BAG IVPB SCH (06:13)
[2022-07-29 06:23] LABS: ABS Basophils 0.1 10^3/ul (0-0.2); ABS Eosinophils 0.1 10^3/ul (0-0.6); ABS Lymphocytes 1.9 10^3/ul (1.0-4.8); ABS Monocytes 1.3 10^3/ul (0-0.8); ABS Neutrophils 9.4 10^3/ul (1.5-7.7); Eosinophil % 0.9 %; Hematocrit 36 % (42-52); Hemoglobin 11.3 g/dL (14.0-18.0); Lymphocyte % 15.1 %; Mean Corpuscular HGB Conc 31 g/dL (31-36); Mean Corpuscular Hemoglobin 25 pg (27-31); Mean Corpuscular Volume 79 fL (80-94); Mean Platelet Volume 6.7 fL (7.4-10.4); Platelet Count 217 10^3/uL (150-450); Red Blood Count 4.59 10^6 /uL (4.18-5.48); Red Cell Distribution Width 16 % (10-15); White Blood Count 12.9 10^3/uL (3.5-10.8)
[2022-07-29 07:21] LABS: ALT 17 U/L (7-52); Albumin 3.6 g/dL (3.2-5.2); Alkaline Phosphatase 98 U/L (35-149); Blood Urea Nitrogen 104 mg/dL (6-24); CO2 Carbon Dioxide 29 mmol/L (22-32); Calcium 8.5 mg/dL (8.6-10.3); Chloride 95 mmol/L (101-111); Globulin 3.5 g/dL (2-4); Glucose 214 mg/dL (70-100); Sodium 135 mmol/L (135-145); Total Protein 7.1 g/dL (6.4-8.9); eGFR CKD-EPI 35.3 (>60)
[2022-07-29 07:52] LABS: Anion Gap 11 mmol/L (2-11)
[2022-07-29] MEDS: cefTRIAXone 1 GM Q24H (ADVAN) IVPB SCH (08:50)
[2022-07-29] MEDS: Aspirin EC 81 mg TAB.EC (enteric coated) PO SCH (09:07)
[2022-07-29 09:51] LABS: Potassium Redraw 4.4 mmol/L (3.5-5.0)
[2022-07-29] MEDS ORDERED: Albuterol/Ipratropium NEB.SOL (2.5/0.5 MG) 3 ML NEB.SOLN INH PRN (12:21)
[2022-07-29] MEDS: Mometasone/Formoter 200/5 MDI INH SCH ×2 (15:00→19:25)
[2022-07-29] MEDS: Insulin ISOPH/REG 70/30 SUBCUT SCH (15:41)
[2022-07-29] MEDS ORDERED: Insulin ISOPH/REG 70/30 SUBCUT SCH (17:00)
[2022-07-30 02:06] LABS: Urine Appearance Cloudy; Urine Bacteria 1+ (Absent); Urine Bilirubin Negative (Negative); Urine Blood 2+ (Negative); Urine Color Yellow; Urine Glucose Negative (Negative); Urine Ketones Negative (Negative); Urine Nitrite Negative (Negative); Urine Protein Negative (Negative); Urine Red Blood Cell Trace(0-2/hpf) (Absent); Urine Urobilinogen Negative (Negative); Urine White Blood Cell 3+(>20/hpf) (Absent)
[2022-07-30] MEDS: methylPREDNISolone SOD SUCC 40 mg/ml 1 ml VIAL IV SCH ×2 (06:24→12:45)
[2022-07-30] MEDS: Azithromycin 500 mg/250 ml NS 500 MG/250 ML BAG IVPB SCH (06:24)
[2022-07-30 07:37] LABS: ABS Lymphocytes 1.1 10^3/ul (1.0-4.8); ABS Monocytes 0.4 10^3/ul (0-0.8); ABS Neutrophils 16.6 10^3/ul (1.5-7.7); Hematocrit 40 % (42-52); Hemoglobin 12.4 g/dL (14.0-18.0); Lymphocyte % 5.8 %; Mean Corpuscular HGB Conc 31 g/dL (31-36); Mean Corpuscular Hemoglobin 24 pg (27-31); Mean Corpuscular Volume 78 fL (80-94); Mean Platelet Volume 6.9 fL (7.4-10.4); Platelet Count 247 10^3/uL (150-450); Red Blood Count 5.09 10^6 /uL (4.18-5.48); Red Cell Distribution Width 16 % (10-15); White Blood Count 18.1 10^3/uL (3.5-10.8)
[2022-07-30 07:48] LABS: Calcium 9.3 mg/dL (8.6-10.3); Magnesium 2.8 mg/dL (1.9-2.7); Potassium 4.7 mmol/L (3.5-5.0); eGFR CKD-EPI 46.7 (>60)
[2022-07-30] MEDS: Mometasone/Formoter 200/5 MDI INH SCH ×2 (08:50→20:26)
[2022-07-30] MEDS: Insulin ISOPH/REG 70/30 SUBCUT SCH ×2 (09:19→17:59)
[2022-07-30] MEDS: Aspirin EC 81 mg TAB.EC (enteric coated) PO SCH (09:21)
[2022-07-30] MEDS: cefTRIAXone 1 GM Q24H (ADVAN) IVPB SCH (09:24)
[2022-07-30 12:17] LABS: Glucose Confirmatory 401 mg/dL (70-100)
[2022-07-30] MEDS: Polyethylene Glycol 3350 17 GM PACKET PO SCH ×2 (12:45→21:25)
[2022-07-30] MEDS ORDERED: Insulin ISOPH/REG 70/30 SUBCUT SCH (17:00)
[2022-07-31] MEDS: Azithromycin 500 mg/250 ml NS 500 MG/250 ML BAG IVPB SCH (04:55)
[2022-07-31] MEDS: Mometasone/Formoter 200/5 MDI INH SCH ×2 (07:13→20:08)
[2022-07-31] MEDS ORDERED: Insulin ISOPH/REG 70/30 SUBCUT SCH (08:00)
[2022-07-31 08:40] LABS: Hematocrit 45 % (42-52); Hemoglobin 13.9 g/dL (14.0-18.0); Mean Corpuscular HGB Conc 31 g/dL (31-36); Mean Corpuscular Hemoglobin 25 pg (27-31); Mean Corpuscular Volume 80 fL (80-94); Mean Platelet Volume 6.8 fL (7.4-10.4); Platelet Count 259 10^3/uL (150-450); Red Blood Count 5.67 10^6 /uL (4.18-5.48); Red Cell Distribution Width 16 % (10-15)
[2022-07-31] MEDS: Aspirin EC 81 mg TAB.EC (enteric coated) PO SCH (08:47)
[2022-07-31] MEDS: Insulin ISOPH/REG 70/30 SUBCUT SCH ×2 (08:48→17:09)
[2022-07-31] MEDS: Polyethylene Glycol 3350 17 GM PACKET PO SCH ×2 (08:48→20:36)
[2022-07-31 08:51] LABS: Calcium 9.6 mg/dL (8.6-10.3); Magnesium 2.9 mg/dL (1.9-2.7)
[2022-07-31] MEDS: cefTRIAXone 1 GM Q24H (ADVAN) IVPB SCH (08:55)
[2022-07-31 08:56] LABS: eGFR CKD-EPI 54.1 (>60)
[2022-07-31 09:07] LABS: Potassium 5.1 mmol/L (3.5-5.0)
[2022-08-01] MEDS: Azithromycin 500 mg/250 ml NS 500 MG/250 ML BAG IVPB SCH (04:49)
[2022-08-01 06:22] LABS: Hematocrit 42 % (42-52); Hemoglobin 12.7 g/dL (14.0-18.0); Mean Corpuscular HGB Conc 31 g/dL (31-36); Mean Corpuscular Hemoglobin 24 pg (27-31); Mean Corpuscular Volume 80 fL (80-94); Mean Platelet Volume 6.6 fL (7.4-10.4); Platelet Count 265 10^3/uL (150-450); Red Blood Count 5.26 10^6 /uL (4.18-5.48); Red Cell Distribution Width 16 % (10-15); White Blood Count 20.8 10^3/uL (3.5-10.8)
[2022-08-01 06:49] LABS: Calcium 9.3 mg/dL (8.6-10.3); Magnesium 2.8 mg/dL (1.9-2.7); Potassium 4.3 mmol/L (3.5-5.0); eGFR CKD-EPI 59.5 (>60)
[2022-08-01] MEDS: Mometasone/Formoter 200/5 MDI INH SCH (07:56)
[2022-08-01] MEDS: Insulin ISOPH/REG 70/30 SUBCUT SCH (07:58)
[2022-08-01] MEDS: Aspirin EC 81 mg TAB.EC (enteric coated) PO SCH (07:58)
[2022-08-01] MEDS: Polyethylene Glycol 3350 17 GM PACKET PO SCH (07:59)
[2022-08-01] MEDS: cefTRIAXone 1 GM Q24H (ADVAN) IVPB SCH (08:06)
[2022-08-01 16:03] VITALS: BP 140/73
== END 2022-08-01 15:30 | disposition home or self-care (01) | DRG 190 ==
LOC: EDHOLD 18:11 → ED 18:11 → SUATTDRO 07-29 03:49 → MEDTELE 07-29 16:47
PROVIDERS: ADMIT Internal Medicine; ATTEND Internal Medicine

== ENCOUNTER 2023-03-21 20:25 | Inpatient (IN) ==
[2023-03-21] MEDS ORDERED: Heparin 5000 UNITS/ML 1 mL VIAL IV SCH (21:00)
[2023-03-21 21:13] LABS: Hematocrit 41.8 % (38-53); Hemoglobin 12.6 g/dL (13.2-16.3); Mean Corpuscular Hemoglobin 21.8 pg (27-33); Mean Corpuscular Hgb Conc 30.2 g/dL (31-36); Mean Corpuscular Volume 72.1 fL (80-97); Platelet Count 274 10^3/uL (150-450); Red Cell Distribution Width 19.3 % (12-17); White Blood Count 19.4 10^3/uL (3.6-10.2)
[2023-03-21 21:26] LABS: Albumin 3.9 g/dL (3.2-5.2); Albumin/Globulin Ratio 0.9 (1-3); Calcium 9.4 mg/dL (8.6-10.3); Creatinine, Serum 1.83 mg/dL (0.67-1.17); Globulin 4.3 g/dL (2-4); Magnesium 2.2 mg/dL (1.9-2.7); Total Bilirubin 0.5 mg/dL (0.2-1.0); Total Protein 8.2 g/dL (6.4-8.9); eGFR CKD-EPI 40.7 (>60)
[2023-03-21] MEDS ORDERED: NS 0.9% 500 ml BAG 500 ML IV ONE (21:27)
[2023-03-21 21:36] LABS: ABS Basophils 0.1 10^3/uL (0.0-0.1); ABS Eosinophils 0.1 10^3/uL (0.0-0.5); ABS Lymphocytes 1.8 10^3/uL (1.0-4.8); ABS Monocytes 1.6 10^3/uL (0.0-1.1); ABS Neutrophils 15.9 10^3/uL (1.5-7.6); ABS Nucleated RBC 0.01 10^3/ul; Eosinophil % 0.3 %; Nucleated Red Blood Cells % 0.1 /100 WBC (0.0-0.4)
[2023-03-21] MEDS: Heparin DRIP 25,000 UNITS BAG 25,000 UNITS/500 ML BAG IV SCH (21:50)
[2023-03-21 22:05] LABS: TSH Ultra Thyroid Stim Horm 2.12 mcIU/mL (0.34-5.60)
[2023-03-21] MEDS ORDERED: cefTRIAXone 1 gm/50 mL D5W 1 GM/50 ML BAG IV ONE (22:08)
[2023-03-21 22:41] LABS: High Sensitivity Troponin 1 Hr 9 pg/mL (<20)
[2023-03-21 23:16] LABS: C Reactive Protein 34.52 mg/L (<8.01)
[2023-03-22] MEDS ORDERED: Albuterol HFA INHALER 8 gm MDI INH PRN (00:20)
[2023-03-22] MEDS ORDERED: Dextrose 50% Syringe 50 ml 25 GM/50 ML SYRINGE IV PUSH PRN (00:29)
[2023-03-22 02:22] LABS: Urine Appearance Cloudy; Urine Bilirubin Negative (Negative); Urine Blood 1+ (Negative); Urine Color Yellow; Urine Glucose Negative (Negative); Urine Ketones Negative (Negative); Urine Nitrite Negative (Negative); Urine Protein Negative (Negative); Urine Specific Gravity 1.009 (1.002-1.030); Urine Urobilinogen Negative (Negative)
[2023-03-22 02:31] LABS: Urine Bacteria Absent (Absent); Urine Red Blood Cell Trace(0-2/hpf) (Absent); Urine Squamous Epithelial Cell Present (Absent); Urine White Blood Cell 3+(>20/hpf) (Absent)
[2023-03-22 04:16] LABS: ABS Basophils 0.1 10^3/uL (0.0-0.1); ABS Eosinophils 0.1 10^3/uL (0.0-0.5); ABS Lymphocytes 2.1 10^3/uL (1.0-4.8); ABS Monocytes 1.4 10^3/uL (0.0-1.1); ABS Neutrophils 13.1 10^3/uL (1.5-7.6); Eosinophil % 0.6 %; Hematocrit 39.4 % (38-53); Hemoglobin 12.4 g/dL (13.2-16.3); Lymphocyte % 12.3 %; Mean Corpuscular Hemoglobin 22.5 pg (27-33); Mean Corpuscular Hgb Conc 31.4 g/dL (31-36); Mean Corpuscular Volume 71.5 fL (80-97); Mean Platelet Volume 6.9 fL (7.5-11.2); Platelet Count 228 10^3/uL (150-450); Red Blood Count 5.51 10^6/uL (4.06-5.63); Red Cell Distribution Width 19.2 % (12-17); White Blood Count 16.8 10^3/uL (3.6-10.2)
[2023-03-22 04:30] LABS: Creatinine, Serum 1.64 mg/dL (0.67-1.17); Potassium 4.3 mmol/L (3.5-5.0); eGFR CKD-EPI 46.4 (>60)
[2023-03-22] MEDS: Mometasone/Formoter 200/5 MDI INH SCH ×2 (08:43→19:41)
[2023-03-22] MEDS ORDERED: Aspirin EC 81 mg TAB.EC (enteric coated) PO SCH (09:00)
[2023-03-22 12:34] LABS: Osmolality Serum 306 mOsm/kg (275-295)
[2023-03-22] MEDS: Fluticasone NASAL SPRAY 50MCG 16 gm SPRAY BTL INTRANASAL SCH (12:38)
[2023-03-22 13:43] LABS: Urine Osmo 363 mOsm/kg (150-1150)
[2023-03-22] MEDS ORDERED: NS 0.9% 1000 ml BAG 1,000 ML IV SCH (15:15)
[2023-03-22] MEDS: Heparin DRIP 25,000 UNITS BAG 25,000 UNITS/500 ML BAG IV SCH (15:18)
[2023-03-22] MEDS ORDERED: Ferric Gluconate IV 250 MG in NS 0.9% 250 ml 200 ML IVPB ONE (15:39)
[2023-03-23 06:29] LABS: Hematocrit 38.7 % (38-53); Hemoglobin 11.9 g/dL (13.2-16.3); Mean Corpuscular Hemoglobin 22.3 pg (27-33); Mean Corpuscular Hgb Conc 30.8 g/dL (31-36); Mean Corpuscular Volume 72.3 fL (80-97); Platelet Count 213 10^3/uL (150-450); Red Blood Count 5.35 10^6/uL (4.06-5.63); Red Cell Distribution Width 19.1 % (12-17); White Blood Count 16.8 10^3/uL (3.6-10.2)
[2023-03-23 06:37] LABS: Calcium 9.1 mg/dL (8.6-10.3); Creatinine, Serum 1.5 mg/dL (0.67-1.17); Potassium 4.5 mmol/L (3.5-5.0); eGFR CKD-EPI 51.7 (>60)
[2023-03-23] MEDS: Mometasone/Formoter 200/5 MDI INH SCH ×2 (08:25→20:20)
[2023-03-23] MEDS: Heparin DRIP 25,000 UNITS BAG 25,000 UNITS/500 ML BAG IV SCH (08:26)
[2023-03-23] MEDS ORDERED: Sulfur Hexaflouride MICROSPHR 25 MG VIAL ONE (09:12)
[2023-03-23] MEDS: Fluticasone NASAL SPRAY 50MCG 16 gm SPRAY BTL INTRANASAL SCH (09:14)
[2023-03-23 09:26] LABS: ABS Basophils 0.1 10^3/uL (0.0-0.1); ABS Eosinophils 0.1 10^3/uL (0.0-0.5); ABS Lymphocytes 1.1 10^3/uL (1.0-4.8); ABS Monocytes 1.6 10^3/uL (0.0-1.1); ABS Neutrophils 13.9 10^3/uL (1.5-7.6); ABS Nucleated RBC 0.01 10^3/ul; Eosinophil % 0.7 %; Lymphocyte % 6.6 %
[2023-03-23 14:15] VITALS: BP 114/60
[2023-03-23] MEDS ORDERED: Ferric Gluconate IV 250 MG in NS 0.9% 250 ml 200 ML IVPB ONE (15:41)
[2023-03-23] MEDS ORDERED: Zosyn per Pharmacy NOTE FOLLOW UP SCH (17:00)
[2023-03-24] MEDS ORDERED: Ferric Gluconate IV 250 MG in NS 0.9% 250 ml 200 ML IVPB ONE (15:42)
== END 2023-03-23 19:55 | disposition home or self-care (01) | DRG 309 ==
LOC: EDHOLD 20:25 → ED 20:25 → EDHOLD 03-22 20:47 → MEDTELE 03-23 11:04
PROVIDERS: ADMIT Internal Medicine; ATTEND Internal Medicine

== ENCOUNTER 2024-04-10 18:25 | Inpatient (IN) ==
[2024-04-10 18:57] LABS: Hematocrit 38.4 % (38-53); Hemoglobin 12.2 g/dL (13.2-16.3); Mean Corpuscular Hemoglobin 25.5 pg (27-33); Mean Corpuscular Hgb Conc 31.8 g/dL (31-36); Mean Corpuscular Volume 80.1 fL (80-97); Mean Platelet Volume 7.1 fL (7.5-11.2); Platelet Count 267 10^3/uL (150-450); Red Cell Distribution Width 14.8 % (12-17); White Blood Count 24.1 10^3/uL (3.6-10.2)
[2024-04-10 19:04] LABS: INR 2.43 (0.83-1.13)
[2024-04-10 19:27] LABS: ABS Basophils 0.1 10^3/uL (0.0-0.1); ABS Lymphocytes 1.5 10^3/uL (1.0-4.8); ABS Monocytes 2.5 10^3/uL (0.0-1.1); Giant Platelets Present; Lymphocyte % 6.2 %
[2024-04-10 19:36] LABS: Albumin 3.1 g/dL (3.2-5.2); Albumin/Globulin Ratio 0.8 (1-3); Calcium 8.2 mg/dL (8.6-10.3); Creatinine, Serum 3.88 mg/dL (0.67-1.17); Globulin 3.8 g/dL (2-4); Potassium 5.3 mmol/L (3.5-5.0); Total Bilirubin 0.6 mg/dL (0.2-1.0); Total Protein 6.9 g/dL (6.4-8.9); eGFR CKD-EPI 16.4 (>60)
[2024-04-10 19:51] LABS: Magnesium 1.7 mg/dL (1.9-2.7)
[2024-04-10 20:07] LABS: TSH Ultra Thyroid Stim Horm 1.22 mcIU/mL (0.34-5.60)
[2024-04-10] MEDS: NS 0.9% 1000 ml BAG 1,000 ML IV ONE (20:19)
[2024-04-10] MEDS: Piperacillin/Tazobac 3.375 BAG 3.375 GM/100 ML BAG IV ONE (20:20)
[2024-04-10] MEDS: Magnesium Sulfate 2 gm BAG 2 GM/50 ML BAG IVPB ONE (20:21)
[2024-04-10 20:48] LABS: High Sensitivity Troponin 1 Hr 34 pg/mL (<20)
[2024-04-10 21:20] LABS: Urine Appearance Extra Turbid; Urine Bilirubin Negative (Negative); Urine Blood 3+ (Negative); Urine Glucose Negative (Negative); Urine Ketones Negative (Negative); Urine Nitrite Negative (Negative); Urine Protein 1+ (>=30 mg/dL) (Negative); Urine Specific Gravity 1.017 (1.002-1.030); Urine Urobilinogen Negative (Negative); Urine pH 5.5 (5.0-8.0)
[2024-04-10 21:24] LABS: Urine Bacteria 1+ /HPF (Absent); Urine Red Blood Cell 3+(>10/hpf) /HPF (0-Trace); Urine Squamous Epithelial Cell Present /HPF (Absent); Urine White Blood Cell 3+(>20/hpf) /HPF (0-Trace)
[2024-04-10 21:26] LABS: Urine Color Yellow
[2024-04-10] MEDS: Acetaminophen IV 1 GM/100ML 1,000 MG/100 ML BAG IV ONE (21:41)
[2024-04-11] MEDS ORDERED: Albuterol HFA INHALER 8 gm MDI INH PRN ×2 (04:29→13:13)
[2024-04-11] MEDS: Cefepime 1 GM in Dextrose 1 GM/50 ML BAG IV SCH (05:33)
[2024-04-11] MEDS: Lactated Ringers 1000 ml BAG 1,000 ML IV SCH (05:35)
[2024-04-11 05:54] LABS: Hematocrit 37.4 % (38-53); Hemoglobin 11.8 g/dL (13.2-16.3); Mean Corpuscular Hemoglobin 25.4 pg (27-33); Mean Corpuscular Hgb Conc 31.6 g/dL (31-36); Mean Corpuscular Volume 80.4 fL (80-97); Mean Platelet Volume 7.4 fL (7.5-11.2); Platelet Count 237 10^3/uL (150-450); Red Blood Count 4.65 10^6/uL (4.06-5.63); Red Cell Distribution Width 14.7 % (12-17); White Blood Count 25.3 10^3/uL (3.6-10.2)
[2024-04-11 06:56] LABS: Calcium 8.1 mg/dL (8.6-10.3); Creatinine, Serum 4.16 mg/dL (0.67-1.17); Magnesium 2.4 mg/dL (1.9-2.7); Potassium 5.5 mmol/L (3.5-5.0); eGFR CKD-EPI 15.1 (>60)
[2024-04-11 07:50] LABS: ABS Basophils 0.1 10^3/uL (0.0-0.1); ABS Lymphocytes 1.3 10^3/uL (1.0-4.8); ABS Monocytes 2.4 10^3/uL (0.0-1.1); ABS Neutrophils 21.5 10^3/uL (1.5-7.6)
[2024-04-11] MEDS: Mometasone/Formoter 200/5 MDI INH SCH (08:06)
[2024-04-11] MEDS: Aspirin EC 81 mg TAB.EC (enteric coated) PO SCH (08:45)
[2024-04-11] MEDS ORDERED: Iohexol 180 (CONTRAST) 10 ML SDV IV ONE (11:23)
[2024-04-11] MEDS ORDERED: Lidocaine 2% JELLY 10 ML JELLY ONE (11:57)
[2024-04-11] MEDS ORDERED: KETAMINE HCL 10 MG/ML 20 ml VIAL (200 MG) ONE (11:58)
[2024-04-11] MEDS ORDERED: Midazolam 2 mg/2 ml VIAL 1 mg/ml 2 ml VIAL (2 mg) ONE (11:58)
[2024-04-11] MEDS: Albuterol/Ipratropium NEB.SOL (2.5/0.5 MG) 3 ML NEB.SOLN ONE (13:20)
[2024-04-11] MEDS: Albuterol/Ipratropium NEB.SOL (2.5/0.5 MG) 3 ML NEB.SOLN INH SCH (13:20)
[2024-04-11] MEDS: hydrALAZINE 20 mg/ml 1 ML Vial IV IV SLOW PU ONE (13:33)
[2024-04-11 14:00] LABS: Venous Bicarbonate HCO3 19.4 mmol/L (24-28)
[2024-04-11 14:53] LABS: Calcium 8.1 mg/dL (8.6-10.3); Creatinine, Serum 4.54 mg/dL (0.67-1.17); Potassium 5.6 mmol/L (3.5-5.0); eGFR CKD-EPI 13.6 (>60)
[2024-04-11] MEDS ORDERED: Zosyn per Pharmacy NOTE FOLLOW UP SCH (16:00)
[2024-04-11] MEDS: NS 0.9% 1000 ml BAG 1,000 ML IV SCH (16:15)
[2024-04-11] MEDS: NS 0.9% 500 ml BAG 500 ML IV ONE (16:50)
[2024-04-11] MEDS ORDERED: Heparin 5000 UNITS/ML 1 mL VIAL IV SCH (17:00)
[2024-04-11] MEDS ORDERED: Cefepime 1 GM in Dextrose 1 GM/50 ML BAG IV SCH (17:00)
[2024-04-11] MEDS: ZOSYN 3.375 GM x ONE DOSE over 30 miuntes IV (17:12)
[2024-04-11] MEDS ORDERED: Dextrose 50% Syringe 50 ml 25 GM/50 ML SYRINGE IV PUSH PRN (17:12)
[2024-04-11] MEDS: SODIUM ZIRCONIUM CYCLOSILICATE 10 GM PACKET PO ONE (18:22)
[2024-04-11] MEDS: Acetaminophen IV 1 GM/100ML 1,000 MG/100 ML BAG IV ONE (19:06)
[2024-04-11] MEDS: Heparin DRIP 25,000 UNITS BAG 25,000 UNITS/250 ML BAG IV SCH (19:41)
[2024-04-11] MEDS: ZOSYN 3.375 GM Q8H per EXTENDED INFUSION IV SCH (21:23)
[2024-04-12] MEDS: Atropine 1 MG/ML INJ 1 ML VIAL IV PUSH ONE (00:07)
[2024-04-12] MEDS: Norepinephrine 4 MG/250mL D5W 4,000 MCG/250 ML BAG IV SCH ×2 (00:10→01:02)
[2024-04-12 00:56] LABS: Calcium 7.7 mg/dL (8.6-10.3); Creatinine, Serum 5.09 mg/dL (0.67-1.17); Potassium 5.7 mmol/L (3.5-5.0); eGFR CKD-EPI 11.9 (>60)
[2024-04-12 01:03] LABS: PCO2 Arterial 37 mmHg (35-45); PO2 Arterial 82 mmHg (80-100)
[2024-04-12] MEDS: SODIUM ZIRCONIUM CYCLOSILICATE 10 GM PACKET PO ONE (02:30)
[2024-04-12 04:23] LABS: Hematocrit 35.5 % (38-53); Hemoglobin 11.2 g/dL (13.2-16.3); Mean Corpuscular Hemoglobin 25.3 pg (27-33); Mean Corpuscular Hgb Conc 31.4 g/dL (31-36); Mean Corpuscular Volume 80.5 fL (80-97); Mean Platelet Volume 7.6 fL (7.5-11.2); Platelet Count 217 10^3/uL (150-450); Red Blood Count 4.42 10^6/uL (4.06-5.63); Red Cell Distribution Width 14.6 % (12-17)
[2024-04-12 04:32] LABS: ABS Lymphocytes 0.8 10^3/uL (1.0-4.8); ABS Neutrophils 25.1 10^3/uL (1.5-7.6); Lymphocyte % 2.9 %
[2024-04-12] MEDS: Lactated Ringers 1000 ml BAG 1,000 ML IV ONE (04:42)
[2024-04-12 04:51] LABS: Activated Partial Thrombo Time 29.5 seconds (26.0-38.0); INR 1.68 (0.83-1.13)
[2024-04-12 05:03] LABS: Anion Gap 12 mmol/L (2-16); Blood Urea Nitrogen 97 mg/dL (6-24); CO2 Carbon Dioxide 21 mmol/L (22-32); Calcium 7.8 mg/dL (8.6-10.3); Chloride 98 mmol/L (101-111); Creatinine, Serum 5.18 mg/dL (0.67-1.17); Glucose 304 mg/dL (70-100); Iron < 20 ug/dL (50-212); Magnesium 2.2 mg/dL (1.9-2.7); Phosphorus 5.2 mg/dL (2.5-5.0); Potassium 5.2 mmol/L (3.5-5.0); Sodium 131 mmol/L (135-145); Transferrin 134 mg/dL (203-362); eGFR CKD-EPI 11.6 (>60)
[2024-04-12] MEDS: Vancomycin 2,000 MG in NS 0.9% 500 ml BAG 500 ML IVPB ONE (09:49)
[2024-04-12 10:03] LABS: ALT 18 U/L (7-52); AST 21 U/L (13-39); Alkaline Phosphatase 65 U/L (35-149)
[2024-04-12 10:11] LABS: Total Bilirubin 0.6 mg/dL (0.2-1.0)
[2024-04-12] MEDS: Insulin GLARGINE 100 un/ml 10 ml VIAL SUBCUT ONE ×2 (10:33→18:31)
[2024-04-12] MEDS: Hydrocortisone INJ 100 MG/2ML 2 ML VIAL IV ONE (10:33)
[2024-04-12 11:20] LABS: Calcium 6.8 mg/dL (8.6-10.3); Creatinine, Serum 4.32 mg/dL (0.67-1.17); Potassium 4.1 mmol/L (3.5-5.0); eGFR CKD-EPI 14.4 (>60)
[2024-04-12] MEDS: Senna TAB 8.6 mg TAB PO SCH (12:15)
[2024-04-12] MEDS: Polyethylene Glycol 3350 17 GM PACKET PO SCH (12:15)
[2024-04-12] MEDS: ZOSYN 3.375 GM Q12H per EXTENDED INFUSION IV SCH (17:08)
[2024-04-13 04:17] LABS: Hemoglobin 10.4 g/dL (13.2-16.3); Mean Corpuscular Hemoglobin 25.4 pg (27-33); Mean Corpuscular Hgb Conc 31.7 g/dL (31-36); Mean Platelet Volume 7.7 fL (7.5-11.2); Platelet Count 213 10^3/uL (150-450); Red Blood Count 4.12 10^6/uL (4.06-5.63); White Blood Count 17.1 10^3/uL (3.6-10.2)
[2024-04-13 05:01] LABS: ABS Basophils 0.1 10^3/uL (0.0-0.1); ABS Lymphocytes 0.9 10^3/uL (1.0-4.8); ABS Monocytes 1.7 10^3/uL (0.0-1.1); ABS Neutrophils 14.4 10^3/uL (1.5-7.6); Eosinophil % 0.2 %; Lymphocyte % 5.3 %
[2024-04-13 05:19] LABS: Calcium 7.7 mg/dL (8.6-10.3); Creatinine, Serum 3.82 mg/dL (0.67-1.17); Magnesium 2.3 mg/dL (1.9-2.7); Phosphorus 5.5 mg/dL (2.5-5.0); Potassium 4.8 mmol/L (3.5-5.0); eGFR CKD-EPI 16.7 (>60)
[2024-04-13] MEDS ORDERED: Insulin GLARGINE 100 un/ml 10 ml VIAL SUBCUT SCH (09:00)
[2024-04-13] MEDS: ZOSYN 3.375 GM Q12H per EXTENDED INFUSION IV SCH (15:20)
[2024-04-13] MEDS: Insulin GLARGINE 100 un/ml 10 ml VIAL SUBCUT SCH (20:55)
[2024-04-14 04:24] LABS: ABS Eosinophils 0.1 10^3/uL (0.0-0.5); ABS Monocytes 1.5 10^3/uL (0.0-1.1); ABS Neutrophils 10.3 10^3/uL (1.5-7.6); ABS Nucleated RBC 0.01 10^3/ul; Hematocrit 33.3 % (38-53); Hemoglobin 10.6 g/dL (13.2-16.3); Mean Corpuscular Hemoglobin 25.5 pg (27-33); Mean Corpuscular Hgb Conc 31.8 g/dL (31-36); Mean Corpuscular Volume 80.1 fL (80-97); Mean Platelet Volume 7.4 fL (7.5-11.2); Nucleated Red Blood Cells % 0.1 %/100WBC (0.0-0.8); Platelet Count 216 10^3/uL (150-450); Red Blood Count 4.16 10^6/uL (4.06-5.63); White Blood Count 12.9 10^3/uL (3.6-10.2)
[2024-04-14 05:20] LABS: Calcium 7.9 mg/dL (8.6-10.3); Creatinine, Serum 2.46 mg/dL (0.67-1.17); Phosphorus 3.4 mg/dL (2.5-5.0); Potassium 4.9 mmol/L (3.5-5.0); eGFR CKD-EPI 28.4 (>60)
[2024-04-14] MEDS ORDERED: Insulin GLARGINE 100 un/ml 10 ml VIAL SUBCUT SCH (09:00)
[2024-04-14] MEDS: Insulin GLARGINE 100 un/ml 10 ml VIAL SUBCUT ONE (09:41)
[2024-04-14] MEDS: Insulin GLARGINE 100 un/ml 10 ml VIAL ONE (10:04)
[2024-04-14] MEDS: cefTRIAXone 2 gm/50 mL D5W 2 GM/50 ML BAG IV SCH (10:17)
[2024-04-15 08:18] LABS: ABS Eosinophils 0.2 10^3/uL (0.0-0.5); ABS Monocytes 1.3 10^3/uL (0.0-1.1); ABS Neutrophils 11.3 10^3/uL (1.5-7.6); Eosinophil % 1.5 %; Hematocrit 34.3 % (38-53); Hemoglobin 10.9 g/dL (13.2-16.3); Lymphocyte % 7.1 %; Mean Corpuscular Hemoglobin 25.6 pg (27-33); Mean Corpuscular Hgb Conc 31.8 g/dL (31-36); Mean Corpuscular Volume 80.4 fL (80-97); Mean Platelet Volume 7.1 fL (7.5-11.2); Platelet Count 231 10^3/uL (150-450); Red Blood Count 4.27 10^6/uL (4.06-5.63); Red Cell Distribution Width 15.2 % (12-17); White Blood Count 13.8 10^3/uL (3.6-10.2)
[2024-04-15] MEDS ORDERED: Insulin GLARGINE 100 un/ml 10 ml VIAL SUBCUT SCH (09:00)
[2024-04-15 09:05] LABS: Creatinine, Serum 1.51 mg/dL (0.67-1.17); Phosphorus 2.7 mg/dL (2.5-5.0); Potassium 4.9 mmol/L (3.5-5.0); eGFR CKD-EPI 50.9 (>60)
[2024-04-15] MEDS: Insulin GLARGINE 100 un/ml 10 ml VIAL SUBCUT ONE (11:04)
[2024-04-15] MEDS: Mometasone/Formoter 200/5 MDI INH SCH (14:42)
[2024-04-15] MEDS: Labetalol IV 5 MG/ML 20 ml VIAL IV PUSH ONE (19:22)
[2024-04-15] MEDS: Insulin GLARGINE 100 un/ml 10 ml VIAL SUBCUT SCH (21:16)
[2024-04-16 06:12] LABS: ABS Basophils 0.1 10^3/uL (0.0-0.1); ABS Eosinophils 0.3 10^3/uL (0.0-0.5); ABS Lymphocytes 1.4 10^3/uL (1.0-4.8); ABS Monocytes 1.5 10^3/uL (0.0-1.1); ABS Neutrophils 12.4 10^3/uL (1.5-7.6); ABS Nucleated RBC 0.01 10^3/ul; Eosinophil % 1.8 %; Hematocrit 34.3 % (38-53); Hemoglobin 11.1 g/dL (13.2-16.3); Lymphocyte % 8.9 %; Mean Corpuscular Hemoglobin 25.7 pg (27-33); Mean Corpuscular Hgb Conc 32.3 g/dL (31-36); Mean Corpuscular Volume 79.7 fL (80-97); Mean Platelet Volume 7.1 fL (7.5-11.2); Nucleated Red Blood Cells % 0.1 %/100WBC (0.0-0.8); Platelet Count 246 10^3/uL (150-450); Red Cell Distribution Width 15.5 % (12-17); White Blood Count 15.8 10^3/uL (3.6-10.2)
[2024-04-16 06:55] LABS: Calcium 8.4 mg/dL (8.6-10.3); Creatinine, Serum 1.35 mg/dL (0.67-1.17); Potassium 4.7 mmol/L (3.5-5.0); eGFR CKD-EPI 58.3 (>60)
[2024-04-16] MEDS ORDERED: Senna TAB 8.6 mg TAB PO PRN (09:35)
[2024-04-16] MEDS ORDERED: Insulin GLARGINE 100 un/ml 10 ml VIAL SUBCUT ONE (10:00)
[2024-04-16] MEDS: Insulin GLARGINE 100 un/ml 10 ml VIAL SUBCUT ONE (10:09)
[2024-04-16] MEDS: Furosemide 40 mg/4 ml IV VIAL IV SLOW PU ONE (10:09)
[2024-04-16] MEDS: Furosemide 40 mg/4 ml IV VIAL IV SLOW PU SCH (17:13)
[2024-04-16] MEDS: Insulin GLARGINE 100 un/ml 10 ml VIAL SUBCUT SCH (21:02)
[2024-04-17 06:25] LABS: ABS Basophils 0.1 10^3/uL (0.0-0.1); ABS Eosinophils 0.3 10^3/uL (0.0-0.5); ABS Monocytes 1.5 10^3/uL (0.0-1.1); ABS Neutrophils 14.8 10^3/uL (1.5-7.6); ABS Nucleated RBC 0.01 10^3/ul; Eosinophil % 1.8 %; Hematocrit 33.6 % (38-53); Lymphocyte % 10.5 %; Mean Corpuscular Hemoglobin 26.1 pg (27-33); Mean Corpuscular Hgb Conc 32.7 g/dL (31-36); Mean Corpuscular Volume 79.7 fL (80-97); Mean Platelet Volume 7.3 fL (7.5-11.2); Platelet Count 275 10^3/uL (150-450); Red Blood Count 4.21 10^6/uL (4.06-5.63); White Blood Count 18.6 10^3/uL (3.6-10.2)
[2024-04-17 06:32] LABS: Calcium 8.2 mg/dL (8.6-10.3); Creatinine, Serum 1.52 mg/dL (0.67-1.17); Potassium 4.3 mmol/L (3.5-5.0); eGFR CKD-EPI 50.5 (>60)
[2024-04-18 07:02] LABS: ABS Basophils 0.1 10^3/uL (0.0-0.1); ABS Eosinophils 0.3 10^3/uL (0.0-0.5); ABS Lymphocytes 1.8 10^3/uL (1.0-4.8); ABS Monocytes 1.3 10^3/uL (0.0-1.1); ABS Nucleated RBC 0.02 10^3/ul; Eosinophil % 1.6 %; Hematocrit 34.2 % (38-53); Lymphocyte % 9.8 %; Mean Corpuscular Hemoglobin 25.8 pg (27-33); Mean Corpuscular Hgb Conc 32.2 g/dL (31-36); Mean Corpuscular Volume 80.2 fL (80-97); Mean Platelet Volume 6.7 fL (7.5-11.2); Nucleated Red Blood Cells % 0.1 %/100WBC (0.0-0.8); Platelet Count 268 10^3/uL (150-450); Red Blood Count 4.26 10^6/uL (4.06-5.63); Red Cell Distribution Width 15.2 % (12-17); White Blood Count 18.5 10^3/uL (3.6-10.2)
[2024-04-18 07:37] LABS: Calcium 8.4 mg/dL (8.6-10.3); Creatinine, Serum 1.55 mg/dL (0.67-1.17); Potassium 4.3 mmol/L (3.5-5.0); eGFR CKD-EPI 49.4 (>60)
[2024-04-19 17:44] VITALS: BP 131/74
== END 2024-04-19 18:37 | disposition home or self-care (01) | DRG 853 ==
LOC: ED 18:25 → EDHOLD 04-11 01:35 → SUATTDRO 04-11 01:35 → ICU 04-11 09:11 → MEDTELE 04-15 18:55
PROVIDERS: ADMIT Internal Medicine; ATTEND Internal Medicine

== ENCOUNTER 2024-05-21 10:36 | Inpatient (IN) ==
[2024-05-21 11:02] LABS: ABS Basophils 0.1 10^3/uL (0.0-0.1); ABS Eosinophils 0.5 10^3/uL (0.0-0.5); ABS Monocytes 0.9 10^3/uL (0.0-1.1); ABS Neutrophils 10.5 10^3/uL (1.5-7.6); ABS Nucleated RBC 0.01 10^3/ul; Eosinophil % 3.3 %; Hematocrit 37.8 % (38-53); Hemoglobin 12.4 g/dL (13.2-16.3); Lymphocyte % 14.7 %; Mean Corpuscular Hgb Conc 32.7 g/dL (31-36); Mean Corpuscular Volume 79.6 fL (80-97); Mean Platelet Volume 6.7 fL (7.5-11.2); Nucleated Red Blood Cells % 0.1 %/100WBC (0.0-0.8); Platelet Count 313 10^3/uL (150-450); Red Blood Count 4.76 10^6/uL (4.06-5.63); Red Cell Distribution Width 15.2 % (12-17); White Blood Count 13.9 10^3/uL (3.6-10.2)
[2024-05-21 12:02] LABS: Albumin 3.6 g/dL (3.2-5.2); Albumin/Globulin Ratio 0.8 (1-3); Calcium 8.9 mg/dL (8.6-10.3); Creatinine, Serum 1.41 mg/dL (0.67-1.17); Globulin 4.3 g/dL (2-4); Total Bilirubin 0.4 mg/dL (0.2-1.0); Total Protein 7.9 g/dL (6.4-8.9); eGFR CKD-EPI 55.3 (>60)
[2024-05-21 12:24] LABS: High Sensitivity Troponin 1 Hr 8 pg/mL (<20)
[2024-05-21 12:29] LABS: Potassium 4.7 mmol/L (3.5-5.0)
[2024-05-21] MEDS: Iodixanol (CONTRAST) 320 MG/ML 100 ML SDV IV ONE (14:20)
[2024-05-21 15:52] LABS: Urine Appearance Clear; Urine Bilirubin Negative (Negative); Urine Blood 3+ (Negative); Urine Color Colorless; Urine Glucose Negative (Negative); Urine Ketones Negative (Negative); Urine Nitrite Negative (Negative); Urine Protein Negative (Negative); Urine Specific Gravity 1.021 (1.002-1.030); Urine Urobilinogen Negative (Negative)
[2024-05-21 15:57] LABS: Urine Bacteria Absent /HPF (Absent); Urine Red Blood Cell 3+(>10/hpf) /HPF (0-Trace); Urine White Blood Cell 3+(>20/hpf) /HPF (0-Trace)
[2024-05-21] MEDS: cefTRIAXone 1 gm/50 mL D5W 1 GM/50 ML BAG IV ONE (16:31)
[2024-05-21] MEDS ORDERED: Albuterol HFA INHALER 8 gm MDI INH PRN (16:56)
[2024-05-21] MEDS ORDERED: Dextrose 50% Syringe 50 ml 25 GM/50 ML SYRINGE IV PUSH PRN (17:08)
[2024-05-21] MEDS: Enoxaparin 60 MG/0.6 ML SYR SUBCUT SCH (17:56)
[2024-05-21] MEDS: NS 0.9% 1000 ml BAG 1,000 ML IV SCH (17:56)
[2024-05-21] MEDS: Mometasone/Formoter 200/5 MDI INH SCH (21:27)
[2024-05-21] MEDS: Triamcinolone 0.025% OINT 15 GM TUBE TOPICAL SCH (22:49)
[2024-05-22] MEDS: Enoxaparin 80 MG/0.8 ML SYR SUBCUT SCH (05:13)
[2024-05-22 06:33] LABS: ABS Basophils 0.1 10^3/uL (0.0-0.1); ABS Eosinophils 0.5 10^3/uL (0.0-0.5); ABS Lymphocytes 1.6 10^3/uL (1.0-4.8); ABS Monocytes 1.1 10^3/uL (0.0-1.1); ABS Neutrophils 11.3 10^3/uL (1.5-7.6); ABS Nucleated RBC 0.01 10^3/ul; Eosinophil % 3.3 %; Hematocrit 37.2 % (38-53); Hemoglobin 12.1 g/dL (13.2-16.3); Lymphocyte % 11.1 %; Mean Corpuscular Hemoglobin 25.8 pg (27-33); Mean Corpuscular Hgb Conc 32.5 g/dL (31-36); Mean Corpuscular Volume 79.5 fL (80-97); Mean Platelet Volume 6.7 fL (7.5-11.2); Platelet Count 299 10^3/uL (150-450); Red Blood Count 4.68 10^6/uL (4.06-5.63); Red Cell Distribution Width 15.1 % (12-17); White Blood Count 14.6 10^3/uL (3.6-10.2)
[2024-05-22 07:23] LABS: Calcium 8.9 mg/dL (8.6-10.3); Creatinine, Serum 1.59 mg/dL (0.67-1.17); Potassium 4.4 mmol/L (3.5-5.0); eGFR CKD-EPI 47.9 (>60)
[2024-05-22] MEDS: Aspirin EC 81 mg TAB.EC (enteric coated) PO SCH (09:35)
[2024-05-22] MEDS: cefTRIAXone 1 gm/50 mL D5W 1 GM/50 ML BAG IV SCH (09:43)
[2024-05-22] MEDS: Neomycin/Polym/Bacit TOP OINT 15 GM TOPICAL SCH (09:50)
[2024-05-22] MEDS: Influenza Vaccine *TRI* 2024-25* 0.5 ML SYRINGE IM ONE (09:50)
[2024-05-23 06:00] LABS: ABS Basophils 0.1 10^3/uL (0.0-0.1); ABS Eosinophils 0.5 10^3/uL (0.0-0.5); ABS Lymphocytes 1.5 10^3/uL (1.0-4.8); ABS Neutrophils 10.4 10^3/uL (1.5-7.6); Eosinophil % 3.8 %; Hematocrit 36.4 % (38-53); Hemoglobin 11.7 g/dL (13.2-16.3); Mean Corpuscular Hemoglobin 25.8 pg (27-33); Mean Corpuscular Hgb Conc 32.2 g/dL (31-36); Mean Corpuscular Volume 80.1 fL (80-97); Platelet Count 264 10^3/uL (150-450); Red Blood Count 4.54 10^6/uL (4.06-5.63); Red Cell Distribution Width 15.3 % (12-17); White Blood Count 13.4 10^3/uL (3.6-10.2)
[2024-05-23 07:20] LABS: Albumin 3.3 g/dL (3.2-5.2); Albumin/Globulin Ratio 0.9 (1-3); Calcium 8.7 mg/dL (8.6-10.3); Creatinine, Serum 1.72 mg/dL (0.67-1.17); Globulin 3.8 g/dL (2-4); Potassium 4.4 mmol/L (3.5-5.0); Total Bilirubin 0.4 mg/dL (0.2-1.0); Total Protein 7.1 g/dL (6.4-8.9); eGFR CKD-EPI 43.6 (>60)
[2024-05-23 10:34] LABS: C Reactive Protein 57.69 mg/L (<8.01)
[2024-05-24 06:19] LABS: ABS Basophils 0.1 10^3/uL (0.0-0.1); ABS Eosinophils 0.5 10^3/uL (0.0-0.5); ABS Lymphocytes 1.7 10^3/uL (1.0-4.8); ABS Monocytes 0.8 10^3/uL (0.0-1.1); ABS Neutrophils 9.9 10^3/uL (1.5-7.6); Eosinophil % 3.7 %; Hematocrit 36.6 % (38-53); Hemoglobin 11.7 g/dL (13.2-16.3); Lymphocyte % 12.9 %; Mean Corpuscular Hemoglobin 25.2 pg (27-33); Mean Corpuscular Hgb Conc 31.9 g/dL (31-36); Mean Corpuscular Volume 79.1 fL (80-97); Mean Platelet Volume 6.9 fL (7.5-11.2); Platelet Count 303 10^3/uL (150-450); Red Blood Count 4.62 10^6/uL (4.06-5.63); White Blood Count 12.9 10^3/uL (3.6-10.2)
[2024-05-24 06:32] LABS: Creatinine, Serum 1.57 mg/dL (0.67-1.17); Potassium 4.6 mmol/L (3.5-5.0); eGFR CKD-EPI 48.6 (>60)
[2024-05-24] MEDS ORDERED: Dextrose 50% Syringe 50 ml 25 GM/50 ML SYRINGE IV PUSH PRN (08:51)
[2024-05-24] MEDS: Insulin GLARGINE 100 un/ml 10 ml VIAL SUBCUT SCH (09:13)
[2024-05-25 05:22] LABS: ABS Basophils 0.1 10^3/uL (0.0-0.1); ABS Eosinophils 0.4 10^3/uL (0.0-0.5); ABS Lymphocytes 2.2 10^3/uL (1.0-4.8); ABS Monocytes 1.1 10^3/uL (0.0-1.1); ABS Nucleated RBC 0.01 10^3/ul; Eosinophil % 2.6 %; Hematocrit 36.4 % (38-53); Hemoglobin 11.8 g/dL (13.2-16.3); Lymphocyte % 13.8 %; Mean Corpuscular Hemoglobin 25.9 pg (27-33); Mean Corpuscular Hgb Conc 32.5 g/dL (31-36); Mean Corpuscular Volume 79.8 fL (80-97); Mean Platelet Volume 7.1 fL (7.5-11.2); Platelet Count 296 10^3/uL (150-450); Red Blood Count 4.57 10^6/uL (4.06-5.63); Red Cell Distribution Width 14.8 % (12-17); White Blood Count 15.7 10^3/uL (3.6-10.2)
[2024-05-25 06:06] LABS: Calcium 8.8 mg/dL (8.6-10.3); Creatinine, Serum 2.03 mg/dL (0.67-1.17); Magnesium 2.1 mg/dL (1.9-2.7); Potassium 4.9 mmol/L (3.5-5.0); eGFR CKD-EPI 35.7 (>60)
[2024-05-25] MEDS ORDERED: Rocuronium 50 mg VIAL 10 mg/ml 5 ml VIAL (50 mg) ONE (10:32)
[2024-05-25] MEDS ORDERED: Iohexol 180 (CONTRAST) 10 ML SDV IV ONE (11:13)
[2024-05-25] MEDS ORDERED: Lidocaine 2% JELLY 10 ML JELLY ONE (11:32)
[2024-05-25] MEDS ORDERED: Propofol 10 MG/ML 20 ML BTL ONE (11:48)
[2024-05-25] MEDS ORDERED: Lidocaine 2% PF 5 ML VIAL ONE (11:49)
[2024-05-25] MEDS ORDERED: fentaNYL 100 mcg/2 ml 50 MCG/ML VIAL ONE (12:23)
[2024-05-25] MEDS ORDERED: Atropine 1 MG/ML INJ 1 ML VIAL ONE (12:59)
[2024-05-25] MEDS: NS 0.9% IV ONE (14:47)
[2024-05-25] MEDS: TOBRAMYCIN IV ONE (14:47)
[2024-05-26 07:34] LABS: ABS Basophils 0.1 10^3/uL (0.0-0.1); ABS Eosinophils 0.3 10^3/uL (0.0-0.5); ABS Monocytes 1.2 10^3/uL (0.0-1.1); ABS Neutrophils 12.9 10^3/uL (1.5-7.6); ABS Nucleated RBC 0.01 10^3/ul; Hematocrit 36.2 % (38-53); Hemoglobin 11.7 g/dL (13.2-16.3); Lymphocyte % 12.3 %; Mean Corpuscular Hgb Conc 32.4 g/dL (31-36); Mean Corpuscular Volume 80.3 fL (80-97); Mean Platelet Volume 7.4 fL (7.5-11.2); Nucleated Red Blood Cells % 0.1 %/100WBC (0.0-0.8); Platelet Count 304 10^3/uL (150-450); White Blood Count 16.4 10^3/uL (3.6-10.2)
[2024-05-26 07:43] LABS: Calcium 8.7 mg/dL (8.6-10.3); Magnesium 2.1 mg/dL (1.9-2.7); Potassium 5.1 mmol/L (3.5-5.0); eGFR CKD-EPI 36.4 (>60)
[2024-05-26] MEDS: Insulin GLARGINE 100 un/ml 10 ml VIAL SUBCUT SCH (08:56)
[2024-05-26] MEDS: Albuterol/Ipratropium NEB.SOL (2.5/0.5 MG) 3 ML NEB.SOLN INH PRN (13:06)
[2024-05-27 04:20] LABS: ABS Basophils 0.1 10^3/uL (0.0-0.1); ABS Eosinophils 0.3 10^3/uL (0.0-0.5); ABS Lymphocytes 2.5 10^3/uL (1.0-4.8); ABS Monocytes 1.4 10^3/uL (0.0-1.1); ABS Neutrophils 12.3 10^3/uL (1.5-7.6); Eosinophil % 1.6 %; Hematocrit 34.7 % (38-53); Hemoglobin 10.9 g/dL (13.2-16.3); Lymphocyte % 15.3 %; Mean Corpuscular Hemoglobin 25.3 pg (27-33); Mean Corpuscular Hgb Conc 31.5 g/dL (31-36); Mean Corpuscular Volume 80.4 fL (80-97); Mean Platelet Volume 7.1 fL (7.5-11.2); Platelet Count 265 10^3/uL (150-450); Red Blood Count 4.31 10^6/uL (4.06-5.63); Red Cell Distribution Width 15.1 % (12-17); White Blood Count 16.5 10^3/uL (3.6-10.2)
[2024-05-27 04:50] LABS: Calcium 8.1 mg/dL (8.6-10.3); Creatinine, Serum 2.67 mg/dL (0.67-1.17); Magnesium 2.1 mg/dL (1.9-2.7); Potassium 5.4 mmol/L (3.5-5.0); eGFR CKD-EPI 25.7 (>60)
[2024-05-27] MEDS ORDERED: Lidocaine 1% w EPI 1:100,000 MDV 20 ML VIAL ONE (11:36)
[2024-05-27 14:01] LABS: Anion Gap 12 mmol/L (2-16); Blood Urea Nitrogen 106 mg/dL (6-24); CO2 Carbon Dioxide 29 mmol/L (22-32); Calcium 8.5 mg/dL (8.6-10.3); Chloride 92 mmol/L (101-111); Creatinine, Serum 2.55 mg/dL (0.67-1.17); Glucose 226 mg/dL (70-100); Sodium 133 mmol/L (135-145); eGFR CKD-EPI 27.2 (>60)
[2024-05-27] MEDS: Lactated Ringers 1000 ml BAG 500 ML IV SCH (16:33)
[2024-05-27 22:18] LABS: Calcium 8.4 mg/dL (8.6-10.3); Creatinine, Serum 3.03 mg/dL (0.67-1.17); Potassium 5.7 mmol/L (3.5-5.0); eGFR CKD-EPI 22.1 (>60)
[2024-05-27] MEDS: Dextrose 50% Syringe 50 ml 25 GM/50 ML SYRINGE IV PUSH ONE (22:31)
[2024-05-27] MEDS: SODIUM ZIRCONIUM CYCLOSILICATE 10 GM PACKET PO ONE (22:39)
[2024-05-28 02:48] LABS: Anion Gap 10 mmol/L (2-16); Blood Urea Nitrogen 116 mg/dL (6-24); CO2 Carbon Dioxide 29 mmol/L (22-32); Calcium 8.3 mg/dL (8.6-10.3); Chloride 92 mmol/L (101-111); Creatinine, Serum 3.12 mg/dL (0.67-1.17); Glucose 171 mg/dL (70-100); Sodium 131 mmol/L (135-145); eGFR CKD-EPI 21.3 (>60)
[2024-05-28 05:36] LABS: ABS Basophils 0.1 10^3/uL (0.0-0.1); ABS Eosinophils 0.3 10^3/uL (0.0-0.5); ABS Lymphocytes 2.3 10^3/uL (1.0-4.8); ABS Monocytes 1.5 10^3/uL (0.0-1.1); ABS Neutrophils 11.6 10^3/uL (1.5-7.6); Eosinophil % 1.9 %; Hematocrit 34.1 % (38-53); Hemoglobin 10.9 g/dL (13.2-16.3); Lymphocyte % 14.8 %; Mean Corpuscular Hemoglobin 25.5 pg (27-33); Mean Corpuscular Volume 79.6 fL (80-97); Mean Platelet Volume 7.4 fL (7.5-11.2); Platelet Count 263 10^3/uL (150-450); Red Blood Count 4.28 10^6/uL (4.06-5.63); Red Cell Distribution Width 15.2 % (12-17); White Blood Count 15.8 10^3/uL (3.6-10.2)
[2024-05-28 06:36] LABS: Calcium 8.3 mg/dL (8.6-10.3); Creatinine, Serum 3.13 mg/dL (0.67-1.17); Magnesium 2.2 mg/dL (1.9-2.7); Potassium 5.7 mmol/L (3.5-5.0); eGFR CKD-EPI 21.2 (>60)
[2024-05-28] MEDS: Patiromer POWDER 8.4 GM PAK PO ONE (14:25)
[2024-05-28] MEDS: Sodium Polystyrene ORAL.SUSP 15 GM/60 ML BTL PO ONE (17:42)
[2024-05-28 21:23] LABS: Anion Gap 9 mmol/L (2-16); Blood Urea Nitrogen > 120 mg/dL (6-24); CO2 Carbon Dioxide 29 mmol/L (22-32); Calcium 7.8 mg/dL (8.6-10.3); Chloride 93 mmol/L (101-111); Creatinine, Serum 3.25 mg/dL (0.67-1.17); Glucose 261 mg/dL (70-100); Potassium 5.4 mmol/L (3.5-5.0); Sodium 131 mmol/L (135-145); eGFR CKD-EPI 20.3 (>60)
[2024-05-28 23:15] VITALS: BP 120/50
== END 2024-05-28 23:00 | disposition short-term general hospital (02) | DRG 261 ==
LOC: ED 10:36 → EDHOLD 16:39 → SUATTDRO 16:39 → EDHOLD 20:35 → MEDTELE 21:21 → ICU 05-24 21:18 → MEDTELE 05-27 17:18 → ICU 05-28 08:47
PROVIDERS: ADMIT Internal Medicine Hematology & Oncology; ATTEND Internal Medicine

== ENCOUNTER 2024-08-28 10:39 | Inpatient (IN) ==
[2024-08-28] MEDS: Magnesium Sulfate 2 gm BAG 2 GM/50 ML BAG IVPB ONE (10:42)
[2024-08-28] MEDS: methylPREDNISolone SOD SUCC 125 mg 2 ML VIAL IV ONE (10:43)
[2024-08-28] MEDS ORDERED: Albuterol/Ipratropium NEB.SOL (2.5/0.5 MG) 3 ML NEB.SOLN ONE (10:44)
[2024-08-28] MEDS: Cefepime 2 GM in Dextrose 2 GM/50 ML BAG IV ONE (11:10)
[2024-08-28 11:17] LABS: Hematocrit 37.4 % (38-53); Hemoglobin 11.6 g/dL (13.2-16.3); Mean Corpuscular Hemoglobin 24.6 pg (27-33); Mean Corpuscular Hgb Conc 30.9 g/dL (31-36); Mean Corpuscular Volume 79.5 fL (80-97); Mean Platelet Volume 7.4 fL (7.5-11.2); Platelet Count 246 10^3/uL (150-450); Red Cell Distribution Width 14.6 % (12-17); White Blood Count 16.8 10^3/uL (3.6-10.2)
[2024-08-28 11:25] LABS: Resp Rate 16
[2024-08-28 11:28] LABS: PCO2 Arterial 67 mmHg (35-45); PO2 Arterial 95 mmHg (80-100)
[2024-08-28 11:31] LABS: Activated Partial Thrombo Time 32.1 seconds (26.0-38.0); INR 2.74 (0.85-1.14)
[2024-08-28 11:44] LABS: Albumin 3.3 g/dL (3.5-5.7); Albumin/Globulin Ratio 0.8 (1-3); C Reactive Protein 232.89 mg/L (<8.01); Creatinine, Serum 2.11 mg/dL (0.67-1.17); Globulin 4.1 g/dL (2-4); Potassium 4.9 mmol/L (3.5-5.0); Total Bilirubin 0.8 mg/dL (0.2-1.0); Total Protein 7.4 g/dL (6.4-8.9); eGFR CKD-EPI 34.1 (>60)
[2024-08-28 11:45] LABS: ABS Lymphocytes 0.5 10^3/uL (1.0-4.8); ABS Monocytes 1.1 10^3/uL (0.0-1.1); ABS Neutrophils 15.1 10^3/uL (1.5-7.6); ABS Nucleated RBC 0.02 10^3/ul; Lymphocyte % 3.1 %; Nucleated Red Blood Cells % 0.1 %/100WBC (0.0-0.8)
[2024-08-28] MEDS: Azithromycin 500 mg/250 ml NS 500 MG/250 ML BAG IVPB ONE (12:37)
[2024-08-28 12:49] LABS: High Sensitivity Troponin 1 Hr 96 pg/mL (<20)
[2024-08-28] MEDS: Albuterol/Ipratropium NEB.SOL (2.5/0.5 MG) 3 ML NEB.SOLN INH STA (13:44)
[2024-08-28] MEDS: Furosemide 40 mg/4 ml IV VIAL IV ONE (14:09)
[2024-08-28] MEDS: Remdesivir 100 mg Vial 200 MG in NS 0.9% 250 ml 210 ML IV ONE (14:23)
[2024-08-28] MEDS: Insulin GLARGINE 100 un/ml 10 ml VIAL SUBCUT SCH (14:54)
[2024-08-28] MEDS: Albuterol/Ipratropium NEB.SOL (2.5/0.5 MG) 3 ML NEB.SOLN INH SCH (15:45)
[2024-08-29 05:39] LABS: ABS Lymphocytes 0.7 10^3/uL (1.0-4.8); ABS Monocytes 0.5 10^3/uL (0.0-1.1); ABS Neutrophils 11.4 10^3/uL (1.5-7.6); ABS Nucleated RBC 0.05 10^3/ul; Hematocrit 34.4 % (38-53); Lymphocyte % 5.4 %; Mean Corpuscular Hemoglobin 25.1 pg (27-33); Mean Corpuscular Hgb Conc 32.1 g/dL (31-36); Mean Corpuscular Volume 78.3 fL (80-97); Mean Platelet Volume 7.5 fL (7.5-11.2); Nucleated Red Blood Cells % 0.4 %/100WBC (0.0-0.8); Platelet Count 252 10^3/uL (150-450); Red Blood Count 4.39 10^6/uL (4.06-5.63); Red Cell Distribution Width 14.3 % (12-17); White Blood Count 12.6 10^3/uL (3.6-10.2)
[2024-08-29 06:13] LABS: INR 3.17 (0.85-1.14)
[2024-08-29 06:47] LABS: Albumin 3.1 g/dL (3.5-5.7); Albumin/Globulin Ratio 0.8 (1-3); Calcium 8.7 mg/dL (8.6-10.3); Creatinine, Serum 2.14 mg/dL (0.67-1.17); Globulin 3.8 g/dL (2-4); Magnesium 2.4 mg/dL (1.9-2.7); Potassium 4.6 mmol/L (3.5-5.0); Total Bilirubin 0.4 mg/dL (0.2-1.0); Total Protein 6.9 g/dL (6.4-8.9); eGFR CKD-EPI 33.5 (>60)
[2024-08-29] MEDS: Remdesivir 100 mg Vial 100 MG in NS 0.9% 250 ml 230 ML IV SCH (07:56)
[2024-08-29] MEDS: Dexamethasone IV 4 MG/ML VIAL 1 ml VIAL IV SLOW PU SCH (07:58)
[2024-08-29] MEDS: Aspirin EC 81 mg TAB.EC (enteric coated) PO SCH (07:58)
[2024-08-29] MEDS: Tiotropium Brom/Olodaterol MDI (ACUTE) INH SCH (08:13)
[2024-08-29] MEDS ORDERED: methylPREDNISolone SOD SUCC 40 mg/ml 1 ml VIAL IV SCH (09:00)
[2024-08-29] MEDS ORDERED: Magnesium Hydroxide LIQ 30 ML UDC PO PRN (09:46)
[2024-08-29] MEDS ORDERED: Polyethylene Glycol 3350 17 GM PACKET PO PRN (09:46)
[2024-08-29] MEDS ORDERED: Senna TAB 8.6 mg TAB PO PRN (09:46)
[2024-08-29] MEDS ORDERED: cefTRIAXone 1 gm/50 mL D5W 1 GM/50 ML BAG IV SCH (11:00)
[2024-08-29] MEDS: Sulfur Hexaflouride MICROSPHR 25 MG VIAL IV PRN (11:59)
[2024-08-29] MEDS ORDERED: Azithromycin 500 mg/250 ml NS 500 MG/250 ML BAG IVPB SCH (13:00)
[2024-08-29 14:01] LABS: Albumin 3.2 g/dL (3.5-5.7); Albumin/Globulin Ratio 0.8 (1-3); Calcium 8.7 mg/dL (8.6-10.3); Creatinine, Serum 1.89 mg/dL (0.67-1.17); Globulin 3.8 g/dL (2-4); Magnesium 2.4 mg/dL (1.9-2.7); Potassium 4.1 mmol/L (3.5-5.0); Total Bilirubin 0.4 mg/dL (0.2-1.0); eGFR CKD-EPI 38.9 (>60)
[2024-08-29] MEDS: Magnesium Hydroxide LIQ 30 ML UDC PO SCH (20:54)
[2024-08-29] MEDS: Insulin GLARGINE 100 un/ml 10 ml VIAL SUBCUT SCH (21:15)
[2024-08-30] MEDS: Albuterol 2.5mg/3 ml (0.083%) NEB.SOLN INH PRN (05:23)
[2024-08-30 06:42] LABS: ABS Lymphocytes 1.1 10^3/uL (1.0-4.8); ABS Monocytes 0.9 10^3/uL (0.0-1.1); ABS Neutrophils 16.1 10^3/uL (1.5-7.6); ABS Nucleated RBC 0.06 10^3/ul; Hematocrit 36.4 % (38-53); Hemoglobin 11.5 g/dL (13.2-16.3); Lymphocyte % 6.2 %; Mean Corpuscular Hgb Conc 31.6 g/dL (31-36); Nucleated Red Blood Cells % 0.3 %/100WBC (0.0-0.8); Platelet Count 339 10^3/uL (150-450); Red Cell Distribution Width 14.9 % (12-17); White Blood Count 18.1 10^3/uL (3.6-10.2)
[2024-08-30 07:06] LABS: INR 3.79 (0.85-1.14)
[2024-08-30 07:14] LABS: Albumin 3.2 g/dL (3.5-5.7); Albumin/Globulin Ratio 0.8 (1-3); Calcium 8.2 mg/dL (8.6-10.3); Creatinine, Serum 1.62 mg/dL (0.67-1.17); Globulin 3.9 g/dL (2-4); Magnesium 2.6 mg/dL (1.9-2.7); Potassium 4.7 mmol/L (3.5-5.0); Total Bilirubin 0.4 mg/dL (0.2-1.0); Total Protein 7.1 g/dL (6.4-8.9); eGFR CKD-EPI 46.8 (>60)
[2024-08-30] MEDS: Insulin GLARGINE 100 un/ml 10 ml VIAL SUBCUT SCH (21:16)
[2024-08-31 06:36] LABS: ABS Lymphocytes 1.2 10^3/uL (1.0-4.8); ABS Monocytes 0.8 10^3/uL (0.0-1.1); ABS Neutrophils 14.9 10^3/uL (1.5-7.6); ABS Nucleated RBC 0.11 10^3/ul; Hematocrit 35.5 % (38-53); Hemoglobin 11.2 g/dL (13.2-16.3); Lymphocyte % 6.9 %; Mean Corpuscular Hemoglobin 24.7 pg (27-33); Mean Corpuscular Hgb Conc 31.5 g/dL (31-36); Mean Corpuscular Volume 78.6 fL (80-97); Mean Platelet Volume 6.7 fL (7.5-11.2); Nucleated Red Blood Cells % 0.6 %/100WBC (0.0-0.8); Platelet Count 338 10^3/uL (150-450); Red Blood Count 4.52 10^6/uL (4.06-5.63); Red Cell Distribution Width 14.3 % (12-17); White Blood Count 16.8 10^3/uL (3.6-10.2)
[2024-08-31 06:48] LABS: INR 2.47 (0.85-1.14)
[2024-08-31 07:45] LABS: Albumin 3.1 g/dL (3.5-5.7); Albumin/Globulin Ratio 0.8 (1-3); Calcium 8.2 mg/dL (8.6-10.3); Creatinine, Serum 1.46 mg/dL (0.67-1.17); Globulin 3.7 g/dL (2-4); Magnesium 2.9 mg/dL (1.9-2.7); Potassium 5.2 mmol/L (3.5-5.0); Total Bilirubin 0.4 mg/dL (0.2-1.0); Total Protein 6.8 g/dL (6.4-8.9)
[2024-08-31] MEDS: Albuterol 2.5mg/3 ml (0.083%) NEB.SOLN INH SCH ×2 (17:01→19:46)
[2024-08-31] MEDS: Albuterol 2.5mg/3 ml (0.083%) NEB.SOLN INH ONE (17:53)
[2024-08-31] MEDS: Insulin GLARGINE 100 un/ml 10 ml VIAL SUBCUT SCH (22:38)
[2024-09-01 06:57] LABS: ABS Lymphocytes 1.4 10^3/uL (1.0-4.8); ABS Monocytes 1.1 10^3/uL (0.0-1.1); ABS Neutrophils 15.5 10^3/uL (1.5-7.6); ABS Nucleated RBC 0.09 10^3/ul; Hematocrit 37.6 % (38-53); Hemoglobin 11.8 g/dL (13.2-16.3); Lymphocyte % 7.9 %; Mean Corpuscular Hemoglobin 24.4 pg (27-33); Mean Corpuscular Hgb Conc 31.3 g/dL (31-36); Mean Platelet Volume 6.7 fL (7.5-11.2); Nucleated Red Blood Cells % 0.5 %/100WBC (0.0-0.8); Platelet Count 395 10^3/uL (150-450); Red Blood Count 4.82 10^6/uL (4.06-5.63); Red Cell Distribution Width 14.3 % (12-17); White Blood Count 18.1 10^3/uL (3.6-10.2)
[2024-09-01 07:11] LABS: INR 2.11 (0.85-1.14)
[2024-09-01 07:19] LABS: Albumin 3.3 g/dL (3.5-5.7); Albumin/Globulin Ratio 0.8 (1-3); Calcium 8.5 mg/dL (8.6-10.3); Creatinine, Serum 1.48 mg/dL (0.67-1.17); Globulin 3.9 g/dL (2-4); Magnesium 2.9 mg/dL (1.9-2.7); Potassium 4.9 mmol/L (3.5-5.0); Total Bilirubin 0.5 mg/dL (0.2-1.0); Total Protein 7.2 g/dL (6.4-8.9); eGFR CKD-EPI 52.2 (>60)
[2024-09-01] MEDS ORDERED: Bumetanide IV 0.25 MG/ML 4 ml VIAL (1 mg) IV SLOW PU PRN (15:36)
[2024-09-01] MEDS ORDERED: Albuterol 2.5mg/3 ml (0.083%) NEB.SOLN INH PRN (18:42)
[2024-09-02 06:13] LABS: INR 1.91 (0.85-1.14)
[2024-09-02 06:19] LABS: ABS Lymphocytes 1.8 10^3/uL (1.0-4.8); ABS Monocytes 1.2 10^3/uL (0.0-1.1); ABS Neutrophils 13.2 10^3/uL (1.5-7.6); ABS Nucleated RBC 0.04 10^3/ul; Eosinophil % 0.1 %; Hematocrit 38.6 % (38-53); Hemoglobin 12.4 g/dL (13.2-16.3); Mean Corpuscular Hemoglobin 24.8 pg (27-33); Mean Corpuscular Volume 77.5 fL (80-97); Mean Platelet Volume 6.8 fL (7.5-11.2); Nucleated Red Blood Cells % 0.3 %/100WBC (0.0-0.8); Platelet Count 385 10^3/uL (150-450); Red Blood Count 4.98 10^6/uL (4.06-5.63); Red Cell Distribution Width 14.7 % (12-17); White Blood Count 16.1 10^3/uL (3.6-10.2)
[2024-09-02 07:14] LABS: ALT 115 U/L (7-52); AST 24 U/L (13-39); Albumin 3.3 g/dL (3.5-5.7); Albumin/Globulin Ratio 0.9 (1-3); Alkaline Phosphatase 90 U/L (35-149); Blood Urea Nitrogen 76 mg/dL (6-24); CO2 Carbon Dioxide > 45 mmol/L (22-32); Calcium 9.2 mg/dL (8.6-10.3); Chloride 92 mmol/L (101-111); Creatinine, Serum 1.71 mg/dL (0.67-1.17); Globulin 3.6 g/dL (2-4); Glucose 90 mg/dL (70-100); Magnesium 2.7 mg/dL (1.9-2.7); Potassium 4.4 mmol/L (3.5-5.0); Sodium 141 mmol/L (135-145); Total Bilirubin 0.5 mg/dL (0.2-1.0); Total Protein 6.9 g/dL (6.4-8.9); eGFR CKD-EPI 43.9 (>60)
[2024-09-02] MEDS: Insulin GLARGINE 100 un/ml 10 ml VIAL SUBCUT SCH (08:31)
[2024-09-02 13:14] LABS: Creatinine, Serum 1.47 mg/dL (0.67-1.17); Potassium 4.3 mmol/L (3.5-5.0); eGFR CKD-EPI 52.6 (>60)
[2024-09-02] MEDS: Dextrose 50% Syringe 50 ml 25 GM/50 ML SYRINGE IV PUSH PRN (13:18)
[2024-09-02 20:40] LABS: Blood Urea Nitrogen 77 mg/dL (6-24); CO2 Carbon Dioxide > 45 mmol/L (22-32); Calcium 9.3 mg/dL (8.6-10.3); Chloride 89 mmol/L (101-111); Creatinine, Serum 1.71 mg/dL (0.67-1.17); Glucose 161 mg/dL (70-100); Sodium 139 mmol/L (135-145); eGFR CKD-EPI 43.9 (>60)
[2024-09-03 06:57] LABS: Hematocrit 41.2 % (38-53); Hemoglobin 13.2 g/dL (13.2-16.3); Mean Corpuscular Hgb Conc 32.1 g/dL (31-36); Mean Corpuscular Volume 77.9 fL (80-97); Mean Platelet Volume 6.4 fL (7.5-11.2); Platelet Count 358 10^3/uL (150-450); Red Blood Count 5.28 10^6/uL (4.06-5.63); Red Cell Distribution Width 14.7 % (12-17); White Blood Count 16.1 10^3/uL (3.6-10.2)
[2024-09-03 07:34] LABS: Magnesium 2.4 mg/dL (1.9-2.7)
[2024-09-03 08:16] LABS: Calcium 8.7 mg/dL (8.6-10.3); Creatinine, Serum 1.56 mg/dL (0.67-1.17); Potassium 4.3 mmol/L (3.5-5.0)
[2024-09-03 08:36] LABS: ABS Eosinophils 0.2 10^3/uL (0.0-0.5); ABS Lymphocytes 3.4 10^3/uL (1.0-4.8); ABS Monocytes 1.8 10^3/uL (0.0-1.1); ABS Neutrophils 10.6 10^3/uL (1.5-7.6); ABS Nucleated RBC 0.04 10^3/ul; Eosinophil % 1.4 %; Lymphocyte % 21.3 %; Nucleated Red Blood Cells % 0.2 %/100WBC (0.0-0.8)
[2024-09-03] MEDS: acetaZOLAMIDE IV 500 MG in NS 0.9% 50 ML 50 ML IVPB SCH (10:46)
[2024-09-03 13:53] VITALS: BP 136/78
[2024-09-03 14:52] LABS: Calcium 9.1 mg/dL (8.6-10.3); Creatinine, Serum 1.73 mg/dL (0.67-1.17); Potassium 4.2 mmol/L (3.5-5.0); eGFR CKD-EPI 43.3 (>60)
[2024-09-03 16:21] LABS: PCO2 Arterial 60 mmHg (35-45); PO2 Arterial 67 mmHg (80-100)
== END 2024-09-03 17:50 | disposition home or self-care (01) | DRG 177 ==
LOC: ED 10:39 → EDHOLD 12:34 → SUATTDRO 12:34 → ICU 12:51 → MEDTELE 13:11
PROVIDERS: ADMIT Internal Medicine Critical Care Medicine; ATTEND Student in an Organized Health Care Education/Training Program

== ENCOUNTER 2024-09-19 10:25 | Inpatient (IN) ==
[2024-09-19] MEDS: Albuterol 2.5mg/3 ml (0.083%) NEB.SOLN INH ONE ×2 (10:53→13:11)
[2024-09-19 11:08] LABS: INR 2.18 (0.85-1.14)
[2024-09-19 11:18] LABS: High Sens Troponin Baseline 12 pg/mL (<20)
[2024-09-19 11:52] LABS: PO2 Arterial 63 mmHg (80-100)
[2024-09-19 11:55] LABS: PCO2 Arterial 73 mmHg (35-45)
[2024-09-19 11:57] LABS: ALT 15 U/L (7-52); Albumin 3.2 g/dL (3.5-5.7); Albumin/Globulin Ratio 0.9 (1-3); Alkaline Phosphatase 117 U/L (35-149); Anion Gap 6 mmol/L (2-16); Blood Urea Nitrogen 28 mg/dL (6-24); C Reactive Protein 53.41 mg/L (<8.01); CO2 Carbon Dioxide 29 mmol/L (22-32); Calcium 7.7 mg/dL (8.6-10.3); Chloride 103 mmol/L (101-111); Creatinine, Serum 1.26 mg/dL (0.67-1.17); Globulin 3.4 g/dL (2-4); Glucose 229 mg/dL (70-100); Sodium 138 mmol/L (135-145); Total Bilirubin 0.4 mg/dL (0.2-1.0); Total Protein 6.6 g/dL (6.4-8.9); eGFR CKD-EPI 63.3 (>60)
[2024-09-19] MEDS: Furosemide 40 mg/4 ml IV VIAL IV ONE (12:35)
[2024-09-19 12:39] LABS: ABS Lymphocytes 0.6 10^3/uL (1.0-4.8); ABS Monocytes 0.3 10^3/uL (0.0-1.1); ABS Neutrophils 12.1 10^3/uL (1.5-7.6); ABS Nucleated RBC 0.02 10^3/ul; Hematocrit 39.6 % (38-53); Hemoglobin 12.2 g/dL (13.2-16.3); Lymphocyte % 4.3 %; Mean Corpuscular Hemoglobin 24.8 pg (27-33); Mean Corpuscular Hgb Conc 30.8 g/dL (31-36); Mean Corpuscular Volume 80.5 fL (80-97); Mean Platelet Volume 7.3 fL (7.5-11.2); Nucleated Red Blood Cells % 0.1 %/100WBC (0.0-0.8); Platelet Count 200 10^3/uL (150-450); Red Blood Count 4.91 10^6/uL (4.06-5.63); Red Cell Distribution Width 15.8 % (12-17); White Blood Count 12.9 10^3/uL (3.6-10.2)
[2024-09-19] MEDS: Cefepime 2 GM in Dextrose 2 GM/50 ML BAG IV ONE (12:59)
[2024-09-19 13:38] LABS: Potassium Redraw 4.7 mmol/L (3.5-5.0)
[2024-09-19 13:46] LABS: High Sensitivity Troponin 1 Hr 16 pg/mL (<20)
[2024-09-19 16:17] LABS: PCO2 Arterial 67 mmHg (35-45); PO2 Arterial 68 mmHg (80-100)
[2024-09-19] MEDS ORDERED: Dextrose 50% Syringe 50 ml 25 GM/50 ML SYRINGE IV PUSH PRN (18:40)
[2024-09-19 19:35] LABS: PCO2 Arterial 58 mmHg (35-45); PO2 Arterial 62 mmHg (80-100)
[2024-09-20 04:33] LABS: ABS Lymphocytes 0.5 10^3/uL (1.0-4.8); ABS Monocytes 0.2 10^3/uL (0.0-1.1); ABS Nucleated RBC 0.01 10^3/ul; Hematocrit 37.8 % (38-53); Hemoglobin 11.8 g/dL (13.2-16.3); Lymphocyte % 6.9 %; Mean Corpuscular Hemoglobin 24.7 pg (27-33); Mean Corpuscular Hgb Conc 31.2 g/dL (31-36); Mean Corpuscular Volume 79.1 fL (80-97); Mean Platelet Volume 7.2 fL (7.5-11.2); Nucleated Red Blood Cells % 0.1 %/100WBC (0.0-0.8); Platelet Count 191 10^3/uL (150-450); Red Blood Count 4.78 10^6/uL (4.06-5.63); White Blood Count 7.8 10^3/uL (3.6-10.2)
[2024-09-20 05:10] LABS: Calcium 8.3 mg/dL (8.6-10.3); Creatinine, Serum 1.2 mg/dL (0.67-1.17); Magnesium 1.7 mg/dL (1.9-2.7); Potassium 4.6 mmol/L (3.5-5.0); eGFR CKD-EPI 67.1 (>60)
[2024-09-20] MEDS: Magnesium Sulfate 2 gm BAG 2 GM/50 ML BAG IVPB ONE ×2 (07:01→10:15)
[2024-09-20] MEDS: Tiotropium Brom/Olodaterol MDI (ACUTE) INH SCH (09:22)
[2024-09-20] MEDS: Aspirin EC 81 mg TAB.EC (enteric coated) PO SCH (10:33)
[2024-09-20] MEDS: Furosemide 40 mg/4 ml IV VIAL IV SCH (10:33)
[2024-09-20 17:20] LABS: Anion Gap 5 mmol/L (2-16); Blood Urea Nitrogen 35 mg/dL (6-24); CO2 Carbon Dioxide 33 mmol/L (22-32); Calcium 8.2 mg/dL (8.6-10.3); Chloride 99 mmol/L (101-111); Creatinine, Serum 1.08 mg/dL (0.67-1.17); Glucose 251 mg/dL (70-100); Sodium 137 mmol/L (135-145); eGFR CKD-EPI 76.2 (>60)
[2024-09-20] MEDS: Furosemide 40 mg/4 ml IV VIAL IV ONE (18:36)
[2024-09-21 01:59] LABS: Potassium 4.7 mmol/L (3.5-5.0)
[2024-09-21 05:00] LABS: ABS Lymphocytes 1.5 10^3/uL (1.0-4.8); ABS Monocytes 0.7 10^3/uL (0.0-1.1); ABS Neutrophils 11.9 10^3/uL (1.5-7.6); ABS Nucleated RBC 0.01 10^3/ul; Eosinophil % 0.2 %; Hematocrit 37.9 % (38-53); Hemoglobin 11.4 g/dL (13.2-16.3); Lymphocyte % 10.4 %; Mean Corpuscular Hemoglobin 23.9 pg (27-33); Mean Corpuscular Hgb Conc 30.2 g/dL (31-36); Mean Corpuscular Volume 79.1 fL (80-97); Nucleated Red Blood Cells % 0.1 %/100WBC (0.0-0.8); Platelet Count 230 10^3/uL (150-450); Red Blood Count 4.79 10^6/uL (4.06-5.63); Red Cell Distribution Width 15.5 % (12-17); White Blood Count 14.1 10^3/uL (3.6-10.2)
[2024-09-21 05:22] LABS: High Sensitivity Troponin 1 Hr 14 pg/mL (<20)
[2024-09-21 05:39] LABS: Calcium 8.3 mg/dL (8.6-10.3); Creatinine, Serum 1.17 mg/dL (0.67-1.17); Potassium 4.5 mmol/L (3.5-5.0); eGFR CKD-EPI 69.2 (>60)
[2024-09-22] MEDS: Nystatin TOP POWDER 15 GM BTL TOPICAL SCH (02:00)
[2024-09-22 06:47] LABS: ABS Basophils 0.1 10^3/uL (0.0-0.1); ABS Eosinophils 0.3 10^3/uL (0.0-0.5); ABS Lymphocytes 2.3 10^3/uL (1.0-4.8); ABS Monocytes 0.9 10^3/uL (0.0-1.1); ABS Neutrophils 7.5 10^3/uL (1.5-7.6); ABS Nucleated RBC 0.01 10^3/ul; Eosinophil % 2.7 %; Hematocrit 37.2 % (38-53); Hemoglobin 11.8 g/dL (13.2-16.3); Lymphocyte % 20.9 %; Mean Corpuscular Hemoglobin 24.8 pg (27-33); Mean Corpuscular Hgb Conc 31.6 g/dL (31-36); Mean Corpuscular Volume 78.4 fL (80-97); Nucleated Red Blood Cells % 0.1 %/100WBC (0.0-0.8); Platelet Count 242 10^3/uL (150-450); Red Blood Count 4.74 10^6/uL (4.06-5.63); Red Cell Distribution Width 15.7 % (12-17)
[2024-09-22 07:14] LABS: Potassium 4.3 mmol/L (3.5-5.0)
[2024-09-22 07:15] LABS: Calcium 8.2 mg/dL (8.6-10.3); Creatinine, Serum 1.04 mg/dL (0.67-1.17); Magnesium 1.6 mg/dL (1.9-2.7); eGFR CKD-EPI 79.7 (>60)
[2024-09-22] MEDS: Magnesium Sulfate 2 gm BAG 2 GM/50 ML BAG IVPB ONE (12:09)
[2024-09-22] MEDS: Furosemide 40 mg/4 ml IV VIAL IV SLOW PU SCH (16:41)
[2024-09-23 06:52] LABS: Calcium 8.1 mg/dL (8.6-10.3); Creatinine, Serum 1.24 mg/dL (0.67-1.17); Potassium 3.8 mmol/L (3.5-5.0); eGFR CKD-EPI 64.5 (>60)
[2024-09-24 07:32] LABS: Creatinine, Serum 1.27 mg/dL (0.67-1.17); Potassium 3.5 mmol/L (3.5-5.0); eGFR CKD-EPI 62.7 (>60)
[2024-09-25 06:58] LABS: Calcium 8.4 mg/dL (8.6-10.3); Creatinine, Serum 1.23 mg/dL (0.67-1.17); Magnesium 1.9 mg/dL (1.9-2.7); Potassium 3.5 mmol/L (3.5-5.0); eGFR CKD-EPI 65.2 (>60)
[2024-09-25 14:14] VITALS: BP 145/67
== END 2024-09-25 15:30 | disposition home or self-care (01) | DRG 291 ==
LOC: ED 10:25 → EDHOLD 13:32 → ICU 17:31 → MED 09-21 12:39
PROVIDERS: ADMIT Student in an Organized Health Care Education/Training Program; ATTEND Student in an Organized Health Care Education/Training Program